=== PATIENT | female | born 1985 | race Caucasian/White ===

== ENCOUNTER → 2019-02-14 20:00 | Outpatient (CLI) | payer MEDICAID, SELFPAY | PROVIDERS: Family Provider Internal Medicine; PCP Internal Medicine; Referring Provider Psychiatry & Neurology Neurology; Visit Provider Psychiatry & Neurology Neurology | DX: G47.33 Obstructive sleep apnea (adult) (pediatric) (principal) | CPT/HCPCS: 95810 ==

== ENCOUNTER → 2019-03-24 16:43 | Outpatient (CLI) | payer MEDICAID, SELFPAY ==
[2018-07-01 14:18] VITALS: BMI 44.6
[2019-03-24 20:26] LABS: Chlamydia Trachomatis by PCR Negative (Negative); Neisserai gonorrhoeae by PCR Negative (Negative); Probe Check PASS; Sample Adequacy Control PASS; Specimen Processing Control PASS
== END ==
PROVIDERS: Visit Provider Obstetrics & Gynecology
DX: Z11.3 Encounter for screening for infections with a predominantly sexual mode of transmission (principal)
CPT/HCPCS: 87491; 87591

== ENCOUNTER → 2019-05-07 07:12 | Outpatient (CLI) | payer MEDICAID, SELFPAY ==
--- NOTE | 2019-05-07 07:25 | MRI_ITS ---
STUDY: MRI BRAIN WITH AND WITHOUT CONTRAST REASON FOR EXAM: Female, 33 years old. Chronic recurrent headaches. TECHNIQUE: Standardized multiplanar fat and water weighted pulse sequences were obtained. 28 IV Dotarem was administered for the contrast portion of the examination. COMPARISON: 05/21/2012 MRI brain. FINDINGS: Normal size of the ventricles and extra-axial spaces for the patient's age. Punctate bifrontal FLAIR/T2 white matter hyperintensities are chronic and unchanged. Normal bilateral basal ganglia. Normal thalami. There is no extra-axial fluid accumulation. Normal flow voids within the major intracranial circulation suggesting patency by spin echo criteria. Normal venous enhancement. There is no enhancing intra-axial or extra-axial abnormality. Normal sella turcica, pituitary gland, infundibular stalk, optic chiasm and hypothalamus. Normal tectal plate and pineal gland. Normal midbrain, rias and medulla. Normal cerebellum. Normal basal cisterns. Normal bilateral temporal bones. Normal bilateral internal auditory canals. No demonstrated orbital abnormality, within the constraints of a routine brain study. Normal visualized paranasal sinuses. Normal calvarium and skull base. Normal visualized soft tissue structures. Normal visualized upper cervical spine. MRI/Brain W/WO Contrast IMPRESSION: No acute or concerning findings. No significant change compared to the previous MRIs. Electronically Signed: Eriberto Lim, at 9:28 EDT Tel , Service support ,
== END ==
PROVIDERS: Family Provider Internal Medicine; PCP Internal Medicine; Referring Provider Psychiatry & Neurology Neurology; Visit Provider Psychiatry & Neurology Neurology
DX: R51 Headache (principal)
CPT/HCPCS: 70553; A9575

== ENCOUNTER 2019-07-15 16:48 | Emergency (ER) | payer MEDICAID, SELFPAY ==
[2019-07-15 16:51] VITALS: BP 161/93; PULSE 96; RESP 14; TEMP 36.4; O2SAT 100; BMI 45.1
--- NOTE | 2019-07-15 16:59 | CT_ITS ---
STUDY: CT ABDOMEN AND PELVIS WITHOUT CONTRAST REASON FOR EXAM: Female, 33 years old. Low mid abdominal pain. History of cholecystectomy and appendectomy. History of IUD. RADIATION DOSAGE (If Supplied By Facility): CTDIvol = ( 24.10 ) mGy, DLP = ( 1378.98 ) mGycm TECHNIQUE: Transaxial images were obtained from the dome of the diaphragm to the symphysis pubis without oral contrast, and without intravenous contrast. Sagittal and coronal images were reconstructed. Individualized dose optimization techniques were used for this CT. COMPARISON: June 01, 2016. FINDINGS: The visualized lung bases are unremarkable. The visualized portions of the heart are within normal limits. Normal liver. There are surgical clips in the gallbladder fossa consistent with a prior cholecystectomy. Normal spleen. Normal pancreas. Normal bilateral adrenal glands. Normal right kidney. Normal left kidney. Normal visualized ureters. Normal visualized stomach. Normal small intestine. There is scattered sigmoid diverticuli without acute inflammatory change. The proximal colon is grossly normal. There are surgical clips in the region of the appendix consistent with a prior appendectomy. Normal abdominal aorta. Normal inferior vena cava. Normal retroperitoneum. Normal urinary bladder. No IUD seen centrally within the otherwise normal-appearing anteverted uterus. There is a prominent left ovary, measuring 6.0 x 4.0 x 4.0 cm normal right adnexa. There is no pelvic lymphadenopathy. No free air or free fluid is seen within the peritoneal cavity. Normal abdominal wall. Normal osseous structures. CT/Abdomen/Pelvis without Cont IMPRESSION: 1. Enlarged left ovary. Question cysts. 2. Interval placement of an IUD within the uterus. 3. Interval appendectomy. 4. No other major interval change. Electronically Signed: Keny Maldonado DO at 18:42 EST Tel [phone], Service support ,
--- NOTE | 2019-07-15 17:07 | ED.VISSUMM ---
- ER Visit Summary Date of Service: 07/15/19 Chief Complaint: Abdominal pain History of Present Illness: The patient is a 33 F presenting with abdominal pain. She states this started approximately 1 hour ago. Pain is in the low mid abdomen. She denies nausea, vomiting, diarrhea. Denies constipation. Denies fever. Denies urinary complaints. She states she ate a normal meal today. Her last menstrual. period was 2 weeks ago. Denies vaginal discharge or bleeding. Denies other complaints. She has a history of previous appendectomy and cholecystectomy. Physical Examination: Vitals are stable. Patient is afebrile. Alert no acute distress. HEENT exam is unremarkable. Neck is supple. Lungs are clear and equal bilaterally. Heart is regular rate and rhythm. Abdomen is soft mild suprapubic tenderness with no guarding or rebound Extremities are unremarkable. Skin is warm and dry. Remainder of exam is unremarkable. Emergency Department Course and Treatment: Patient was given morphine, Zofran IV. CBC, chemistries unremarkable. Urinalysis is normal. hCG negative. CT abdomen pelvis shows enlarged left ovary. Question cysts. Interval placement of an IUD within the uterus. Interval appendectomy. No other major interval change. Pelvic ultrasound shows large complex cystic structure in the left ovary. This would account for the enlarged ovary seen on CT. Normal right ovary. IUD in satisfactory position without evidence of uterine abnormality. On reevaluation, patient is resting comfortably. She is given prescription for naproxen. Advised to follow-up with METAL POLISHER AND BUFFER APPRENTICE. Advised return to ED for worsening complaints. Disposition: Discharge home Impression: Left ovarian cyst This note was generated with [employer] dictation software. It may contain incorrect words, spelling, and punctuation that were not noted in review of the chart prior to signing ED Disposition - Plan for ED Patient: Instructions: Ovarian Cyst Prescriptions: Naproxen [Naprosyn] 500 mg PO BID PRN #20 tab Prescription Printed Referrals: Solis Martino MD [Primary Care Provider] - Lisandra Navarrete MD [STAFF PHYSICIAN] -
[2019-07-15] MEDS: Morphine 4 MG/ML Syringe IV (17:26)
[2019-07-15] MEDS: Ondansetron 4 MG/2 ML Vial IV (17:26)
[2019-07-15 17:29] LABS: Absolute Lymphocyte Count 2.39 X10^3/uL (0.83-4.51); Absolute Neutrophil Count 5.3 X10^3/uL (2.0-7.7); Basophil# 0.03 X10^3/uL; Basophil% 0.4 % (0-1); Eosinophils% 1.2 % (0-5); Hematocrit 42.6 % (37-47); Hemoglobin 13.6 g/dL (12.0-15.0); Lymphocyte # 2.39 X10^3/ul (4.0); Lymphocyte % 28.2 % (19-41); Mean Corp Hgb Conc 31.9 g/dL (32-36); Mean Corpuscular Hgb 28.3 pg (27.0-32.0); Mean Corpuscular Volume 88.6 fL (81-99); Mean Platelet Vol. 10.1 fl (6.2-12.0); Monocyte% 7.1 % (0-10); NRBC Flagged by Analyzer 0 % (0-5); Neutrophil # 5.32 X10^3/uL (2.7-7.7); Neutrophil % 62.6 % (47-70); Platelet Count 287 K/mm3 (150-450); RBC Distribution Width CV 13.2 % (11.6-14.6); RBC Distribution Width SD 42.6 fl (35.1-43.9); Red Blood Count 4.81 M/mm3 (4.2-5.4); White Blood Count 8.5 K/mm3 (4.4-11.0)
[2019-07-15 17:34] LABS: Bacteria 0 SEEN /hpf (None Seen); Mucous, Urine 0 SEEN /hpf (<or=2+); Red Blood Cells-Urine 0 SEEN /hpf (0-5); White Blood Cells 0 SEEN /hpf (0-5)
[2019-07-15 17:35] LABS: Color, Urine Yellow (Yellow); Glucose, Dipstick Normal (Normal); Ketone-Dipstick Negative (Negative); Leukocyte Esterase-Dipstick Negative /ul (Negative); Nitrite-Dipstick Negative (Negative); Occult Blood-Urine Negative /ul (Negative); Protein-Dipstick Negative (Negative); Urine Bilirubin Dipstick Negative (Negative); Urine Clarity Clear (Clear); Urine Urobilinogen Normal (Normal)
[2019-07-15 17:45] LABS: Anion Gap 7 (5-15); BUN 13 mg/dL (7-18); BUN/Creat Ratio 13.6 RATIO (10-20); Calcium,Total 9.1 mg/dL (8.5-10.1); Chloride 107 mmol/L (98-107); Creatinine, Serum 0.96 mg/dL (0.55-1.02); EST Glomerular Filtration Rate 71 mL/min (>60); Est Glom Filt Rate - Afr Amer 86 mL/min (>60); Estimated Creatinine Clearance 90.13 ml/min; Glucose 76 mg/dL (74-106); Potassium 3.8 mmol/L (3.5-5.1); Sodium Level 140 mmol/L (136-145)
[2019-07-15 17:46] LABS: Squamous Epithelial Cells - UA 0-5 SEEN /hpf (5-10)
[2019-07-15 18:04] LABS: Internal QC Validated? YES +Cl - CLEAR BKGD; Pregnancy, Serum, hCG Quali. NEGATIVE Negative
--- NOTE | 2019-07-15 18:48 | US_ITS ---
STUDY: ULTRASOUND OF THE FEMALE PELVIS - COMPLETE REASON FOR EXAM: Female, 33 years old. Severe midline pelvic pain which is no improving. LMP: June 27, 2019. TECHNIQUE: Transvaginal TECHNICAL QUALITY: Adequate. COMPARISON: CT of the abdomen and pelvis, July 15, 2019. FINDINGS: The uterus is anteverted and is in a midline position. The uterus measures 8.1 x 5.1 x 3.4 cm. There is a Nabothian cyst of the cervix. The endometrium measures 9 mm in thickness, and is hyperechoic. There is no demonstrated endometrial mass. There is no demonstrated myometrial mass. There is no IUD in satisfactory position within the fundal endometrium. The right ovary is visualized. The right ovary measures 3.1 x 2.5 x 1.7 cm. There are multiple follicles of the right ovary with a dominant 1.1 cm follicle. There is no visualized right adnexal mass or complex lesion. There is normal arterial and normal venous vascularity. The left ovary is visualized. The left ovary measures 4.9 x 4.5 x 3.8 cm. There is a complex 4.1 x 3.6 x 3.2 cm cystic structure in the ovary. There is no visualized left adnexal mass or complex lesion. There is normal arterial and normal venous vascularity. There is no fluid in the cul-de-sac. Polycystic ovary disease: No. US/Transvaginal Non- IMPRESSION: 1. Large complex cystic structure in the left ovary. This would account for the enlarged ovary seen on CT. 2. Normal right ovary. 3. IUD in satisfactory position without evidence of uterine abnormality. Electronically Signed: Keny Maldonado DO at 19:40 EST Tel [phone], Service support ,
[2019-07-15 19:00] VITALS: BP 150/91; PULSE 86; RESP 14; O2SAT 100
--- NOTE | 2019-07-15 20:06 | ED.DEP ---
ED Disposition - Plan for ED Patient: Instructions: Ovarian Cyst Prescriptions: Naproxen [Naprosyn] 500 mg PO BID PRN #20 tablet Referrals: Solis Martino MD [Primary Care Provider] - Lisandra Navarrete MD [STAFF PHYSICIAN] -
[2019-07-15 20:20] VITALS: BP 132/97; PULSE 78; RESP 14; O2SAT 98
== END 2019-07-15 20:20 | disposition home or self-care (01) ==
LOC: ED 17:06
PROVIDERS: Emergency Provider Emergency Medicine; Family Provider Internal Medicine; PCP Internal Medicine
DX: N83.202 Unspecified ovarian cyst, left side (principal); Z90.49 Acquired absence of other specified parts of digestive tract; Z97.5 Presence of (intrauterine) contraceptive device
CPT/HCPCS: 74176; 76830; 80048; 81001; 84703; 85025; 93976; 96374; 96375; 99285; A4216; J2405

== ENCOUNTER → 2019-09-23 13:59 | Outpatient (CLI) | payer MEDICAID, SELFPAY ==
--- NOTE | 2019-09-23 14:01 | US_ITS ---
HISTORY: Left ovarian cyst. IUD. Exam is 65 endovaginal images of the pelvis. A single endovaginal cine clip is present of the left adnexa. The transabdominal pelvic ultrasound has been performed, but is not part of this dictation but is available for comparison. A previous endovaginal ultrasound is from July 15, 2019. A hemorrhagic follicle versus endometrioma was present on the left ovary at that time. A CT scan of the abdomen and pelvis is also available from July 15, 2019 demonstrated the enlargement of the left ovary. The CT scan is also available from June 01, 2016, which failed to demonstrate any enlargement left ovary. Findings: Exophytic to the left ovary is an anechoic structure with well-defined margins and increased through transmission. It measures 1.5 x 1.4 x 1.5 cm, and is consistent with a benign simple cyst. Within the left ovary there is a more complex area of tissue measuring 1.5 x 1 point to buy 0.8 cm. This could be several adjacent follicles. Overall the left ovary is measured at 2.7 x 1.8 x 2.2 cm. This measurement does not include the exophytic lateral inferior left ovarian simple cyst. Color and pulse-wave Doppler imaging demonstrate arterial flow to left ovarian parenchyma. The right ovary measures 3.2 x 2.5 x 2.1 cm. The right ovary contains normal-appearing follicles. Color Doppler imaging suggests flow within the right ovarian parenchyma. Pulse-wave Doppler imaging suggests arterial flow within the right ovarian parenchyma. The cervix is closed. An IUD is present within the region of the endometrial canal. The uterus measures 8.6 x 4 x 4.9 cm. There are no fluid collections or large masses. US/Pelvic (Non ) IMPRESSION: The lesion that appeared to be a hematoma within the left ovary from the previous study of July 15, 2019 is no longer identified. It is possible that this lesion has completely resolved, and the patient has developed an exophytic follicle on the left ovary. It is also feasible that the lesion has shrunken in size and converted to a benign simple cyst exophytic to the left ovary. Additional follicles are present on both ovaries. at 0500 Reported and signed by: Hector Mary MD Electronically Signed: Hector Mary MD at 4:59 EST Tel , Service support ,
--- NOTE | 2019-09-23 14:48 | US_ITS ---
HISTORY: Left ovarian cyst. IUD. Exam is 65 endovaginal images of the pelvis. A single endovaginal cine clip is present of the left adnexa. The transabdominal pelvic ultrasound has been performed, but is not part of this dictation but is available for comparison. A previous endovaginal ultrasound is from July 15, 2019. A hemorrhagic follicle versus endometrioma was present on the left ovary at that time. A CT scan of the abdomen and pelvis is also available from July 15, 2019 demonstrated the enlargement of the left ovary. The CT scan is also available from June 01, 2016, which failed to demonstrate any enlargement left ovary. Findings: Exophytic to the left ovary is an anechoic structure with well-defined margins and increased through transmission. It measures 1.5 x 1.4 x 1.5 cm, and is consistent with a benign simple cyst. Within the left ovary there is a more complex area of tissue measuring 1.5 x 1 point to buy 0.8 cm. This could be several adjacent follicles. Overall the left ovary is measured at 2.7 x 1.8 x 2.2 cm. This measurement does not include the exophytic lateral inferior left ovarian simple cyst. Color and pulse-wave Doppler imaging demonstrate arterial flow to left ovarian parenchyma. The right ovary measures 3.2 x 2.5 x 2.1 cm. The right ovary contains normal-appearing follicles. Color Doppler imaging suggests flow within the right ovarian parenchyma. Pulse-wave Doppler imaging suggests arterial flow within the right ovarian parenchyma. The cervix is closed. An IUD is present within the region of the endometrial canal. The uterus measures 8.6 x 4 x 4.9 cm. There are no fluid collections or large masses. US/Transvaginal Non- IMPRESSION: The lesion that appeared to be a hematoma within the left ovary from the previous study of July 15, 2019 is no longer identified. It is possible that this lesion has completely resolved, and the patient has developed an exophytic follicle on the left ovary. It is also feasible that the lesion has shrunken in size and converted to a benign simple cyst exophytic to the left ovary. Additional follicles are present on both ovaries. at 0500 Reported and signed by: Hector Mary MD Electronically Signed: Hector Mary MD at 4:59 EST Tel , Service support ,
== END ==
PROVIDERS: Family Provider Internal Medicine; PCP Internal Medicine; Referring Provider Obstetrics & Gynecology; Visit Provider Obstetrics & Gynecology
DX: N83.202 Unspecified ovarian cyst, left side (principal); R10.2 Pelvic and perineal pain
CPT/HCPCS: 76830; 76856; 93976

== ENCOUNTER → 2020-02-27 15:21 | Outpatient (CLI) | payer MEDICAID, SELFPAY ==
[2020-02-27 14:55] VITALS: BMI 45.1
[2020-02-27 17:05] LABS: Absolute Lymphocyte Count 1.95 X10^3/uL (0.83-4.51); Absolute Neutrophil Count 5.8 X10^3/uL (2.0-7.7); Basophil# 0.03 X10^3/uL; Basophil% 0.4 % (0-1); Eosinophil# 0.04 X10^3/uL; Eosinophils% 0.5 % (0-5); Hematocrit 38.2 % (37-47); Lymphocyte # 1.95 X10^3/ul (4.0); Lymphocyte % 23.1 % (19-41); Mean Corp Hgb Conc 31.4 g/dL (32-36); Mean Corpuscular Hgb 28.2 pg (27.0-32.0); Mean Corpuscular Volume 89.7 fL (81-99); Mean Platelet Vol. 10.5 fl (6.2-12.0); Monocyte# 0.64 X10^3/uL; Monocyte% 7.6 % (0-10); NRBC Flagged by Analyzer 0 % (0-5); Neutrophil # 5.75 X10^3/uL (2.7-7.7); Neutrophil % 68.2 % (47-70); Platelet Count 305 K/mm3 (150-450); RBC Distribution Width SD 45.4 fl (35.1-43.9); Red Blood Count 4.26 M/mm3 (4.2-5.4); White Blood Count 8.4 K/mm3 (4.4-11.0)
[2020-02-27 17:33] LABS: T4 Free Direct 1.11 ng/dL (0.76-1.46); Thyroid Stim Hormone (TSH) 1.58 uIU/mL (0.358-3.74)
== END ==
PROVIDERS: PCP Internal Medicine; Referring Provider Internal Medicine; Visit Provider Internal Medicine
DX: F41.9 Anxiety disorder, unspecified (principal); F32.9 Major depressive disorder, single episode, unspecified
CPT/HCPCS: 36415; 84439; 84443; 85025

== ENCOUNTER 2020-05-14 14:00 | Emergency (ER) | payer MEDICAID, SELFPAY ==
[2020-05-05 14:09] VITALS: BMI 45.1
[2020-05-14 14:01] VITALS: BP 141/101; PULSE 92; RESP 16; TEMP 36.4; O2SAT 98; BMI 47.6
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
--- NOTE | 2020-05-14 15:35 | CM.ED ---
SOCIAL WORK Safety plan completed with patient and patient's mother. Received call back from Zandra Shipley with Odette Fleming while in patient's room. Per Zandra, patient's provider who completed intake went on medical leave May 11. Zandra states patient can call provider, Zoya to set up appointment. Patient to call Zoya at this time, contact numbers provided. Plan: Home, Safety Plan completed. Patient to follow up with Odette Pemberton, BULLET SWAGING MACHINE ADJUSTER, SHIP ENGINEER
== END 2020-05-14 15:46 | disposition home or self-care (01) ==
LOC: ED 15:24
PROVIDERS: Emergency Provider Emergency Medicine; PCP Internal Medicine
DX: F32.9 Major depressive disorder, single episode, unspecified (principal); R45.851 Suicidal ideations; R51 Headache
CPT/HCPCS: 99282

== ENCOUNTER → 2020-08-03 14:46 | Outpatient (CLI) | payer MEDICAID, SELFPAY ==
[2020-06-30 14:02] VITALS: BMI 47.4
[2020-08-07 03:06] LABS: Chlamydia By Nucleic Acid AMP Negative (Negative)
[2020-08-07 08:04] LABS: Gonococcus By Nucleic Acid AMP Negative (Negative)
[2020-08-10 15:24] LABS: HPV APTIMA, High Risk Negative (Negative)
== END ==
PROVIDERS: PCP Internal Medicine; Visit Provider Obstetrics & Gynecology
DX: Z12.4 Encounter for screening for malignant neoplasm of cervix (principal); Z11.3 Encounter for screening for infections with a predominantly sexual mode of transmission
CPT/HCPCS: 87491; 87591; 87624; 88175; G0145

== ENCOUNTER → 2020-08-30 15:15 | Outpatient (CLI) | payer MEDICAID, SELFPAY ==
[2020-08-30 14:58] VITALS: BMI 47.2
[2020-08-30 17:11] LABS: Absolute Lymphocyte Count 2.22 X10^3/uL (0.83-4.51); Absolute Neutrophil Count 5.2 X10^3/uL (2.0-7.7); Basophil# 0.04 X10^3/uL; Basophil% 0.5 % (0-1); Eosinophil# 0.07 X10^3/uL; Eosinophils% 0.9 % (0-5); Hematocrit 38.9 % (37-47); Lymphocyte # 2.22 X10^3/ul (4.0); Lymphocyte % 27.4 % (19-41); Mean Corp Hgb Conc 33.4 g/dL (32-36); Mean Corpuscular Hgb 29.6 pg (27.0-32.0); Mean Corpuscular Volume 88.6 fL (81-99); Mean Platelet Vol. 10.7 fl (6.2-12.0); Monocyte% 7.4 % (0-10); NRBC Flagged by Analyzer 0 % (0-5); Neutrophil # 5.15 X10^3/uL (2.7-7.7); Neutrophil % 63.6 % (47-70); Platelet Count 278 K/mm3 (150-450); RBC Distribution Width CV 15.7 % (11.6-14.6); RBC Distribution Width SD 44.3 fl (35.1-43.9); Red Blood Count 4.39 M/mm3 (4.2-5.4); White Blood Count 8.1 K/mm3 (4.4-11.0)
[2020-08-30 17:24] LABS: ALB/GLOB Ratio 0.9 RATIO (0.9-2.4); AST(SGOT) 17 U/L (15-37); Alanine Aminotransfer ALT/SGPT 28 U/L (13-56); Albumin, Serum 3.6 g/dL (3.2-5.0); Alkaline Phosphatase 80 U/L (45-117); Anion Gap 8 (5-15); BUN 15 mg/dL (7-18); Chloride 108 mmol/L (98-107); Cholesterol 151 mg/dL (200); EST Glomerular Filtration Rate 67 mL/min (>60); Est Glom Filt Rate - Afr Amer 82 mL/min (>60); Globulin 3.8 g/dL (2.2-4.2); Glucose 86 mg/dL (74-106); High Density Lipoprotein 43 mg/dL; Protein, Total 7.4 g/dL (6.4-8.2); Sodium Level 141 mmol/L (136-145); Triglycerides 200 mg/dL; Very Low Density Lipoprotein 40 mg/dL (5-40)
== END ==
PROVIDERS: PCP Internal Medicine; Visit Provider Internal Medicine
DX: I10 Essential (primary) hypertension (principal); F41.9 Anxiety disorder, unspecified; F32.9 Major depressive disorder, single episode, unspecified
CPT/HCPCS: 36415; 80053; 80061; 85025

== ENCOUNTER 2021-07-04 14:00 | Outpatient (RCR) | payer MEDICAID, SELFPAY ==
--- NOTE | 2021-05-23 17:13 | HP.PTEVAL_ITS ---
Patient's Visit Information PATO PASTRANA is a 35 year old F referred to Physical Therapy by OPAL Ghotra with a diagnosis of R knee pain. Date of Evaluation: 05/23/21 Physical Therapist: Santos Chiang, PT, ATC - Visit Plan Frequency: 2-3x /Week Duration: 4-6 Weeks Plan: R LE stretching and strengthening, core stab ex's, balance and proprio, nustep, and HEP - Subjective Pt reports her R knee has been sore for about 3 months. Pt reports her pain had an insidious onset in nature. Pt reports she has had a steroids which took some of her pain away, but the pain returned. Pt reports she is limited with all of her sit to stand and car transfers. Pt also notes stair negotiation and riding a bike is very difficult secondary to pain. Pt denies tingling and numbness in L LE. Pt reports occasional sleep difficulty secondary to pain. Pt reports she has not had any Dx tests at this time. 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 Pt reports her R knee will give out on her sometimes. Pt also notes it will lock up and pop on her. 0/10 pain at rest, 10/10 pain at worst. - Pain R knee Pain Intensity (Out of 10): 0 Pain Intensity Range: 10 - Objective Neuro: B LE sensation is WNL to light touch. Palpation: significant crepitus with AROM. No obvious deformity noted at this time. Girth at joint line: L knee 48 cm, R knee 52 cm. ROM: L knee 0-3-122. R knee 0-5-120. MMT: L knee is 5/5 throughout. R knee flex= 5/5, ext= 4/5 and is painful. Special tests: pos 90/90. - Balance/Special Test Scores Lower Extremity Functional Score: 50 - Goals Goal 1:: Decrease R knee pain x 50% to aid with sleep Goal Time Frame: 4-6 Weeks Goal 2:: Increase R knee strength x 1 grade to aid with stair negotiation Goal Time Frame: 4-6 Weeks Goal 3:: I with HEP Goal Time Frame: 4-6 Weeks - Rehabilitation Potential Physical Therapy Diagnosis: Pt has R knee pain, weakness, and limited ROM secondary to Patello-femoral syndrome Rehabilitation Potential: Good - Anticipated Interventions Patient/Client Instruction: Educate patient on: Condition, Plan of Care For the Purpose of:: To improve self management Therapeutic Exercise to Include: Strength training, Endurance training, Balance training, Flexibilty training, Gait and locomotor training, Passive ROM, Active ROM, Dynamic Lumbar Stabilization For the Purpose of:: To decrease pain, To improve muscle performance and motor function Cryotherapy (ice pack, ice massage): Yes For the Purpose of:: To decrease pain Thank you for the opportunity to evaluate your patient. For Medicare and Medicare HMO plans, please review the plan of care and approve it. It will need to be FAXED BACK to us at [phone] for Medicare purposes. For Medicare only, by signing this I certify the plan of care. Please let me know if there are questions or concerns regarding this plan of care. Physician Signature: Date:
--- NOTE | 2021-07-04 14:24 | HP.PTDCSUM ---
It has been my pleasure to treat PATO PASTRANA referred by Bruce Sunshine NP-C, with the diagnosis of R knee pain for a total of 14 visit(s). Discharge Date: Please see the following information for a summary of their discharge status. Subjective: Pt reports she feels like she has really improved up til now. R knee Pain Intensity (Out of 10): 0 % Improvement: 80 Objective/Function: R knee pain 0/10. R knee MMT: 5/5 throughout. Pt is now I with HEP. Rx goals achieved Goal 1:: Decrease R knee pain x 50% to aid with sleep Goal Progress: Goal Met Goal 2:: Increase R knee strength x 1 grade to aid with stair negotiation Goal Progress: Goal Met Goal 3:: I with HEP Goal Progress: Goal Met Plan: Discharge to HEP If there are questions or concerns regarding this patient's physical therapy, please feel free to call me at [phone]. Thank you for the referral of this patient. Sincerely, Santos Chiang, PT, ATC Balance/Gait/Functional tests - Balance/Special Test Scores Lower Extremity Functional Score: 78
== END 2021-07-04 19:00 | disposition home or self-care (01) ==
LOC: PT 14:00
PROVIDERS: PCP Internal Medicine; Referring Provider Nurse Practitioner Family; Visit Provider Nurse Practitioner Family
DX: M25.561 Pain in right knee (principal)
CPT/HCPCS: 97110; 97161; 97164

== ENCOUNTER → 2021-08-12 14:19 | Outpatient (CLI) | payer MEDICAID, SELFPAY ==
[2021-08-12 15:08] LABS: Absolute Lymphocyte Count 1.67 X10^3/uL (0.83-4.51); Absolute Neutrophil Count 4.2 X10^3/uL (2.0-7.7); Basophil# 0.01 X10^3/uL; Basophil% 0.2 % (0-1); Eosinophil# 0.01 X10^3/uL; Eosinophils% 0.2 % (0-5); Hematocrit 36.1 % (37-47); Hemoglobin 11.9 g/dL (12.0-15.0); Lymphocyte # 1.67 X10^3/ul (0.83-4.51); Lymphocyte % 26.3 % (19-41); Mean Corpuscular Hgb 29.2 pg (27.0-32.0); Mean Corpuscular Volume 88.5 fL (81-99); Mean Platelet Vol. 10.4 fl (6.2-12.0); Monocyte# 0.42 X10^3/uL; Monocyte% 6.6 % (0-10); NRBC Flagged by Analyzer 0 % (0-5); Neutrophil # 4.22 X10^3/uL (2.7-7.7); Neutrophil % 66.4 % (47-70); Platelet Count 273 K/mm3 (150-450); RBC Distribution Width CV 13.2 % (11.6-14.6); RBC Distribution Width SD 41.8 fl (35.1-43.9); Red Blood Count 4.08 M/mm3 (4.2-5.4); White Blood Count 6.4 K/mm3 (4.4-11.0)
[2021-08-12 15:41] LABS: ALB/GLOB Ratio 0.9 RATIO (0.9-2.4); AST(SGOT) 23 U/L (15-37); Alanine Aminotransfer ALT/SGPT 28 U/L (13-56); Albumin, Serum 3.6 g/dL (3.2-5.0); Alkaline Phosphatase 75 U/L (45-117); Anion Gap 6 (5-15); BUN 14 mg/dL (7-18); BUN/Creat Ratio 14.5 RATIO (10-20); Calcium,Total 9.4 mg/dL (8.5-10.1); Chloride 109 mmol/L (98-107); Cholesterol 155 mg/dL (200); Creatinine, Serum 0.96 mg/dL (0.55-1.02); EST Glomerular Filtration Rate 70 mL/min (>60); Est Glom Filt Rate - Afr Amer 84 mL/min (>60); Globulin 3.8 g/dL (2.2-4.2); Glucose 100 mg/dL (74-106); High Density Lipoprotein 49 mg/dL; Potassium 3.6 mmol/L (3.5-5.1); Protein, Total 7.4 g/dL (6.4-8.2); Sodium Level 141 mmol/L (136-145); Triglycerides 61 mg/dL; Very Low Density Lipoprotein 12 mg/dL (5-40)
[2021-08-12 16:55] LABS: Thyroid Stim Hormone (TSH) 1.81 uIU/mL (0.358-3.74)
== END ==
PROVIDERS: PCP Internal Medicine; Referring Provider Nurse Practitioner Family; Visit Provider Nurse Practitioner Family
DX: F41.9 Anxiety disorder, unspecified (principal); F32.9 Major depressive disorder, single episode, unspecified; I10 Essential (primary) hypertension; G43.909 Migraine, unspecified, not intractable, without status migrainosus
CPT/HCPCS: 36415; 80053; 80061; 84443; 85025; 86376; 86800

== ENCOUNTER → 2021-12-06 14:50 | Outpatient (CLI) | payer MEDICAID, SELFPAY ==
[2021-12-06 16:21] LABS: T3 Uptake 31 % (30-39); T4 Free Direct 1.26 ng/dL (0.76-1.46); T4 Total, Thyroxin 12.1 ug/dL (4.8-13.9); T7 / Free Thyroxin Index 3.8 (1.4-4.5); Thyroid Stim Hormone (TSH) 1.97 uIU/mL (0.358-3.74)
== END ==
PROVIDERS: PCP Internal Medicine
DX: F09 Unspecified mental disorder due to known physiological condition (principal)
CPT/HCPCS: 36415; 84436; 84439; 84443; 84479

== ENCOUNTER → 2022-06-12 | Outpatient (CLI) | payer MEDICAID, SELFPAY ==
[2022-06-12 15:28] LABS: Mucous, Urine 0 SEEN /hpf (<or=2+)
[2022-06-12 16:59] LABS: Color, Urine Yellow (Yellow); Glucose, Dipstick Normal (Normal); Ketone-Dipstick 5 mg/dl (Negative); Leukocyte Esterase-Dipstick 500 /ul (Negative); Nitrite-Dipstick Negative (Negative); Occult Blood-Urine 50 /ul (Negative); Protein-Dipstick 30 mg/dl (Negative); Specific Gravity, Urine 1.025 (1.002-1.030); Urine Bilirubin Dipstick Negative (Negative); Urine Clarity Sl. Cloudy (Clear); Urine Urobilinogen Normal (Normal)
[2022-06-12 17:13] LABS: Bacteria 1+ /hpf (None Seen); Red Blood Cells-Urine 0-5 SEEN /hpf (0-5); Squamous Epithelial Cells - UA 0-5 SEEN /hpf (5-10); White Blood Cells 5-10 SEEN /hpf (0-5)
== END | disposition home or self-care (01) ==
LOC: LABSPEC 15:25
PROVIDERS: PCP Internal Medicine; Referring Provider Physician Assistant; Visit Provider Physician Assistant
DX: R39.9 Unspecified symptoms and signs involving the genitourinary system (principal)
CPT/HCPCS: 81001; 87086; 87088

== ENCOUNTER → 2022-06-14 | Outpatient (CLI) | payer MEDICAID, SELFPAY ==
[2022-06-14 15:37] LABS: Mucous, Urine 0 SEEN /hpf (<or=2+); Red Blood Cells-Urine 0 SEEN /hpf (0-5)
[2022-06-14 16:38] LABS: Color, Urine Straw (Yellow); Glucose, Dipstick Normal (Normal); Ketone-Dipstick Negative (Negative); Leukocyte Esterase-Dipstick 500 /ul (Negative); Nitrite-Dipstick Negative (Negative); Occult Blood-Urine Negative /ul (Negative); Protein-Dipstick Negative (Negative); Urine Bilirubin Dipstick Negative (Negative); Urine Clarity Clear (Clear); Urine Urobilinogen Normal (Normal)
[2022-06-14 17:05] LABS: Bacteria 2+ /hpf (None Seen); Squamous Epithelial Cells - UA 0-5 SEEN /hpf (5-10); White Blood Cells 5-10 SEEN /hpf (0-5)
== END | disposition home or self-care (01) ==
LOC: LABSPEC 15:36
PROVIDERS: PCP Internal Medicine; Referring Provider Physician Assistant; Visit Provider Physician Assistant
DX: R39.15 Urgency of urination (principal); R35.0 Frequency of micturition
CPT/HCPCS: 81001; 87086; 87088

== ENCOUNTER → 2022-08-30 | Outpatient (CLI) | payer MEDICAID, SELFPAY ==
[2022-08-30 15:33] LABS: Absolute Lymphocyte Count 1.63 X10^3/uL (0.83-4.51); Absolute Neutrophil Count 2.8 X10^3/uL (2.0-7.7); Basophil# 0.02 X10^3/uL; Basophil% 0.4 % (0-1); Eosinophil# 0.03 X10^3/uL; Eosinophils% 0.6 % (0-5); Hematocrit 42.4 % (37-47); Hemoglobin 13.1 g/dL (12.0-15.0); Lymphocyte # 1.63 X10^3/ul (0.83-4.51); Mean Corp Hgb Conc 30.9 g/dL (32-36); Mean Corpuscular Hgb 27.5 pg (27.0-32.0); Mean Corpuscular Volume 89.1 fL (81-99); Mean Platelet Vol. 10.8 fl (6.2-12.0); Monocyte# 0.46 X10^3/uL; Monocyte% 9.3 % (0-10); NRBC Flagged by Analyzer 0 % (0-5); Neutrophil # 2.79 X10^3/uL (2.7-7.7); Neutrophil % 56.5 % (47-70); Platelet Count 287 K/mm3 (150-450); RBC Distribution Width CV 13.5 % (11.6-14.6); RBC Distribution Width SD 44.1 fl (35.1-43.9); Red Blood Count 4.76 M/mm3 (4.2-5.4); White Blood Count 4.9 K/mm3 (4.4-11.0)
[2022-08-30 16:02] LABS: Anion Gap 5 (5-15); BUN 17 mg/dL (7-18); BUN/Creat Ratio 22.3 RATIO (10-20); Calcium,Total 9.2 mg/dL (8.5-10.1); Chloride 106 mmol/L (98-107); Cholesterol 168 mg/dL (200); Creatinine, Serum 0.76 mg/dL (0.55-1.02); EST Glomerular Filtration Rate 91 mL/min (>60); Est Glom Filt Rate - Afr Amer 110 mL/min (>60); Glucose 91 mg/dL (74-106); High Density Lipoprotein 50 mg/dL; Potassium 4.4 mmol/L (3.5-5.1); Sodium Level 138 mmol/L (136-145); Thyroid Stim Hormone (TSH) 1.56 uIU/mL (0.358-3.74); Triglycerides 79 mg/dL; Very Low Density Lipoprotein 16 mg/dL (5-40)
== END | disposition home or self-care (01) ==
LOC: BIMLAB 10:42
PROVIDERS: PCP Internal Medicine; Referring Provider Nurse Practitioner Family; Visit Provider Nurse Practitioner Family
DX: Z00.00 Encounter for general adult medical examination without abnormal findings (principal); I10 Essential (primary) hypertension; F41.9 Anxiety disorder, unspecified; F32.9 Major depressive disorder, single episode, unspecified
CPT/HCPCS: 36415; 80048; 80061; 84443; 85025

== ENCOUNTER → 2022-11-14 | Outpatient (CLI) | payer MEDICAID, SELFPAY ==
[2022-11-14 17:01] LABS: Absolute Lymphocyte Count 2.05 X10^3/uL (0.83-4.51); Absolute Neutrophil Count 6.1 X10^3/uL (2.0-7.7); Basophil# 0.03 X10^3/uL; Basophil% 0.3 % (0-1); Eosinophil# 0.02 X10^3/uL; Eosinophils% 0.2 % (0-5); Hematocrit 40.8 % (37-47); Hemoglobin 13.1 g/dL (12.0-15.0); Lymphocyte # 2.05 X10^3/ul (0.83-4.51); Lymphocyte % 23.3 % (19-41); Mean Corp Hgb Conc 32.1 g/dL (32-36); Mean Corpuscular Hgb 27.9 pg (27.0-32.0); Mean Corpuscular Volume 86.8 fL (81-99); Monocyte# 0.59 X10^3/uL; Monocyte% 6.7 % (0-10); NRBC Flagged by Analyzer 0 % (0-5); Neutrophil # 6.09 X10^3/uL (2.7-7.7); Neutrophil % 69.2 % (47-70); Platelet Count 326 K/mm3 (150-450); RBC Distribution Width CV 13.4 % (11.6-14.6); RBC Distribution Width SD 41.9 fl (35.1-43.9); White Blood Count 8.8 K/mm3 (4.4-11.0)
[2022-11-14 17:22] LABS: Thyroid Stim Hormone (TSH) 2.36 uIU/mL (0.358-3.74)
== END | disposition home or self-care (01) ==
LOC: LAB 16:10
PROVIDERS: PCP Internal Medicine; Visit Provider Nurse Practitioner Women's Health
DX: N92.1 Excessive and frequent menstruation with irregular cycle (principal); Z13.29 Encounter for screening for other suspected endocrine disorder
CPT/HCPCS: 36415; 84443; 85025

== ENCOUNTER → 2022-11-21 | Outpatient (CLI) | payer MEDICAID, SELFPAY ==
--- NOTE | 2022-11-21 14:00 | EMB_PTH ---
PATIENT: PATO PASTRANA LOC: [facility] U#:[id number] AGE/SX: 37/F ROOM: RE11/21/[address]: OPAL Piedra : 1985 BED: DIS: 11/21/2022 SPEC #: [id number] RECD: 11/21/22 15:24 STATUS: JOSE MANUEL REAta #: [id number] EWELINA: 11/21/22 14:[address]: Sandrita Carnes NP DEPT: SURGICAL PATHOLOGY RECD BY: Aneta Louis ENTERED: 11/22/22 08:00 SP TYPE: ENDOM BX/C SHAE DR: Dr. Solis Martino MD Tissues: Endometrium, NOS Procedures: Surgery Specimen Level IV HEADER OPERATION: Endometrial biopsy PRE-OP DIAGNOSIS: Abnormal uterine bleeding TISSUE SUBMITTED: Endometrial tissue on Aygestin MICROSCOPIC DIAGNOSIS Endometrial biopsy: Weakly secretory endometrium. SJ:miroslava 11/23/2022 MICROSCOPIC DESCRIPTION Slides are reviewed. GROSS DESCRIPTION Received is one container labeled with the patient's name and not further designated. The specimen consists of multiple fragments of hemorrhagic soft tissue mixed with mucoid tissue that in aggregate measure 3.0 x 2.5 x 0.2 cm. The specimen is totally submitted in one cassette. / SJ:rg 11/22/2022 TC:5 CPT: 88012
== END | disposition home or self-care (01) ==
LOC: LABSPEC 15:34
PROVIDERS: PCP Internal Medicine; Visit Provider Nurse Practitioner Women's Health
DX: N93.9 Abnormal uterine and vaginal bleeding, unspecified (principal)
CPT/HCPCS: 88305

== ENCOUNTER → 2022-11-22 | Outpatient (CLI) | payer MEDICAID, SELFPAY ==
--- NOTE | 2022-11-22 14:19 | US_ITS ---
STUDY: ULTRASOUND OF THE FEMALE PELVIS - COMPLETE REASON FOR EXAM: Female, 37 years old. bleeding LMP: 11/01/2022 TECHNIQUE: Transabdominal and Transvaginal TECHNICAL QUALITY: Adequate. COMPARISON: None. FINDINGS: The uterus is anteverted and is in a midline position. The uterus measures 8.7 x 4.9 x 5.2 cm. Normal uterine cervix. The endometrium measures 7 mm in thickness, and is hyperechoic. There is no demonstrated endometrial mass. There is no demonstrated myometrial mass. I.U.D. - The patient does have an I.U.D. IUD noted in satisfactory position The right ovary is visualized. The right ovary measures 2.0 x 1.7 x 1.2 cm. There is no right ovarian cyst or ovarian mass. There is no visualized right adnexal mass or complex lesion. There is normal arterial and normal venous vascularity. The left ovary is visualized. The left ovary measures 2.3 x 2.0 x 1.5 cm. There is a simple 1.4 cm paraovarian cyst. . There is normal arterial and normal venous vascularity. There is no fluid in the cul-de-sac. The bladder is completely distended US/Pelvic (Non ) IMPRESSION: Sonographically normal uterus containing an IUD in satisfactory position Simple left paraovarian cyst, no specific follow-up needed Electronically Signed: Charlie Morris MD at 16:00 EDT ,
--- NOTE | 2022-11-22 14:19 | US_ITS ---
STUDY: ULTRASOUND OF THE FEMALE PELVIS - COMPLETE REASON FOR EXAM: Female, 37 years old. bleeding LMP: 11/01/2022 TECHNIQUE: Transabdominal and Transvaginal TECHNICAL QUALITY: Adequate. COMPARISON: None. FINDINGS: The uterus is anteverted and is in a midline position. The uterus measures 8.7 x 4.9 x 5.2 cm. Normal uterine cervix. The endometrium measures 7 mm in thickness, and is hyperechoic. There is no demonstrated endometrial mass. There is no demonstrated myometrial mass. I.U.D. - The patient does have an I.U.D. IUD noted in satisfactory position The right ovary is visualized. The right ovary measures 2.0 x 1.7 x 1.2 cm. There is no right ovarian cyst or ovarian mass. There is no visualized right adnexal mass or complex lesion. There is normal arterial and normal venous vascularity. The left ovary is visualized. The left ovary measures 2.3 x 2.0 x 1.5 cm. There is a simple 1.4 cm paraovarian cyst. . There is normal arterial and normal venous vascularity. There is no fluid in the cul-de-sac. The bladder is completely distended US/Transvaginal Non- IMPRESSION: Sonographically normal uterus containing an IUD in satisfactory position Simple left paraovarian cyst, no specific follow-up needed Electronically Signed: Charlie Morris MD at 16:00 EDT ,
== END | disposition home or self-care (01) ==
LOC: US 14:18
PROVIDERS: PCP Internal Medicine; Referring Provider Nurse Practitioner Women's Health; Visit Provider Nurse Practitioner Women's Health
DX: N92.1 Excessive and frequent menstruation with irregular cycle (principal)
CPT/HCPCS: 76830; 76856

== ENCOUNTER → 2023-02-26 | Outpatient (CLI) | payer MEDICAID, SELFPAY ==
[2023-02-26 12:22] LABS: Erythrocyte Sedimentation Rate 16 mm/hr (0-30)
[2023-02-26 12:45] LABS: Absolute Lymphocyte Count 1.77 X10^3/uL (0.83-4.51); Absolute Neutrophil Count 3.5 X10^3/uL (2.0-7.7); Basophil# 0.02 X10^3/uL; Basophil% 0.3 % (0-1); Eosinophil# 0.05 X10^3/uL; Eosinophils% 0.8 % (0-5); Hematocrit 43.1 % (37-47); Hemoglobin 13.5 g/dL (12.0-15.0); Lymphocyte # 1.77 X10^3/ul (0.83-4.51); Lymphocyte % 29.9 % (19-41); Mean Corp Hgb Conc 31.3 g/dL (32-36); Mean Corpuscular Hgb 27.7 pg (27.0-32.0); Mean Corpuscular Volume 88.5 fL (81-99); Mean Platelet Vol. 10.4 fl (6.2-12.0); Monocyte# 0.53 X10^3/uL; NRBC Flagged by Analyzer 0 % (0-5); Neutrophil # 3.52 X10^3/uL (2.7-7.7); Neutrophil % 59.5 % (47-70); Platelet Count 296 K/mm3 (150-450); RBC Distribution Width CV 13.6 % (11.6-14.6); RBC Distribution Width SD 43.7 fl (35.1-43.9); Red Blood Count 4.87 M/mm3 (4.2-5.4); White Blood Count 5.9 K/mm3 (4.4-11.0)
[2023-02-26 12:47] LABS: ALB/GLOB Ratio 0.9 RATIO (0.9-2.4); AST(SGOT) 13 U/L (15-37); Alanine Aminotransfer ALT/SGPT 21 U/L (13-56); Albumin, Serum 3.5 g/dL (3.2-5.0); Alkaline Phosphatase 76 U/L (45-117); Anion Gap 8 (5-15); BUN 10 mg/dL (7-18); BUN/Creat Ratio 10.7 RATIO (10-20); Calcium,Total 9.1 mg/dL (8.5-10.1); Chloride 107 mmol/L (98-107); Creatinine, Serum 0.93 mg/dL (0.55-1.02); EST Glomerular Filtration Rate 72 mL/min (>60); Est Glom Filt Rate - Afr Amer 87 mL/min (>60); Globulin 4.1 g/dL (2.2-4.2); Glucose 96 mg/dL (74-106); LDH 186 U/L (84-246); Potassium 3.7 mmol/L (3.5-5.1); Protein, Total 7.6 g/dL (6.4-8.2); Sodium Level 139 mmol/L (136-145)
[2023-02-27 14:09] LABS: Endomysial Antibody IgA Negative (Negative); Immunoglobulin A 130 mg/dL (87-352); t-Transglutaminase IgA <2 U/mL (0-3)
[2023-03-01 19:07] LABS: Anti-Centromere B Ab <0.2 AI (0.0-0.9); Anti-Chromatin <0.2 AI (0.0-0.9); Anti-Jo <0.2 AI (0.0-0.9); Anti-Scleroderma-70 AB <0.2 AI (0.0-0.9); Anti-dsDNA Ab <1 IU/mL (0-9); Beef <0.10 kU/L (Class 0); Chocolate <0.10 kU/L (Class 0); Clam <0.10 kU/L (Class 0); Codfish <0.10 kU/L (Class 0); Corn <0.10 kU/L (Class 0); Egg, White <0.10 kU/L (Class 0); Egg, Whole <0.10 kU/L (Class 0); Milk (Cow) <0.10 kU/L (Class 0); Peanut <0.10 kU/L (Class 0); Pork <0.10 kU/L (Class 0); RNP Ab <0.2 AI (0.0-0.9); SCALLOP <0.10 kU/L (Class 0); SESAME SEED <0.10 kU/L (Class 0); SJOGREN'S Anti-SS-A test < 0.2 AI (0.0-0.9); SJOGREN'S Anti-SS-B test < 0.2 AI (0.0-0.9); Shrimp <0.10 kU/L (Class 0); Smith Ab <0.2 AI (0.0-0.9); Soybean <0.10 kU/L (Class 0); Walnut, (Food) <0.10 kU/L (Class 0); Wheat <0.10 kU/L (Class 0)
[2023-03-02 01:07] LABS: Albumin 3.5 g/dL (2.9-4.4); Alpha-1-Globulins 0.3 g/dL (0.0-0.4); Alpha-2-Globulins 0.8 g/dL (0.4-1.0); Cytoplasmic Ab (C-ANCA) <1:20 titer (Neg:<1:20); Gamma Globulin 1.2 g/dL (0.4-1.8); Immunoglobulin A 128 mg/dL (87-352); Immunoglobulin E 8 IU/mL (6-495); Immunoglobulin G 1013 mg/dL (586-1602); Immunoglobulin M 218 mg/dL (26-217); PROEL- TOTAL PROTEIN 6.8 g/dL (6.0-8.5); Perinuclear Ab (P-ANCA) <1:20 titer (Neg:<1:20)
== END | disposition home or self-care (01) ==
PROVIDERS: PCP Internal Medicine; Referring Provider Internal Medicine Gastroenterology; Visit Provider Internal Medicine Gastroenterology
DX: R15.9 Full incontinence of feces (principal); K58.0 Irritable bowel syndrome with diarrhea
CPT/HCPCS: 36415; 80053; 82784; 82785; 83516; 83615; 84165; 85025; 85652; 86003; 86005; 86140; 86225; 86235; 86255; 86256; 86334

== ENCOUNTER → 2023-02-28 | Outpatient (CLI) | payer MEDICAID, SELFPAY ==
[2023-03-06 16:09] LABS: Pancreatic Elastase, Fecal 245 (>200)
[2023-03-07 19:07] LABS: Calprotectin, Stool 10 ug/g (0-120)
== END | disposition home or self-care (01) ==
PROVIDERS: PCP Internal Medicine; Visit Provider Internal Medicine Gastroenterology
DX: R15.9 Full incontinence of feces (principal); K58.0 Irritable bowel syndrome with diarrhea
CPT/HCPCS: 82653; 83630; 83993; 87177; 87209; 87329; 87493; 87506

== ENCOUNTER → 2023-03-08 | Outpatient (CLI) | payer MEDICAID, SELFPAY ==
[2023-03-15 13:07] LABS: HPV APTIMA, High Risk Negative (Negative)
== END | disposition home or self-care (01) ==
LOC: LABSPEC 13:46
PROVIDERS: PCP Internal Medicine; Referring Provider Obstetrics & Gynecology; Visit Provider Obstetrics & Gynecology
DX: Z12.4 Encounter for screening for malignant neoplasm of cervix (principal)
CPT/HCPCS: 87624; 88175; G0145

== ENCOUNTER 2023-06-27 13:30 | Outpatient (RCR) | payer MEDICAID, SELFPAY ==
--- NOTE | 2023-05-02 14:43 | HP.PTEVAL_ITS ---
Patient's Visit Information Visit Information Visit Information: PATO PASTRANA is a 37 year old F referred to Physical Therapy by Dr. Solis Martino MD with a diagnosis of Right Thigh Pain. Date of Evaluation: 05/02/23 Physical Therapist: Marah Chaparro DPT Visit Plan Frequency: 2x /Week Duration: 4 Weeks Plan: Focus on Core strength/stabilization- HEP Given IE:Glut sets, Seated Piriformis Stretch, Hip abd side lying, Clams without band Subjective Subjective: Patient reports that she has right buttock pain that comes and goes- its starting to get really bad- she has had it for a few months- she has tried stretching like toe touches and massages- and that helped for awhile and then it stopped helping- insidious onset. Worst: 06/19 Agg: happens randomly Eases: staying off her left side. Best: 0/10. Right buttock- does not radiate. Describes the pain as sharp and stabbing pain. No N/T pains. No injuries to the area. 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 No back pain- does have some popping in her hip on that side. Sleep: does not wake her up at night- stomach sleeper- or left side sleeper. No x-rays or MRI. She has tendonitis in her right knee- has had on/off issues since 2002- she is good right now. PMHx/Meds: no change Objective Objective: Posture: FH, RS- can correct but does not maintain- is overweight Gait: no deviation noted- mild increase in hip sway - pes planus SLS: 3 sec bilateral then LOB- moderate hip drop bilateral HR/TR: able with UE A ROM: Lumbar: WFL no pain- Hip/Knee/Ankle: WNL no pain Strength: Ankle: 5/5, Knee:5/5, Hip: Flexion: 4-/5, Abd: 4-/5, Add: 4+/5, IR: 4/5, ER: 4-/5, Extn: 4/5, Core: fair minus Palpation: tender along hamstring origin and piriformis- not tender in paraspinals or with PA glides to lumbar spine. Flex: Piriformis: moderate, Hamstring: mild, Quad: moderate Special Tests R Hip Scour: Negative R Hip CARLY - Intraarticular Pathology: Negative R Hip FADDIR - Labrum: Negative R Hip Trendelenberg - Glut Medius: Positive Balance/Special Test Scores Lower Extremity Functional Score: 55 Goals Goal 1:: Patient will be I with HEP and progression Goal Time Frame: 4-6 Weeks Goal 2:: Patient will maintain proper posture t/o tx session to demo increased core s/s Goal Time Frame: 4-6 Weeks Goal 3:: Patient will report no pain in her glut for 1 week Goal Time Frame: 4-6 Weeks Goal 4:: Patient will SLS for 15 sec without LOB Goal Time Frame: 4-6 Weeks Goal 5:: Patient will report 80% improvement Rehabilitation Potential Physical Therapy Diagnosis: Patient presents with hypomobility- pt has decreased LE and core strength/stabilization, flex, proprioception and muscular endurance leading to increased pain with work/ADL's. Rehabilitation Potential: Good Anticipated Interventions Patient/Client Instruction: Educate patient on: Benefits of Fitness Program Therapeutic Exercise to Include: Strength training, Endurance training, Balance training, Coordination, Agility training, Body mechanics, Postural training, Flexibilty training, Gait and locomotor training, Neuromotor development, Dynamic Lumbar Stabilization and Scapular Strength/Stabilization For the Purpose of:: To improve muscle performance and motor function Text: Thank you for the opportunity to evaluate your patient. For Medicare and Medicare HMO plans, please review the plan of care and approve it. It will need to be FAXED BACK to us at [phone] for Medicare purposes. For Medicare only, by signing this I certify the plan of care. Please let me know if there are questions or concerns regarding this plan of care. Physician Signature: Date:
--- NOTE | 2023-06-04 15:57 | HP.PTREVAL_ITS ---
Re-Evaluation Intro: Dr. Solis Martino MD, It has been my pleasure to treat PATO PASTRANA over the last 8 visits for Right Thigh Pain. Please see the progress note below for an update on the physical therapy plan of care! Subjective Subjective: Her thigh pain comes and goes still. It woke her up in her sleep last night. Pain varies. She feels PT is helping a little bit Objective Objective/Function: Pt felt the manual piriformis stretch in supine more. Pt felt the stick roll out as well. She reports that she is doing a self seated piriformis stretch but she is not able to get the full stretch... Plan Plan Plan: Continue with Core strength/stabilization- Add manual foam roll to piriformis and piriformis stretches... Balance/Gait/Functional tests Balance/Special Test Scores Lower Extremity Functional Score: 57 Goals Goals Goal 1:: Patient will be I with HEP and progression Goal Time Frame: 4-6 Weeks Goal Progress: Goal Met Goal 2:: Patient will maintain proper posture t/o tx session to demo increased core s/s Goal Time Frame: 4-6 Weeks Goal Progress: Progressing Goal 3:: Patient will report no pain in her glut for 1 week Goal Time Frame: 4-6 Weeks Goal 4:: Patient will SLS for 15 sec without LOB Goal Time Frame: 4-6 Weeks Goal 5:: Patient will report 80% improvement Anticipated Interventions Anticipated Interventions Patient/Client Instruction: Educate patient on: Benefits of Fitness Program Therapeutic Exercise to Include: Strength training, Endurance training, Balance training, Coordination, Agility training, Body mechanics, Postural training, Flexibilty training, Gait and locomotor training, Neuromotor development, Dy namic Lumbar Stabilization and Scapular Strength/Stabilization For the Purpose of:: To improve muscle performance and motor function Re-Evaluation Ending Re-evaluation ending: Please do not hesitate to contact me at [phone] by phone or if you have questions or concerns regarding this new plan of care! Sincerely, Kimi Ramirez, MPT
--- NOTE | 2023-09-06 08:09 | HP.PTDCSUM ---
Discharge Summary D/C summary: It has been my pleasure to treat PATO PASTRANA referred by Dr. Solis Martino MD, with the diagnosis of Right Thigh Pain for a total of 13 visit(s). Discharge Date: Please see the following information for a summary of their discharge status. Subjective Subjective: Pt. feels that she is feeling better. Pt. says today there was some pain that randomly came on and stayed for around a half hour and then went away. She is never quite sure how the pain comes on and she's not sure what she does to get the pain go away, but it does. The remainder of 20% of her improvement (currently she is at an 80%) is because she says the pain still comes and goes quite a bit. Pt. states that she does not need to continue therapy and she is able to continue her HEP at home. Pain R buttocks: Pain Intensity (Out of 10): 0 Overall Improvement % Improvement: 80 Objective Objective/Function: Pt. reported a LEFS score of 64 which jang her at 20% disabled. Pt. has been I with her HEP which meets her goal. Pt. maintains proper posture t/o exs. Pt. reported pain in her glut today which lasted 30 minutes which does not meet her goal of being pain free for 1 week. Pt. is unable to SLS for 15 sec without LOB which does not meet her goal. (3 attempts: pt. made it to 7 seconds.) Pt. reports being 80% improved which meets her goal. Goals Goal 1:: Patient will be I with HEP and progression Goal Progress: Goal Met Goal 2:: Patient will maintain proper posture t/o tx session to demo increased core s/s Goal Progress: Goal Met Goal 3:: Patient will report no pain in her glut for 1 week Goal Progress: Not Progressing Goal 4:: Patient will SLS for 15 sec without LOB Goal Progress: Not Progressing Goal 5:: Patient will report 80% improvement Goal Progress: Goal Met Plan Plan: D/C pt. to HEP to continue with strengthening and stretching. D/C Information d/c sentence: If there are questions or concerns regarding this patient's physical therapy, please feel free to call me at [phone]. Thank you for the referral of this patient. Sincerely, Marah Chaparro, DPT Balance/Gait/Functional tests Balance/Special Test Scores Lower Extremity Functional Score: 64 Improvement % Improvement: 80
== END 2023-06-27 19:00 | disposition home or self-care (01) ==
LOC: PT 13:30
PROVIDERS: PCP Internal Medicine; Referring Provider Internal Medicine; Visit Provider Internal Medicine
DX: M79.651 Pain in right thigh (principal)
CPT/HCPCS: 97110; 97162; 97164; 97530

== ENCOUNTER → 2023-12-18 | Outpatient (CLI) | payer MEDICAID, SELFPAY | END | disposition home or self-care (01) | LOC: LABSPEC 15:01 | PROVIDERS: PCP Internal Medicine; Visit Provider Nurse Practitioner | DX: L72.9 Follicular cyst of the skin and subcutaneous tissue, unspecified (principal) | CPT/HCPCS: 87070; 87077; 87186; 87205 ==

== ENCOUNTER → 2024-01-28 | Outpatient (CLI) | payer MEDICAID, SELFPAY ==
[2024-01-28 15:32] LABS: Absolute Lymphocyte Count 2.29 X10^3/uL (0.83-4.51); Absolute Neutrophil Count 5.9 X10^3/uL (2.0-7.7); Basophil# 0.03 X10^3/uL; Basophil% 0.3 % (0-1); Eosinophil# 0.03 X10^3/uL; Eosinophils% 0.3 % (0-5); Hematocrit 41.1 % (37-47); Hemoglobin 13.1 g/dL (12.0-15.0); Lymphocyte # 2.29 X10^3/ul (0.83-4.51); Lymphocyte % 26.2 % (19-41); Mean Corp Hgb Conc 31.9 g/dL (32-36); Mean Corpuscular Hgb 27.3 pg (27.0-32.0); Mean Corpuscular Volume 85.6 fL (81-99); Monocyte# 0.52 X10^3/uL; Monocyte% 5.9 % (0-10); NRBC Flagged by Analyzer 0 % (0-5); Neutrophil # 5.85 X10^3/uL (2.7-7.7); Platelet Count 227 K/mm3 (150-450); RBC Distribution Width SD 43.8 fl (35.1-43.9); White Blood Count 8.8 K/mm3 (4.4-11.0)
[2024-01-28 15:40] LABS: International Normalized Ratio 1.2; Prothrombin Time (Protime)PT. 14.9 SECONDS (11.7-14.9)
[2024-01-28 16:07] LABS: AST(SGOT) 16 U/L (15-37); Alanine Aminotransfer ALT/SGPT 23 U/L (13-56); Albumin, Serum 3.9 g/dL (3.2-5.0); Alkaline Phosphatase 64 U/L (45-117); Anion Gap 7 (5-15); BUN 15 mg/dL (7-18); BUN/Creat Ratio 15.1 RATIO (10-20); Calcium,Total 9.5 mg/dL (8.5-10.1); Chloride 103 mmol/L (98-107); Cholesterol 162 mg/dL (200); EST Glomerular Filtration Rate 66 mL/min (>60); Est Glom Filt Rate - Afr Amer 80 mL/min (>60); Globulin 3.9 g/dL (2.2-4.2); Glucose 82 mg/dL (74-106); High Density Lipoprotein 49 mg/dL; Protein, Total 7.8 g/dL (6.4-8.2); Sodium Level 136 mmol/L (136-145); Triglycerides 90 mg/dL; Very Low Density Lipoprotein 18 mg/dL (5-40)
== END | disposition home or self-care (01) ==
LOC: BIMLAB 14:36
PROVIDERS: PCP Internal Medicine; Visit Provider Internal Medicine
DX: I10 Essential (primary) hypertension (principal); R23.3 Spontaneous ecchymoses
CPT/HCPCS: 36415; 80053; 80061; 85025; 85610

== ENCOUNTER → 2024-02-07 | Outpatient (CLI) | payer MEDICAID, SELFPAY ==
--- NOTE | 2024-02-07 08:58 | US_ITS ---
STUDY: ABDOMINAL ULTRASOUND - RIGHT UPPER QUADRANT; ELASTOGRAPHY REASON FOR VISIT: Female, 38 years old. Fatty infiltration of the liver. TECHNIQUE: Ultrasound evaluation of the right upper quadrant was performed with real-time and static aranda-scale imaging. Point quantification shear wave elastography was performed ([employer]). TECHNICAL QUALITY: Adequate. COMPARISON: None. FINDINGS: Liver: The liver measures 15.7 cm. There is increased echogenicity consistent with a mild degree of fatty infiltration. The bile ducts are within normal limits. There is hepatic color flow. The direction of portal flow is hepatopetal. There is no demonstrated mass lesion. Median liver stiffness measured 5.9 kPa. Gallbladder: The patient is status post cholecystectomy. Common Bile Duct (C.B.D.): The common bile duct measures 2.4 mm. Pancreas: There is increased echogenicity of the pancreas. There is no demonstrated pancreatic mass or cyst. Right Kidney: Normal size of the right kidney. The right kidney measures 9.9 cm x 6.4 cm x 4.8 cm. Normal renal cortex. The right cortex measures 1.1 cm. There is no demonstrated renal mass or cyst. There is no right hydronephrosis. US/ABD Limited w/ Elastography IMPRESSION: 1. Liver stiffness measures 5.9 kPa compatible with F0-F1 (Normal to mild liver fibrosis) Metavir score. Electronically Signed: Raymon Higuera MD at 14:55 EDT ,
== END | disposition home or self-care (01) ==
PROVIDERS: PCP Internal Medicine; Referring Provider Internal Medicine Gastroenterology; Visit Provider Internal Medicine Gastroenterology
DX: K76.0 Fatty (change of) liver, not elsewhere classified (principal)
CPT/HCPCS: 76705; 76981

== ENCOUNTER 2024-05-02 14:23 | Day surgery (SDC) | payer MEDICAID, SELFPAY ==
[2024-05-02] VITALS (9 sets, daily range): BP systolic 110–135; BP diastolic 78–94; PULSE 83–110; RESP 16–18; TEMP 36.5–37.1; O2SAT 94–98; BMI 46.0
--- NOTE | 2024-05-02 14:37 | PCM.HP.BLA ---
History and Physical Date of Admission: 05/02/24 PATO PASTRANA, is a 38 F who presents to the office today for follow up. PCP OV 4.17.23 as chronic f/u noting difficulty with change of BM habit for the last couple of months with increased frequency, watery consistency and intermittent incontinence. Recommend fiber increase and FODMAP diet. *BGI established 6.19.23 for the last year she has been having loose stools with urgency and intermittent incontinence with varying frequency that can be 10+/day; BM will alternate with formed/soft stools occurring daily for several days and the loose stools for 1 or so days. Notes sometimes there are dietary triggers, but not consistent; increased body temperature can also be a trigger. 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 ? Biochemical CBC, ESR, CMP, LFT, RAST, IgGAE, ADAN, ANCA, ARMANDO comp, celiac, IBD without pertinent abnormality ? CRP H7.9, IgM H218 ? Stool calprotectin, elastase, c.difficile, EP, lactoferrin, O/P, giardia WNL Contact 7..23 with results; loose stools are approximately the same and is working at maintaining dietary fiber. OV 11.6.23 loose stools are improved in frequency with occurrence 4 days/occurrences a month; has made dietary changes to reduce spicy foods, gluten and dairy but has not particularly noted a specific trigger. Vegetable/Fruit intake is minimal; does not use supplements. OV 5.1.24 pt reports continued symptoms from previous appointment. Continues with daily dicyclomine. Pt reports that she is having loose stool 1-2 times a week and is having a formed/soft bm once a day. US and elastography 5.30.24 hepatic measurement 15.7cm with fatty infiltration, stiffness measures 5.9kPa. OV 8.15.24 pt reports that she is feeling well overall without GI symptoms of concern at this time. reports regular BM. ROS Const Constitutional: Positive for headache(s); No fatigue, fever(s) or weight change ENT ENT: Positive for headache(s); No difficulty swallowing Gastro GI: No abdominal pain, belching, bloating, change in bowel habits, change in stool character, coffee ground emesis, constipation, cramping, diarrhea, heartburn, difficulty swallowing, feeling full early, excessive flatus, incontinent of stools, Vomiting blood/hematemesis, Blood in stool, loose stools, Black,tarry stools, nausea/dyspepsia, pain with swallowing, vomiting or other Musc Musculoskeletal: Positive for joint pain Skin Skin: Positive for itchy eyes; No yellowing of the eye Neuro Neurology: Positive for headache(s) Psych Psychiatric: Positive for anxiety and Positive for depression Endo Endocrine: No fatigue or weight change Aller/Imm Allergy/Immunologic: Positive for itchy eyes Jaylen/Lymp Hematologic/Lymphatic: Positive for easy bruising; No easy bleeding Exam Const General: cooperative, comfortable and no acute distress Orientation: alert, awake and oriented x3 HENMT Head: normal to inspection, normocephalic and atraumatic Ears: hearing grossly normal bilaterally Eyes General: appearance normal, both eyes and all related structures Neck Neck: normal visual inspection, full ROM, no lymphadenopathy and supple Neck mass: No Thyroid: thyroid normal Resp Effort & Inspection: normal respiratory effort and able to speak in complete sentences Auscultation: Bilateral: Clear to Auscultation Cardio Rate: regular rate Rhythm: regular rhythm Heart Sounds: S1 normal and S2 normal GI Palpation: soft (Nontender, no palpable organomegaly.) Neuro General: patient alert, patient awake, patient oriented x3, moves all extremities and CN's II-XI intact bilaterally Psych Appearance: grossly normal Mental Status: mental status grossly normal Mood: congruent mood Affect: normal affect Assessment and Plan Assessment and Plan (1) Fecal incontinence: Status: Chronic Qualifiers: Fecal incontinence type: unspecified Qualified Code(s): R15.9 - Full incontinence of feces Plan: Differential diagnosis for her fecal incontinence on does include inflammatory bowel disease, food allergies, IBS with diarrhea, exocrine pancreatic insufficiency 1. She is concerned because her sister was diagnosed with pancreatic cancer at the age of 4040 years old. However with suspecting she has a history of chronic pancreatitis secondary to alcohol. She does not drink any alcohol. She does not smoke any cigarettes. She has no other family members with pancreatic cancer or pancreatic issues. She does not know if her sister underwent genetic testing for hereditary pancreatitis, trypsin deficiency, IgG associated disease. She will undergo biochemical testing and stool testing. We told her that she may need biopsies in the future but this will depend on her biochemical and stool analysis. (2) Irritable bowel syndrome with diarrhea: Status: Chronic Plan: There was a strong suspicion for her to have regular bowel syndrome with diarrhea due to her diet. She does state her diet is not very good and is really a lot of simple sugars and carbohydrates. She does not eat much fiber. Hopefully her work-up will be negative then we will just have to change her diet. I will start her on Dicyclomine 20mg TID prn. (3) Fatty liver disease, nonalcoholic: Status: Acute Plan: Her right upper quadrant ultrasound showed that she had a liver span of 15.7 cm and a fibrosis score of 5.9. She has been on vitamin D and we discussed weight loss and other diet changes to keep her liver the size that it is. We discussed how the liver will change us she goes into menopause and we might have to be more aggressive regarding dietary recommendations. At this time she is doing well we will repeat her imaging in a year. (4) Dysphagia: Status: Acute Plan: She is having solid food dysphagia and pill induced dysphagia. Differential diagnosis does include eosinophilic esophagitis, Schatzki's ring, esophageal stricture. She will undergo an upper endoscopy to evaluate upper GI tract. She was explained alternatives, risk, benefits including not withstanding bleeding, infection, sepsis, perforation, need for emergent urgent . She will have an ASA of 3. I have examined the patient and the H&P has been reviewed. There are no clinical changes since date of exam.
[2024-05-02 14:45] LABS: Internal QC Validated? YES +Cl - CLEAR BKGD; Pregnancy, Urine Negative Negative
[2024-05-02] MEDS: Lactated Ringers 1,000 ML 15 ML IV (14:49)
--- NOTE | 2024-05-02 15:15 | PCM.PRE.AN2 ---
ASA Classification* ASA Classification ASA Classification: 3 Assessment & Plan Anesthesia* Anesthesia Assessment Anesthesia Assessment: Discussed sedation and/or anesthesia options, risks, benefits, and alternatives with patient/parents/legal guardian/POA. Questions invited. The patient/parents/legal guardian/POA seems to understand and agrees to proceed with anesthesia plan. Reviewed the physical assessment, medical history, allergy history and patient home medications list prior to surgery/procedure/anesthetic and documented any changes. Performed airway and anesthesia risk assessments. Anesthesia Type Anesthesia Type: MAC History Source History Obtained from:: Patient and Chart Anesthesia Focused Assessment* Temperature: 98.8 F Pulse Rate: 110 Blood Pressure: 135/91 Respiratory Rate: 18 Pulse Ox: 98 Oxygen Delivery Method: Room Air Airway Assessment Mouth opens: >3 cm Mallampati Score: III Teeth Condition: Intact Neck Range of motion (ROM): Full ROM Focused Labs Anesthesia Preop lab: CBC WBC 8.8 K/mm3 (4.4-11.0) 01/28/24 14:36 RBC 4.80 M/mm3 (4.2-5.4) 01/28/24 14:36 Hgb 13.1 g/dL (12.0-15.0) 01/28/24 14:36 Hct 41.1 % (37-47) 01/28/24 14:36 Plt Count 227 K/mm3 (150-450) 01/28/24 14:36 CHEMISTRY Potassium 4.0 mmol/L (3.5-5.1) 01/28/24 14:36 Sodium 136 mmol/L (136-145) 01/28/24 14:36 BUN 15 mg/dL (7-18) 01/28/24 14:36 Creatinine 1.00 mg/dL (0.55-1.02) 01/28/24 14:36 Glucose [facility] 93 mg/dL (70-110) 06/12/22 16:32 Glucose 82 mg/dL (74-106) 01/28/24 14:36 POC Glucose 98 mg/dL (70-110) 06/22/17 08:08 TSH 2.36 uIU/mL (0.358-3.74) 11/14/22 16:14 COAG PT 14.9 SECONDS (11.7-14.9) 01/28/24 14:36 HCG, Quant 607243 mIU/mL (<9 non-preg) H 03/20/15 23:48 Urine Test Negative Negative 05/02/24 14:30 Pre-Assessment Diagnosis/Proposed Procedure Planned Operative Procedure(s): EGD Anesthesia History Anesthesia History - cosmetic chemist: Anesthesia History - cosmetic chemist Hx Hospitalization No 04/29/24 14:29 Any Problems With Anesthesia No 04/29/24 14:29 Cholinesterase deficiency No 04/29/24 14:29 You/Your Family Experience No 04/29/24 14:29 fever (hyperthermia) with Relationship Recent Exposure to Contagious No 05/02/24 14:50 Disease Does patient have nerve No 04/29/24 14:29 stimulator Patient instructed to have device shut off --Does patient have Pacemaker No 05/02/24 14:50 or ICD? When Was Last Pacemaker Check QUESTION #4 FULL TEXT: You/Your Family Experience fever (hyperthermia) with Anesthesia Last Oral Intake Last Oral intake: Last Oral Intake NPO since 00:00 05/02/24 14:50 Meds taken in AM with sips of No 05/02/24 14:50 water? Meds patient instructed to take am of surgery PONV PONV - cosmetic chemist: PONV - cosmetic chemist Female Yes 04/29/24 14:29 HX of Motion Sickness No 04/29/24 14:29 HX of N/V After Surgery No 04/29/24 14:29 Non-Smoker Yes 04/29/24 14:29 Duration of Surgery greater No 04/29/24 14:29 than 60 minutes Number of Risk Factors 2 04/29/24 14:29 PONV Score Moderate Risk 04/29/24 14:29 Height & Weight Height & Weight: Anesthesia: Height & Weight Height 5 ft 10 in 05/02/24 14:50 Weight: 145.603 kg 05/02/24 14:50 Body Mass Index (BMI) 46.0 05/02/24 14:50 Respiratory Assessment Respiratory Assessment - cosmetic chemist: Respiratory Tract Infection Hx - cosmetic chemist Hx Respiratory Tract Infection No 04/29/24 14:29 STOP Sleep Apnea STOP Sleep Apnea - cosmetic chemist: STOP Sleep Apnea - cosmetic chemist Hx Hypertension Yes: CONTROLLED WITH MED 04/29/24 14:29 Hx Sleep Apnea Yes 04/29/24 14:29 CPAP Yes 04/29/24 14:29 BIPAP No 04/29/24 14:29 Do you snore loudly (louder than talking or can be heard Do you often feel tired/ fatigued/ sleepy during daytime? Has anyone observed you stop breathing during sleep? STOP Results Positive 04/29/24 14:29 QUESTION #5 FULL TEXT : Do you snore loudly (louder than talking or can be heard through closed doors)? Tobacco Use History Tobacco Use History - cosmetic chemist: Tobacco Use History - cosmetic chemist Tobacco Use Smoking Status Never smoker 04/29/24 14:29 Hx Tobacco Use No 04/29/24 14:29 Years Smoking Packs Smoked per Day Smoking Cessation Date was within the last 15 years Hx Smoking Cessation Date Hx Smoking Cessation Counseling Hematologic Medial History Hematologic Hx - cosmetic chemist: Hematologic Medical Hx - rn clinical documentation specialist Hx of Blood Transfusion No 04/29/24 14:29 Hx of Transfusion in last 3 No 04/29/24 14:29 Months Date of Last Transfusion (if within last 3 months) Ever experience any problems No 04/29/24 14:29 with transfusion(s)? Specify any problems Hx of Preganancy in last 3 N/A 04/29/24 14:29 Months Nurse Filling Out Transfusion NBUCHER 04/29/24 14:29 & Questions: Date: 04/29/24 04/29/24 14:29 Time: 14:30 04/29/24 14:29 Patient unable to answer at this time (ie. confused, unrespo /Reproduction History /Reproductive History - cosmetic chemist: /Reproductive Hx- cosmetic chemist Hx Now No 04/29/24 14:29 Gestational Age (in weeks): EDC: Hx Hx Para Hx Section SAB No 04/29/24 14:29 Active Medications Active Medications: Current Medications Generic Name Dose Route Start Last Admin Trade Name Freq PRN Reason Stop Dose Admin Lactated Ringer's 1,000 mls @ 15 mls/hr 05/02/24 14:30 05/02/24 14:49 IV 15 mls/hr .Q48H TAM Administration PFSH Medical History Wears glasses Bladder disease History of IBS Insomnia Easy bruising Major depression Flu vaccine need Pharyngitis Generalized anxiety disorder Right thigh pain Right anterior knee pain Migraines Home Medications ?Medication ?Instructions ?Recorded ?Last Taken ?Type cetirizine 10 mg tablet 10 mg PO DAILY PRN allergy symptoms 07/15/19 Unknown History rizatriptan 5 mg tablet 5 mg PO ONCE PRN migraines 03/24/20 Unknown History Copper [Paragard T 380-A] 1 ea IY DAILY 05/14/20 Unknown History multivitamin 1 cap PO DAILY 06/30/20 04/28/24 History cholecalciferol (vitamin D3) 50 50 mcg PO DAILY 02/16/22 04/28/24 History mcg (2,000 unit) capsule blood pressure monitor (Blood #1 ea 01/03/24 Unknown Rx Pressure Kit) doxepin 10 mg capsule 10 mg PO QHS #30 caps 01/30/24 04/28/24 Rx fluoxetine 20 mg capsule See Rx Instructions .Route 01/30/24 04/28/24 Rx .COMPLEX #90 caps bupropion HCl 150 mg 24 hr tablet, 150 mg PO QAM #90 tabs 02/18/24 04/28/24 Rx extended release (Wellbutrin XL) dicyclomine 20 mg tablet 20 mg PO BID PRN PRN abdominal 02/18/24 Unknown Rx pain #60 TABLETS fluticasone propionate 50 See Rx Instructions .Route 02/18/24 04/28/24 Rx mcg/actuation nasal .COMPLEX #16 grams spray,suspension amlodipine 10 mg tablet 10 mg PO DAILY #90 TABLETS 03/17/24 04/28/24 Rx mirabegron 50 mg tablet,extended 100 mg PO DAILY 04/24/24 04/28/24 History release 24 hr (Myrbetriq) Allergy/AdvReac Type Severity Reaction Status Date / Time No Known Allergies Allergy Verified 05/02/24 14:47 Family History Father Diabetes Cancer skin Hypertension Grandmother Cancer leukemia Grandfather Diabetes Hypertension Cancer skin Heart disease Sister Diabetes Pancreatic cancer Surgical History History of appendectomy History of cholecystectomy Social History current occupational status: employed current occupation: [employer] current occupational exposures/hazards: No sexually active: Yes Smoking Status: Never smoker alcohol intake: current alcohol intake frequency: holidays/special occasions only substance use type: does not use caffeine: Yes what type of physical activity do you participate in: none seatbelt use: always do you feel safe at home: Yes additional social history: Tejinder - Susan Review of Systems (Anesthesia) ROS Narrative System reviewed and no additional complaints, except as documented.
--- NOTE | 2024-05-02 15:30 | EGD_PTH ---
PATIENT: PATO PASTRANA LOC: EN U#:[id number] AGE/SX: 38/F ROOM: RE05/02/[address]: Dr. Rachid Short DO : 1985 BED: DIS: 05/02/2024 SPEC #: [id number] RECD: 05/05/24 07:13 STATUS: JOSE MANUEL AARON #: [id number] EWELINA: 05/02/24 15:[address]: Rachid Short DEPT: SURGICAL PATHOLOGY RECD BY: Aneta Louis ENTERED: 05/05/24 09:24 SP TYPE: EGD BIOPSY SHAE DR: Dr. Solis Martino MD Tissues: Esophagus, NOS Procedures: Special Stain Group I Surgery Specimen Level IV Alcian Blue/PAS (control) HEADER OPERATION: EGD with biopsy and dilatation PRE-OP DIAGNOSIS: Irritable bowel syndrome with diarrhea, dysphagia TISSUE SUBMITTED: Distal esophagus biopsy MICROSCOPIC DIAGNOSIS Distal esophagus, biopsy: Gastroesophageal junction mucosa with mild chronic and focal acute inflammation. Focal changes of reflux. No evidence of goblet cell metaplasia. See comment. 05/06/2024 COMMENT Alcian blue/PAS stain with matched control is used in the evaluation of the specimen. MICROSCOPIC DESCRIPTION Slides are reviewed. GROSS DESCRIPTION Received in fixative is one container labeled with the patient's name and designated Distal esophagus biopsy. The specimen consists of multiple irregular fragments of light gunn soft tissue that in aggregate measure 1.0 x 0.2 x 0.1 cm. The specimen is totally submitted in one cassette. 05/05/2024 TC:2 CPT:97306,8313
--- NOTE | 2024-05-02 16:05 | PCM.POST.ANE ---
Anesthesia: Postop Eval I Current Vital Signs Temperature: 97.7 F Pulse Rate: 91 Blood Pressure: 132/78 Respiratory Rate: 16 Pulse Ox: 94 Oxygen Delivery Method: Room Air Assessment Airway patent: Yes Spontaneous unlabored respirations: Yes Mental status: Awake nausea: No Vomiting: No Anesthesia Complication: No Fluid Hydration Crystalloid volume administer (ml): 400 Total IV fluid infused: 400 Progress Note Anesthesia document: Postop Eval 1 completed: Yes
--- NOTE | 2024-05-02 16:07 | POSTOPAN2_ITS ---
Anesthesia Postop Eval I Sum Postop Eval Completion status Anesthesia document: Postop Eval 1 completed: Yes Anesthesia Postop Eval I Summary Anesthesia Postop Eval I Summary: Anesthesia Postop Eval I: Assessment Summary Airway patent Yes 05/02/24 16:07 HIDE MILL MAN.[email or web address] Spontaneous unlabored Yes 05/02/24 16:07 HIDE MILL MAN.MIKE respirations Mental status Awake 05/02/24 16:07 HIDE MILL MAN.MIKE nausea No 05/02/24 16:07 HIDE MILL MAN.MIKE Vomiting No 05/02/24 16:07 HIDE MILL MAN.MIKE Anesthesia Postop Eval I: Fluid Summary Crystalloid volume administer 400 05/02/24 16:07 HIDE MILL MAN.MDOT (ml) Colloids volume administered ( ml) Blood Product volume administered (ml) Total IV fluid infused 400 05/02/24 16:07 HIDE MILL MAN.MIKE Anesthesia Postop Eval I: Summary Notes Anesthesia Complication No 05/02/24 16:07 HIDE MILL MAN.MIKE Anesthesia Complication Comment: Post-operative progress note Anesthesia: Postop Eval II Evaluation Mental status: Awake and Calm Pain Level: 0 nausea: No Vomiting: No Complications Anesthesia Complication: No
--- NOTE | 2024-05-02 16:07 | PCM.POSTANE2 ---
Anesthesia Postop Eval I Sum Postop Eval Completion status Anesthesia document: Postop Eval 1 completed: Yes Anesthesia Postop Eval I Summary Anesthesia Postop Eval I Summary: Anesthesia Postop Eval I: Assessment Summary Airway patent Yes 05/02/24 16:07 DIRECTOR [email or web address].[email or web address] Spontaneous unlabored Yes 05/02/24 16:07 DIRECTOR INSURANCE.[email or web address] respirations Mental status Awake 05/02/24 16:07 DIRECTOR INSURANCE.[email or web address] nausea No 05/02/24 16:07 DIRECTOR INSURANCE.MIKE Vomiting No 05/02/24 16:07 DIRECTOR INSURANCE.[email or web address] Anesthesia Postop Eval I: Fluid Summary Crystalloid volume administer 400 05/02/24 16:07 DIRECTOR INSURANCE.MDOT (ml) Colloids volume administered ( ml) Blood Product volume administered (ml) Total IV fluid infused 400 05/02/24 16:07 DIRECTOR INSURANCE.MIKE Anesthesia Postop Eval I: Summary Notes Anesthesia Complication No 05/02/24 16:07 DIRECTOR INSURANCE.MIKE Anesthesia Complication Comment: Post-operative progress note Anesthesia: Postop Eval II Evaluation Mental status: Awake and Calm Pain Level: 0 nausea: No Vomiting: No Complications Anesthesia Complication: No
--- NOTE | 2024-05-02 16:12 | OP.EGD_ITS ---
Patient Name: Heike Boothe Procedure Date: 05/02/2024 3:44 PM Date of : 1985 Age: 38 Procedure: Upper GI endoscopy Indications: Dysphagia Providers: Rachid Short DO Referring MD: Solis Martino MD Medicines: Monitored Anesthesia Care Patient Profile: This is a 38 year old female. Refer to note in patient chart for documentation of history and physical. Patient has symptoms of dysphagia with both liquids and solids. Complications: No immediate complications. Procedure: Pre-Anesthesia Assessment: - Prior to the procedure, a History and Physical was performed, and patient medications and allergies were reviewed. The patient is competent. The risks and benefits of the procedure and the sedation options and risks were discussed with the patient. All questions were answered and informed consent was obtained. Patient identification and proposed procedure were verified by the physician in the pre-procedure area. Mental Status Examination: alert and oriented. Airway Examination: normal oropharyngeal airway and neck mobility. Respiratory Examination: clear to auscultation. CV Examination: normal. Prophylactic Antibiotics: The patient does not require prophylactic antibiotics. Prior Anticoagulants: The patient has taken no anticoagulant or antiplatelet agents. ASA Grade Assessment: III - A patient with severe systemic disease. After reviewing the risks and benefits, the patient was deemed in satisfactory condition to undergo the procedure. The anesthesia plan was to use monitored anesthesia care (MAC). Immediately prior to administration of medications, the patient was re-assessed for adequacy to receive sedatives. The heart rate, respiratory rate, oxygen saturations, blood pressure, adequacy of pulmonary ventilation, and response to care were monitored throughout the procedure. The physical status of the patient was re-assessed after the procedure. After obtaining informed consent, the endoscope was passed under direct vision. Throughout the procedure, the patient's blood pressure, pulse, and oxygen saturations were monitored continuously. The Endoscope was introduced through the mouth, and advanced to the second part of duodenum. The upper GI endoscopy was accomplished without difficulty. The patient tolerated the procedure well. Scope In: 3:53:26 PM Scope Out: 4:00:56 PM Total Procedure Duration Time 0 hours 7 minutes 30 seconds Findings: LA Grade B (one or more mucosal breaks greater than 5 mm, not extending between the tops of two mucosal folds) esophagitis with no bleeding was found 34 to 38 cm from the incisors. Biopsies were taken with a cold forceps for histology. Verification of patient identification for the specimen was done. Estimated blood loss was minimal. Biopsies were taken with a cold forceps for histology. Verification of patient identification for the specimen was done. Estimated blood loss was minimal. The duodenal bulb was normal. Impression: - LA Grade B reflux esophagitis with no bleeding. Biopsied. - Normal duodenal bulb. Recommendation: - Discharge patient to home. - Continue present medications. Procedure Code(s): --- Professional --- 12134, Esophagogastroduodenoscopy, flexible, transoral; with biopsy, single or multiple CPT copyright 2021 [employer]. All rights reserved. The codes documented in this report are preliminary and upon bridge worker review may be revised to meet current compliance requirements. Rachid Short DO 05/02/2024 4:11:37 PM This report has been signed electronically. Number of Addenda: 0 Note Initiated On: 05/02/2024 3:44 PM
--- NOTE | 2024-05-02 16:12 | OP.CCLET_ITS ---
05/02/2024 Solis Martino MD [address] [place] [address] [place] [address] Re : Upper GI endoscopy procedure for Heike Tl Dear Dr. Martino This procedure was performed on Thursday, May 02, 2024. My impressions and recommendations are as follows: Impressions : - LA Grade B reflux esophagitis with no bleeding. Biopsied. - Normal duodenal bulb. Recommendations : - Discharge patient to home. - Continue present medications. My findings are described in the full procedure note, which is enclosed. If I can be of further assistance, please feel free to contact me at . Sincerely, Rachid Short, 05/02/2024 4:11:37 PM This report has been signed electronically.
--- NOTE | 2024-05-02 17:25 | POSTOPAN2_ITS ---
Anesthesia Postop Eval I Sum Postop Eval Completion status Anesthesia document: Postop Eval 1 completed: Yes Anesthesia Postop Eval I Summary Anesthesia Postop Eval I Summary: Anesthesia Postop Eval I: Assessment Summary Airway patent Yes 05/02/24 16:07 SENIOR FIRMWARE ENGINEER.[email or web address] Spontaneous unlabored Yes 05/02/24 16:07 SENIOR FIRMWARE ENGINEER.MIKE respirations Mental status Awake,Calm 05/02/24 16:07 SENIOR FIRMWARE ENGINEER.MIKE nausea No 05/02/24 16:07 SENIOR FIRMWARE ENGINEER.MIKE Vomiting No 05/02/24 16:07 SENIOR FIRMWARE ENGINEER.MIKE Anesthesia Postop Eval I: Fluid Summary Crystalloid volume administer 400 05/02/24 16:07 SENIOR FIRMWARE ENGINEER.MDOT (ml) Colloids volume administered ( ml) Blood Product volume administered (ml) Total IV fluid infused 400 05/02/24 16:07 SENIOR FIRMWARE ENGINEER.MIKE Anesthesia Postop Eval I: Summary Notes Anesthesia Complication No 05/02/24 16:07 SENIOR FIRMWARE ENGINEER.MIKE Anesthesia Complication Comment: Post-operative progress note Anesthesia: Postop Eval II Evaluation Mental status: Awake and Calm Pain Level: 0 nausea: No Vomiting: No Complications Anesthesia Complication: No
--- NOTE | 2024-05-02 17:25 | PCM.POSTANE2 ---
Anesthesia Postop Eval I Sum Postop Eval Completion status Anesthesia document: Postop Eval 1 completed: Yes Anesthesia Postop Eval I Summary Anesthesia Postop Eval I Summary: Anesthesia Postop Eval I: Assessment Summary Airway patent Yes 05/02/24 16:07 NATIONAL OPELINT ANALYST.[email or web address] Spontaneous unlabored Yes 05/02/24 16:07 NATIONAL OPELINT ANALYST.MIKE respirations Mental status Awake,Calm 05/02/24 16:07 NATIONAL OPELINT ANALYST.MIKE nausea No 05/02/24 16:07 NATIONAL OPELINT ANALYST.MIKE Vomiting No 05/02/24 16:07 NATIONAL OPELINT ANALYST.MIKE Anesthesia Postop Eval I: Fluid Summary Crystalloid volume administer 400 05/02/24 16:07 NATIONAL OPELINT ANALYST.MDOT (ml) Colloids volume administered ( ml) Blood Product volume administered (ml) Total IV fluid infused 400 05/02/24 16:07 NATIONAL OPELINT ANALYST.MIKE Anesthesia Postop Eval I: Summary Notes Anesthesia Complication No 05/02/24 16:07 NATIONAL OPELINT ANALYST.MIKE Anesthesia Complication Comment: Post-operative progress note Anesthesia: Postop Eval II Evaluation Mental status: Awake and Calm Pain Level: 0 nausea: No Vomiting: No Complications Anesthesia Complication: No
== END 2024-05-02 16:50 | disposition home or self-care (01) ==
LOC: EN 14:24 → AC 14:26
PROVIDERS: Anesthesiology; PCP Internal Medicine; Referring Provider Internal Medicine Gastroenterology; Visit Provider Internal Medicine Gastroenterology
PROC: 0DJ08ZZ Inspection of Upper Intestinal Tract, Via Natural or Artificial Opening Endoscopic (ICD-10-PCS; CPT 43235; principal; 2024-05-02 15:25)
DX: K21.00 Gastro-esophageal reflux disease with esophagitis, without bleeding (principal); R15.9 Full incontinence of feces; R13.10 Dysphagia, unspecified; K58.0 Irritable bowel syndrome with diarrhea; K76.0 Fatty (change of) liver, not elsewhere classified
CPT/HCPCS: 43239; 81025; 88305; 88312; J7120; C1769; J2405

== ENCOUNTER → 2024-10-10 | Outpatient (CLI) | payer MEDICAID, SELFPAY | END | disposition home or self-care (01) | LOC: LABSPEC 15:38 | PROVIDERS: PCP Internal Medicine; Referring Provider Obstetrics & Gynecology; Visit Provider Obstetrics & Gynecology | DX: N89.8 Other specified noninflammatory disorders of vagina (principal) | CPT/HCPCS: 87070; 87077; 87186; 87205 ==

== ENCOUNTER → 2024-11-19 | Outpatient (CLI) | payer MEDICAID, SELFPAY | END | disposition home or self-care (01) | LOC: BIMLAB 14:10 | PROVIDERS: PCP Internal Medicine; Referring Provider Physician Assistant; Visit Provider Physician Assistant | DX: T78.1XXA Other adverse food reactions, not elsewhere classified, initial encounter (principal) ==

== ENCOUNTER → 2024-12-08 | Outpatient (CLI) | payer MEDICAID, SELFPAY ==
--- NOTE | 2024-12-08 13:58 | RAD_ITS ---
PROCEDURE: ANKLE MIN 3 VIEWS 12/08/2024 REASON FOR EXAM: PAIN TECHNIQUE: 3 views of the left ankle COMPARISON: None available FINDINGS: No fracture or dislocation. Joint spaces appear within limits. Small enthesophyte Achilles surface of the calcaneus. RAD/Ankle min 3 Views IMPRESSION: Study appears within limits. Reading Location: [id number]
== END | disposition home or self-care (01) ==
LOC: MTRAD 13:57
PROVIDERS: PCP Internal Medicine; Referring Provider Physician Assistant; Visit Provider Physician Assistant
DX: S93.402A Sprain of unspecified ligament of left ankle, initial encounter (principal)
CPT/HCPCS: 73610

== ENCOUNTER → 2025-01-15 | Outpatient (CLI) | payer MEDICAID, SELFPAY ==
[2025-01-17 04:07] LABS: Carbohydrate AG 19-9 4 U/mL (0-35)
== END | disposition home or self-care (01) ==
LOC: LAB 15:53
PROVIDERS: PCP Internal Medicine; Referring Provider Internal Medicine Gastroenterology; Visit Provider Internal Medicine Gastroenterology
DX: Q45.3 Other congenital malformations of pancreas and pancreatic duct (principal)
CPT/HCPCS: 36415; 86301

== ENCOUNTER → 2025-01-26 | Outpatient (CLI) | payer MEDICAID, SELFPAY ==
[2025-01-26 17:05] LABS: Absolute Lymphocyte Count 1.94 X10^3/uL (0.83-4.51); Basophil# 0.02 X10^3/uL; Basophil% 0.3 % (0-1); Eosinophil# 0.03 X10^3/uL; Eosinophils% 0.5 % (0-5); Hematocrit 39.8 % (37-47); Hemoglobin 12.9 g/dL (12.0-15.0); Lymphocyte # 1.94 X10^3/ul (0.83-4.51); Mean Corp Hgb Conc 32.4 g/dL (32-36); Mean Corpuscular Hgb 27.7 pg (27.0-32.0); Mean Corpuscular Volume 85.4 fL (81-99); Mean Platelet Vol. 10.6 fl (6.2-12.0); Monocyte# 0.51 X10^3/uL; Monocyte% 7.9 % (0-10); NRBC Flagged by Analyzer 0 % (0-5); Neutrophil # 3.95 X10^3/uL (2.7-7.7); Platelet Count 303 K/mm3 (150-450); RBC Distribution Width CV 13.8 % (11.6-14.6); RBC Distribution Width SD 42.5 fl (35.1-43.9); Red Blood Count 4.66 M/mm3 (4.2-5.4); White Blood Count 6.5 K/mm3 (4.4-11.0)
[2025-01-26 18:05] LABS: ALB/GLOB Ratio 1.3 RATIO (0.9-2.4); AST(SGOT) 21 U/L (<=31); Alanine Aminotransfer ALT/SGPT 18 U/L (<=34); Albumin, Serum 4.2 g/dL (3.5-5.0); Alkaline Phosphatase 73 U/L (35-104); Anion Gap 12 (5-15); BUN 10 mg/dL (4-19); Calcium,Total 9.8 mg/dL (7.6-11.0); Carbon Dioxide 22.3 mmol/L (21.0-32.0); Chloride 105 mmol/L (98-108); Cholesterol 177 mg/dL (<=200); Creatinine, Serum 0.82 mg/dL (0.70-1.20); EST Glomerular Filtration Rate 94 (>60); Globulin 3.1 g/dL (2.2-4.2); Glucose 75 mg/dL (70-99); High Density Lipoprotein 46 mg/dL; Low Density Lipoprotein Calc. 102 mg/dL; Potassium 4.4 mmol/L (3.3-5.1); Protein, Total 7.4 g/dL (5.9-8.4); Sodium Level 139 mmol/L (133-145); Total Bilirubin 0.19 mg/dL (0.00-1.30); Triglycerides 147 mg/dL; Very Low Density Lipoprotein 29 mg/dL (5-40); cholesterol:hdl ratio screen 3.84
== END | disposition home or self-care (01) ==
LOC: BIMLAB 14:55
PROVIDERS: PCP Internal Medicine; Referring Provider Internal Medicine; Visit Provider Internal Medicine
DX: Z00.00 Encounter for general adult medical examination without abnormal findings (principal)
CPT/HCPCS: 36415; 80053; 80061; 85025

== ENCOUNTER → 2025-03-18 | Outpatient (CLI) | payer MEDICAID, SELFPAY ==
[2025-03-24 13:08] LABS: Testosterone, % Free 1.67 % (0.50-2.80); Testosterone, Free 0.47 ng/dL (0.10-0.85)
== END | disposition home or self-care (01) ==
LOC: BWCLAB 14:06
PROVIDERS: PCP Internal Medicine; Referring Provider Obstetrics & Gynecology; Visit Provider Obstetrics & Gynecology
DX: N93.9 Abnormal uterine and vaginal bleeding, unspecified (principal)
CPT/HCPCS: 36415; 82627; 82670; 84402; 84403; 84443; 82626

== ENCOUNTER → 2025-03-25 | Outpatient (CLI) | payer MEDICAID, SELFPAY ==
--- NOTE | 2025-03-25 15:45 | BI_ITS ---
EXAM: SCRN MAMM (CAD)W/JOHN BILAT DATE: 03/25/2025 CLINICAL HISTORY: F, Age 39 y/o , SCREENING MAMMOGRAM TECHNIQUE: SCRN MAMM (CAD)W/JOHN BILAT COMPARISON: Baseline examination, no priors. FINDINGS: TISSUE DENSITY: There are scattered areas of fibroglandular density. Bilateral Breast Mammographic Findings: No significant masses, calcifications or other abnormalities are identified. BI/SCRN MAMM (CAD)W/JOHN BILAT IMPRESSION: There is no mammographic evidence of malignancy. OVERALL FINAL ASSESSMENT BI-RADS 1: NEGATIVE. RECOMMENDATION: Routine annual follow-up in 1 Year A letter with findings and recommendations will be mailed to the patient. Reading Location: [id number]
--- NOTE | 2025-03-25 15:45 | BI_ITS ---
EXAM: SCRN MAMM (CAD)W/JOHN BILAT DATE: 03/25/2025 CLINICAL HISTORY: F, Age 39 y/o , SCREENING MAMMOGRAM TECHNIQUE: SCRN MAMM (CAD)W/JOHN BILAT COMPARISON: Baseline examination, no priors. FINDINGS: TISSUE DENSITY: There are scattered areas of fibroglandular density. Bilateral Breast Mammographic Findings: No significant masses, calcifications or other abnormalities are identified. BI/SCRN MAMM (CAD)W/JOHN BILAT IMPRESSION: There is no mammographic evidence of malignancy. OVERALL FINAL ASSESSMENT BI-RADS 1: NEGATIVE. RECOMMENDATION: Routine annual follow-up in 1 Year A letter with findings and recommendations will be mailed to the patient. Reading Location: [id number]
== END | disposition home or self-care (01) ==
LOC: OPBI 15:28
PROVIDERS: PCP Internal Medicine; Referring Provider Obstetrics & Gynecology; Visit Provider Obstetrics & Gynecology
DX: Z12.31 Encounter for screening mammogram for malignant neoplasm of breast (principal)
CPT/HCPCS: 77063; 77067

== ENCOUNTER → 2025-06-10 | Outpatient (CLI) | payer MEDICAID, SELFPAY ==
--- NOTE | 2025-06-10 15:11 | US_ITS ---
PROCEDURE: PELVIC W/ TRANSVAGINAL 06/10/2025 REASON FOR EXAM: RIGHT GROIN PAIN TECHNIQUE: Procedure Code: USPELTVAG Modality: US Procedure: PELVIC W/ TRANSVAGINAL COMPARISON: None FINDINGS: Uterus: Uterus is anteverted measuring 10.1 x 6.3 x 3.8 cm. Myometrium is homogeneous, no demonstrated fibroid. Endometrium: Hyperechoic measuring 8 mm Right ovary: 3.4 x 2.2 x 1.5 cm Left ovary: 3.2 x 2.3 x 2.3 cm No suspicious adnexal mass, there is a simple left paraovarian cyst measuring 1.8 cm. Both ovaries demonstrate normal color flow. Other: No free fluid, bladder is incompletely distended US/Pelvic w/ Transvaginal IMPRESSION: No suspicious sonographic findings, simple left paraovarian cyst no specific fo llow-up needed Reading Location: [id number]
== END | disposition home or self-care (01) ==
LOC: US 15:06
PROVIDERS: PCP Internal Medicine; Referring Provider Internal Medicine; Visit Provider Internal Medicine
DX: R10.31 Right lower quadrant pain (principal)
CPT/HCPCS: 76830; 76856

== ENCOUNTER → 2025-08-25 | Outpatient (CLI) | payer MEDICAID, SELFPAY ==
[2025-08-25 10:12] LABS: Hematocrit 39.8 % (37-47); Hemoglobin 12.9 g/dL (12.0-15.0); Immature Granulocytes Count 0.020 X10^3/uL (0.0-0.0); Mean Corp Hgb Conc 32.4 g/dL (32-36); Mean Corpuscular Volume 85.8 fL (81-99); Mean Platelet Vol. 10.0 fl (6.2-12.0); NRBC Flagged by Analyzer 0 % (0-5); Platelet Count 287 K/mm3 (150-450); RBC Distribution Width CV 14.1 % (11.6-14.6); RBC Distribution Width SD 44.0 fl (35.1-43.9); Red Blood Count 4.64 M/mm3 (4.2-5.4); White Blood Count 5.5 K/mm3 (4.4-11.0)
[2025-08-25 12:48] LABS: T4 Total, Thyroxin 8.6 ug/dL (4.8-13.9); Vitamin B12 781 pg/mL (180-914); Vitamin D,25 Hydroxy 32.2 ng/mL (30-100)
[2025-08-26 14:09] LABS: ANTINUCLEAR ANTIBODIES DIRECT Negative (Negative)
== END | disposition home or self-care (01) ==
LOC: MTLAB 09:21
PROVIDERS: PCP Internal Medicine; Referring Provider Physician Assistant; Visit Provider Physician Assistant
DX: R68.89 Other general symptoms and signs (principal); K76.0 Fatty (change of) liver, not elsewhere classified
CPT/HCPCS: 86225; 36415; 82306; 82607; 84436; 84439; 84443; 85025; 85652; 86038; 86235

== ENCOUNTER 2025-08-26 20:44 | Emergency (ER) | payer MEDICAID, SELFPAY ==
[2025-08-26 20:45] VITALS: BP 152/96; PULSE 100; RESP 17; TEMP 37.1; O2SAT 100; BMI 46.3
--- NOTE | 2025-08-26 20:55 | RAD_ITS ---
PROCEDURE: LEFT KNEE 4 OR MORE VIEWS 08/26/2025 REASON FOR EXAM: PAIN TECHNIQUE: Procedure Code: RADKN Modality: DX Procedure: KNEE 4 OR MORE VIEWS Laterality: Left COMPARISON: None. FINDINGS: No acute fracture or dislocation. Alignment is anatomic. Preserved joint spaces. No aggressive osseous lesion. No appreciable joint effusion, soft tissue swelling or unusual mineralization. RAD/Knee 4 or More Views IMPRESSION: Unremarkable left knee radiographs. Reading Location: [id number]
--- NOTE | 2025-08-26 22:16 | EX.ED.DYSGE1 ---
HPI History of Present Illness Chief Complaint: Lower Extremity Injury Detail of Chief Complaint: Atraumatic left knee pain Informant: patient Onset/Context/Timing Onset: Yesterday Context: Sudden Onset Timing: Continuous Quality: Pain Location: Entire knee Current Severity: Mild Maximum Severity: Moderate Worsened by: movement and weightbearing Relieved by: Nothing specific Associated Symptoms Associated Symptoms: None Narrative Narrative: Patient is a 39-year-old female. She presents with atraumatic left knee pain. This started yesterday. It involves the entire knee. She has no history of prior injury. She has no history of osteoarthritis or meniscus injury. She does have a history of depression and hypertension. She denies direct or indirect trauma. Movement causes her to have more pain. She denies paresthesia, anesthesia or motor weakness. BMI is 46.3. Patient states she has had tendinitis in her right knee. Patient denies history of peptic ulcer disease, diabetes, kidney disease. Prior similar symptoms: No Recent Illness/Hospitalization: No PFSH PFS Medical History GERD (gastroesophageal reflux disease) Preventative health care Left ankle sprain Strain of right inguinal region Wears glasses Bladder disease History of IBS Insomnia Easy bruising Major depression Flu vaccine need Pharyngitis Generalized anxiety disorder Right thigh pain Right anterior knee pain Migraines Home Medications ?Medication ?Instructions ?Recorded ?Last Taken ?Type cetirizine 10 mg tablet 10 mg PO DAILY PRN allergy symptoms 07/15/19 Unknown History rizatriptan 5 mg tablet 5 mg PO ONCE PRN migraines 03/24/20 Unknown History multivitamin 1 cap PO DAILY 06/30/20 04/28/24 History cholecalciferol (vitamin D3) 50 50 mcg PO DAILY 02/16/22 04/28/24 History mcg (2,000 unit) capsule blood pressure monitor (Blood #1 ea 01/03/24 Unknown Rx Pressure Kit) fesoterodine 4 mg tablet,extended 8 mg PO DAILY 10/22/24 Unknown History release 24 hr ascorbic acid (vitamin C) 1,000 mg 1 g PO DAILY To help my immune 12/08/24 Unknown History tablet (Vitamin C) system [id number] 333 mg-133 tab PO To add more vitamin help 12/08/24 08/26/25 History mg-5 mg tablet vitamin E 670 mg (1,000 unit) 670 mg PO DAILY To help with my 12/08/24 Unknown History capsule health fluoxetine 20 mg capsule See Rx Instructions .Route 01/21/25 Unknown Rx .COMPLEX #90 caps zolpidem 5 mg tablet (Ambien) 5 mg PO QHS PRN sleep #30 tabs 01/21/25 Unknown Rx fluticasone propionate 50 See Rx Instructions .Route 03/10/25 Unknown Rx mcg/actuation nasal .COMPLEX #16 grams spray,suspension dicyclomine 20 mg tablet 20 mg PO BID PRN PRN abdominal 04/27/25 Unknown Rx pain #60 TABLETS bupropion HCl 150 mg 24 hr tablet, 150 mg PO QAM #90 tabs 05/11/25 Unknown Rx extended release (Wellbutrin XL) nystatin-triamcinolone 100,000 1 applic topical BID #60 grams 06/09/25 Unknown Rx unit/gram-0.1 % topical ointment etonogestrel 68 mg subdermal 1 implant subdermal ONCE 06/29/25 Unknown History implant (Nexplanon) amlodipine 10 mg tablet 10 mg PO DAILY #90 TABLETS 07/20/25 Unknown Rx fesoterodine 8 mg tablet,extended 8 mg PO QDAY #90 tabs 08/14/25 Unknown Rx release 24 hr (Toviaz) omeprazole 20 mg capsule,delayed 20 mg PO BID #60 caps 08/24/25 Unknown Rx release naproxen 500 mg tablet 500 mg PO BID #14 tabs 08/26/25 Unknown Rx Allergy/AdvReac Type Severity Reaction Status Date / Time azithromycin Allergy Intermediate Rash Verified 08/26/25 20:47 Family History Father Diabetes Cancer skin Hypertension Grandmother Cancer leukemia Grandfather Diabetes Hypertension Cancer skin Heart disease Sister Diabetes Pancreatic cancer Surgical History History of appendectomy History of cholecystectomy Social History number of children: 2 current occupational status: employed current occupation: [employer] current occupational exposures/hazards: No sexually active: Yes Smoking Status: Never smoker alcohol intake: current alcohol intake frequency: holidays/special occasions only substance use type: does not use caffeine: Yes what type of physical activity do you participate in: none seatbelt use: always do you feel safe at home: Yes additional social history: Tej[employer] - Unemployed ROS ROS ED Constitutional Constitutional ED: Denies chills, fever(s) or subjective Musculoskeletal Musculoskeletal: Denies arthralgias, back pain or myalgias Integumentary Denies rash Neurologic Neurologic: Denies paresthesias or weakness Hematologic/Lymphatic Hematologic/Lymphatic: Reports systems reviewed and no addt'l complaints, except as documented EXAM Physical Exam Const Vital Signs: 08/26/25 20:45 Temperature 98.8 F Temperature Source Temporal Pulse Rate 100 Respiratory Rate 17 Blood Pressure 152/96 H Blood Pressure Mean 114 Pulse Ox 100 Oxygen Delivery Method Room Air Positive well nourished and well developed Constitutional Narrative: Vital signs are marked for an elevated blood pressure. Patient does have history hypertension. She is on the amlodipine. General Appearance ED: well developed; Negative for pallor HEENT HEENT Narrative: Atraumatic and normocephalic Eyes PERRL and EOMs intact bilaterally General Eye ED: Negative for scleral icterus Resp normal respiratory effort Cardio regular rate and regular rhythm Extremity normal to inspection Extremity Narrative: Joint line tenderness bilaterally. There is no pain ovation over the patella or prepatellar bursa. There is no pain ovation of the quadricep tendon or the patella tendon. Patient able to extend to 180 degrees and flex to 90 degrees. She has no pain or laxity with varus or valgus stress testing. Daniel's test was negative and no pain was elicited. Modified Kaveh's test was negative for click. She complained of pain all over. PT pulses palpable. There is no skin lesions noted. There is no fullness or pain in the popliteal fossa. There is no palpable cords. General Extremety ED: Yes tenderness Neuro oriented x3 and CN's II-XII intact bilaterally Sensorium / Orientation: alert Psych mental status grossly normal Skin no rashes or lesions noted, no wounds and skin turgor normal General Skin Exam: elasticity normal; Negative for jaundice or pallor MDM MDM MDM Narrative Medical decision making narrative: Patient with left knee pain. X-ray was obtained per nurse protocol. This was obtained to assess for evidence of effusion, general arthritis. This may represent degenerative meniscus disease. She would need film with and without weights. At this point we will treat conservatively with NSAIDs and she has no contraindication. Radiography Chest X-Ray - ED: Read by ED Physician (4 view x-ray of the knee reveals no evidence of fracture, subluxation or effusion. There may be slight asymmetry of the joint with narrowing noted medially.) Diagnostic Testing: Clinical Impression(s) from Imaging Studies Knee X-Ray 08/26/25 20:55 IMPRESSION: Unremarkable left knee radiographs. Reading Location: [facility] Discharge Plan Triage Chief Complaint: Lower Extremity Injury ED Provider: Alex Coronel Dx/Rx/DC Orders Clinical Impression: Acute pain of left knee, Hypertension, Adult BMI 45.0-49.9 kg/sq m Instructions: ED Meniscal Injury Knee Poss Prescriptions: New naproxen 500 mg tablet 500 mg PO BID Qty: 14 0RF No Action rizatriptan 5 mg tablet 5 mg PO ONCE PRN (Reason: migraines) Rx Instructions: may repeat once after at least 2 hours multivitamin Capsule 1 cap PO DAILY cholecalciferol (vitamin D3) 50 mcg (2,000 unit) capsule 50 mcg PO DAILY (DME) blood pressure monitor [Blood Pressure Kit] Kit See Rx Instructions .ROUTE .MEDSUPPLY Qty: 1 0RF Rx Instructions: Check blood pressure daily for hypertension I10 fesoterodine 4 mg tablet extended release 24 hr 8 mg PO DAILY vitamin E 670 mg (1,000 unit) capsule 670 mg PO DAILY Patient Comments: Doctor said that it?s a good vitamin to be taking ascorbic acid (vitamin C) [Vitamin C] 1,000 mg tablet 1 g PO DAILY [id number]-[id number]-vwyq 333-133-5 mg tablet PO Nexplanon 68 mg implant 1 implant subdermal ONCE Rx Instructions: as a single dose nystatin-triamcinolone 100,000-0.1 unit/gram-% ointment 1 applic topical BID Qty: 60 1RF fesoterodine [Toviaz] 8 mg tablet extended release 24 hr 8 mg PO QDAY Qty: 90 3RF cetirizine 10 MG tablet 10 mg PO DAILY PRN (Reason: allergy symptoms) Patient Comments: TAKE 1 TABLET BY MOUTH EVERY DAY NEEDED zolpidem [Ambien] 5 mg tablet 5 mg PO QHS PRN (Reason: sleep) Qty: 30 2RF fluoxetine 20 mg capsule See Rx Instructions .ROUTE .COMPLEX Qty: 90 1RF Dose Instruction: TAKE ONE CAPSULE BY MOUTH EVERY DAY Rx Instructions: TAKE ONE CAPSULE BY MOUTH EVERY DAY fluticasone propionate 50 mcg/actuation spray,suspension See Rx Instructions .ROUTE .COMPLEX Qty: 16 2RF Dose Instruction: USE 2 SPRAYS IN EACH NOSTRIL ONCE DAILY Rx Instructions: USE 2 SPRAYS IN EACH NOSTRIL ONCE DAILY dicyclomine 20 mg tablet 20 mg PO BID PRN PRN (Reason: abdominal pain) Qty: 60 5RF bupropion HCl [Wellbutrin XL] 150 mg tablet extended release 24 hr 150 mg PO QAM Qty: 90 1RF amlodipine 10 mg tablet 10 mg PO DAILY Qty: 90 1RF omeprazole 20 mg capsule,delayed release(DR/EC) 20 mg PO BID Qty: 60 5RF Primary Care Provider: Solis Martino Referrals: Solis Martino MD [Primary Care Provider, Internal Medicine] Nima Mo DO [Med Staff - Active Staff, Orthopedics] - 1 Week Print Language: Greek Disposition Disposition: Home, Self Care
--- OUTSIDE RECORDS SUMMARY | 2025-08-26 22:17 | XMS RPT_ITS | CCD ---
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 Solis Martino Primary Care Provider [phone] [phone]) Dr. Solis Martino Referring Provider [phone] JESUS Serrano Attending Provider UnavailSolis Hernandez MD Primary Care Provider 1(3 30) Solis Martino MD Primary Care Provider 1(3 30) Dr. Solis Martino Primary Care Provider 1(33 [phone]) Dr. Solis Martino Referring Provider [phone] JESUS Serrano Attending Provider Unavailab Narvaez INSPECTOR CLIP ON SUNGLASSES, INSPECTOR CLIP ON SUNGLASSES-C Bruce Attending Provider [phone]) Dr. Solis Martino Primary Care Provider [phone] [phone]) Dr. Solis Martino Referring Provider [phone] Dr. Solis Martino Attending Provider [phone] JESUS Serrano Attending Provider Genoveva Wood INSPECTOR CLIP ON SUNGLASSES, INSPECTOR CLIP ON SUNGLASSES-C Sandrita Attending Provider [phone] [phone] Dr. Solis Martino Primary Care Provider 1(33 0) Dr. Solis Martino Referring Provider [phone] Bita INSPECTOR CLIP ON SUNGLASSES, INSPECTOR CLIP ON SUNGLASSES-C Bruce Attending Provider [phone] Dr. Solis Martino Attending Provider [phone] JESUS Serrano Attending Provider Unavailab nidia Carnes INSPECTOR CLIP ON SUNGLASSES, EFREMC Sandrita Attending Provider Jericho Martino MDbe B Primary Care Provider [phone] Solis Martino MD B Primary Care Provider [phone] Han AU Rachid B Unavailable Oleghe, Efewongbe Primary Care Unavailable Radha Ríos Attending Unavailabl e Radha Ríos Referring Unavailabl e Oleghe, Efewongbe Primary Care Unavailable Oleghe, Efewongbe Attending Unavailable Oleghe, Efewongbe Referring Unavailable Martin Ramos Attending Unavailable Oleghe, Efewongbe Primary Care Unavailable Pippa Robbins Referring Unavailable Pippa Robbins Attending Unavailable Oleghe, Efewongbe Primary Care Unavailable Oleghe, Efewongbe Primary Care Unavailable Oleghe, Efewongbe Referring Unavailable Oleghe, Efewongbe Attending Unavailable Oleghe, Efewongbe Primary Care Unavailable Oleghe, Efewongbe Referring Unavailable Ang Pa Attending Unavailable Radha Menard Attending Unavailable Oleghe, Efewongbe Primary Care Unavailable Oleghe, Efewongbe Referring Unavailable Oleghe, Efewongbe Primary Care Unavailable Martin Adams Attending Unavailable Oleghe, Efewongbe Referring Unavailable Oleghe, Efewongbe Primary Care Unavailable Maritn Adams Attending Unavailable Oleghe, Efewongbe Primary Care Unavailable Oleghe, Efewongbe Referring Unavailable Ang Pa Attending Unavailable Oleghe, Efewongbe Primary Care Unavailable Oleghe, Efewongbe Referring Unavailable Ang Pa Attending Unavailable Radha Menard Attending Unavailable Oleghe, Efewongbe Primary Care Unavailable Radha Menard Attending Unavailable Oleghe, Efewongbe Primary Care Unavailable Radha Menard Attending Unavailable Oleghe, Efewongbe Primary Care Unavailable Oleghe, Efewongbe Primary Care Unavailable Oleghe, Efewongbe Referring Unavailable Oleghe, Efewongbe Attending Unavailable Oleghe, Efewongbe Primary Care Unavailable Oleghe, Efewongbe Referring Unavailable Myles Casey NP Attending Unavailable Oleghe, Efewongbe Primary Care Unavailable Radha Menard Attending Unavailable Oleghe, Efewongbe Primary Care Unavailable Radha Menard Attending Unavailable Oleghe, Efewongbe Primary Care Unavailable Radha Menard Attending Unavailable Oleghe, Efewongbe Primary Care Unavailable Radha Ríos Attending Unavailabl e Oleghe, Efewongbe Referring Unavailable Martin Adams Attending Unavailable Oleghe, Efewongbe Primary Care Unavailable Martin Adams Referring Unavailable Oleghe, Efewongbe Primary Care Unavailable Radha Ríos Referring Unavailabl e Vande VeldeRadha Attending Unavailabl e Oleghe, Efewongbe Primary Care Unavailable Radha Ríos Referring Unavailabl e Vande VeldeRadha Attending Unavailabl e Oleghe, Efewongbe Primary Care Unavailable Radha Menard Attending Unavailable Oleghe, Efewongbe Primary Care Unavailable Radha Menard Attending Unavailable Martin Ramos Attending Unavailable Oleghe, Efewongbe Primary Care Unavailable Oleghe, Efewongbe Primary Care Unavailable Radha Menard Attending Unavailable Oleghe, Efewongbe Referring Unavailable Pippa Robbins Attending Unavailable Oleghe, Efewongbe Primary Care Unavailable Oleghe, Efewongbe Primary Care Unavailable Radha Menard Attending Unavailable Oleghe, Efewongbe Primary Care Unavailable Radha Menard Attending Unavailable Oleghe, Efewongbe Primary Care Unavailable Oleghe, Efewongbe Attending Unavailable Oleghe, Efewongbe Referring Unavailable Oleghe, Efewongbe Primary Care Unavailable Radha Menard Attending Unavailable Oleghe, Efewongbe Primary Care Unavailable Radha Menard Attending Unavailable Oleghe, Efewongbe Primary Care Unavailable Oleghe, Efewongbe Referring Unavailable Oleghe, Efewongbe Attending Unavailable Rachid Short Attending Unavailable Oleghe, Efewongbe Primary Care Unavailable Oleghe, Efewongbe Referring Unavailable Oleghe, Efewongbe Primary Care Unavailable Radha Menard Attending Unavailable Oleghe, Efewongbe Primary Care Unavailable Radha Ríos Attending Unavailabl e Oleghe, Efewongbe Referring Unavailable Martin Ramos Attending Unavailable Oleghe, Efewongbe Primary Care Unavailable Oleghe, Efewongbe Primary Care Unavailable Marissa Locke Attending Unavailable Oleghe, Efewongbe Referring Unavailable Oleghe, Efewongbe Primary Care Unavailable Oleghe, Efewongbe Referring Unavailable Radha Ríos Attending Unavailabl e Radha Menard Attending Unavailable Oleghe, Efewongbe Primary Care Unavailable Oleghe, Efewongbe Primary Care Unavailable Martin Ramos Attending Unavailable Oleghe, Efewongbe Primary Care Unavailable Radha Menard Attending Unavailable Oleghe, Efewongbe Primary Care Unavailable Oleghe, Efewongbe Referring Unavailable Radha Ríos Attending Unavailabl Rachid Bhardwaj Referring Unavailable Oleghe, Efewongbe Primary Care Unavailable Rachid Short Attending Unavailable Oleghe, Efewongbe Primary Care Unavailable Radha Menard Attending Unavailable ANGELO PALACIOS Referring Unavailable OLEGHE, EFEWONGBE B Primary Care Unavailable ANGELO PALACIOS Referring Unavailable OLEGHE, EFEWONGBE B Primary Care Unavailable ANGELO PALACIOS Attending Unavailable OLEGHE, EFEWONGBE B Primary Care Unavailable OLEGHE, EFEWONGBE B Primary Care Unavailable PIPPA ABBASI Referring Unavailable OLEGHE, EFEWONGBE B Primary Care Unavailable PIPPA ABBASI Attending Unavailable ANGELO PALACIOS Referring Unavailable OLEGHE, EFEWONGBE B Primary Care Unavailable ANGELO PALACIOS Referring Unavailable ANGELO PALACIOS Attending Unavailable OLEGHE, EFEWONGBE B Primary Care Unavailable Allergies Allergy Classification Reported Allergen(s) Allergy Type Date of Onset Reaction(s) Facility (8 sources) Erythromycin; Translations: [ERYTHROMYCIN] Drug Allergy 11-27-2024 [facility] (1 source) Azithromycin Drug Allergy 06-29-2025 [facility] Repository Medications Current Medications Medication Drug Class(es) Dates Sig (Normalized) Sig (Original) amLODIPine 10 mg oral tablet (20 sources) Dihydropyridine Calcium Channel Martha Start: 05-23-2023 take 1 tablet by mouth once daily amLODIPine (NORVASC) 10 mg tablet Take 1 tablet by mouth once daily. 05/23/2023 Active Start: 08-30-2022 take 10 mg by mouth once daily Amlodipine Active 10 MG PO DAILY August 30, 2022 11:18am Start: 06-10-2021 End: 01-10-2022 take 10 mg by mouth once daily Amlodipine Discontinued 10 MG PO DAILY November 17, 2021 3:36pm January 10, 2022 3:22pm Start: 06-02-2020 End: 06-10-2021 take 7.5 mg by mouth once daily Amlodipine Discontinued 7.5 MG PO DAILY 135 September 06, 2020 1:10pm June 10, 2021 4:19pm Start: 06-02-2020 End: 06-02-2020 take 5 mg by mouth once daily Amlodipine Discontinued 5 MG PO DAILY June 02, 2020 12:00am June 02, 2020 3:09pm Comment on above: Take 1 tablet by amber th once daily. amoxicillin 875 mg oral tablet (1 source) Penicillin-class Antibacterial Start: 07-29-20 End: 08-05-20 take 1 tablet by mouth twice daily amoxicillin (AMOXIL) 875 mg tablet Indications: Bacterial sinusitis Take 1 tablet by mouth two times a day for 7 days. 14 tablet 0 07/29/2023 08/05/2023 Active Comment on above: Take 1 tablet by amber th two times a day for 7 days. ascorbic acid 1000 mg oral tablet (4 sources) Vitamin C take 1 tablet by mouth once daily Ascorbic Acid (VITAMIN C) 1,000 mg tablet Take 1,000 mg by mouth once daily. Active benzonatate 100 mg oral capsule (1 source) Non-narcotic Antitussive Start: 04-03-20 End: 04-13-20 take 2 capsules by mouth three times daily as needed benzonatate (TESSALON PERLE) 100 mg capsule Indications: Viral URI with cough Take 2 capsules by mouth three times a day as needed for up to 10 days. 60 capsule 0 04/03/2024 04/13/2024 Active biotin 10 mg oral capsule (20 sources) Start: 01-11-20 Biotin Active MCG PO January 10, 2022 12:00am take 1 tablet by mouth once baljinder y Biotin 1 mg tab Take 1 tablet by mouth once daily. Active Comment on above: Take 1 tablet by amber th once daily. Blood Pressure Monitor (Blood Pressure Kit) kit (5 sources) Start: 05-27-2020 Blood Pressure Monitor (Blood Pressure Kit) kit Active 0 .ROUTE .MEDSUPPLY May 26, 2020 11:00pm Check blood pressure daily for hypertension I10 Start: 05-27-2020 Blood Pressure Monitor (Blood Pressure Kit) kit Active 0 .ROUTE .MEDSUPPLY May 27, 2020 12:00am Check blood pressure daily for hypertension I10 24 hr buPROPion hydrochloride 150 mg extended release oral tablet (18 sources) Aminoketone Start: 08-16-2023 buPROPion XL (WELLBUTRIN XL) 150 mg 24 hr tablet 08/16/2023 Active calcium/magnesium/zinc ([id number] NC) 333-133-5 mg tab (20 sources) take 1 tablet by mouth once daily calcium/magnesium/z inc (CALCIUM-MAGNESUIUM -ZINC) 333-133-5 mg tab Take 1 tablet by mouth once daily. Active take 1 tablet by amber th once daily calcium/magnesium/zinc (CALCIUM-MAGNESUI UM-ZINC) 333-133-5 mg tab Take 1 tablet by mouth once daily. 0 Active Comment on above: Take 1 tablet by amber th once daily. cetirizine hydrochloride 10 mg oral tablet (20 sources) Histamine-1 Receptor Antagonist Start: 9 take 1 tablet by mouth once daily as needed cetirizine (ZYRTEC) 10 mg tablet Indications: Middle ear effusion, bilateral Take 1 tablet by mouth once daily as needed. 30 tablet 06/29/2019 Active Comment on above: Take 1 tablet by amber th once daily as needed. cholecalciferol 0.05 mg oral capsule (20 sources) Vitamin D Start: 2 take 1 capsule by mouth once daily Cholecalciferol, Vitamin D3, 50 mcg (2,000 unit) cap Take 1 capsule by mouth once daily. 02/16/2022 Active Start: 02-16-2022 take 50 ug by mouth once daily Cholecalciferol (Vitamin D3) Active 50 MCG PO DAILY February 16, 2022 12:00am Comment on above: Take 1 capsule by mo ut once daily. clotrimazole 10 mg/ml topical cream (1 source) Azole Antifungal Start: 04-15-2022 End: 04-29-2022 clotrimazole (LOTRIMIN, CLOTRIM) 1 % cream Apply to affected area twice daily for 14 days. 60 g 0 04/15/2022 04/29/2022 Active Comment on above: Apply to affected ar ea twice daily for 14 days. copper 313 mg drug implant (20 sources) Copper-containing Intrauterine Device copper (PARAGARD) 38 0 square mm intrauterine device 1 Intra Uterine Device by INTRAUTERINE route. Active Comment on above: 1 Intra Uterine Elo ce by INTRAUTERINE route. Copper (Paragard T 380-A) 1 EACH Iud (5 sources) Start: 05-14-2020 Copper (Paragard T 380-A) 1 EACH Iud Active 1 EACH IY DAILY May 13, 2020 11:00pm Start: 05-14-2020 Copper (Paraga rd T 380-A) 1 EACH Iud Active 1 EACH IY DAILY May 14, 2020 12:00am doxycycline hyclate 100 mg oral capsule (17 sources) Tetracycline-class Drug Start: 12-14-2023 take 2 capsules by mouth twice daily doxycycline hyclate (VIBRAMYCIN) 100 mg capsule Take 2 capsules by mouth two times a day. For 7 days 12/14/2023 Active Comment on above: Take 2 capsules by m out two times a day. For 7 days escitalopram 20 mg oral tablet (20 sources) Serotonin Reuptake Inhibitor Start: 03-10-2020 End: 07-10-2022 take 1 tablet by mouth once daily escitalopram oxalate (LEXAPRO) 20 mg tablet Take 20 mg by mouth once daily. 07/10/2022 Active Start: 03-02-2020 End: 03-10-2020 take 1 tablet by mouth once daily Escitalopram Oxalate (Lexapro) 10 mg tablet Discontinued 10 MG PO DAILY March 02, 2020 12:00am March 10, 2020 5:19pm Comment on above: Take 20 mg by mouth once daily. 24 hr fesoterodine fumarate 4 mg extended release oral tablet (4 sources) take 1 tablet by mouth once daily fesoterodine (TOVIAZ) 4 mg Tb24 extended release tablet Take 4 mg by mouth once daily. Active FLUoxetine 20 mg oral capsule (20 sources) Serotonin Reuptake Inhibitor Start: 05-20-20 take 1 capsule by mouth once daily FLUoxetine (PROZAC) 20 mg capsule Take 20 mg by mouth once daily. 05/20/2023 Active Comment on above: Take 20 mg by mouth once daily. fluticasone propionate 0.05 mg/actuat metered dose nasal spray (20 sources) Corticosteroid Start: 06-29-20 19 take 2 spray(s) by mouth once daily fluticasone (FLONASE) 50 mcg/actuation nasal spray Indications: Middle ear effusion, bilateral Use 2 Sprays in each nostril once daily. Rinse mouth after use. 1 Bottle 1 06/29/2019 Active Start: 07-04-2017 FLONASE 50 MCG /ACT SUSP 2 puffs once a day as needed FLUTICASONE PROPIONATE [id number] Solis Martino MD Start: 06-11-2017 End: 06-12-2022 Fluticasone Propionate Activ e 2 SPRAY NASAL DAILY June 12, 2022 2:43pm take 2 spray(s) nasa l route once daily FLUTICASONE PROPIONATE (FLONASE NASAL) Use 2 Sprays in each nostril once daily. Active take 2 spray(s) nasa l route once daily FLUTICASONE PROPIONATE (FLONASE NASAL) Use 2 Sprays in each nostril once daily. 0 Active Comment on above: Use 2 Sprays in each nostril once daily. Use 2 Sprays in each nostril once daily. Rinse mouth after use. hydrocortisone 25 mg/ml topical cream (8 sources) Corticosteroid Start: 10-03-2022 Hydrocortisone Active 1 APPLIC TOPICAL TWICE A DAY October 03, 2022 1:00am Start: 02-16-2022 End: 08-30-2022 Hydrocortisone Discontinued 1 APPLIC TOPICAL TWICE A DAY February 16, 2022 12:00am August 30, 2022 11:01am Inulin (4 sources) take 1 dose by mouth once daily inulin (FIBER GUMMIES ORAL) Take 1 Each by mouth once daily. Active lidocaine hydrochloride 20 mg/ml mucous membrane topical solution (20 sources) Antiarrhythmic, Amide Local Anesthetic Start: 2022 LIDOCAINE VISCOUS 2 % solution Indications: Sore throat Take 5-10 mL by mouth four times daily as needed. 100 mL 1 05/01/2023 Active Comment on above: Take 5-10 mL by mout h four times daily as needed. methylPREDNISolone (6 sources) Corticosteroid Start: 2022 End: 2022 methylPREDNISolone (MEDROL, DAYANNA,) 4 mg Dose-Pack Follow dosing instructions, take with food. 21 tablet 0 07/08/2023 07/14/2023 Active Start: 04-05-2021 End: 04-29-2021 take 1 tablet by mouth once Methylprednisolone (Medrol (Dayanna)) 4 mg tablets,dose pack Discontinued 0 PO per package directions April 05, 2021 12:00am April 29, 2021 2:56pm PO PER PKG DIR Comment on above: Follow dosing instru ctions, take with food. mirabegron (8 sources) beta3-Adrenergic Agonist Start: 02-02-2024 take 100 mg by mouth once daily mirabegron (MYRBETRIQ ORAL) Take 100 mg by mouth once daily. 02/02/2024 Active Start: 02-02-2024 take 100 mg by mouth once baljinder y mirabegron (MYRBETRIQ ORAL) Take 100 mg by mouth once daily. 0 02/02/2024 Active Multivitamin preparation (5 sources) Start: 06-30-2020 take 1 capsule by mouth once daily multivitamin Active 1 CAP PO DAILY June 29, 2020 11:00pm Start: 06-30-2020 take 1 capsule by mo [facility] once daily multivitamin Active 1 CAP PO DAILY June 30, 2020 12:00am mupirocin 0.02 mg/mg topical ointment (1 source) RNA Synthetase Inhibitor Antibacterial Start: 08-19-2023 End: 08-24-2023 mupirocin (BACTROBAN) 2 % ointment Apply to affected area three times a day for 5 days. 30 g 0 08/19/2023 08/24/2023 Active Comment on above: Apply to affected ar ea three times a day for 5 days. mv,Ca,min/iron/FA /guarana/caff (ONE-A-DAY WOMEN'S ACTIVE ORAL) (20 sources) take 1 tablet by mouth once daily, then take 1 tablet by mouth once daily mv,Ca,min/iron/FA/ guarana/caff (ONE-A-DAY WOMEN'S ACTIVE ORAL) Take 1 tablet by mouth once daily. Active take 1 tablet by amber th once daily, then take 1 tablet by mouth once daily mv,Ca,min/iron/FA/guarana/caff (ONE-A-DA Y WOMEN'S ACTIVE ORAL) Take 1 tablet by mouth once daily. 0 Active Comment on above: Take 1 tablet by amber th once daily. norethindrone acetate 5 mg oral tablet (3 sources) Start: 11-15-19 take 1 tablet by mouth three times daily, then take 1 tablet by mouth twice daily Norethindrone Acetate (Aygestin) 5 mg tablet Active 5 MG PO .COMPLEX 45 November 14, 2022 1:00am 5 mg PO tid until bleeding stops X 24 hr then bid to finish Rx omega 2-bgt-vrb-fish oil (FISH OIL) 100-160-1,000 mg cap (4 sources) take 100-160 capsules by mouth once daily omega 9-jsb-quk-fish oil (FISH OIL) 100-160-1,000 mg cap Take 1 capsule by mouth once daily. Active rizatriptan 5 mg oral tablet (20 sources) Serotonin-1b and Serotonin-1d Receptor Agonist Start: 03-24-20 take 1 tablet by mouth every two hours as needed rizatriptan (MAXALT) 5 mg tablet take 1 tablet by oral route once as needed for migraine; can repeat dose in 2 hours if needed; limit 30 mg per 24 hours 03/24/2020 Active Comment on above: take 1 tablet by ora l route once as needed for migraine; can repeat dose in 2 hours if needed; limit 30 mg per 24 hours traZODone hydrochloride 100 mg oral tablet (20 sources) Serotonin Reuptake Inhibitor Start: 05-14-20 take 1 tablet by mouth once daily at bedtime traZODone (DESYREL) 100 mg tablet Take 1 tablet by mouth daily at bedtime. 05/14/2023 Active Start: 08-30-2022 take 100 mg by mouth at bedtim e Trazodone Active 100 MG PO AT BEDTIME August 30, 2022 1:00am Comment on above: Take 1 tablet by amber th daily at bedtime. urea 400 mg/ml topical cream (20 sources) Start: 06-07-2023 End: 12-16-2024 urea (CARMOL) 40 % Apply to affected area once daily. 198 g 11 12/17/2023 12/16/2024 Active Comment on above: Apply to affected ar ea once daily. vitamin b12 1 mg/ml oral solution (4 sources) Vitamin B12 take 1000 ug by mouth once daily cyanocobalamin, vitamin B-12, (VITAMIN B-12) 1,000 mcg/mL drop Take 1,000 mcg by mouth once daily. Active vitamin e 400 unt/ml oral solution (4 sources) take 180 mg by mouth once daily Vitamin E 100 unit/0.25 mL drop Take 180 mg by mouth once daily. Active Completed/Discontinued Medications Medication Drug Class(es) Dates Sig (Normalized) Sig (Original) amitriptyline hydrochloride 25 mg oral tablet (20 sources) Tricyclic Antidepressant Start: 02-27-2020 End: 03-02-2020 take 50 mg by mouth once daily Amitriptyline Discontinued 50 MG PO DAILY February 27, 2020 3:09pm March 02, 2020 10:39am Start: 01-23-2020 End: 02-27-2020 take 100 mg by mouth once daily Amitriptyline Discontinued 100 MG PO DAILY January 23, 2020 1:53pm February 27, 2020 3:18pm Start: 07-15-2019 End: 01-23-2020 take 50 mg by mouth once daily Amitriptyline Discontin ued 50 MG PO DAILY July 15, 2019 1:00am January 23, 2020 1:53pm Start: 06-18-2019 End: 08-12-2021 take 1 tablet by mouth once daily amitriptyline (ELAVIL) 25 mg tablet Take 1 tablet by mouth once daily. 6 06/18/2019 Active Comment on above: Take 1 tablet by amber th once daily. amoxicillin 875 mg / clavulanate 125 mg oral tablet (5 sources) Penicillin-class Antibacterial Start: 07-12-20 End: 08-12-20 take 1 tablet by mouth twice daily Amoxicillin-Pot Clavulanate (Augmentin) 875-125 mg tablet Discontinued 1 TABLET PO TWICE A DAY July 12, 2021 12:00am August 12, 2021 3:00pm ARIPiprazole 15 mg oral tablet (20 sources) Atypical Antipsychotic Start: 06-21-20 End: 01-11-20 take 15 mg by mouth at bedtime Aripiprazole Discontinued 15 MG PO AT BEDTIME October 28, 2021 4:41pm January 10, 2022 3:22pm Start: 10-18-2020 End: 06-21-2021 take 20 mg by mouth at bedtime Aripiprazole Discontinu ed 20 MG PO AT BEDTIME November 23, 2020 2:52pm June 21, 2021 2:34pm Start: 06-30-2020 End: 10-18-2020 take 10 mg by mouth at bedtime Aripiprazole Discontinu ed 10 MG PO AT BEDTIME August 30, 2020 5:22pm October 18, 2020 4:12pm Start: 06-02-2020 End: 06-30-2020 take 5 mg by mouth at bedtime Aripiprazole Discontinue d 5 MG PO AT BEDTIME June 24, 2020 9:29am June 30, 2020 2:13pm cephalexin 500 mg oral capsule (4 sources) Cephalosporin Antibacterial Start: 09-30-2022 End: 11-14-2022 take 500 mg by mouth four times daily Cephalexin Discontinued 500 MG PO 4 TIMES DAILY October 03, 2022 1:00am November 14, 2022 4:37pm Comment on above: Take 1 capsule by mo [facility] four times daily for 5 days. clindamycin 0.01 mg/mg topical gel (5 sources) Lincosamide Antibacterial Start: 01-16-2022 End: 08-30-2022 Clindamycin Phosphate Discontinued 1 APPLIC TOPICAL TWICE A DAY January 16, 2022 12:00am August 30, 2022 11:00am ETONOGESTREL IMPL (1 source) Progestin Start: 07-04-2017 NEXPLANON IMPL take as directed ETONOGESTREL IMPL [id number] Solis Martino MD GEMTESA 75 mg tablet (17 sources) Start: 05-14-2023 End: 04-03-2024 take 1 tablet by mouth once daily GEMTESA 75 mg tablet Take 1 tablet by mouth once daily. 0 05/14/2023 04/03/2024 Discontinued Start: 05-14-2023 take 1 tablet by amber th once daily GEMTESA 75 mg tablet Take 1 tablet by mouth once daily. 0 05/14/2023 Active Comment on above: Take 1 tablet by amber th once daily. melatonin 5 mg oral tablet (15 sources) Start: 0 End: 2 take 5 mg by mouth at bedtime Melatonin Discontinued 5 MG PO BEDTIME 90 June 02, 2021 8:09am August 30, 2022 11:01am MICONAZOLE NITRATE (1 source) Start: 7 MICONAZOLE NITRATE 2 % POWD Apply twice daily to affected areas MICONAZOLE NITRATE [id number] Solis Martino MD 24 hr propranolol hydrochloride 60 mg extended release oral capsule (10 sources) beta-Adrenergic Martha Start: 0 End: 1 Propranolol Discontinued EACH PO June 02, 2020 12:00am November 23, 2020 2:43pm Start: 03-02-2020 End: 03-10-2020 take 10 mg by mouth twice daily Propranolol Discontinued 10 MG PO TWICE A DAY 60 March 02, 2020 12:00am March 10, 2020 5:14pm SALINE (2 sources) Start: 07-04-2017 AYR SOLN take as directed SALINE SOLN [id number] Solis Martino MD Start: 07-04-2017 AYR SALINE DAVID AL GEL take as directed SALINE [id number] Solis Martino MD topiramate 25 mg oral tablet (10 sources) Start: 08-30-2020 End: 06-10-2021 take 25 mg by mouth twice daily Topiramate Discontinued 25 MG PO TWICE A DAY 180 December 15, 2020 3:22pm June 10, 2021 4:14pm Problems Active Problems Problem Classification Problem Date Documented Date Episodic/Chronic Abdominal pain (1 source) Right lower quadrant pain; Translations: [Right lower quadrant pain] Onset: 07-06-2025 Episodic Anxiety disorders (10 sources) Mixed anxiety and depressive disorder; Translations: [Anxiety disorder, unspecified] Onset: 12-22-2024 Chronic Contraceptive and procreative management (3 sources) Intrauterine contraceptive device in situ; Translations: [Presence of (intrauterine) contraceptive device] Onset: 06-09-2025 3 Episodic Digestive congenital anomalies (1 source) Other congenital malformations of pancreas and pancreatic duct; Translations: [Other congenital malformations of pancreas and pancreatic duct] Onset: 01-21-2025 Chronic Essential hypertension (8 sources) Hypertensive disorder; Translations: [Essential (primary) hypertension] Chronic Genitourinary symptoms and ill-defined conditions (4 sources) Frequency of micturition; Translations: [Urinary frequency] Episodic Headache; including migraine (20 sources) Migraine; Translations: [Migraine without aura, not intractable, without status migrainosus] Onset: 04-13-2011 04-13-2011 Chronic Hemorrhage during ; abruptio placenta; placenta previa (5 sources) Threatened miscarriage in first trimester; Translations: [Threatened ] 03-22-2015 Episodic Menstrual disorders (9 sources) Menometrorrhagia; Translations: [Excessive and frequent menstruation with irregular cycle] Onset: 06-09-2025 11-14-2022 Chronic Mood disorders (6 sources) Depressive disorder; Translations: [Depression] Onset: 12-22-2024 05-15-2020 Chronic Open wounds of extremities (1 source) Laceration of right little finger; Translations: [Laceration without foreign body of right little finger without damage to nail, initial encounter] Episodic Other and unspecified benign neoplasm (1 source) Benign neoplasm of peripheral nerves and autonomic nervous system, unspecified; Translations: [Neuroma] Onset: 07-02-2025 Episodic Other congenital anomalies (3 sources) Congenital ichthyosis, unspecified; Translations: [Other specified anomalies of skin] 10-03-2022 Chronic Other connective tissue disease (3 sources) Pain of left heel; Translations: [Pain in left foot] Episodic Other connective tissue disease (1 source) Plantar fasciitis; Translations: [Plantar fascial fibromatosis] Episodic Other female genital disorders (1 source) Abnormal uterine and vaginal bleeding, unspecified; Translations: [Abnormal uterine and vaginal bleeding, unspecified] Onset: 03-24-2025 Chronic Other inflammatory condition of skin (5 sources) Irritant contact dermatitis; Translations: [Erythema intertrigo] 03-29-2018 Episodic Other lower respiratory disease (3 sources) Multiple nodules of lung; Translations: [Other nonspecific abnormal finding of lung field] 12-13-2024 Episodic Other non-traumatic joint disorders (3 sources) Acute ankle pain; Translations: [Pain in left ankle and joints of left foot] Episodic Other non-traumatic joint disorders (5 sources) Anterior knee pain; Translations: [Pain in right knee] 04-05-2021 Episodic Other nutritional; endocrine; and metabolic disorders (1 source) Morbid obesity; Translations: [Morbid (severe) obesity due to excess calories] Onset: 07-04-2017 07-04-2017 Chronic Other skin disorders (1 source) Eruption; Translations: [Rash and other nonspecific skin eruption] Episodic Other skin disorders (5 sources) Xerosis cutis; Translations: [Contact dermatitis and other eczema due to other specified agents] Episodic Other skin disorders (1 source) Foot callus; Translations: [Corns and callosities] 12-17-2023 Episodic Other upper respiratory infections (1 source) Bacterial sinusitis; Translations: [Chronic sinusitis, unspecified] 07-29-2023 Chronic Other upper respiratory infections (6 sources) Sore throat symptom; Translations: [Acute pharyngitis, unspecified] Episodic Pancreatic disorders (not diabetes) (2 sources) Hereditary pancreatitis; Translations: [Acute pancreatitis without necrosis or infection, unspecified] 03-30-2025 Episodic Residual codes; unclassified (2 sources) Pain; Translations: [Pain, unspecified] 06-20-2023 Episodic Superficial injury; contusion (1 source) Abrasion of left ear, initial encounter; Translations: [Abrasion or friction burn of face, neck, and scalp except eye, without mention of infection] 08-19-2023 Episodic Unclassified (1 source) APPOINTMENT CANCELLED 07-21-2023 Unclassified (1 source) Cough, unspecified; Translations: [Cough, unspecified] Onset: 03-14-2025 Past or Other Problems Problem Classification Problem Date Documented Date Episodic/Chronic Abdominal hernia (10 sources) Right inguinal hernia ; Translations: [Hiatal hernia] Onset: 12-03-2024 12-02-2024 Episodic Acquired foot deformities (20 sources) Talipes planus; Translations: [Flat foot [pes planus] (acquired), right foot] Onset: 01-01-2024 12-17-2023 Episodic Acute bronchitis (1 source) Acute bronchitis, unspecified; Translations: [Acute bronchitis, unspecified] Onset: 03-14-2025 Episodic Allergic reactions (1 source) Other adverse food reactions, not elsewhere classified, initial encounter; Translations: [Other adverse food reactions, not elsewhere classified, initial encounter] Onset: 11-28-2024 Episodic Appendicitis and other appendiceal conditions (20 sources) Acute appendicitis with localized peritonitis; Translations: [Acute appendicitis with localized peritonitis, without perforation or gangrene] Onset: 06-09-2016 06-09-2016 Episodic Biliary tract disease (18 sources) Gallstone; Translations: [Calculus of gallbladder without cholecystitis without obstruction] Onset: 08-20-2009 Resolved: 03-25-2012 03-25-2012 Episodic E Codes: Adverse effects of medical drugs (1 source) Adverse effect of unspecified drugs, medicaments and biological substances, initial encounter; Translations: [Adverse effect of unspecified drugs, medicaments and biological substances, initial encounter] Onset: 10-06-2024 Episodic Hypertension complicating ; childbirth and the puerperium (18 sources) Elevated blood pressure; Translations: [Unspecified maternal hypertension, second trimester] Onset: 07-20-2015 Resolved: 12-17-2015 09-05-2021 Chronic Hypertension complicating ; childbirth and the puerperium (18 sources) Transient hypertension of ; Translations: [Gestational [-induced] hypertension without significant proteinuria, unspecified trimester] Onset: 04-13-2011 Resolved: 03-25-2012 03-25-2012 Episodic Mycoses (1 source) Candidal intertrigo; Translations: [Candidiasis of skin and nail] Onset: 07-04-2017 07-04-2017 Episodic Other complications of (18 sources) Obesity; Translations: [Obesity complicating , unspecified trimester] Onset: 04-02-2015 Resolved: 12-17-2015 09-05-2021 Chronic Other complications of (20 sources) High risk ; Translations: [Supervision of high risk , unspecified, unspecified trimester] Onset: 01-19-2011 Resolved: 12-17-2015 03-25-2012 Episodic Other connective tissue disease (20 sources) Disorder of posterior tibial muscle tendon; Translations: [Posterior tibial tendinitis, right leg] Onset: 07-12-2023 07-12-2023 Episodic Other connective tissue disease (20 sources) Peroneal tendinitis of right lower limb; Translations: [Peroneal tendinitis, right leg] Onset: 01-01-2024 12-17-2023 Episodic Other female genital disorders (1 source) Other specified noninflammatory disorders of vagina; Translations: [Other specified noninflammatory disorders of vagina] Onset: 10-29-2024 Episodic Other female genital disorders (1 source) Leukoplakia of vulva; 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] Onset: 08-12-2024 Episodic Other lower respiratory disease (1 source) Other nonspecific abnormal finding of lung field; Translations: [Lung nodules] Onset: 12-24-2024 Episodic Other and delivery including normal (18 sources) Normal ; Translations: [Encounter for supervision of normal first , first trimester] Onset: 04-02-2015 Resolved: 06-17-2015 06-17-2015 Episodic Other screening for suspected conditions (not mental disorders or infectious disease) (1 source) Encounter for screening mammogram for malignant neoplasm of breast; Translations: [Encounter for screening mammogram for malignant neoplasm of breast] Onset: 03-30-2025 Episodic Other skin disorders (20 sources) Callosity; Translations: [Corns and callosities] Onset: 07-12-2023 07-12-2023 Episodic Residual codes; unclassified (18 sources) Family history of Spina bifida; Translations: [Family history of other congenital malformations, deformations and chromosomal abnormalities] Onset: 04-02-2015 Resolved: 12-17-2015 09-05-2021 Episodic Residual codes; unclassified (1 source) Insomnia, unspecified; Translations: [Insomnia, unspecified] Onset: 12-22-2024 Episodic Sprains and strains (1 source) Sprain of unspecified ligament of left ankle, initial encounter; Translations: [Sprain of unspecified ligament of left ankle, initial encounter] Onset: 12-10-2024 Episodic Results Test Name Value Interpretation Reference Range Facility [facility] 07-02-2025 CNOV Office Visit (PODIWS ) -- PATO BOOTHE ([id number]) 1985 F Date Time Provider Department 07/02/25 2:45 PM PIPPA ABBASI NAN During your visit today, we recorded the following information about you: Pippa Abbasi 07/04/2025 6:46 AM Signed Subjective The patient is a 39-year-old female presenting with bilateral toe pain. The patient reports intermittent pain in all toes of both feet for approximately 1 month. The pain is localized to the plantar aspect of the toes and does radiate to the balls of the feet. She describes the pain as crampy, stabbing, and sometimes sharp, with severity ranging from mild to 10/10. The pain occurs both when barefoot and when wearing shoes, but is more pronounced when sitting or lying down rather than standing. She manages the pain with massage and has not taken any medication for it, as the episodes are brief. She uses custom orthotics that are approximately 1 year old, which she brought to the visit. She notes that her right foot is more symptomatic than the left and has observed that one of her toes is starting to curve inward. She also reports a new callus on her pinky toe. Musculoskeletal: (+) bilateral intermittent toe pain Skin: (+) pinky toe callus sore Objective Last menstrual period 03/29/2024. - Cardiovascular: Dorsalis pedis and posterior tibial pulses palpable bilaterally; capillary refill time <5 seconds; skin temperature warm proximally and distally. - Skin: No open sores on bilateral feet; feet well-hydrated. - Musculoskeletal: - Left Foot: - Positive Chantelle's click in third interspace; questionable Chantelle's click in second interspace. - Right Foot: - No Chantelle's click noted. Assessment AND Plan # Neuroma (D36.10) Intermittent, cramping and sharp pain localized to the plantar aspect of the toes bilaterally, more pronounced on the right, with positive Chantelle's click in the left third interspace and questionable click in the left second interspace; findings consistent with Barnes's neuroma. - Continue use of custom orthotics. - Ordered bilateral foot X-rays to rule out bony pathology. - Ordered bilateral foot ultrasound to confirm diagnosis. - Discussed treatment options including corticosteroid injection and neurectomy vs RFA - Will contact patient with imaging results. Recording using [employer] software for draft documentation of the visit was discussed with the patient/authorized digital sales representative; all questions welcomed and answered. Patient/authorized digital sales representative agreed to proceed Pippa Abbasi DPM Allergies As of Date: 07/02/2025 Noted Allergy Reaction ERYTHROMYCIN 11/27/2024 2 - Rash Date Reviewed: 07/02/2025 Reviewed by: Geovanna You MA - Fully Assessed Reason for Visit: Established Patient [175] Pain [78] Established Patient [175] Callous [1028] Pain [78] Primary Visit Diagnosis:Neuroma [D36.10] Order(s):XR FOOT GENERAL 3V AP/LAT/OBL BILATERAL [4901591] Order #: [id number] FUTURE US FOOT RIGHT [[id number]] Order #: [id number] FUTURE US FOOT LEFT [[id number]] Order #: [id number] FUTURE urea (CARMOL) 40 %Apply to affected area once daily.Disp: 198 gRfl: 4 Prescriptions as of 07/04/2025 - etonogestrel (NEXPLANON) subdermal implant 68 mg 68 mg by SUBDERMAL route one time only. - urea (CARMOL) 40 % Apply to affected area once daily. - Ascorbic Acid (VITAMIN C) 1,000 mg tablet Take 1,000 mg by mouth once daily. - cyanocobalamin, vitamin B-12, (VITAMIN B-12) 1,000 mcg/mL drop Take 1,000 mcg by mouth once daily. - inulin (FIBER GUMMIES ORAL) Take 1 Each by mouth once daily. - omega 1-zoc-qhw-fish oil (FISH OIL) 100-160-1,000 mg cap Take 1 capsule by mouth once daily. - Vitamin E 100 unit/0.25 mL drop Take 180 mg by mouth once daily. - fesoterodine (TOVIAZ) 4 mg Tb24 extended release tablet Take 4 mg by mouth once daily. - mirabegron (MYRBETRIQ ORAL) Take 100 mg by mouth once daily. - doxycycline hyclate (VIBRAMYCIN) 100 mg capsule Take 2 capsules by mouth two times a day. For 7 days - buPROPion XL (WELLBUTRIN XL) 150 mg 24 hr tablet - mv,Ca,min/iron/FA/guarana/ caff (ONE-A-DAY WOMEN'S ACTIVE ORAL) Take 1 tablet by mouth once daily. - calcium/magnesium/zinc (BUKETAW-MBHDXWGDFB-EPKF) 333-133-5 mg tab Take 1 tablet by mouth once daily. - amLODIPine (NORVASC) 10 mg tablet Take 1 tablet by mouth once daily. - FLUoxetine (PROZAC) 20 mg capsule Take 20 mg by mouth once daily. - rizatriptan (MAXALT) 5 mg tablet take 1 tablet by oral route once as needed for migraine; can repeat dose in 2 hours if needed; limit 30 mg per 24 hours - traZODone (DESYREL) 100 mg tablet Take 1 tablet by mouth daily at bedtime. - LIDOCAINE VISCOUS 2 % solution Take 5-10 mL by mouth four times daily as needed. - Biotin 1 mg tab Take 1 tablet by mouth once daily. - escitalopram oxalate (LEXAPRO) 20 (more content not included)... Normal [facility] 07-02-2025 CNPN Telephone (RULTTB) -- PATO BOOTHE ([id number]) 1985 F Date Time Provider Department 07/02/25 [facility] During your visit today, we recorded the following information about you: Damon Azevedo 07/02/2025 3:09 PM Signed Visit Type: ANY MSKx2 Visit Length: 90, 100 OR 120 MINUTES Order Name/Protocol: US FOOT RT+LT; BARNES NEUROMA - EVAL 2ND+3RD IMS Preferred Provider: N/A Comment: Please ask if the patient has ever had any prior surgery to their second+third toes. If so, upgrade the visit type to an MSK1 and notate the surgical hx in the Appointment Note. Location: Depending on the surgical hx, this patient can have this exam performed at any of our four locations. Slot held: N/A Steph Nelson 07/02/2025 3:14 PM Signed Called patient on July 02, 2025 at 3:14 PM to schedule their MSK US exam. No answer, left VM, 1st attempt. Adán Steph 07/02/2025 3:32 PM Signed PT SCHEDULED FOR MSK US ON 09/18/25 @ 1:35 PM AT MAIN. Allergies As of Date: 07/02/2025 Noted Allergy Reaction ERYTHROMYCIN 11/27/2024 2 - Rash Date Reviewed: 07/02/2025 Reviewed by: Geovanna Yuo MA - Fully Assessed Reason for Visit: Appointment [186] Prescriptions as of 07/02/2025 - etonogestrel (NEXPLANON) subdermal implant 68 mg 68 mg by SUBDERMAL route one time only. - urea (CARMOL) 40 % Apply to affected area once daily. - Ascorbic Acid (VITAMIN C) 1,000 mg tablet Take 1,000 mg by mouth once daily. - cyanocobalamin, vitamin B-12, (VITAMIN B-12) 1,000 mcg/mL drop Take 1,000 mcg by mouth once daily. - inulin (FIBER GUMMIES ORAL) Take 1 Each by mouth once daily. - omega 0-fju-lil-fish oil (FISH OIL) 100-160-1,000 mg cap Take 1 capsule by mouth once daily. - Vitamin E 100 unit/0.25 mL drop Take 180 mg by mouth once daily. - fesoterodine (TOVIAZ) 4 mg Tb24 extended release tablet Take 4 mg by mouth once daily. - mirabegron (MYRBETRIQ ORAL) Take 100 mg by mouth once daily. - doxycycline hyclate (VIBRAMYCIN) 100 mg capsule Take 2 capsules by mouth two times a day. For 7 days - buPROPion XL (WELLBUTRIN XL) 150 mg 24 hr tablet - mv,Ca,min/iron/FA/guarana/ caff (ONE-A-DAY WOMEN'S ACTIVE ORAL) Take 1 tablet by mouth once daily. - calcium/magnesium/zinc (IEKDVUF-SJGZSKKTLB-KYAX) 333-133-5 mg tab Take 1 tablet by mouth once daily. - amLODIPine (NORVASC) 10 mg tablet Take 1 tablet by mouth once daily. - FLUoxetine (PROZAC) 20 mg capsule Take 20 mg by mouth once daily. - rizatriptan (MAXALT) 5 mg tablet take 1 tablet by oral route once as needed for migraine; can repeat dose in 2 hours if needed; limit 30 mg per 24 hours - traZODone (DESYREL) 100 mg tablet Take 1 tablet by mouth daily at bedtime. - LIDOCAINE VISCOUS 2 % solution Take 5-10 mL by mouth four times daily as needed. - Biotin 1 mg tab Take 1 tablet by mouth once daily. - escitalopram oxalate (LEXAPRO) 20 mg tablet Take 20 mg by mouth once daily. - Cholecalciferol, Vitamin D3, 50 mcg (2,000 unit) cap Take 1 capsule by mouth once daily. - amitriptyline (ELAVIL) 25 mg tablet Take 1 tablet by mouth once daily. - copper (PARAGARD) 380 square mm intrauterine device 1 Intra Uterine Device by INTRAUTERINE route. - cetirizine (ZYRTEC) 10 mg tablet Take 1 tablet by mouth once daily as needed. - fluticasone (FLONASE) 50 mcg/actuation nasal spray Use 2 Sprays in each nostril once daily. Rinse mouth after use. - FLUTICASONE PROPIONATE (FLONASE NASAL) Use 2 Sprays in each nostril once daily. Problem List As Of Date 07/02/2025 Noted Resolved Calculus of gallbladder without mention of chol*08/20/2009 03/25/2012 Unspecified high-risk [O09.90] 01/19/2011 03/25/2012 Transient hypertension of , antepartum*04/13/2011 03/25/2012 Atypical migraine [G43.009] 04/13/2011 Family history of spina bifida [Z82.79] 04/02/2015 12/17/2015 Obesity in [O99.210] 04/02/2015 12/17/2015 Encounter for supervision of normal first pregn*04/02/2015 06/17/2015 Supervision of high risk in second tr*06/17/2015 12/17/2015 Elevated blood pressure affecting in *07/20/2015 12/17/2015 Acute appendicitis with localized peritonitis [*06/09/2016 Insufficiency of both posterior tibial tendons *07/12/2023 Callus [L84] 07/12/2023 Peroneal tendinitis of right lower extremity [M*01/01/2024 Pes planus of both feet [M21.41, M21.42] 01/01/2024 Encounter Status:Closed by NELSONSTEPH on 07/02/25 Normal [facility] XR FOOT 3V AP/LAT/OBL BILon 07-02-2025 XR FOOT 3V AP/LAT/OBL TOAN * * *Final Report* * * DATE OF EXAM: Jul 02 2025 3:28PM [id number] [id number] - XR FOOT 3V AP/LAT/OBL TOAN / PROCEDURE REASON: Neuroma * * * * Physician Interpretation * * * * EXAMINATION / TECHNIQUE: XR FOOT 3V AP/LAT/OBL TOAN HISTORY: PT STATES BILAT TOE PAIN Neuroma COMPARISON: 12/16/2024. RESULT: No acute fracture or dislocation in either foot. Mild bilateral hallux valgus. Joint spaces are maintained bilaterally. There is spurring of the dorsal navicular base on the left. No osseous erosion in either foot. IMPRESSION: No acute bony abnormality. 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[facility] Transcribe Date/Time: Jul 09 2025 5:59P Dictated by : TOM SHAHID MD This examination was interpreted and the report reviewed and electronically signed by: TOM SHAHID MD on Jul 09 2025 5:59PM EST [id number] Normal [facility] MR/BMS.BPon 07-01-2025 MR/BMS.BP [address], [address] [place] [address] OFFICE VISIT Date of Service: 06/30/25 MR#: [id number] Acct: [id number] Name: ZEINAPATO PATEL Rep #: [id number] : 1985 Provider: [facility] Radha quinones Age/Sex: 39/F Location: [facility] Status: Signed Intake Vital Signs 12/08/24 13:42 06/29/25 13:59 07/01/25 17:11 Height 5 ft 10 in 5 ft 10 in 5 ft 10 in BP Intake Visit Reasons: Follow up Allergies azithromycin Allergy (Intermediate, Verified 06/29/25 14:01) Rash [facility] Medical History GERD (gastroesophageal reflux disease) Preventative health care Left ankle sprain Strain of right inguinal region Wears glasses Bladder disease History of IBS Insomnia Easy bruising Major depression Flu vaccine need Pharyngitis Generalized anxiety disorder Right thigh pain Right anterior knee pain Migraines Surgical History History of appendectomy History of cholecystectomy Family History Father Diabetes Cancer skin Hypertension Grandmother Cancer leukemia Grandfather Diabetes Hypertension Cancer skin Heart disease Sister Diabetes Pancreatic cancer Social History number of children: 2 current occupational status: employed current occupation: [email or web address] current occupational exposures/hazards: No sexually active: Yes Smoking Status: Never smoker alcohol intake: current alcohol intake frequency: holidays/special occasions only substance use type: does not use caffeine: Yes what type of physical activity do you participate in: none seatbelt use: always do you feel safe at home: Yes 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 She reported that she is continuing to adjust to her new work position. Pato identified that her anxiety was a 5 on a scale from 1 to 10 with 10 being worst. She identified son's MH symptoms as a stressor. Pato reported that she had been ill with an infect of the ear. Encouraged verbalization of emotions while providing support. 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 She described increased flexibility in her response to difficult situations. Pato identified having put self-care in place at work to ensure her day went well. Reinforced flexible thinking and use of skills. Examined thought patterns contributing to improved adjustment using CBT interventions. Worked on coping related to son's MH symptoms. Explored what has been effective. No SI. Future-oriented. Exam Mental Status Exam - Psych Appearance casually dressed and adequately groomed Attitude cooperative, calm, engaged and pleasant Activity/Motor Behavior MSE activity/motor behavior finding no adventitious movements and appropriate eye contact Speech regular rate, regular volume and excessive Mood OK Affect full range Thought Process linear, logical, coherent and goal directed Thought Content no delusions and no hallucinations Suicidal Ideation none Homicidal Ideation none Attention intact Concentration intact Sensorium/Orientation alert and oriented x3 Memory/Cognition intact Insight good Judgement good Assessment Plan Assessment Plan (1) Major depression: Plan: therapy using CBT, DBT, and ACT interventions to address thought patterns contributing to depressive symptoms and teach coping skills. Continued psychiatric services to monitor depressive symptoms and medication effectiveness. Pt. to call 911, call suicide prevention hotline, or go to ER if experiencing suicidal ideation with plan and intent and/or feel unable to ensure own safety. (2) Generalized anxiety disorder: Plan: therapy using CBT, DBT, and ACT interventions to address thought patterns contributing to anxious symptoms and to teach coping skills. Psychiatric services to monitor anxious symptoms and medication effectiveness. (3) Insomnia: Plan: therapy using CBT and DBT interventions to address sleep disturbance as needed. Psychiatric services to monitor sleep and medication effectiveness. Plan TREATMENT PLAN Goal 1 - Begin a healthy grieving process around the loss. (Achieved 03/06/2025) Objective 1 - Begin verbalizing feelings associated with the loss. Intervention 1 - Assist Pt. in identifying and expressing feelings associated with her loss. Intervention 2 - Assign pt. to keep a daily grief journal to be shared in therapy sessions. Interven (more content not included)... Normal [facility] MR/BMS.BPon 06-29-2025 /BMS.BP [facility] Psychiatry [address] [place] [address], [address] [place] [address] OFFICE VISIT Date of Service: 06/29/25 MR#: [id number] Acct: [id number] Name: PATO BOOTHE Rep #: [id number] : 1985 Provider: Dr. Martin Jeter se DO Age/Sex: 39/F Location: [facility] Status: Signed Intake Vital Signs 12/22/24 14:18 06/18/25 06:42 06/29/25 13:59 Height 5 ft 10 in 5 ft 10 in 5 ft 10 in Weight: 324 lb BMI 46.5 BP 132/84 H Blood Pressure Location Lt brachial Position Sitting Respiration 16 Pulse 97 Pulse Source Monitor BP Intake Visit Reasons: 6 M FU Accompanied by: Self Allergies azithromycin Allergy (Intermediate, Verified 06/29/25 14:01) Rash Medications ???Medication ???Instructions ???Recorded ???Confirmed ???Type cetirizine 10 mg tablet 10 mg PO DAILY PRN allergy symptom s 07/15/19 06/29/25 History rizatriptan 5 mg tablet 5 mg PO ONCE PRN migraines 0 06/29/25 History multivitamin 1 cap PO DAILY 06/30/20 06/29/25 H istory cholecalciferol (vitamin D3) 50 50 mcg PO DAILY 02/16/22 06/29/25 History mcg (2,000 unit) capsule blood pressure monitor (Blood #1 ea 01/03/24 06/29/25 Rx Pressure Kit) hydroxyzine HCl 25 mg tablet 25 mg PO TID PRN anxiety #90 tabs 07/22/24 06/29/25 Rx fesoterodine 4 mg tablet,extended mg PO DAILY 10/22/24 06/29/25 His tory release 24 hr ascorbic acid (vitamin C) 1,000 mg 1 g PO DAILY To help my immune 0 12/08/24 06/29/25 History tablet (Vitamin C) system kounfux-gjnbgdrmq-pazb 333 mg-133 tab PO To add more vitamin help 0 12/08/24 06/29/25 History mg-5 mg tablet vitamin E 670 mg (1,000 unit) 670 mg PO DAILY To help with my 06/29/25 History capsule health amlodipine 10 mg tablet 10 mg PO DAILY #90 TABLETS 5 06/29/25 Rx fluoxetine 20 mg capsule See Rx Instructions .Route 5 06/29/25 Rx .COMPLEX #90 caps zolpidem 5 mg tablet (Ambien) 5 mg PO QHS PRN sleep #30 tabs 06/29/25 Rx omeprazole 20 mg capsule,delayed 20 mg PO BID #60 caps 02/24/25 Rx release fluticasone propionate 50 See Rx Instructions .Route 5 06/29/25 Rx mcg/actuation nasal .COMPLEX #16 grams spray,suspension dicyclomine 20 mg tablet 20 mg PO BID PRN PRN abdominal 06/29/25 Rx pain #60 TABLETS bupropion HCl 150 mg 24 hr tablet, 150 mg PO QAM #90 tabs 05/11/25 06/29/25 Rx extended release (Wellbutrin XL) nystatin-triamcinolone 100,000 1 applic topical BID #60 grams 06/29/25 Rx unit/gram-0.1 % topical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 [facility] Comment on above: Performed By: #### L 100.0100, L500.4050, L500.4100 ####[facility] [address] [place], [address] ALK PHOS 73 U/L Normal 35-104 [facility] Comment on above: Performed By: #### L 100.0100, L500.4050, L500.4100 ####[facility] [address] [place], [address] ALT [Catalytic activity/Vol] 18 U/L Normal <=34 [facility] Comment on above: Performed By: #### L 100.0100, L500.4050, L500.4100 ####[facility] [address] [place], [address] AST [Catalytic activity/Vol] 21 U/L Normal <=31 [facility] Comment on above: Performed By: #### L 100.0100, L500.4050, L500.4100 ####[facility] [address] [place], [address] Bilirubin [Mass/Vol] 0.19 mg/dL Normal 0.00-1.30 [facility] Comment on above: Performed By: #### L 100.0100, L500.4050, L500.4100 ####[facility] [address] [place], [address] BUN/CRE 12.0 RATIO Normal 10-20 [facility] Comment on above: Performed By: #### L 100.0100, L500.4050, L500.4100 ####[facility] [address] [place], [address] Calcium [Mass/Vol] 9.8 mg/dL Normal 7.6-11.0 [facility] Comment on above: Performed By: #### L 100.0100, L500.4050, L500.4100 ####[facility] [address] [place], [address] Chloride [Moles/Vol] 105 mmol/L Normal 98-108 [facility] Comment on above: Performed By: #### L 100.0100, L500.4050, L500.4100 ####[facility] [address] [place], [address] CO2 [Moles/Vol] 22.3 mmol/L Normal 21.0-32.0 [facility] Comment on above: Performed By: #### L 100.0100, L500.4050, L500.4100 ####[facility] [address] [place], [address] Creatinine [Mass/Vol] 0.82 mg/dL Normal 0.70-1.20 [facility] Comment on above: Performed By: #### L 100.0100, L500.4050, L500.4100 ####[facility] [address] [place], [address] GAP 12 Normal 5-15 [facility] Comment on above: Performed By: #### L 100.0100, L500.4050, L500.4100 ####[facility] [address] [place], [address] GFR/1.73 sq M.predicted among non-blacks MDRD (S/P/Bld) [Vol rate/Area] 94 mL/min/{1.73_m2} Normal >60 [facility] Comment on above: Result Comment: mL/m in/1.73m2 CKD-EPI Creatinine Equation (2020) Performed By: #### L 100.0100, L500.4050, L500.4100 ####[facility] [address] [place], [address] Globulin (S) [Mass/Vol] 3.1 g/dL Normal 2.2-4.2 [facility] Comment on above: Performed By: #### L 100.0100, L500.4050, L500.4100 ####[facility] [address] [place], [address] Glucose [Mass/Vol] 75 mg/dL Normal 70-99 [facility] Comment on above: Performed By: #### L 100.0100, L500.4050, L500.4100 ####[facility] [address] [place], [address] Potassium [Moles/Vol] 4.4 mmol/L Normal 3.3-5.1 [facility] Comment on above: Performed By: #### L 100.0100, L500.4050, L500.4100 ####[facility] [address] [place], [address] Sodium [Moles/Vol] 139 mmol/L Normal 133-145 [facility] Comment on above: Performed By: #### L 100.0100, L500.4050, L500.4100 ####[facility] [address] [place], [address] T PROT 7.4 g/dL Normal 5.9-8.4 [facility] Comment on above: Performed By: #### L 100.0100, L500.4050, L500.4100 ####[facility] [address] [place], [address] Urea nitrogen [Mass/Vol] 10 mg/dL Normal 4-19 [facility] Comment on above: Performed By: #### L 100.0100, L500.4050, L500.4100 ####[facility] [address] [place], [address] Internal Medicine Office Vis hanna 01-26-2025 Internal Medicine Office Visit [facility] [address] [place] [address] [place] [address] OFFICE VISIT Date of Service: 01/26/25 MR#: [id number] Acct: [id number] Name: PATO BOOTHE Rep #: [id number] : 1985 Provider: Dr. Solis blanchard MD Age/Sex: 39/F Location: [facility] Status: Signed Intake Vital Signs 09/29/24 14:26 12/26/24 17:46 01/26/25 14:29 Height 5 ft 10 in 5 ft 10 in 5 ft 10 in Weight: 326 lb BMI 46.7 BP 140/78 H Blood Pressure Location Lt brachial Position Sitting Respiration 18 Pulse 78 Pulse Source Monitor Temp 97.2 F L Temp Source Temporal Pulse Oximetry (%) 99 Oxygen Delivery Method room air Intake Visit Reasons: 3 M FU Chief Complaint: Follow-up/yearly Is patient in pain?: No Allergies azithromycin Allergy (Intermediate, Verified 01/26/25 14:25) Rash Medications ???Medication ???Instructions ???Recorded ???Confirmed ???Type cetirizine 10 mg tablet 10 mg PO DAILY PRN allergy symptom s 07/15/19 01/26/25 History rizatriptan 5 mg tablet 5 mg PO ONCE PRN migraines 0 01/26/25 History Copper [Paragard T 380-A] 1 ea IY DAILY 05/14/20 01/26/25 Hi story multivitamin 1 cap PO DAILY 06/30/20 01/26/25 H istory cholecalciferol (vitamin D3) 50 50 mcg PO DAILY 02/16/22 01/26/25 History mcg (2,000 unit) capsule blood pressure monitor (Blood #1 ea 01/03/24 01/26/25 Rx Pressure Kit) vitamin E (dl, acetate) 45 mg (100 45 mg PO QDAY 05/30/24 01/26/25 History unit) capsule hydroxyzine HCl 25 mg tablet 25 mg PO TID PRN anxiety #90 tabs 07/22/24 01/26/25 Rx clobetasol 0.05 % topical ointment 1 applic topical BID 12 weeks #3 0 08/12/24 01/26/25 Rx grams dicyclomine 20 mg tablet 20 mg PO BID PRN PRN abdominal 06/0401/26/25 Rx pain #60 TABLETS fesoterodine 4 mg tablet,extended mg PO DAILY 10/22/24 01/26/25 His tory release 24 hr fluticasone propionate 50 See Rx Instructions .Route 5 01/26/25 Rx mcg/actuation nasal .COMPLEX #16 grams spray,suspension ascorbic acid (vitamin C) 1,000 mg 1 g PO DAILY To help my immune 0 12/08/24 01/26/25 History tablet (Vitamin C) system enclawz-lnoccancs-zdxu 333 mg-133 tab PO To add more vitamin help 0 12/08/24 01/26/25 History mg-5 mg tablet mecobalamin (vitamin B12) 1,000 1,000 mcg PO QDAY 12/08/24 5 History mcg lozenges vitamin B complex-folic acid 2,000 1 cap PO DAILY Help with B vitam ins 12/08/24 01/26/25 History mcg capsule vitamin E 670 mg (1,000 unit) 670 mg PO DAILY To help with my 01/26/25 History capsule health amlodipine 10 mg tablet 10 mg PO DAILY #90 TABLETS 5 01/26/25 Rx bupropion HCl 150 mg 24 hr tablet, 150 mg PO QAM #90 tabs 01/21/25 01/26/25 Rx extended release (Wellbutrin XL) fluoxetine 20 mg capsule See Rx Instructions .Route 5 01/26/25 Rx .COMPLEX #90 caps zolpidem 5 mg tablet (Ambien) 5 mg PO QHS PRN sleep #30 tabs 01/26/25 Rx omeprazole 20 mg capsule,delayed 20 mg PO BID #60 caps 01/22/25 Rx release Have you fallen in the past year?: No [facility] Medical History (Updated 01/26/25 @ 14:[address] Solis Martino MD) Preventative health care Left ankle sprain Strain of right inguinal region Wears glasses Bladder disease History of IBS Insomnia Easy bruising Major depression Flu vaccine need Pharyngitis Generalized anxiety disorder Right thigh pain Right anterior knee pain Migraines Surgical History History of appendectomy History of cholecystectomy Family History Father Diabetes Cancer skin Hypertension Grandmother Cancer leukemia Grandfather Diabetes Hypertension Cancer skin Heart disease Sister Diabetes Pancreatic cancer Social History current occupational status: employed current occupation: [employer] current occupational exposures/hazards: No sexually active: Yes Smoking Status: Never smoker alcohol intake: current alcohol intake frequency: holidays/special occasions only substance use type: does not use caffeine: Yes what type of physical activity do you participate in: none seatbelt use: always do you feel safe at home: Yes additional social history: Tejinder - [place] HPI Chief Complaint: Follow-up/yearly Details: APTO BOOTHE, is a 39 F who presents to the office today for follow-up/yearly. No acute concerns at this time. No significant changes since her last visit. Blood pressure is elevated, initial and repeat elevated. Does not check it at home but reports compliance with her medication. Continues to f ollow-up with psyc (more content not included)... Normal [facility] Lipid Profileon 01-26-2025 CHOL:HDL 3.84 Normal [facility] Comment on above: Performed By: #### L 100.0100, L500.4050, L500.4100 ####[facility] [address] [place], [address] Cholesterol [Mass/Vol] 177 mg/dL Normal <=200 [facility] Comment on above: Result Comment: Chol esterol level, Desirable <200 mg/dL Borderline high cholesterol 200-239 mg/dL High cholesterol >=240 mg/dL Recommendations of the NCEP Adult Treatment Panel for the following risk-cutoff thresholds for the [place] population. Performed By: #### L 100.0100, L500.4050, L500.4100 ####[facility] [address] [place], [address] Cholesterol in HDL [Mass/Vol] 46 mg/dL Normal [facility] Comment on above: Result Comment: Katie onal Cholesterol Education Program (NCEP) guidelines: <40 mg/dL: Low HDL-cholesterol (major risk factor for CHD) >= 60 mg/dL: High HDL-cholesterol (negative risk factor for CHD) HDL-cholesterol is affected by a number of factors, e.g. smoking, exercise, hormones, sex and age. Performed By: #### L 100.0100, L500.4050, L500.4100 ####[facility] [address] [place], [address] Cholesterol in LDL [Mass/Vol] 102 mg/dL Normal [facility] Comment on above: Result Comment: Bord krhjhi=678-926 mg/dL Higher Sjqn=571 mg/dL or greater Performed By: #### L 100.0100, L500.4050, L500.4100 ####[facility] [address] [place], [address] Cholesterol in VLDL [Mass/Vol] 29 mg/dL Normal 5-40 [facility] Comment on above: Performed By: #### L 100.0100, L500.4050, L500.4100 ####[facility] [address] [place], [address] Triglyceride [Mass/Vol] 147 mg/dL Normal [facility] Comment on above: Result Comment: The drugs N-Acetylcysteine and Metamizole may falsely depress this assay. Normal range: <150 mg/dL Borderline High: 150-199 mg/dL High: 200-499 mg/dL Very High: >500 mg/dL Performed By: #### L 100.0100, L500.4050, L500.4100 ####[facility] [address] [place], [address] Carbohydrate AG 19-9on 01-17 CA 19-9 4 U/mL Normal 0-35 [facility] Comment on above: Result Comment: [employer] Electrochemiluminescence Immunoassay (ECLIA) Values obtained with different assay methods or kits cannot be used interchangeably. Results cannot be interpreted as absolute evidence of the presence or absence of malignant disease. Performed at: - [facility] [address], [place], [place] [id number] [employer] Manager: Bora Zhou PhD, Phone: [phone] Performed By: #### L 6880.2660 #### [facility] [address] [place], [place], [id number] Gastroenterology Visit Repor ton 01-15-2025 Gastroenterology Visit Report [facility] [address] [place] [address] OFFICE VISIT Date of Service: 01/15/25 MR#: [id number] Acct: [id number] Name: PATO BOOTHE Rep #: [id number] : 1985 Provider: Rachid Short DO Age/Sex: 39/F Location[facility] Status: Signed Intake Vital Signs 12/26/24 17:46 Height 5 ft 10 in Intake Visit Reasons: FU and notes from other Dr Allergies azithromycin Allergy (Intermediate, Verified 01/15/25 15:12) Rash Medications ???Medication ???Instructions ???Recorded ???Confirmed ???Type cetirizine 10 mg tablet 10 mg PO DAILY PRN allergy symptom s 07/15/19 01/15/25 History rizatriptan 5 mg tablet 5 mg PO ONCE PRN migraines 0 01/15/25 History Copper [Paragard T 380-A] 1 ea IY DAILY 05/14/20 01/15/25 Hi story multivitamin 1 cap PO DAILY 06/30/20 01/15/25 H istory cholecalciferol (vitamin D3) 50 50 mcg PO DAILY 02/16/22 01/15/25 History mcg (2,000 unit) capsule blood pressure monitor (Blood #1 ea 01/03/24 01/15/25 Rx Pressure Kit) vitamin E (dl, acetate) 45 mg (100 45 mg PO QDAY 05/30/24 01/15/25 History unit) capsule omeprazole 20 mg capsule,delayed 20 mg PO BID #60 caps 06/16/2405/04 Rx release hydroxyzine HCl 25 mg tablet 25 mg PO TID PRN anxiety #90 tabs 07/22/24 01/15/25 Rx clobetasol 0.05 % topical ointment 1 applic topical BID 12 weeks #3 0 08/12/24 01/15/25 Rx grams dicyclomine 20 mg tablet 20 mg PO BID PRN PRN abdominal 06/0401/15/25 Rx pain #60 TABLETS fesoterodine 4 mg tablet,extended mg PO DAILY 10/22/24 01/15/25 His tory release 24 hr amlodipine 10 mg tablet 10 mg PO DAILY #90 TABLETS 5 01/15/25 Rx fluoxetine 20 mg capsule See Rx Instructions .Route 5 01/15/25 Rx .COMPLEX #90 caps fluticasone propionate 50 See Rx Instructions .Route 5 01/15/25 Rx mcg/actuation nasal .COMPLEX #16 grams spray,suspension ascorbic acid (vitamin C) 1,000 mg 1 g PO DAILY To help my immune 0 12/08/24 01/15/25 History tablet (Vitamin C) system jzyuqqs-catlkfiih-pdcj 333 mg-133 tab PO To add more vitamin help 0 12/08/24 01/15/25 History mg-5 mg tablet mecobalamin (vitamin B12) 1,000 1,000 mcg PO QDAY 12/08/24 5 History mcg lozenges vitamin B complex-folic acid 2,000 1 cap PO DAILY Help with B vitam ins 12/08/24 01/15/25 History mcg capsule vitamin E 670 mg (1,000 unit) 670 mg PO DAILY To help with my 01/15/25 History capsule health bupropion HCl 150 mg 24 hr tablet, 150 mg PO QAM #90 tabs 12/22/24 01/15/25 Rx extended release (Wellbutrin XL) zolpidem 5 mg tablet (Ambien) 5 mg PO QHS PRN sleep #30 tabs 01/15/25 Rx PFSH Medical History Left ankle sprain Strain of right inguinal region Wears glasses Bladder disease History of IBS Insomnia Easy bruising Major depression Flu vaccine need Pharyngitis Generalized anxiety disorder Right thigh pain Right anterior knee pain Migraines Surgical History History of appendectomy History of cholecystectomy Family History Father Diabetes Cancer skin Hypertension Grandmother Cancer leukemia Grandfather Diabetes Hypertension Cancer skin Heart disease Sister Diabetes Pancreatic cancer Social History current occupational status: employed 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 PCP OV 4.17.23 as chronic f/u noting difficulty with change of BM habit for the last couple of months with increased frequency, watery consistency and intermittent incontinence. Recommend fiber increase and FODMAP diet. *BGI established 6.19.23 for the last year she has been having loose stools with urgency and intermittent incontinence with varying frequency that can be 10+/day; BM will alternate with formed/soft stools occurring daily for several days and the loose stools for 1 or so days. Notes sometimes there are dietary triggers, but not consistent; increased body temperature can also be a trigger. 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 Normal [facility] MR/BMS.BPon 12-26-2024 MR/BMS.BP [address], [address] [place] [address] OFFICE VISIT Date of Service: 12/26/24 MR#: [id number] Acct: [id number] Name: PATO BOOTHE Rep #: [id number] : 1985 Provider: [facility] Radha quinones Age/Sex: 39/F Location: [facility] Status: Signed Intake Vital Signs 10/22/24 14:26 12/22/24 14:18 12/26/24 17:46 Height 5 ft 10 in 5 ft 10 in 5 ft 10 in BP 134/84 H Blood Pressure Location Lt brachial Position Sitting Respiration 16 Pulse 88 Pulse Source Monitor BP Intake Visit Reasons: follow up Allergies azithromycin Allergy (Intermediate, Verified 12/22/24 14:19) Rash [facility] Medical History (Updated 12/08/24 @ 13:53 by Martin LEE, PA) Left ankle sprain Strain of right inguinal region Wears glasses Bladder disease History of IBS Insomnia Easy bruising Major depression Flu vaccine need Pharyngitis Generalized anxiety disorder Right thigh pain Right anterior knee pain Migraines Surgical History History of appendectomy History of cholecystectomy Family History Father Diabetes Cancer skin Hypertension Grandmother Cancer leukemia Grandfather Diabetes Hypertension Cancer skin Heart disease Sister Diabetes Pancreatic cancer Social History current occupational status: employed current occupation: [email or web address] current occupational exposures/hazards: No sexually active: Yes Smoking Status: Never smoker alcohol intake: current alcohol intake frequency: holidays/special occasions only substance use type: does not use caffeine: Yes what type of physical activity do you participate in: none seatbelt use: always do you feel safe at home: Yes 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 She reported that she continues to have periodic groin pain, which is being medically monitored. She sustained an injury at work where a cooking pot fell on her head. Pato identified reduction in grief symptoms including those related to loss of grandmothers and sister. Continued to work on grief completing and discussing a worksheet on organization from [employer]. Pato was able to apply strategies to herself and identified some organizational strategies she is using. Pato suggested difficulty consistently applying depending upon her symptoms. No SI. Future-oriented. Exam Mental Status Exam - Psych Appearance no apparent distress and well kempt Attitude cooperative, calm, engaged and pleasant Activity/Motor Behavior MSE activity/motor behavior finding no adventitious movements and appropriate eye contact Speech regular rate, regular volume and regular prosody Mood euythmic Affect full range Thought Process linear, logical and coherent Thought Content no delusions and no hallucinations Suicidal Ideation none Homicidal Ideation none Attention intact Concentration intact Sensorium/Orientation alert and oriented x3 Memory/Cognition intact Insight good Judgement good Assessment Plan Assessment Plan (1) Major depression: Plan: therapy using CBT, DBT, and ACT interventions to address thought patterns contributing to depressive symptoms and teach coping skills. Continued psychiatric services to monitor depressive symptoms and medication effectiveness. Pt. to call 911, call suicide prevention hotline, or go to ER if experiencing suicidal ideation with plan and intent and/or feel unable to ensure own safety. (2) Generalized anxiety disorder: Plan: therapy using CBT, DBT, and ACT interventions to address thought patterns contributing to anxious symptoms and to teach coping skills. Psychiatric services to monitor anxious symptoms and medication effectiveness. (3) Insomnia: Plan: therapy using CBT and DBT interventions to address sleep disturbance as needed. Psychiatric services to monitor sleep and medication effectiveness. Visit Details Duration of visit (minutes): 60 Duration of counseling (minutes): 60 Total time (minutes): 60 Type of visit: psychotherapy and [id number] Coding [place] [address] PSYTX W PT 60 MINUTES Patient Type Established Diagnoses Major depression F32.9 Generalized anxiety disorder F41.1 Insomnia G47.00 Time Spent (min) 60 12/26/24 1753 Date Radha Menard [facility] Cosigner Signature: Date (if applicable) CC: Normal [facility] CT CHEST WO IVCONon 12-25-19 CT CHEST WO IVCON * * *Final Report* * * DATE OF EXAM: Dec 24 2024 3:07PM [facility] 0541 - CT CHEST WO IVCON / PROCEDURE REASON: Lung nodules * * * * Physician Interpretation * * * * EXAMINATION: CHEST CT WITHOUT CONTRAST CLINICAL HISTORY: Lung nodule Technique: Spiral CT acquisition of the chest from the thoracic inlet to the upper abdomen without contrast. MQ: CTCWO_6 CT Radiation dose: Integrated Dose-length product (DLP) for this visit = 675 mGy*cm CT Dose Reduction Employed: Automated exposure control(AEC) and iterative recon Comparison: CT abdomen and pelvis dated 12/03/2024 RESULT: Limitations: None. Lines, tubes, and devices: None. Lung parenchyma and airways: Scarring seen medially in the right lower lobe from degenerative change within the spine. There is a stable 3 mm nodule seen within the superior segment of the right lower lobe (series 5, image #99). Other tiny pulmonary nodules are also seen. For example, there is an approximately 2 mm nodule seen within the posterior segment of the right upper lobe, near the right minor fissure (series 5, image #83). Atelectasis is seen within lingula and right middle lobe. There is no pneumothorax or endobronchial lesion. Pleural space: There is no pleural effusion. Lower neck, lymph nodes, and mediastinum: There are no pathologically enlarged axillary, mediastinal, or hilar lymph nodes. Heart, pericardium, and thoracic vessels: The heart is normal in size. There is no significant pericardial effusion. Bones and soft tissues: There is mild multilevel degenerative change seen within the visualized spine. No destructive bony lesion. Upper abdomen: There are contents seen within a distended stomach. IMPRESSION: Stable 3 mm nodule within the superior segment of the right lower lobe, when compared to the prior examination. Other tiny pulmonary nodules are also seen. No gail lymphadenopathy is seen within the chest. Incidental Finding: Follow-up Acuity: Incidental Finding: Solid: <6 mm (solitary or multiple) Routing Code: N/A Recommendation: No imaging follow-up is recommended Time Frame: N/A Comments: If there are risk factors for lung malignancy, a follow-up chest CT exam could be obtained in 12 months --END OF FINDING-- Batchmaker: OPHELIA Transcribe Date/Time: Dec 28 2024 9:06A Dictated by : CYNTHIA RIVERA MD This examination was interpreted and the report reviewed and electronically signed by: CYNTHIA RIVERA MD on Dec 28 2024 8:30PM EST [id number] ACTIONABLE Invalid Interpretation Code [facility] MR/BMS.BPon 12-22-2024 MR/BMS.BP [facility] [address], [address] [place] [address] OFFICE VISIT Date of Service: 12/22/24 MR#: [id number] Acct: [id number] Name: PATO BOOTHE Rep #: [id number] : 1985 Provider: Dr. Martin Jeter se, DO Age/Sex: 39/F Location: [facility] Status: Signed Intake Vital Signs 10/22/24 14:26 12/08/24 13:42 12/22/24 14:18 Height 5 ft 10 in 5 ft 10 in 5 ft 10 in BP 134/84 H Blood Pressure Location Lt brachial Position Sitting Respiration 16 Pulse 88 Pulse Source Monitor BP Intake Visit Reasons: 2 M FU Accompanied by: Self Allergies azithromycin Allergy (Intermediate, Verified 12/22/24 14:19) Rash Medications ???Medication ???Instructions ???Recorded ???Confirmed ???Type cetirizine 10 mg tablet 10 mg PO DAILY PRN allergy symptom s 07/15/19 12/22/24 History rizatriptan 5 mg tablet 5 mg PO ONCE PRN migraines 0 12/22/24 History Copper [Paragard T 380-A] 1 ea IY DAILY 05/14/20 12/22/24 Hi story multivitamin 1 cap PO DAILY 06/30/20 12/22/24 H istory cholecalciferol (vitamin D3) 50 50 mcg PO DAILY 02/16/22 12/22/24 History mcg (2,000 unit) capsule blood pressure monitor (Blood #1 ea 01/03/24 12/22/24 Rx Pressure Kit) vitamin E (dl, acetate) 45 mg (100 45 mg PO QDAY 05/30/24 12/22/24 History unit) capsule omeprazole 20 mg capsule,delayed 20 mg PO BID #60 caps 06/16/24 Rx release hydroxyzine HCl 25 mg tablet 25 mg PO TID PRN anxiety #90 tabs 07/22/24 12/22/24 Rx clobetasol 0.05 % topical ointment 1 applic topical BID 12 weeks #3 0 08/12/24 12/22/24 Rx grams dicyclomine 20 mg tablet 20 mg PO BID PRN PRN abdominal 06/0412/22/24 Rx pain #60 TABLETS fesoterodine 4 mg tablet,extended mg PO DAILY 10/22/24 12/22/24 His tory release 24 hr amlodipine 10 mg tablet 10 mg PO DAILY #90 TABLETS 5 12/22/24 Rx fluoxetine 20 mg capsule See Rx Instructions .Route 5 12/22/24 Rx .COMPLEX #90 caps fluticasone propionate 50 See Rx Instructions .Route 5 12/22/24 Rx mcg/actuation nasal .COMPLEX #16 grams spray,suspension ascorbic acid (vitamin C) 1,000 mg 1 g PO DAILY To help my immune 0 12/08/24 12/22/24 History tablet (Vitamin C) system fgrlaai-ekjxdctpz-losz 333 mg-133 tab PO To add more vitamin help 0 12/08/24 12/22/24 History mg-5 mg tablet mecobalamin (vitamin B12) 1,000 1,000 mcg PO QDAY 12/08/24 5 History mcg lozenges vitamin B complex-folic acid 2,000 1 cap PO DAILY Help with B vitam ins 12/08/24 12/22/24 History mcg capsule vitamin E 670 mg (1,000 unit) 670 mg PO DAILY To help with my 12/22/24 History capsule health bupropion HCl 150 mg 24 hr tablet, 150 mg PO QAM #90 tabs 12/22/24 12/22/24 Rx extended release (Wellbutrin XL) zolpidem 5 mg tablet (Ambien) 5 mg PO QHS PRN sleep #30 tabs 12/22/24 Rx PFSH Medical History (Updated 12/08/24 @ 13:53 by Martin LEE, JESUS) Left ankle sprain Strain of right inguinal region Wears glasses Bladder disease History of IBS Insomnia Easy bruising Major depression Flu vaccine need Pharyngitis Generalized anxiety disorder Right thigh pain Right anterior knee pain Migraines Surgical History History of appendectomy History of cholecystectomy Family History Father Diabetes Cancer skin Hypertension Grandmother Cancer leukemia Grandfather Diabetes Hypertension Cancer skin Heart disease Sister Diabetes Pancreatic cancer Social History current occupational status: employed current occupation: [employer] current occupational exposures/hazards: No sexually active: Yes Smoking Status: Never smoker alcohol intake: current alcohol intake frequency: holidays/special occasions only substance use type: does not use caffeine: Yes what type of physical activity do you participate in: none seatbelt use: always do you feel safe at home: Yes additional social history: Tejinder - Unemployed HPI History of Present Illness History provided by: patient HPI: Pato Boothe is a 39 year old female who presents today for follow up evaluation. Patient reports that she has been taking zolpidem about once per week and feels like it has been extremely beneficial. Does wake up feeling more restored, but at times does wake up still feeling somewhat tired. Has been seeing Radha Menard regularly. Has been getting up around 6 am to get to work which is later than the 4:30 she had been getting up at. Life stress has been largely doing well. Oldest son's attitude has been improved whi (more content not included)... Normal [facility] MR/BMS.BPon 12-15-2024 MR/BMS.BP [address], [address] [place] [address] OFFICE VISIT Date of Service: 12/12/24 MR#: [id number] Acct: [id number] Name: PATO BOOTHE Rep #: [id number] : 1985 Provider: [facility] Radha quinones Age/Sex: 39/F Location: [facility] Status: Signed Intake Vital Signs 10/22/24 14:26 12/08/24 13:42 12/15/24 08:59 Height 5 ft 10 in 5 ft 10 in 5 ft 10 in BP Intake Visit Reasons: Follow up Allergies azithromycin Allergy (Intermediate, Verified 12/08/24 13:39) Rash [facility] Medical History (Updated 12/08/24 @ 13:53 by Martin LEE, PA) Left ankle sprain Strain of right inguinal region Wears glasses Bladder disease History of IBS Insomnia Easy bruising Major depression Flu vaccine need Pharyngitis Generalized anxiety disorder Right thigh pain Right anterior knee pain Migraines Surgical History History of appendectomy History of cholecystectomy Family History Father Diabetes Cancer skin Hypertension Grandmother Cancer leukemia Grandfather Diabetes Hypertension Cancer skin Heart disease Sister Diabetes Pancreatic cancer Social History current occupational status: employed current occupation: [email or web address] current occupational exposures/hazards: No sexually active: Yes Smoking Status: Never smoker alcohol intake: current alcohol intake frequency: holidays/special occasions only substance use type: does not use caffeine: Yes what type of physical activity do you participate in: none seatbelt use: always do you feel safe at home: Yes 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 She identified a number of medical stressors since her last counseling appointment including concerns of hip pain, possible hernias, and a lung nodule. These were triggering to Pato given her family history of cancer and sister's recent from cancer. Encouraged verbalization of emotions while providing support. Normalized emotions. Pato has occasionally taken Ambien to manage sleep difficulties. She has experienced reduced anxiety since getting some positive medical feedback. Reinforced use of positive coping such as reframing, engaging in pleasant activities, and utilizing supports. Pato has applied for a job through her same employer with increased hours. Reinforced her taking healthy risks. She engaged in positive activities with her children during their Spring break. Continued to work on grief and coping skills. No SI. Future-oriented. Exam Mental Status Exam - Psych Appearance casually dressed, adequately groomed and no apparent distress Attitude cooperative, calm, engaged and pleasant Activity/Motor Behavior MSE activity/motor behavior finding no adventitious movements and appropriate eye contact Speech regular rate, regular volume and regular prosody Mood euythmic Affect full range Thought Process linear, logical, coherent and goal directed Thought Content no delusions, no hallucinations and ruminations (Related to health concerns.) Suicidal Ideation none Homicidal Ideation none Attention intact Concentration intact Sensorium/Orientation alert and oriented x3 Memory/Cognition intact Insight good Judgement good Assessment Plan Assessment Plan (1) Major depression: Plan: therapy using CBT, DBT, and ACT interventions to address thought patterns contributing to depressive symptoms and teach coping skills. Continued psychiatric services to monitor depressive symptoms and medication effectiveness. Pt. to call 911, call suicide prevention hotline, or go to ER if experiencing suicidal ideation with plan and intent and/or feel unable to ensure own safety. (2) Generalized anxiety disorder: Plan: therapy using CBT, DBT, and ACT interventions to address thought patterns contributing to anxious symptoms and to teach coping skills. Psychiatric services to monitor anxious symptoms and medication effectiveness. Plan TREATMENT PLAN (08/29/2024) Goal 1 - Begin a healthy grieving process around the loss. Objective 1 - Begin verbalizing feelings associated with the loss. Intervention 1 - Assist Pt. in identifying and expressing feelings associated with her loss. Intervention 2 - Assign pt. to keep a daily grief journal to be shared in therapy sessions. Intervention 3 - Assign pt. to bring pictures or mementos connected to her loss to session to talk about. Goal 2 - Recognize, accept, and cope with feelings of depression AED report of 50% symptom reduction by client. (more content not included)... [facility] Office Visit (SWS ) -- PATO BOOTHE ([id number]) 1985 F Date Time Provider Department 12/10/24 1:45 PM ANGELO PALACIOS During your visit today, we recorded the following information about you: Temperature Pulse Respiration Blood pressure 98 degrees 117/minute 17/minute 136/82 Weight 151.5 kg Angelo Palacios MD 12/13/2024 8:31 AM Signed FOLLOW UP VISIT NAME: Pato Boothe CLINIC NO.: [id number] DATE OF SERVICE: 12/10/2024 : 1985 REFERRING PHYSICIAN: Solis Martino MD Pato is a patient I am following for right groin discomfort and concern for hiatal hernia. Pato is a 39 year old female with a complaint of discomfort in her right inguinal region. The patient notes discomfort in this area when going down steps. The symptoms have increased, over the past few months. The patient also had a recent upper endoscopy and was told she had a hiatal hernia. She wonders if these are related. She is uncertain how severe her hiatal hernia is. She had her upper endoscopy on August 03. She was started on omeprazole. The patient notes no symptoms of bowel obstruction and denies nausea or vomiting. The patient was seen by her primary care physician who felt the patient has a hernia. Pato was referred for evaluation and treatment. The patient is being seen by me at the request of Dr. Solis Martino MD for my opinion and advice regarding possible right inguinal hernia versus right inguinal discomfort. I examined the patient and performed intraoperative ultrasound that did not feel that I could identify a right inguinal hernia. However, due to the patient's body habitus I felt it was possible there could be an occult hernia that I was not able to identify. I therefore ordered a CT scan of the abdomen pelvis. The CT scan of the abdomen pelvis was obtained on December 03, 2024. This demonstrated: IMPRESSION: Within the limits of this noncontrast enhanced examination, no acute abdominal or pelvic process is identified. Tiny umbilical hernia, containing omental fat. No other ventral hernia is identified. There is no inguinal hernia. Prominent, less than 1 cm abdominal and pelvic lymph nodes are likely reactive. Descending and sigmoid colon diverticulosis, without suggestion diverticulitis. Incidentally noted is an IUD. Bilateral adnexal cysts, measuring up to 2 cm within the left adnexa. 3 mm nodule within the superior segment of the right lower lobe. She returns today for examination and evaluation VITALS: Blood pressure 136/82, pulse 117, temperature 36.7 ?C (98 ?F), temperature source Temporal Artery, resp. rate 17, weight (!) 151.5 kg (334 lb), last menstrual period 03/29/2024, SpO2 97%. On examination, patient is morbidly obese. I do not appreciate an inguinal hernia. Cannot appreciate a small umbilical hernia. Assessment IMPRESSION: No obvious hernia on the exam, ultrasound, or CT scan in the right inguinal area, incidental finding of lung nodule PLAN: If the patient notes any problems or signs of bulges in the right inguinal area, the patient should contact me immediately. We discussed the finding of the nodule in her right lung field. Patient was not a smoker but is concerned of the risk of lung cancer. I will plan to obtain a CT scan of the chest to assure there is no additional abnormalities in that area. Diagnoses: (R91.8) Lung nodules (primary encounter diagnosis) Return to Clinic: The patient is instructed to follow-up with me as needed and I will contact the patient with the results of her CT scan once it is complete.. _ Angelo Palacios MD Referring Provider: ANGELO PALACIOS [[id number]] Allergies As of Date: 12/10/2024 Noted Allergy Reaction ERYTHROMYCIN 11/27/2024 2 - Rash Date Reviewed: 12/10/2024 Reviewed by: Didi Robbins RN - Fully Assessed Reason for Visit: Follow Up [171] Primary Visit Diagnosis:Lung nodules [R91.8] Order(s):CT CHEST WO IVCON [[id number]] Order #: [id number] FUTURE Prescriptions as of 12/13/2024 - Ascorbic Acid (VITAMIN C) 1,000 mg tablet Take 1,000 mg by mouth once daily. - cyanocobalamin, vitamin B-12, (VITAMIN B-12) 1,000 mcg/mL drop Take 1,000 mcg by mouth once daily. - inulin (FIBER GUMMIES ORAL) Take 1 Each by mouth once daily. - omega 9-wax-rwv-fish oil (FISH OIL) 100-160-1,000 mg cap Take 1 capsule by mouth once daily. - Vitamin E 100 unit/0.25 mL drop Take 180 mg by mouth once daily. - fesoterodine (TOVIAZ) 4 mg Tb24 extended release tablet Take 4 mg by mouth once daily. - mirabegron (MYRBETRIQ ORAL) Take 100 mg by mouth once daily. - doxycycline hyclate (VIBRAMYCIN) 100 mg capsule Take 2 capsules by mouth two times a day. For 7 days - urea (CARMOL) 40 % Apply to affected area once daily. - buPROPion XL (WELLBUTRIN XL) 150 mg 24 hr tablet - mv,Ca,min/ir (more content not included)... Normal [facility] Ankle min 3 Viewson 12-09-19 25 Ankle min 3 Views [facility] [address] [place] [address] Ankle min 3 Views MR#: [id number] Acct: [id number] Name: PATO BOOTHE Rep #: [id number] : 1985 F 39 From: Reyes Plasencia MD PCP: Dr. Solis Martino MD Status: REG CLI Study: Ankle min 3 Views Date of Exam: 12/08/24 Exam# [id number] Ordering Dr: Martin Beaulieu PROCEDURE: ANKLE MIN 3 VIEWS 12/08/2024 REASON FOR EXAM: PAIN TECHNIQUE: 3 views of the left ankle COMPARISON: None available FINDINGS: No fracture or dislocation. Joint spaces appear within limits. Small enthesophyte Achilles surface of the calcaneus. RAD/Ankle min 3 Views IMPRESSION: Study appears within limits. Reading Location: [id number] CC: Dr. Solis Martino MD; JESUS Camacho Batchmaker: Signed Normal [facility] Urgent Care Visit Reporton 0 12-08-2024 Urgent Care Visit Report [facility] [address], [address] [place] [address] OFFICE VISIT Date of Service: 12/08/24 MR#: [id number] Acct: [id number] Name: PATO BOOTHE Rep #: [id number] : 1985 Provider: JESUS Camacho Age/Sex: 39/F Location: [facility] Status: Signed Intake Vital Signs 11/18/24 13:52 12/08/24 13:42 Height 5 ft 10 in 5 ft 10 in Weight: 331 lb BMI 47.5 BP 118/80 Blood Pressure Location Lt brachial Position Sitting Respiration 14 Pulse 80 Pulse Source Monitor Pulse Oximetry (%) 95 Oxygen Delivery Method room air Intake Visit Reasons: L ANKLE PAIN/UNK INJURY [employer] Required: No Is patient in pain?: No (L ankle) Allergies azithromycin Allergy (Intermediate, Verified 12/08/24 13:39) Rash Medications ???Medication ???Instructions ???Recorded ???Confirmed ???Type cetirizine 10 mg tablet 10 mg PO DAILY PRN allergy symptom s 07/15/19 12/08/24 History rizatriptan 5 mg tablet 5 mg PO ONCE PRN migraines 0 12/08/24 History Copper [Paragard T 380-A] 1 ea IY DAILY 05/14/20 12/08/24 Hi story multivitamin 1 cap PO DAILY 06/30/20 12/08/24 H istory cholecalciferol (vitamin D3) 50 50 mcg PO DAILY 02/16/22 12/08/24 History mcg (2,000 unit) capsule blood pressure monitor (Blood #1 ea 01/03/24 11/25/24 Rx Pressure Kit) bupropion HCl 150 mg 24 hr tablet, 150 mg PO QAM #90 tabs 02/18/24 12/08/24 Rx extended release (Wellbutrin XL) vitamin E (dl, acetate) 45 mg (100 45 mg PO QDAY 05/30/24 12/08/24 History unit) capsule omeprazole 20 mg capsule,delayed 20 mg PO BID #60 caps 06/16/24 Rx release hydroxyzine HCl 25 mg tablet 25 mg PO TID PRN anxiety #90 tabs 07/22/24 12/08/24 Rx clobetasol 0.05 % topical ointment 1 applic topical BID 12 weeks #3 0 08/12/24 11/25/24 Rx grams dicyclomine 20 mg tablet 20 mg PO BID PRN PRN abdominal 06/0412/08/24 Rx pain #60 TABLETS fesoterodine 4 mg tablet,extended mg PO DAILY 10/22/24 12/08/24 His tory release 24 hr zolpidem 5 mg tablet (Ambien) 5 mg PO QHS PRN sleep #30 tabs 09/0312/08/24 Rx amlodipine 10 mg tablet 10 mg PO DAILY #90 TABLETS 5 12/08/24 Rx fluoxetine 20 mg capsule See Rx Instructions .Route 5 12/08/24 Rx .COMPLEX #90 caps fluticasone propionate 50 See Rx Instructions .Route 5 12/08/24 Rx mcg/actuation nasal .COMPLEX #16 grams spray,suspension ascorbic acid (vitamin C) 1,000 mg 1 g PO DAILY To help my immune 0 12/08/24 12/08/24 History tablet (Vitamin C) system iulqdeu-sscswhczi-ywwr 333 mg-133 tab PO To add more vitamin help 0 12/08/24 12/08/24 History mg-5 mg tablet mecobalamin (vitamin B12) 1,000 1,000 mcg PO QDAY 12/08/24 5 History mcg lozenges vitamin B complex-folic acid 2,000 1 cap PO DAILY Help with B vitam ins 12/08/24 12/08/24 History mcg capsule vitamin E 670 mg (1,000 unit) 670 mg PO DAILY To help with my 12/08/24 History capsule health Nurse's Note: of last week she noticed pain and swelling in L ankle. She is able to move it but that's when the pain is bad sometimes it hurts not putting any weight on it. The pain is described as sharp and stabby. Nothing makes it better or worse. Has been treating w/ tylneol, ibuprofen and ice which doesn't seem to help much. She does not recall injuring it. Denies any radiating pain. Will go up to a 10/10 pain scale. [facility] Medical History (Updated 12/08/24 @ 13:53 by Martin LEE, PA) Left ankle sprain Strain of right inguinal region Wears glasses Bladder disease History of IBS Insomnia Easy bruising Major depression Flu vaccine need Pharyngitis Generalized anxiety disorder Right thigh pain Right anterior knee pain Migraines Surgical History History of appendectomy History of cholecystectomy Family History Father Diabetes Cancer skin Hypertension Grandmother Cancer leukemia Grandfather Diabetes Hypertension Cancer skin Heart disease Sister Diabetes Pancreatic cancer Social History current occupational status: employed 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 Normal [facility] CT ABD/PEL WO IVCONon 2024 CT ABD/PEL WO IVCON * * *Final Report* * * DATE OF EXAM: Dec 03 2024 10:04AM [facility] 0531 - CT ABD/PEL WO IVCON / PROCEDURE REASON: multiple diagnoses * * * * Physician Interpretation * * * * EXAMINATION: CT ABDOMEN AND PELVIS WITHOUT IV CONTRAST CLINICAL HISTORY: Evaluate for hernia. TECHNIQUE: Non-IV contrast imaging of the abdomen and pelvis was performed using standard technique, scanning from just above the dome of the diaphragm to the symphysis pubis. Unenhanced imaging is limited for the evaluation of some intra-abdominal and pelvic pathology. MQ: CTAPWO_3 Contrast: IV: None Oral: None CT Radiation dose: Integrated Dose-length product (DLP) for this visit = 1171 mGy*cm. CT Dose Reduction Employed: Automated exposure control(AEC) and iterative recon RESULT: Abdomen / Pelvis: Liver: Within the limits of this noncontrast enhanced examination, there is no obvious focal discrete hepatic mass. Biliary: There is no biliary dilation. Spleen: No splenomegaly. Pancreas: Within the limits of this noncontrast enhanced examination, there is no obvious focal discrete pancreatic mass or pancreatic ductal dilation. Adrenals: No mass. Kidneys: There is no hydronephrosis or perinephric fluid collection. GI Tract: Nonspecific wall of the stomach likely relates to underdistention. There are no dilated loops of bowel to suggest obstruction. Moderate stool burden. There is descending and sigmoid colon diverticulosis, without CT evidence for diverticulitis. Lymph Nodes: There are prominent, less than 1 cm abdominal lymph nodes, likely reactive. Mesentery/peritoneum: No abdominal ascites. Retroperitoneum: No mass. Vasculature: No abdominal aortic aneurysm. Pelvis: Incidentally noted is an IUD. There is an approximately 2.0 x 1.8 cm left adnexal cyst (series 5, image #155). There is an approximately 1.8 x 1.4 cm right adnexal cyst (series 5, image #153). Apparent urinary bladder wall thickening likely to underdistention. Multiple phleboliths are seen within the pelvis. Prominent, less than 1 cm pelvic lymph nodes are likely reactive. Bones/Soft Tissues: There is a tiny hernia, containing omental fat. No other ventral hernia is identified. No inguinal hernia. A few presumed bone islands are incidentally noted within the osseous structures. There is vacuum phenomena seen involving the sacroiliac joint spaces, bilaterally. No destructive bony lesion. Lower thorax: There is an approximately 3 mm nodule within the superior segment right lower lobe (series 5, image #10). Atelectasis is seen within the lingula and right middle lobe. IMPRESSION: Within the limits of this noncontrast enhanced examination, no acute abdominal or pelvic process is identified. Tiny umbilical hernia, containing omental fat. No other ventral hernia is identified. There is no inguinal hernia. Prominent, less than 1 cm abdominal and pelvic lymph nodes are likely reactive. Descending and sigmoid colon diverticulosis, without suggestion diverticulitis. Incidentally noted is an IUD. Bilateral adnexal cysts, measuring up to 2 cm within the left adnexa. 3 mm nodule within the superior segment of the right lower lobe. Incidental Finding: Follow-up Acuity: Incidental Finding: Solid: <6 mm (solitary or multiple) Routing Code: N/A Recommendation: No imaging follow-up is recommended Time Frame: N/A Comments: If there are risk factors for lung malignancy, a follow-up chest CT exam could be obtained in 12 months --END OF FINDING-- Batchmaker: OPHELIA Transcribe Date/Time: Dec 03 2024 2:25P Dictated by : CYNTHIA RIVERA MD This examination was interpreted and the report reviewed and electronically signed by: CYNTHIA RIVERA MD on Dec 03 2024 9:49PM EST [id number] ACTIONABLE Invalid Interpretation Code [facility] CT Abdomen and Pelvis WO con trastOrdered By: [facility] Provider on 12-03-2024 Interpretation and review of laboratory results Abnormal [facility] Radiology Result ACTIONABLE Abnormal [facility] Comment on above: This report contains an incidental or actionable finding. This finding may be a new finding separate from the reason your provider ordered the imaging test or it may be an already known finding that needs additional or continued follow-up. Because of this incidental or actionable finding, you may need another test (imaging or a different type of test). Please contact your provider for the next steps. [facility] CT Abdomen and Pelvis WO con traston 12-03-2024 IMPRESSION: Within t he limits of this noncontrast enhanced examination, no acute abdominal or pelvic process is identified. Tiny umbilical hernia, containing omental fat. No other ventral hernia is identified. There is no inguinal hernia. Prominent, less than 1 cm abdominal and pelvic lymph nodes are likely reactive. Descending and sigmoid colon diverticulosis, without suggestion diverticulitis. Incidentally noted is an IUD. Bilateral adnexal cysts, measuring up to 2 cm within the left adnexa. 3 mm nodule within the superior segment of the right lower lobe. Incidental Finding: Follow-up Acuity: Incidental Finding: Solid: <6 mm (solitary or multiple) Routing Code: N/A Recommendation: No imaging follow-up is recommended Time Frame: N/A Comments: If there are risk factors for lung malignancy, a follow-up chest CT exam could be obtained in 12 months --END OF FINDING-- Batchmaker: OPHELIA Transcribe Date/Time: Dec 03 2024 2:25P Dictated by : CYNTHIA RIVERA MD This examination was interpreted and the report reviewed and electronically signed by: CYNTHIA RIVERA MD on Dec 03 2024 9:49PM [facility] DIVISION OF RADIOLOGY * * *Final Report* * * DATE OF EXAM: Dec 03 2024 10:04AM [facility] 0531 - CT ABD/PEL WO IVCON / PROCEDURE REASON: multiple diagnoses * * * * Physician Interpretation * * * * EXAMINATION: CT ABDOMEN AND PELVIS WITHOUT IV CONTRAST CLINICAL HISTORY: Evaluate for hernia. TECHNIQUE: Non-IV contrast imaging of the abdomen and pelvis was performed using standard technique, scanning from just above the dome of the diaphragm to the symphysis pubis. Unenhanced imaging is limited for the evaluation of some intra-abdominal and pelvic pathology. MQ: CTAPWO_3 Contrast: IV: None Oral: None CT Radiation dose: Integrated Dose-length product (DLP) for this visit = 1171 mGy*cm. CT Dose Reduction Employed: Automated exposure control(AEC) and iterative recon RESULT: Abdomen / Pelvis: Liver: Within the limits of this noncontrast enhanced examination, there is no obvious focal discrete hepatic mass. Biliary: There is no biliary dilation. Spleen: No splenomegaly. Pancreas: Within the limits of this noncontrast enhanced examination, there is no obvious focal discrete pancreatic mass or pancreatic ductal dilation. Adrenals: No mass. Kidneys: There is no hydronephrosis or perinephric fluid collection. GI Tract: Nonspecific wall of the stomach likely relates to underdistention. There are no dilated loops of bowel to suggest obstruction. Moderate stool burden. There is descending and sigmoid colon diverticulosis, without CT evidence for diverticulitis. Lymph Nodes: There are prominent, less than 1 cm abdominal lymph nodes, likely reactive. Mesentery/peritoneum: No abdominal ascites. Retroperitoneum: No mass. Vasculature: No abdominal aortic aneurysm. Pelvis: Incidentally noted is an IUD. There is an approximately 2.0 x 1.8 cm left adnexal cyst (series 5, image #155). There is an approximately 1.8 x 1.4 cm right adnexal cyst (series 5, image #153). Apparent urinary bladder wall thickening likely to underdistention. Multiple phleboliths are seen within the pelvis. Prominent, less than 1 cm pelvic lymph nodes are likely reactive. Bones/Soft Tissues: There is a tiny hernia, containing omental fat. No other ventral hernia is identified. No inguinal hernia. A few presumed bone islands are incidentally noted within the osseous structures. There is vacuum phenomena seen involving the sacroiliac joint spaces, bilaterally. No destructive bony lesion. Lower thorax: There is an approximately 3 mm nodule within the superior segment right lower lobe (series 5, image #10). Atelectasis is seen within the lingula and right middle lobe. DIVISION OF RADIOLOGY Provider, [facility] - 12/03/2024 * * *Final Report* * * DATE OF EXAM: Dec 03 2024 10:04AM [facility] 0531 - CT ABD/PEL WO IVCON / PROCEDURE REASON: multiple diagnoses * * * * Physician Interpretation * * * * EXAMINATION: CT ABDOMEN AND PELVIS WITHOUT IV CONTRAST CLINICAL HISTORY: Evaluate for hernia. TECHNIQUE: Non-IV contrast imaging of the abdomen and pelvis was performed using standard technique, scanning from just above the dome of the diaphragm to the symphysis pubis. Unenhanced imaging is limited for the evaluation of some intra-abdominal and pelvic pathology. MQ: CTAPWO_3 Contrast: IV: None Oral: None CT Radiation dose: Integrated Dose-length product (DLP) for this visit = 1171 mGy*cm. CT Dose Reduction Employed: Automated exposure control(AEC) and iterative recon RESULT: Abdomen / Pelvis: Liver: Within the limits of this noncontrast enhanced examination, there is no obvious focal discrete hepatic mass. Biliary: There is no biliary dilation. Spleen: No splenomegaly. Pancreas: Within the limits of this noncontrast enhanced examination, there is no obvious focal discrete pancreatic mass or pancreatic ductal dilation. Adrenals: No mass. Kidneys: There is no hydronephrosis or perinephric fluid collection. GI Tract: Nonspecific wall of the stomach likely relates to underdistention. There are no dilated loops of bowel to suggest obstruction. Moderate stool burden. There is descending and sigmoid colon diverticulosis, without CT evidence for diverticulitis. Lymph Nodes: There are prominent, less than 1 cm abdominal lymph nodes, likely reactive. Mesentery/peritoneum: No abdominal ascites. Retroperitoneum: No mass. Vasculature: No abdominal aortic aneurysm. Pelvis: Incidentally noted is an IUD. There is an approximately 2.0 x 1.8 cm left adnexal cyst (series 5, image #155). There is an approximately 1.8 x 1.4 cm right adnexal cyst (series 5, image #153). Apparent urinary bladder wall thickening likely to underdistention. Multiple phleboliths are seen within the pelvis. Prominent, less than 1 cm pelvic lymph nodes are likely reactive. Bones/Soft Tissues: There is a tiny hernia, containing omental fat. No other ventral hernia is identified. No inguinal hernia. A few presumed bone islands are incidentally noted within the osseous structures. There is vacuum phenomena seen involving the sacroiliac joint spaces, bilaterally. No destructive bony lesion. Lower thorax: There is an approximately 3 mm nodule within the superior segment right lower lobe (series 5, image #10). Atelectasis is seen within the lingula and right middle lobe. IMPRESSION IMPRESSION: Within the limits of this noncontrast enhanced examination, no acute abdominal or pelvic process is identified. Tiny umbilical hernia, containing omental fat. No other ventral hernia is identified. There is no inguinal hernia. Prominent, less than 1 cm abdominal and pelvic lymph nodes are likely reactive. Descending and sigmoid colon diverticulosis, without suggestion diverticulitis. Incidentally noted is an IUD. Bilateral adnexal cysts, measuring up to 2 cm within the left adnexa. 3 mm nodule within the superior segment of the right lower lobe. Incidental Finding: Follow-up Acuity: Incidental Finding: Solid: <6 mm (solitary or multiple) Routing Code: N/A Recommendation: No imaging follow-up is recommended Time Frame: N/A Comments: If there are risk factors for lung malignancy, a follow-up chest CT exam could be obtained in 12 months --END OF FINDING-- Batchmaker: OPHELIA Transcribe Date/Time: Dec 03 2024 2:25P Dictated by : CYNTHIA RIVERA MD This examination was interpreted and the report reviewed and electronically signed by: CYNTHIA RIVERA MD on Dec 03 2024 9:49PM EST [facility] Radiology Study observation (narrative) [facility] CNOVon 11-27-2024 CNOV Office Visit (GENSWS ) -- PATO BOOTHE ([id number]) 1985 F Date Time Provider Department 11/27/24 3:30 PM ANGELO PALACIOS During your visit today, we recorded the following information about you: Temperature Pulse Respiration Blood pressure 97.6 degrees 104/minute 19/minute 130/74 Weight 149.4 kg Angelo Palacios MD 12/02/2024 5:50 PM Signed HISTORY AND PHYSICAL Pato Boothe 1985 REFERRING PHYSICIAN: Solis Martino MD CHIEF COMPLAINT: Inguinal Hernia HPI: Pato is a 39 year old female with a complaint of discomfort in her right inguinal region. The patient notes discomfort in this area when going down steps. The symptoms have increased, over the past few months. The patient also had a recent upper endoscopy and was told she had a hiatal hernia. She wonders if these are related. She is uncertain how severe her hiatal hernia is. She had her upper endoscopy on August 03. She was started on omeprazole. The patient notes no symptoms of bowel obstruction and denies nausea or vomiting. The patient was seen by her primary care physician who felt the patient has a hernia. Pato was referred for evaluation and treatment. The patient is being seen by me today at the request of Dr. Solis Martino MD for my opinion and advice regarding possible right inguinal hernia versus right inguinal discomfort. PAST MEDICAL HISTORY Diagnosis Date Dysthymic disorder Depression (non-psychotic) PAST SURGICAL HISTORY Procedure Laterality Date IMPLANON INSERTION 04/23/2013 and Removed LAPAROSCOPIC APPENDECTOMY 06/01/16 LAPS SURG CHOLECYSTECTOMY W/CHOLANGIOGRAPHY Normal IOC Current Outpatient Medications Medication Sig urea (CARMOL) 40 % Apply to affected area once daily. buPROPion XL (WELLBUTRIN XL) 150 mg 24 hr tablet mv,Ca,min/iron/FA/guarana/ caff (ONE-A-DAY WOMEN'S ACTIVE ORAL) Take 1 tablet by mouth once daily. calcium/magnesium/zinc (SEKCHLE-EZMJZDQKTB-UTLH) 333-133-5 mg tab Take 1 tablet by mouth once daily. amLODIPine (NORVASC) 10 mg tablet Take 1 tablet by mouth once daily. FLUoxetine (PROZAC) 20 mg capsule Take 20 mg by mouth once daily. rizatriptan (MAXALT) 5 mg tablet take 1 tablet by oral route once as needed for migraine; can repeat dose in 2 hours if needed; limit 30 mg per 24 hours Cholecalciferol, Vitamin D3, 50 mcg (2,000 unit) cap Take 1 capsule by mouth once daily. copper (PARAGARD) 380 square mm intrauterine device 1 Intra Uterine Device by INTRAUTERINE route. cetirizine (ZYRTEC) 10 mg tablet Take 1 tablet by mouth once daily as needed. fluticasone (FLONASE) 50 mcg/actuation nasal spray Use 2 Sprays in each nostril once daily. Rinse mouth after use. mirabegron (MYRBETRIQ ORAL) Take 100 mg by mouth once daily. doxycycline hyclate (VIBRAMYCIN) 100 mg capsule Take 2 capsules by mouth two times a day. For 7 days (Patient not taking: Reported on 04/03/2024) traZODone (DESYREL) 100 mg tablet Take 1 tablet by mouth daily at bedtime. LIDOCAINE VISCOUS 2 % solution Take 5-10 mL by mouth four times daily as needed. Biotin 1 mg tab Take 1 tablet by mouth once daily. escitalopram oxalate (LEXAPRO) 20 mg tablet Take 20 mg by mouth once daily. amitriptyline (ELAVIL) 25 mg tablet Take 1 tablet by mouth once daily. (Patient not taking: Reported on 09/30/2022) FLUTICASONE PROPIONATE (FLONASE NASAL) Use 2 Sprays in each nostril once daily. No current facility-administered medications for this visit. ALLERGIES: Erythromycin PERSONAL HISTORY: Social History Tobacco Use Smoking status: Never Smokeless tobacco: Never Vaping Use Vaping status: Never Used Substance Use Topics Alcohol use: No Drug use: No FAMILY HISTORY: FAMILY HISTORY Problem Relation Age of Onset Allergies Father Allergies Brother Cancer Maternal Grandmother Cancer Maternal Grandfather Coronary Artery Disease Maternal Grandmother Coronary Artery Disease Maternal Grandfather Diabetes Father Diabetes Maternal Grandfather Diabetes Paternal Grandfather Heart Paternal Grandfather Heart Maternal Grandfather Hypertension Father Hypertension Paternal Grandfather Stroke Paternal Grandfather Stroke Maternal Grandfather Hypertension Maternal Grandfather REVIEW OF SYMPTOMS: The review of systems data was entered by the nurse and reviewed by me There are no exam notes on file for this visit. PHYSICAL EXAMINATION: General: The patient is 39 year old female, well nourished, well hydrated in no acute distress. The patient is oriented to time, place, and person. VITALS: Blood pressure 130/74, pulse 104, temperature 36.4 ?C (97.6 ?F), temperature source Temporal Artery, resp. rate 19, weight (!) 149.4 kg (329 lb 6.4 oz), last menstrual period 03/29/2024, SpO2 97%. Body mass index is 50.53 kg/m?. HEENT: Normal cephalic, ataumatic, pupils are equally round, (more content not included)... Normal [facility] [id number] 11-26-2024 [facility]. COMMENT Normal . [facility] Comment on above: Order Comment: SERUM GEL RT [id number] Allergen Profile, Food-Nuts Result Comment: Test Ordered: [id number] Allergens(7) Class Description Comment BN Reference Range: . Levels of Specific IgE Class Description of Class ----- < 0.10 0 Negative 0.10 - 0.31 0/I Equivocal/Low 0.32 - 0.55 I Low 0.56 - 1.40 II Moderate 1.41 - 3.90 III High 3.91 - 19.00 IV Very High 19.01 - 100.00 V Very High >100.00 Very High [id number] Peanut <0.10 kU/L BN Reference Range: Class 0 L284-TzL Hazelnut (Filbert) <0.10 kU/L BN Reference Range: Class 0 B548-RnY [place]oughton Nut <0.10 kU/L BN Reference Range: Class 0 Z682-FjL Reynolds <0.10 kU/L BN Reference Range: Class 0 O489-QlL Pecan Nut <0.10 kU/L BN Reference Range: Class 0 C585-RcS Cashew Nut <0.10 kU/L BN Reference Range: Class 0 O942-AgP [place] <0.10 kU/L BN Reference Range: Class 0 Performed at: - [facility] [id number] [employer] Manager: Esperanza Okeefe MD, Phone: [phone] Performed at: - [facility] [id number] [employer] Manager: Bora Zhou PhD, Phone: [phone] Performed By: #### L [id number] #### [facility] [address] [place], [address] Urgent Care Visit Reporton 0 11-25-2024 Urgent Care Visit Report [facility] [address], [address] [place] [address] OFFICE VISIT Date of Service: 11/25/24 MR#: [id number] Acct: [id number] Name: PATO BOOTHE Rep #: [id number] : 1985 Provider: JESUS Camacho Age/Sex: 39/F Location: [facility] Status: Signed Intake Vital Signs 11/18/24 13:52 11/25/24 13:53 Height 5 ft 10 in Weight: 328 lb 6 oz BMI 47.1 BP 138/92 H 102/68 Blood Pressure Location Lt brachial Position Sitting Sitting Respiration 16 Pulse 90 89 Pulse Source Monitor Temp 97.3 F L 98.2 F Temp Source Temporal Oral Pulse Oximetry (%) 98 98 Oxygen Delivery Method room air room air Intake Visit Reasons: R SIDE HIP PAIN Accompanied by: Self Is patient in pain?: Yes Pain scale (1-10): 4 Allergies azithromycin Allergy (Intermediate, Verified 11/25/24 13:51) Rash Medications ???Medication ???Instructions ???Recorded ???Confirmed ???Type cetirizine 10 mg tablet 10 mg PO DAILY PRN allergy symptom s 07/15/19 11/25/24 History rizatriptan 5 mg tablet 5 mg PO ONCE PRN migraines 0 11/25/24 History Copper [Paragard T 380-A] 1 ea IY DAILY 05/14/20 11/25/24 Hi story multivitamin 1 cap PO DAILY 06/30/20 11/25/24 H istory cholecalciferol (vitamin D3) 50 50 mcg PO DAILY 02/16/22 11/25/24 History mcg (2,000 unit) capsule blood pressure monitor (Blood #1 ea 01/03/24 11/25/24 Rx Pressure Kit) bupropion HCl 150 mg 24 hr tablet, 150 mg PO QAM #90 tabs 02/18/24 11/25/24 Rx extended release (Wellbutrin XL) vitamin E (dl, acetate) 45 mg (100 45 mg PO QDAY 05/30/24 11/25/24 History unit) capsule omeprazole 20 mg capsule,delayed 20 mg PO BID #60 caps 06/16/24 Rx release hydroxyzine HCl 25 mg tablet 25 mg PO TID PRN anxiety #90 tabs 07/22/24 11/25/24 Rx clobetasol 0.05 % topical ointment 1 applic topical BID 12 weeks #3 0 08/12/24 11/25/24 Rx grams dicyclomine 20 mg tablet 20 mg PO BID PRN PRN abdominal 06/0411/25/24 Rx pain #60 TABLETS doxycycline hyclate 100 mg capsule 100 mg PO BID #14 caps 10/13/24 11/25/24 Rx fesoterodine 4 mg tablet,extended mg PO DAILY 10/22/24 11/25/24 His tory release 24 hr zolpidem 5 mg tablet (Ambien) 5 mg PO QHS PRN sleep #30 tabs 09/0311/25/24 Rx amlodipine 10 mg tablet 10 mg PO DAILY #90 TABLETS 5 11/25/24 Rx fluoxetine 20 mg capsule See Rx Instructions .Route 5 11/25/24 Rx .COMPLEX #90 caps fluticasone propionate 50 See Rx Instructions .Route 5 11/25/24 Rx mcg/actuation nasal .COMPLEX #16 grams spray,suspension Nurse's Note: Patient has Right side hip pain that started yesterday. Patient states she has a popping feel that comes and goes and that has been going on for a year. Patient states the pain is in front in her groin area. [facility] Medical History (Updated 11/25/24 @ 14:36 by Martin LEE, PA) Strain of right inguinal region Wears glasses Bladder disease History of IBS Insomnia Easy bruising Major depression Flu vaccine need Pharyngitis Generalized anxiety disorder Right thigh pain Right anterior knee pain Migraines Surgical History History of appendectomy History of cholecystectomy Family History Father Diabetes Cancer skin Hypertension Grandmother Cancer leukemia Grandfather Diabetes Hypertension Cancer skin Heart disease Sister Diabetes Pancreatic cancer Social History current occupational status: employed current occupation: [email or web address] current occupational exposures/hazards: No sexually active: Yes Smoking Status: Never smoker alcohol intake: current alcohol intake frequency: holidays/special occasions only substance use type: does not use caffeine: Yes what type of physical activity do you participate in: none seatbelt use: always do you feel safe at home: Yes additional social history: [employer] - Unemployed HPI HPI Details: PATO BOOTHE, is a 39 F who presents to the office today for initial evaluation of waxing and waning right discomfort intermittently aggravated with lifting or twisting/torquing at waist level. Pa vivienne is concerned for potential hernia. Pain is aggravated to touch and with bearing down, alleviated minimally with rest and no heavy lifting. No changes in bowel or bladder control/function. No ryla-tlr-[id number] products taken to assist. No other associated symptoms and no other alleviating/aggravating factors. ROS Const Constitutional: No other (As above) Exam Const General: cooperative, healthy appearing and no acute distress Orientation: alert (more content not included)... Normal [facility] Internal Medicine Office Vis iton 11-18-2024 Internal Medicine Office Visit [facility] [address] [place] [address] [place] [address] OFFICE VISIT Date of Service: 11/18/24 MR#: [id number] Acct: [id number] Name: PATO BOOTHE Rep #: [id number] : 1985 Provider: JESUS Salcedo Age/Sex: 39/F Location: [facility] Status: Signed Intake Vital Signs 10/27/24 07:56 11/18/24 13:52 Height 5 ft 10 in 5 ft 10 in Weight: 328 lb 6 oz BMI 47.1 BP 138/92 H Blood Pressure Location Lt brachial Position Sitting Respiration 16 Pulse 90 Pulse Source Monitor Temp 97.3 F L Temp Source Temporal Pulse Oximetry (%) 98 Oxygen Delivery Method room air Intake Visit Reasons: acute - discuss allergy testing Chief Complaint: allergy testing wanted [employer] Required: No Accompanied by: Self Is patient in pain?: No Allergies azithromycin Allergy (Intermediate, Verified 11/18/24 13:51) Rash Medications ???Medication ???Instructions ???Recorded ???Confirmed ???Type cetirizine 10 mg tablet 10 mg PO DAILY PRN allergy symptom s 07/15/19 11/18/24 History rizatriptan 5 mg tablet 5 mg PO ONCE PRN migraines 0 11/18/24 History Copper [Paragard T 380-A] 1 ea IY DAILY 05/14/20 11/18/24 Hi story multivitamin 1 cap PO DAILY 06/30/20 11/18/24 H istory cholecalciferol (vitamin D3) 50 50 mcg PO DAILY 02/16/22 11/18/24 History mcg (2,000 unit) capsule blood pressure monitor (Blood #1 ea 01/03/24 11/18/24 Rx Pressure Kit) bupropion HCl 150 mg 24 hr tablet, 150 mg PO QAM #90 tabs 02/18/24 11/18/24 Rx extended release (Wellbutrin XL) vitamin E (dl, acetate) 45 mg (100 45 mg PO QDAY 05/30/24 11/18/24 History unit) capsule omeprazole 20 mg capsule,delayed 20 mg PO BID #60 caps 06/16/2408/04 Rx release hydroxyzine HCl 25 mg tablet 25 mg PO TID PRN anxiety #90 tabs 07/22/24 11/18/24 Rx clobetasol 0.05 % topical ointment 1 applic topical BID 12 weeks #3 0 08/12/24 11/18/24 Rx grams dicyclomine 20 mg tablet 20 mg PO BID PRN PRN abdominal 06/0411/18/24 Rx pain #60 TABLETS doxycycline hyclate 100 mg capsule 100 mg PO BID #14 caps 10/13/24 11/18/24 Rx fesoterodine 4 mg tablet,extended mg PO DAILY 10/22/24 11/18/24 His tory release 24 hr zolpidem 5 mg tablet (Ambien) 5 mg PO QHS PRN sleep #30 tabs 09/0311/18/24 Rx amlodipine 10 mg tablet 10 mg PO DAILY #90 TABLETS 5 11/18/24 Rx fluoxetine 20 mg capsule See Rx Instructions .Route 5 11/18/24 Rx .COMPLEX #90 caps fluticasone propionate 50 See Rx Instructions .Route 5 11/18/24 Rx mcg/actuation nasal .COMPLEX #16 grams spray,suspension Have you fallen in the past year?: No Nurse's Note: discuss [facility] History Wears glasses Bladder disease History of IBS Insomnia Easy bruising Major depression Flu vaccine need Pharyngitis Generalized anxiety disorder Right thigh pain Right anterior knee pain Migraines Surgical History History of appendectomy History of cholecystectomy Family History Father Diabetes Cancer skin Hypertension Grandmother Cancer leukemia Grandfather Diabetes Hypertension Cancer skin Heart disease Sister Diabetes Pancreatic cancer Social History current occupational status: employed current occupation: [employer] current occupational exposures/hazards: No sexually active: Yes Smoking Status: Never smoker alcohol intake: current alcohol intake frequency: holidays/special occasions only substance use type: does not use caffeine: Yes what type of physical activity do you participate in: none seatbelt use: always do you feel safe at home: Yes 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 She states that she has noticed the past 4 months that when she eats pecans that she will break out in an itchy rash on the upper chest. He comes or not something that she typically would eat but one of her bosses had brought in some sort of candy that had pecans and so she sort of noticed that when she would eat it she had this reaction. She states that she has not had problems or issues ever in the past that she can recall. She states that she does have a history of seasonal allergies that she takes antihistamine and INCS. Patient denies having any type of shortness of breath, difficulty swallowing, chest pains or pressures, or any other symptoms along with the rash. ROS Const Constitutional: No body ache, excess (more content not included)... Normal [facility] MR/BMS.BPon 11-10-2024 MR/BMS.BP [facility] [address], [address] [place] [id number] OFFICE VISIT Date of Service: 11/07/24 MR#: [id number] Acct: [id number] Name: PATO BOOTHE Rep #: [id number] : 1985 Provider: [facility] Radha quinones Age/Sex: 39/F Location[place] [facility] Status: Signed Intake Vital Signs 08/18/24 11:06 10/27/24 07:56 11/10/24 13:56 Height 5 ft 10 in 5 ft 10 in 5 ft 10 in BP Intake Visit Reasons: follow up Allergies azithromycin Allergy (Intermediate, Verified 10/22/24 14:30) Rash PFSH Medical History Wears glasses Bladder disease History of IBS Insomnia Easy bruising Major depression Flu vaccine need Pharyngitis Generalized anxiety disorder Right thigh pain Right anterior knee pain Migraines Surgical History History of appendectomy History of cholecystectomy Family History Father Diabetes Cancer skin Hypertension Grandmother Cancer leukemia Grandfather Diabetes Hypertension Cancer skin Heart disease Sister Diabetes Pancreatic cancer Social History current occupational status: employed current occupation: [email or web address] current occupational exposures/hazards: No sexually active: Yes Smoking Status: Never smoker alcohol intake: current alcohol intake frequency: holidays/special occasions only substance use type: does not use caffeine: Yes what type of physical activity do you participate in: none seatbelt use: always do you feel safe at home: Yes 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 She reported tiredness due to her work schedule and recent household tasks and projects. Pato identified improvement with sleep since starting Zolpidem stating she does not need to use it daily. She identified recent positive mood. Continued to work on grief symptoms related to loss of sister in 08/2024. Provided psychoeducation and handout Are You Taking Care of Yourself?. Pato was able to explore positive ways to implement coping and self-care and to also recognize areas where she is making progress. She reported increased motivation to implement self-care and was willing to explore how to implement into daily living. No SI. Future-oriented. Exam Mental Status Exam - Psych Appearance casually dressed, no apparent distress and well kempt Attitude cooperative, calm, engaged, pleasant and friendly Activity/Motor Behavior MSE activity/motor behavior finding no adventitious movements and appropriate eye contact Speech regular rate, regular volume and regular prosody Mood euythmic Affect full range Thought Process linear, logical, coherent and goal directed Thought Content no delusions and no hallucinations Suicidal Ideation none Homicidal Ideation none Attention intact Concentration intact Sensorium/Orientation awake, alert and oriented x3 Memory/Cognition intact Insight good Judgement good Assessment Plan Assessment Plan (1) Major depression: Plan: therapy using CBT, DBT, and ACT interventions to address thought patterns contributing to depressive symptoms and teach coping skills. Continued psychiatric services to monitor depressive symptoms and medication effectiveness. Pt. to call 911, call suicide prevention hotline, or go to ER if experiencing suicidal ideation with plan and intent and/or feel unable to ensure own safety. (2) Generalized anxiety disorder: Plan: therapy using CBT, DBT, and ACT interventions to address thought patterns contributing to anxious symptoms and to teach coping skills. Psychiatric services to monitor anxious symptoms and medication effectiveness. Plan TREATMENT PLAN (08/29/2024) Goal 1 - Begin a healthy grieving process around the loss. Objective 1 - Begin verbalizing feelings associated with the loss. Intervention 1 - Assist Pt. in identifying and expressing feelings associated with her loss. Intervention 2 - Assign pt. to keep a daily grief journal to be shared in therapy sessions. Intervention 3 - Assign pt. to bring pictures or mementos connected to her loss to session to talk about. Visit Details Duration of visit (minutes): 60 Duration of counseling (minutes): 60 Total time (minutes): 60 Type of visit: psychotherapy and [id number] C[place] [address] PSYTX W PT 60 MINUTES Patient Type Established Diagnoses Major depression F32.9 Generalized anxiety disorder F41.1 Time Spent (min) 60 11/11/24 0705 Date Nunu (more content not included)... Normal [facility] /on 10-27-2024 MR/BMS.BP [facility] [address], [address] [place] [address] OFFICE VISIT Date of Service: 10/24/24 MR#: [id number] Acct: [id number] Name: PATO BOOTHE Rep #: [id number] : 1985 [facility] Age/Sex: 39/F Location: [facility] Status: Signed Intake Vital Signs 08/18/24 11:06 10/22/24 14:26 10/27/24 07:56 Height 5 ft 10 in 5 ft 10 in 5 ft 10 in Weight: 326 lb BMI 46.7 BP 119/60 Blood Pressure Location Lt brachial Position Sitting Respiration 16 Pulse 84 Pulse Source Monitor BP Intake Visit Reasons: follow up Allergies azithromycin Allergy (Intermediate, Verified 10/22/24 14:30) Rash PFSH Medical History Wears glasses Bladder disease History of IBS Insomnia Easy bruising Major depression Flu vaccine need Pharyngitis Generalized anxiety disorder Right thigh pain Right anterior knee pain Migraines Surgical History History of appendectomy History of cholecystectomy Family History Father Diabetes Cancer skin Hypertension Grandmother Cancer leukemia Grandfather Diabetes Hypertension Cancer skin Heart disease Sister Diabetes Pancreatic cancer Social History current occupational status: employed current occupation: [employer] current occupational exposures/hazards: No sexually active: Yes Smoking Status: Never smoker alcohol intake: current alcohol intake frequency: holidays/special occasions only substance use type: does not use caffeine: Yes what type of physical activity do you participate in: none seatbelt use: always do you feel safe at home: Yes 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 She reported overall doing ok. Pato was recently prescribed Ambien to aid with sleep and reported this was helpful. Her work schedule was different over the last week requiring her to get up more than an hour earlier. Pato identified some tiredness as a result. Worked on grief related to sister's recent . Pato reported not journaling outside of sessions but willingness to discuss journal prompts during the session. Completed and discussed the grief handout Part of My Story Is, which addressed emotions, impact of loss on current functioning, insights gained, triggers, and coping. Pato identified her sister's loss was triggering grief from other losses but also allowing some resolutions of past losses. She discussed baking again, which she has not done since her grandmother's passing. Pato discussed guilt of estrangement with sister at time of sister's . Encouraged verbalization of emotions while providing support. Addressed using CBT interventions. No reports of SI. Future-oriented. Exam Mental Status Exam - Psych Appearance adequately groomed Attitude cooperative, calm, engaged and pleasant Activity/Motor Behavior MSE activity/motor behavior finding no adventitious movements and appropriate eye contact Speech regular rate, regular volume and regular prosody Mood euythmic Affect full range Thought Process logical and coherent Thought Content no delusions and no hallucinations Suicidal Ideation none Homicidal Ideation none Attention intact Concentration intact Sensorium/Orientation alert and oriented x3 Memory/Cognition intact Insight good Judgement good Assessment Plan Assessment Plan (1) Major depression: Plan: therapy using CBT, DBT, and ACT interventions to address thought patterns contributing to depressive symptoms and teach coping skills. Continued psychiatric services to monitor depressive symptoms and medication effectiveness. Pt. to call 911, call suicide prevention hotline, or go to ER if experiencing suicidal ideation with plan and intent and/or feel unable to ensure own safety. (2) Generalized anxiety disorder: Plan: therapy using CBT, DBT, and ACT interventions to address thought patterns contributing to anxious symptoms and to teach coping skills. Psychiatric services to monitor anxious symptoms and medication effectiveness. Plan TREATMENT PLAN (08/29/2024) Goal 1 - Begin a healthy grieving process around the loss. Objective 1 - Begin verbalizing feelings associated with the loss. Intervention 1 - Assist Pt. in identifying and expressing feelings associated with her loss. Intervention 2 - Assign pt. to keep a daily grief journal to be shared in therapy sessions. Intervention 3 - Assign pt. to bring pictures or mementos connected to her loss to session to talk about. (more content not included)... Normal [facility] MR/on 10-22-2024 MR/BMS.BP [facility] [address], [address] [place] [address] OFFICE VISIT Date of Service: 10/22/24 MR#: [id number] Acct: [id number] Name: PATO BOOTHE Rep #: [id number] : 1985 Provider: Dr. Martin Jeter se, DO Age/Sex: 39/F Location: [facility] Status: Signed Intake Vital Signs 07/22/24 13:56 10/10/24 18:06 10/22/24 14:26 Height 5 ft 10 in 5 ft 10 in 5 ft 10 in Weight: 326 lb BMI 46.7 BP 119/60 Blood Pressure Location Lt brachial Position Sitting Respiration 16 Pulse 84 Pulse Source Monitor BP Intake Visit Reasons: 3mfu Accompanied by: Self Allergies azithromycin Allergy (Intermediate, Verified 10/22/24 14:30) Rash Medications ???Medication ???Instructions ???Recorded ???Confirmed ???Type cetirizine 10 mg tablet 10 mg PO DAILY PRN allergy symptom s 07/15/19 10/22/24 History rizatriptan 5 mg tablet 5 mg PO ONCE PRN migraines 0 10/22/24 History Copper [Paragard T 380-A] 1 ea IY DAILY 05/14/20 10/22/24 Hi story multivitamin 1 cap PO DAILY 06/30/20 10/22/24 H istory cholecalciferol (vitamin D3) 50 50 mcg PO DAILY 02/16/22 10/22/24 History mcg (2,000 unit) capsule blood pressure monitor (Blood #1 ea 01/03/24 10/22/24 Rx Pressure Kit) bupropion HCl 150 mg 24 hr tablet, 150 mg PO QAM #90 tabs 02/18/24 10/22/24 Rx extended release (Wellbutrin XL) fluticasone propionate 50 See Rx Instructions .Route 4 10/22/24 Rx mcg/actuation nasal .COMPLEX #16 grams spray,suspension vitamin E (dl, acetate) 45 mg (100 45 mg PO QDAY 05/30/24 10/22/24 History unit) capsule omeprazole 20 mg capsule,delayed 20 mg PO BID #60 caps 06/16/2409/03 Rx release amlodipine 10 mg tablet 10 mg PO DAILY #90 TABLETS 4 10/22/24 Rx fluoxetine 20 mg capsule See Rx Instructions .Route 4 10/22/24 Rx .COMPLEX #90 caps hydroxyzine HCl 25 mg tablet 25 mg PO TID PRN anxiety #90 tabs 07/22/24 10/22/24 Rx clobetasol 0.05 % topical ointment 1 applic topical BID 12 weeks #3 0 08/12/24 10/22/24 Rx grams dicyclomine 20 mg tablet 20 mg PO BID PRN PRN abdominal 06/0410/22/24 Rx pain #60 TABLETS doxycycline hyclate 100 mg capsule 100 mg PO BID #14 caps 10/13/24 10/22/24 Rx fesoterodine 4 mg tablet,extended mg PO DAILY 10/22/24 10/22/24 His tory release 24 hr zolpidem 5 mg tablet (Ambien) 5 mg PO QHS PRN sleep #30 tabs 09/0310/22/24 Rx PFSH Medical History Wears glasses Bladder disease History of IBS Insomnia Easy bruising Major depression Flu vaccine need Pharyngitis Generalized anxiety disorder Right thigh pain Right anterior knee pain Migraines Surgical History History of appendectomy History of cholecystectomy Family History Father Diabetes Cancer skin Hypertension Grandmother Cancer leukemia Grandfather Diabetes Hypertension Cancer skin Heart disease Sister Diabetes Pancreatic cancer Social History current occupational status: employed current occupation: [email or web address] current occupational exposures/hazards: No sexually active: Yes Smoking Status: Never smoker alcohol intake: current alcohol intake frequency: holidays/special occasions only substance use type: does not use caffeine: Yes what type of physical activity do you participate in: none seatbelt use: always do you feel safe at home: Yes additional social history: Tejinder - Susan HPI History of Present Illness History provided by: patient HPI: Pato Boothe is a 39 year old female who presents today for follow up evaluation. Patient reports that she is still not sleeping. Got about 10 hours of sleep when she was sick, otherwise is only getting about 6. Does feel tired and sleepy during the day at times. Has again been working at a local [employer] so has been having to get up even earlier at 430 am. Has been following with Caro about every 2 weeks. Finds this beneficial. Her sister in August of 2024 so she has been grieving this loss. Sister was only 41 years old. Was feeling depressed and anxious before this happened, specifically with stress around Tia. This has been improving and has been feeling somewhat more cheerful in recent past. Does wear a CPAP, but does at times struggle to tolerate. Denies SI/HI or AVH. Review of Systems Constitutional Denies: fever(s), chills, change in weight or fatigue Eyes Denies: change in vision or blurry vision Ears, Nose, Mouth, Throat Denies: throat pain, neck pain or change in hearing Cardiovascular Denies: chest pain, palpitat (more content not included)... Normal [facility] Genital Culture Comprehensiv radha 10-14-2024 VAC Reason for Exam: vag inal discharge #3 Organism is too fastidious for routine susceptibility studies. #4 Further studies to follow. Genital Culture Comprehensive Genital Culture Comprehensive Genital Culture Comprehensive Genital Culture Comprehensive NO Neisseria isolated. Streptococcus group B Amount Growth 3+ Staphylococcus aureus Staphylococcus aureus GVAG Amount Growth 3+ G. vaginalis (Presumptive) Amount Growth 2+ Streptococcus group B: REACTION Yeast, not Yvonne albicans Cefotaxime Islt LIAT <=0.12 cefTRIAXone Islt LIAT <=0.12 S Clindamycin Islt LIAT <=0.25 Erythromycin Islt LIAT <=0.12 S Linezolid Islt LIAT <=2 S Vancomycin Islt LIAT 0.5 S Staphylococcus aureus: REACTION cefOXitin Susc Islt NEG Doxycycline Islt LIAT <=0.5 S Clindamycin Islt LIAT 0.25 S Clindamycin.induced Susc Islt Erythromycin Islt LIAT 1 I Gentamicin Islt LIAT <=0.5 S Linezolid Islt LIAT 2 S Moxifloxacin Islt LIAT <=0.25 S Oxacillin Susc Islt <=0.25 S Tetracycline Islt LIAT <=1 S TMP SMX Islt LIAT <=10 S Vancomycin Islt LIAT 1 S Normal [facility] Comment on above: Performed By: #### M 100.3200, M100.1999 ####[facility] [id number] [place], [place], [address] Gram Stainon 10-10-2024 GS Reason for Exam: vag inal discharge Gram Stain 2+ Gram positive rods 1+ Gram positive cocci 1+ Epithelial cells No Gram negative diplococci 2+ Gram variable rina Score = 4 Interpretation: 0-3 Normal, 4-6 Intermediate, 7-10 Positive BV Normal [facility] Comment on above: Performed By: #### M 100.3200, M100.1999 ####[facility] [id number] [place], [place], [id number] MR/BMS.BPon 10-10-2024 MR/BMS.[address], [address] [place], [place] [address] OFFICE VISIT Date of Service: 10/10/24 MR#: [id number] Acct: [id number] Name: PATO BOOTHE Rep #: [id number] : 1985 Provider: [facility] Radha quinones Age/Sex: 38/F Location: [facility] Status: Signed Intake Vital Signs 08/18/24 11:06 10/10/24 14:54 10/10/24 18:06 Height 5 ft 10 in 5 ft 10 in 5 ft 10 in BP Intake Visit Reasons: follow up Allergies azithromycin Allergy (Intermediate, Verified 10/10/24 14:49) Rash PFSH Medical History Wears glasses Bladder disease History of IBS Insomnia Easy bruising Major depression Flu vaccine need Pharyngitis Generalized anxiety disorder Right thigh pain Right anterior knee pain Migraines Surgical History History of appendectomy History of cholecystectomy Family History Father Diabetes Cancer skin Hypertension Grandmother Cancer leukemia Grandfather Diabetes Hypertension Cancer skin Heart disease Sister Diabetes Pancreatic cancer Social History current occupational status: employed current occupation: [email or web address] current occupational exposures/hazards: No sexually active: Yes Smoking Status: Never smoker alcohol intake: current alcohol intake frequency: holidays/special occasions only substance use type: does not use caffeine: Yes what type of physical activity do you participate in: none seatbelt use: always do you feel safe at home: Yes additional social history: Tejinder - Unemployed HPI History of Present Illness HPI: Pato is a 38 year-old female returning for therapy. She reported having been ill with bronchitis. Pato reported increased motivation to engage in enjoyable activities and organize her space. She has purchased a journal for journaling grief related to loss of sister but has not begun journaling due to illness. 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 Explored triggers to grief. Encouraged verbalization of emotions while providing support. Normalized emotions. Worked on coping. No reports of SI. Future-oriented. Exam Mental Status Exam - Psych Appearance casually dressed and adequately groomed Attitude cooperative, calm, engaged and pleasant Activity/Motor Behavior appropriate eye contact and fidgeting Speech regular rate, regular volume and regular prosody Mood euythmic Affect full range Thought Process linear, logical and coherent Thought Content no delusions and no hallucinations Suicidal Ideation none Homicidal Ideation none Attention intact Concentration intact Sensorium/Orientation alert and oriented x3 Memory/Cognition intact Insight good Judgement good Assessment Plan Assessment Plan (1) Major depression: Plan: therapy using CBT, DBT, and ACT interventions to address thought patterns contributing to depressive symptoms and teach coping skills. Continued psychiatric services to monitor depressive symptoms and medication effectiveness. Pt. to call 911, call suicide prevention hotline, or go to ER if experiencing suicidal ideation with plan and intent and/or feel unable to ensure own safety. (2) Generalized anxiety disorder: Plan: therapy using CBT, DBT, and ACT interventions to address thought patterns contributing to anxious symptoms and to teach coping skills. Psychiatric services to monitor anxious symptoms and medication effectiveness. Plan TREATMENT PLAN (08/29/2024) Goal 1 - Begin a healthy grieving process around the loss. Objective 1 - Begin verbalizing feelings associated with the loss. Intervention 1 - Assist Pt. in identifying and expressing feelings associated with her loss. Intervention 2 - Assign pt. to keep a daily grief journal to be shared in therapy sessions. Intervention 3 - Assign pt. to bring pictures or mementos connected to her loss to session to talk about. Visit Details Duration of visit (minutes): 60 Duration of counseling (minutes): 60 Total time (minutes): 60 Type of visit: psychotherapy and [id number] Coding [place] [address] PSYTX W PT 60 MINUTES Patient Type Established Diagnoses Major depression F32.9 Generalized anxiety disorder F41.1 Time Spent (min) 60 10/10/24 1814 Date Radha Menard [facility] Cosigner Signature: Date (if applicable) CC: Normal [facility] Tobacco Prizer Office Visit Reporton 10-10-2024 Tobacco Prizer Office Visit Report [facility], [place] [address] OFFICE VISIT Date of Service: 10/10/24 MR#: [id number] Acct: [id number] Name: PATO BOOTHE Rep #: [id number] : 1985 Provider: Dr. Radha Ma DO Age/Sex: 38/F Location: [facility] [place] Status: Signed Intake Vital Signs 09/12/24 12:27 09/18/24 15:14 09/29/24 14:26 10/10/24 14:49 10/10/24 14:54 Height 5 ft 10 in 5 ft 10 in 5 ft 10 in 5 ft 10 in 5 ft 10 in Weight: 320 lb 8 oz 330 lb 8 oz BMI 46.0 47.4 BP 122/68 H 123/84 H Blood Pressure Location Lt brachial Position Sitting Respiration 12 Pulse 96 Pulse Source Monitor Temp 96.8 F L Pulse Oximetry (%) 100 Oxygen Delivery Method room air Intake Visit Reasons: Labial Lump FU [employer] Required: No Is patient in pain?: No Feel stressed/tense/nervous/anx ious/difficulty sleeping: not at all Allergies azithromycin Allergy (Intermediate, Verified 10/10/24 14:49) Rash Medications ???Medication ???Instructions ???Recorded ???Confirmed ???Type cetirizine 10 mg tablet 10 mg PO DAILY PRN allergy symptom s 07/15/19 10/10/24 History rizatriptan 5 mg tablet 5 mg PO ONCE PRN migraines 0 10/10/24 History Copper [Paragard T 380-A] 1 ea IY DAILY 05/14/20 10/10/24 Hi story multivitamin 1 cap PO DAILY 06/30/20 10/10/24 H istory cholecalciferol (vitamin D3) 50 50 mcg PO DAILY 02/16/22 10/10/24 History mcg (2,000 unit) capsule blood pressure monitor (Blood #1 ea 01/03/24 10/10/24 Rx Pressure Kit) bupropion HCl 150 mg 24 hr tablet, 150 mg PO QAM #90 tabs 02/18/24 10/10/24 Rx extended release (Wellbutrin XL) mirabegron 50 mg tablet,extended 100 mg PO DAILY 04/24/24 10/10/24 History release 24 hr (Myrbetriq) fluticasone propionate 50 See Rx Instructions .Route 4 10/10/24 Rx mcg/actuation nasal .COMPLEX #16 grams spray,suspension vitamin E (dl, acetate) 45 mg (100 45 mg PO QDAY 05/30/24 10/10/24 History unit) capsule omeprazole 20 mg capsule,delayed 20 mg PO BID #60 caps 06/16/24 Rx release amlodipine 10 mg tablet 10 mg PO DAILY #90 TABLETS 4 10/10/24 Rx fluoxetine 20 mg capsule See Rx Instructions .Route 4 10/10/24 Rx .COMPLEX #90 caps hydroxyzine HCl 25 mg tablet 25 mg PO TID PRN anxiety #90 tabs 07/22/24 10/10/24 Rx clobetasol 0.05 % topical ointment 1 applic topical BID 12 weeks #3 0 08/12/24 10/10/24 Rx grams dicyclomine 20 mg tablet 20 mg PO BID PRN PRN abdominal 06/0410/10/24 Rx pain #60 TABLETS amoxicillin 875 mg-potassium 1 tab PO BID #14 tabs 09/28/24 Rx clavulanate 125 mg tablet terconazole 0.8 % vaginal cream 1 appful vaginal QHS 3 days #20 10/10/24 Rx grams Post menopausal: No Patient : No : No PFSH Medical History Wears glasses Bladder disease History of IBS Insomnia Easy bruising Major depression Flu vaccine need Pharyngitis Generalized anxiety disorder Right thigh pain Right anterior knee pain Migraines Surgical History History of appendectomy History of cholecystectomy Family History Father Diabetes Cancer skin Hypertension Grandmother Cancer leukemia Grandfather Diabetes Hypertension Cancer skin Heart disease Sister Diabetes Pancreatic cancer Social History current occupational status: employed current occupation: [employer] current occupational exposures/hazards: No sexually active: Yes Smoking Status: Never smoker alcohol intake: current alcohol intake frequency: holidays/special occasions only substance use type: does not use caffeine: Yes what type of physical activity do you participate in: none seatbelt use: always do you feel safe at home: Yes additional social history: Tejinder - Unemployed HPI Labial Lump FU Details: PATO BOOTHE is a 38 year old who presents for recurrent itching of vagina. She states today that the clobetasol helps the itch some. She admits to using soft soap or dial soap in and around her vaginal area. History Elective abortions Hx Para 1 Spontaneous abortions Hx # Term Pregnancies Ectopic pregnancies Hx # Pregnancies Multiple births # of living children Past Pregnancies Del. Date Name GA/Weeks Outcome Route Bth Weight Gen Labor Lgth Anesthesia Del Locatn Provider FOB Unknown Alfonso 2010 Unknown Julian 2015 ROS Const ROS Unobtainable: All systems reviewed are unremarkable except as (more content not included)... Normal [facility] Internal Medicine Office Vis iton 09-29-2024 Internal Medicine Office Visit [facility] [address] [place] [address] [place] [address] OFFICE VISIT Date of Service: 09/29/24 MR#: [id number] Acct: [id number] Name: PATO BOOTHE Rep #: [id number] : 1985 Provider: Dr. Solis blanchard MD Age/Sex: 38/F Location: [facility] Status: Signed Intake Vital Signs 05/30/24 13:38 09/26/24 09:13 09/29/24 14:26 Height 5 ft 10 in 5 ft 10 in 5 ft 10 in Weight: 320 lb 8 oz BMI 46.0 BP 122/68 H Blood Pressure Location Lt brachial Position Sitting Respiration 12 Pulse 96 Pulse Source Monitor Temp 96.8 F L Temp Source Temporal Pulse Oximetry (%) 100 Oxygen Delivery Method room air Intake Visit Reasons: 4 M Chief Complaint: 4 m f/u [employer] Required: No Accompanied by: Self Is patient in pain?: No Allergies azithromycin Allergy (Intermediate, Verified 09/29/24 14:22) Rash Medications ???Medication ???Instructions ???Recorded ???Confirmed ???Type cetirizine 10 mg tablet 10 mg PO DAILY PRN allergy symptoms 07/15/19 09/29/24 History rizatriptan 5 mg tablet 5 mg PO ONCE PRN migraines 03/24/20 09/29/24 History Copper [Paragard T 380-A] 1 ea IY DAILY 05/14/20 09/29/24 History multivitamin 1 cap PO DAILY 06/30/20 09/29/24 History cholecalciferol (vitamin D3) 50 50 mcg PO DAILY 02/16/22 09/29/24 History mcg (2,000 unit) capsule blood pressure monitor (Blood #1 ea 01/03/24 09/29/24 Rx Pressure Kit) bupropion HCl 150 mg 24 hr tablet, 150 mg PO QAM #90 tabs 02/18/24 09/29/24 Rx extended release (Wellbutrin XL) mirabegron 50 mg tablet,extended 100 mg PO DAILY 04/24/24 09/29/24 History release 24 hr (Myrbetriq) fluticasone propionate 50 See Rx Instructions .Route 05/22/24 09/29/24 Rx mcg/actuation nasal .COMPLEX #16 grams spray,suspension vitamin E (dl, acetate) 45 mg (100 45 mg PO QDAY 05/30/24 09/29/24 History unit) capsule omeprazole 20 mg capsule,delayed 20 mg PO BID #60 caps 06/16/24 09/29/24 Rx release amlodipine 10 mg tablet 10 mg PO DAILY #90 TABLETS 07/18/24 09/29/24 Rx fluoxetine 20 mg capsule See Rx Instructions .Route 07/18/24 09/29/24 Rx .COMPLEX #90 caps hydroxyzine HCl 25 mg tablet 25 mg PO TID PRN anxiety #90 tabs 07/22/24 09/29/24 Rx clobetasol 0.05 % topical ointment 1 applic topical BID 12 weeks #30 08/12/24 09/29/24 Rx grams dicyclomine 20 mg tablet 20 mg PO BID PRN PRN abdominal 09/18/24 09/29/24 Rx pain #60 TABLETS amoxicillin 875 mg-potassium 1 tab PO BID #14 tabs 09/28/24 09/29/24 Rx clavulanate 125 mg tablet prednisone 20 mg tablet 40 mg (2 x 20 mg) PO QDAY 5 days 09/28/24 09/29/24 Rx #10 tabs Have you fallen in the past year?: No PFSH Medical History Wears glasses Bladder disease History of IBS Insomnia Easy bruising Major depression Flu vaccine need Pharyngitis Generalized anxiety disorder Right thigh pain Right anterior knee pain Migraines Surgical History History of appendectomy History of cholecystectomy Family History Father Diabetes Cancer skin Hypertension Grandmother Cancer leukemia Grandfather Diabetes Hypertension Cancer skin Heart disease Sister Diabetes Pancreatic cancer Social History current occupational status: employed current occupation: [email or web address] current occupational exposures/hazards: No sexually active: Yes Smoking Status: Never smoker alcohol intake: current alcohol intake frequency: holidays/special occasions only substance use type: does not use caffeine: Yes what type of physical activity do you participate in: none seatbelt use: always do you feel safe at home: Yes additional social history: Tejinder - Unemployed HPI HPI Chief Complaint: 4 m f/u Details: PATO BOOTHE, is a 38 F who presents to the office today for follow-up of her chronic conditions. No acute concerns at this time. History of hypertension, blood pressure today at 122/68 mmHg. Currently on amlodipine 10 mg daily which she is taking as prescribed. Also history of migraines, no significant concerns reported. Takes rizatriptan as needed. Other chronic medical conditions are stable. ROS Const Constitutional: No body ache, excessive sweating, fatigue, fever(s), frequent falls, headache(s), snoring, weakness, weight change, sleep problems or change in appetite Eyes Eyes: No blurry vision, change in vision, floaters, visual disturbances, eye pain or Light sensitivity ENT ENT: No abnormal hearing, ear or mastoid pain, tinnitus, balance problems, nosebleed/epistaxis, nasal congestion, sinus pressure, sinus pain, headache(s (more content not included)... Normal [facility] Urgent Care Visit Reporton 0 09-28-2024 Urgent Care Visit Report [facility] [address], [address] [place] [address] OFFICE VISIT Date of Service: 09/28/24 MR#: [id number] Acct: [id number] Name: PATO BOOTHE Rep #: [id number] : 1985 Provider: [facility] Self Schedule Age/Sex: 38/F Location: [facility] Status: Signed Intake Vital Signs 09/26/24 09:13 09/28/24 11:54 Height 5 ft 10 in Weight: 326 lb 6 oz BMI 46.8 BP 122/84 H 118/74 Blood Pressure Location Rt brachial Position Sitting Sitting Respiration 12 Pulse 92 82 Pulse Source NIBP Temp 100.1 F H 98.2 F Temp Source Oral Oral Pulse Oximetry (%) 98 98 Oxygen Delivery Method room air room air Intake Visit Reasons: ALLERGIC REACTION-MEDICATION Chief Complaint: poss allergic reaction to azithromycin Allergies azithromycin Allergy (Intermediate, Verified 09/28/24 11:55) Rash Medications ???Medication ???Instructions ???Recorded ???Confirmed ???Type cetirizine 10 mg tablet 10 mg PO DAILY PRN allergy symptoms 07/15/19 09/28/24 History rizatriptan 5 mg tablet 5 mg PO ONCE PRN migraines 03/24/20 09/28/24 History Copper [Paragard T 380-A] 1 ea IY DAILY 05/14/20 09/28/24 History multivitamin 1 cap PO DAILY 06/30/20 09/28/24 History cholecalciferol (vitamin D3) 50 50 mcg PO DAILY 02/16/22 09/28/24 History mcg (2,000 unit) capsule blood pressure monitor (Blood #1 ea 01/03/24 09/28/24 Rx Pressure Kit) bupropion HCl 150 mg 24 hr tablet, 150 mg PO QAM #90 tabs 02/18/24 09/28/24 Rx extended release (Wellbutrin XL) mirabegron 50 mg tablet,extended 100 mg PO DAILY 04/24/24 09/28/24 History release 24 hr (Myrbetriq) fluticasone propionate 50 See Rx Instructions .Route 05/22/24 09/28/24 Rx mcg/actuation nasal .COMPLEX #16 grams spray,suspension vitamin E (dl, acetate) 45 mg (100 45 mg PO QDAY 05/30/24 09/28/24 History unit) capsule omeprazole 20 mg capsule,delayed 20 mg PO BID #60 caps 06/16/24 09/28/24 Rx release amlodipine 10 mg tablet 10 mg PO DAILY #90 TABLETS 07/18/24 09/28/24 Rx fluoxetine 20 mg capsule See Rx Instructions .Route 07/18/24 09/28/24 Rx .COMPLEX #90 caps hydroxyzine HCl 25 mg tablet 25 mg PO TID PRN anxiety #90 tabs 07/22/24 09/28/24 Rx clobetasol 0.05 % topical ointment 1 applic topical BID 12 weeks #30 08/12/24 09/28/24 Rx grams dicyclomine 20 mg tablet 20 mg PO BID PRN PRN abdominal 09/18/24 09/28/24 Rx pain #60 TABLETS amoxicillin 875 mg-potassium 1 tab PO BID #14 tabs 09/28/24 09/28/24 Rx clavulanate 125 mg tablet prednisone 20 mg tablet 40 mg (2 x 20 mg) PO QDAY 5 days 09/28/24 09/28/24 Rx #10 tabs PFSH Medical History Wears glasses Bladder disease History of IBS Insomnia Easy bruising Major depression Flu vaccine need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 Age/Sex: 38/F Location[facility] Status: Signed Intake Vital Signs 01/30/24 14:06 05/30/24 13:38 07/22/24 13:56 Height 5 ft 10 in 5 ft 10 in 5 ft 10 in Weight: 337 lb 337 lb BMI 48.3 48.3 BP 134/80 H 130/82 H Blood Pressure Location Lt brachial Rt radial Position Sitting Sitting Respiration 17 18 Pulse 94 87 Pulse Source Monitor Monitor Temp 97.8 F Pulse Oximetry (%) 97 Oxygen Delivery Method room air BP Intake Visit Reasons: 6 M FU Accompanied by: Self Allergies No Known Allergies Allergy (Verified 07/22/24 14:00) Medications ???Medication ???Instructions ???Recorded ???Confirmed ???Type cetirizine 10 mg tablet 10 mg PO DAILY PRN allergy symptoms 07/15/19 07/22/24 History rizatriptan 5 mg tablet 5 mg PO ONCE PRN migraines 03/24/20 07/22/24 History Copper [Paragard T 380-A] 1 ea IY DAILY 05/14/20 07/22/24 History multivitamin 1 cap PO DAILY 06/30/20 07/22/24 History cholecalciferol (vitamin D3) 50 50 mcg PO DAILY 02/16/22 07/22/24 History mcg (2,000 unit) capsule blood pressure monitor (Blood #1 ea 01/03/24 07/22/24 Rx Pressure Kit) bupropion HCl 150 mg 24 hr tablet, 150 mg PO QAM #90 tabs 02/18/24 07/22/24 Rx extended release (Wellbutrin XL) dicyclomine 20 mg tablet 20 mg PO BID PRN PRN abdominal 02/18/24 07/22/24 Rx pain #60 TABLETS mirabegron 50 mg tablet,extended 100 mg PO DAILY 04/24/24 07/22/24 History release 24 hr (Myrbetriq) fluticasone propionate 50 See Rx Instructions .Route 05/22/24 07/22/24 Rx mcg/actuation nasal .COMPLEX #16 grams spray,suspension vitamin E (dl, acetate) 45 mg (100 45 mg PO QDAY 05/30/24 07/22/24 History unit) capsule omeprazole 20 mg capsule,delayed 20 mg PO BID #60 caps 06/16/24 07/22/24 Rx release amlodipine 10 mg tablet 10 mg PO DAILY #90 TABLETS 07/18/24 07/22/24 Rx fluoxetine 20 mg capsule See Rx Instructions .Route 07/18/24 07/22/24 Rx .COMPLEX #90 caps hydroxyzine HCl 25 mg tablet 25 mg PO TID PRN anxiety #90 tabs 07/22/24 07/22/24 Rx PFSH Medical History Wears glasses Bladder disease History of IBS Insomnia Easy bruising Major depression Flu vaccine need Pharyngitis Generalized anxiety disorder Right thigh pain Right anterior knee pain Migraines Surgical History History of appendectomy History of cholecystectomy Family History Father Diabetes Cancer skin Hypertension Grandmother Cancer leukemia Grandfather Diabetes Hypertension Cancer skin Heart disease Sister Diabetes Pancreatic cancer Social History current occupational status: employed current occupation: [email or web address] current occupational exposures/hazards: No sexually active: Yes Smoking Status: Never smoker alcohol intake: current alcohol intake frequency: holidays/special occasions only substance use type: does not use caffeine: Yes what type of physical activity do you participate in: none seatbelt use: always do you feel safe at home: Yes additional social history: Tejinder - Unemployed HPI History of Present Illness History provided by: patient HPI: Pato Boothe is a 38 year old female who presents today for follow up evaluation. Patient reports that she has had some good days and some bad days, and is nearly 50-50 between the two. Is having some interpersonal difficulty with a friend whom she used to be very close to. Has been doing Equine therapy about every two weeks with her brother. Has continued to not get very good sleep, largely because she struggles to get to sleep. Has trialed doxepin and felt that it may have helped a little more than trazodone, but did have some issues getting. 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 She did actually enjoy working alone there. Previously had done talk therapy at [facility]. Does feel like medication is still fairly helpful. Denies SI/HI or AVH. This tele-medicine visit was performed via audio/video technology. Review of Systems Constitutional Denies: fever(s), chills, change in weight or fatigue Eyes Denies: change in vision or blurry vision Ears, Nose, Mouth, Throat Denies: throat pain, neck pain or change in hearing Cardiovascular Denies: chest pain, palpitations or dyspnea Respiratory Denies: dyspnea, cou (more content not included)... Normal [facility] STREP A MOLECULAR (POC)on Procedural Control Valid [facility] Strep A (POCT) Negative Negative [facility] STREP A MOLECULAR (POC)on Procedural Control Valid [facility] Strep A (POCT) Negative Negative [facility] XR DIGIT GENERAL 3V FRONTAL/ LAT/OBL RIGHTon 06-20-2023 [facility] XR Finger - right AP and Lat eral and obliqueon 06-20-2023 IMPRESSION: Negative right fifth finger. Batchmaker: OPHELIA Transcribe Date/Time: Jun 20 2023 5:32P Dictated by : EDITH MOORE MD This examination was interpreted and the report reviewed and electronically signed by: EDITH MOORE MD on Jun 20 2023 5:36PM [facility] DIVISION OF RADIOLOGY * * *Final Report* * * DATE OF EXAM: Jun 20 2023 5:26PM WOX [id number] - XR DIGIT 3V FRONTAL/LAT/OBL RT / PROCEDURE REASON: Pain * * * * Physician Interpretation * * * * EXAMINATION: RIGHT FIFTH FINGER X-RAY SERIES HISTORY: Pain. COMPARISON: None available. TECHNIQUE: PA, lateral and oblique views. RESULT: No fracture, dislocation or destructive changes. Joint spaces and articular surfaces are preserved. Soft tissues appear within normal limits. DIVISION OF RADIOLOGY Provider, [facility] Katt Mcleod - 06/20/2023 * * *Final Report* * * DATE OF EXAM: Jun 20 2023 5:26PM WOX [id number] - XR DIGIT 3V FRONTAL/LAT/OBL RT / PROCEDURE REASON: Pain * * * * Physician Interpretation * * * * EXAMINATION: RIGHT FIFTH FINGER X-RAY SERIES HISTORY: Pain. COMPARISON: None available. TECHNIQUE: PA, lateral and oblique views. RESULT: No fracture, dislocation or destructive changes. Joint spaces and articular surfaces are preserved. Soft tissues appear within normal limits. IMPRESSION IMPRESSION: Negative right fifth finger. Batchmaker: PSCB Transcribe Date/Time: Jun 20 2023 5:32P Dictated by : EDITH MOORE MD This examination was interpreted and the report reviewed and electronically signed by: EDITH MOORE MD on Jun 20 2023 5:36PM EST [facility] Radiology Study observation (narrative) [facility] XR Finger - right AP and Lat eral and obliqueOrdered By: [facility] Provider on 06-20-2023 [facility] STREP A MOLECULAR (POC)on Procedural Control Valid [facility] Strep A (POCT) Negative Negative [facility] STREP A MOLECULAR (POC)on Procedural Control Valid [facility] Strep A (POCT) Negative Negative [facility] Absolute lymphocyte countOrd ered By: Sandrita Carnes on 11-14-2022 Lymphocytes Auto (Unsp spec) [#/Vol] 2.05 10*3/uL 0.83-4.51 [facility] Basophil percentageOrdered B y: Sandrita Carnes on 11-14-2022 Basophils/100 WBC (Bld) 0.3 % 0-1 [facility] Eosinophils/100 WBC (Bld) 0.2 % 0-5 [facility] Neutrophils (Bld) [#/Vol] 6.1 10*3/uL 2.0-7.7 [facility] Neutrophils/100 WBC (Bld) 69.2 % 47-70 [facility] WBC (Bld) [#/Vol] 8.8 10*3/uL 4.4-11.0 [facility] Blood erythrocytes count (nu mber/volume)Ordered By: Sandrita Carnes on 11-14-2022 RBC (Bld) [#/Vol] 4.70 10*6/uL 4.2-5.4 [facility] Blood hemoglobin measurement (mass/volume)Ordered By: Sandrita Carnes on 11-14-2022 Hemoglobin (Bld) [Mass/Vol] 13.1 g/dL 12.0-15.0 [facility] Blood lymphocytes/100 leukoc ytesOrdered By: Sandrita Carnes on 11-14-2022 Lymphocytes/100 WBC (Bld) 23.3 % 19-41 [facility] Blood monocytes/100 leukocyt esOrdered By: Sandrita Carnes on 11-14-2022 Monocytes/100 WBC (Bld) 6.7 % 0-10 [facility] Blood platelet mean volumeOr dered By: Sandrita Carnes on 11-14-2022 Platelet mean volume (Bld) [Entitic vol] 10.0 fL 6.2-12.0 [facility] Determination of erythrocyte mean corpuscular volume (MCV)Ordered By: Sandrita Carnes on 11-14-2022 MCV (RBC) [Entitic vol] 86.8 fL 81-99 [facility] Hematocrit Auto (Bld) [Volum e fraction]Ordered By: Sandritaliliana Carnes on 11-14-2022 Hematocrit (Bld) [Volume fraction] 40.8 % 37-47 [facility] Laboratory - Hematology and Cell countsOrdered By: Sandrita Carnes on 11-14-2022 Erythrocyte distribution width (RBC) [Entitic vol] 41.9 fL 35.1-43.9 [facility] Erythrocyte distribution width (RBC) [Ratio] 13.4 % 11.6-14.6 [facility] Immature granulocytes/100 WBC (Bld) 0.300 % 0.0-0.9 [facility] Comment on above: IG% - Immature Granu locytes (promyelocytes, myelocytes and metamyelocytes) > 1% indicates that a LEFT SHIFT is Present. MCH (RBC) [Entitic mass] 27.9 pg 27.0-32.0 [facility] Nucleated RBC/100 WBC (Bld) [Ratio] 0 % 0-5 [facility] MCHC Auto (RBC) [Mass/Vol]Or dered By: Sandrita Carnes on 11-14-2022 MCHC (RBC) [Mass/Vol] 32.1 g/dL 32-36 [facility] No Panel InformationOrdered By: Sandrita Ambrosetings on 11-14-2022 Thyroid Stimulating Hormone (TSH) 2.36 uIU/mL 0.358-3.74 [facility] Platelets bldOrdered By: Denver Carnes on 11-14-2022 Platelets (Bld) [#/Vol] 326 10*3/uL 150-450 [facility] Absolute lymphocyte countOrd ered By: Bruce Sunshine on 08-30-2022 Lymphocytes Auto (Unsp spec) [#/Vol] 1.63 10*3/uL 0.83-4.51 [facility] Basophil percentageOrdered B y: Bruce Sunshine on 08-30-2022 Basophils/100 WBC (Bld) 0.4 % 0-1 [facility] Chloride [Moles/Vol] 106 mmol/L 98-107 [facility] Cholesterol [Mass/Vol] 168 mg/dL <200 [facility] Comment on above: <200 mg/dL Desirable 200-240 mg/dL Borderline >240 mg/dL High Risk Eosinophils/100 WBC (Bld) 0.6 % 0-5 [facility] Glucose [Mass/Vol] 91 mg/dL 74-106 [facility] Neutrophils (Bld) [#/Vol] 2.8 10*3/uL 2.0-7.7 [facility] Neutrophils/100 WBC (Bld) 56.5 % 47-70 [facility] Potassium [Moles/Vol] 4.4 mmol/L 3.5-5.1 [facility] Sodium [Moles/Vol] 138 mmol/L 136-145 [facility] Triglyceride [Mass/Vol] 79 mg/dL <199 [facility] Comment on above: The drugs N-Acetylcy steine and Metamizole may falsely depress this assay.Serum Triglycerides Reference Interval Normal <150 mg/dL Borderline high 150 - 199 mg/dL High 200 - 499 mg/dL Very High > or = 500 mg/dL WBC (Bld) [#/Vol] 4.9 10*3/uL 4.4-11.0 [facility] Blood erythrocytes count (nu mber/volume)Ordered By: Bruce Sunshine on 08-30-2022 RBC (Bld) [#/Vol] 4.76 10*6/uL 4.2-5.4 [facility] Blood hemoglobin measurement (mass/volume)Ordered By: Bruce Sunshine on 08-30-2022 Hemoglobin (Bld) [Mass/Vol] 13.1 g/dL 12.0-15.0 [facility] Blood lymphocytes/100 leukoc ytesOrdered By: Bruce Sunshine on 08-30-2022 Lymphocytes/100 WBC (Bld) 33.0 % 19-41 [facility] Blood monocytes/100 leukocyt esOrdered By: Bruce Sunshine on 08-30-2022 Monocytes/100 WBC (Bld) 9.3 % 0-10 [facility] Blood platelet mean volumeOr dered By: Bruce Sunshine on 08-30-2022 Platelet mean volume (Bld) [Entitic vol] 10.8 fL 6.2-12.0 [facility] Determination of erythrocyte mean corpuscular volume (MCV)Ordered By: Bruce Sunshine on 08-30-2022 MCV (RBC) [Entitic vol] 89.1 fL 81-99 [facility] Hematocrit Auto (Bld) [Volum e fraction]Ordered By: Bruce Sunshine on 08-30-2022 Hematocrit (Bld) [Volume fraction] 42.4 % 37-47 [facility] Laboratory - Chemistry and C hemistry - challengeOrdered By: Bruce Sunshine on 08-30-2022 CO2 [Moles/Vol] 27.0 mmol/L 21.0-32.0 [facility] Urea nitrogen/Creatinine [Mass ratio] 22.3 mg/mg 10-20 [facility] Laboratory - Hematology and Cell countsOrdered By: Bruce Sunshine on 08-30-2022 Erythrocyte distribution width (RBC) [Entitic vol] 44.1 fL 35.1-43.9 [facility] Erythrocyte distribution width (RBC) [Ratio] 13.5 % 11.6-14.6 [facility] Immature granulocytes/100 WBC (Bld) 0.200 % 0.0-0.9 [facility] Comment on above: IG% - Immature Granu locytes (promyelocytes, myelocytes and metamyelocytes) > 1% indicates that a LEFT SHIFT is Present. MCH (RBC) [Entitic mass] 27.5 pg 27.0-32.0 [facility] Nucleated RBC/100 WBC (Bld) [Ratio] 0 % 0-5 [facility] MCHC Auto (RBC) [Mass/Vol]Or dered By: Bruce Sunshine on 08-30-2022 MCHC (RBC) [Mass/Vol] 30.9 g/dL 32-36 [facility] No Panel InformationOrdered By: Bruce Sunshine on 08-30-2022 Estimated GFR (MDRD) Amer 110 mL/min >60 [facility] Comment on above: GFR Calc Estimated GFR (MDRD) Non-Af Amer 91 mL/min >60 [facility] Comment on above: Non- GFR Calc Thyroid Stimulating Hormone (TSH) 1.56 uIU/mL 0.358-3.74 [facility] Platelets bldOrdered By: Iwona Sunshine on 08-30-2022 Platelets (Bld) [#/Vol] 287 10*3/uL 150-450 [facility] Serum or plasma calcium luis urement (mass/volume)Ordered By: Bruce Sunshine on 08-30-2022 Calcium [Mass/Vol] 9.2 mg/dL 8.5-10.1 [facility] Serum or plasma cholesterol in HDL measurement (mass/volume)Ordered By: Bruce Sunshine on 08-30-2022 Cholesterol in HDL [Mass/Vol] 50 mg/dL >40 [facility] Comment on above: The drugs N-Acetylcy steine and Metamizole may falsely depress this assay. Reference Range HDL <40 mg/dL Low HDL Cholesterol HDL >or= 60 mg/dL High HDL Cholesterol Serum or plasma cholesterol in VLDL measurement (mass/volume)Ordered By: Bruce Sunshine on 08-30-2022 Cholesterol in VLDL [Mass/Vol] 16 mg/dL 5-40 [facility] Serum or plasma creatinine m easurement (mass/volume)Ordered By: Bruce Sunshine on 08-30-2022 Creatinine [Mass/Vol] 0.76 mg/dL 0.55-1.02 [facility] Comment on above: The validity of the calculated GFR & GFRAA in patients over 70 years has not been determined. Clinical correlation is essential. Serum or plasma low density lipoprotein (LDL) cholesterol measurement (mass/volume)Ordered By: Bruce Sunshine on 08-30-2022 Cholesterol in LDL [Mass/Vol] 102 mg/dL 0-130 [facility] Serum or plasma urea nitroge n measurement (mass/volume)Ordered By: Bruce Sunshine on 08-30-2022 Urea nitrogen [Mass/Vol] 17 mg/dL 7-18 [facility] Thin prep Papanicolaou smear with manual screeningOrdered By: Bruce Sunshine on 08-30-2022 Thin prep Papanicolaou smear with manual screening 5 5-15 [facility] XR CALCANEUS 2V AXIAL/LAT LE FTon 07-14-2022 [facility] XR Calcaneus - left 2 Viewso n 07-14-2022 IMPRESSION: [facility] unremarkable study Batchmaker: OPHELIA Transcribe Date/Time: Jul 14 2022 2:43P Dictated by : MYLES NJ MD This examination was interpreted and the report reviewed and electronically signed by: MYLES NJ MD on Jul 14 2022 2:44PM [facility] DIVISION OF RADIOLOGY * * *Final Report* * * DATE OF EXAM: Jul 14 2022 2:40PM WOX 5306 - XR CALCANEUS 2V AXIAL/LAT LT / PROCEDURE REASON: Pain of left heel * * * * Physician Interpretation * * * * HISTORY: Pain of left heel pain on plantar side left elsy since Weds. no inj No injury or trauma TECHNIQUE: Lateral and axial views of the left calcaneus COMPARISON: 05/11/2022 left ankle RESULT: There is a tiny Achilles tendon aspect calcaneal spur. No plantar calcaneal spur. No bony destructive change or fracture. DIVISION OF RADIOLOGY Provider, [facility] - 07/14/2022 * * *Final Report* * * DATE OF EXAM: Jul 14 2022 2:40PM WOX 5306 - XR CALCANEUS 2V AXIAL/LAT LT / PROCEDURE REASON: Pain of left heel * * * * Physician Interpretation * * * * HISTORY: Pain of left heel pain on plantar side left elsy since Weds. no inj No injury or trauma TECHNIQUE: Lateral and axial views of the left calcaneus COMPARISON: 05/11/2022 left ankle RESULT: There is a tiny Achilles tendon aspect calcaneal spur. No plantar calcaneal spur. No bony destructive change or fracture. IMPRESSION IMPRESSION: Essentially unremarkable study Batchmaker: PSCB Transcribe Date/Time: Jul 14 2022 2:43P Dictated by : MYLES NJ MD This examination was interpreted and the report reviewed and electronically signed by: MYLES NJ MD on Jul 14 2022 2:44PM EST [facility] Radiology Study observation (narrative) [facility] XR Calcaneus - left 2 ViewsO rdered By: Ccf Provider on 07-14-2022 [facility] Basophil percentageon 2021 Basophil percentage 5-10 SEEN /hpf 0-5 [facility] Work Phone: Bilirubin Test strip Ql (U)o n 06-14-2022 Bilirubin Ql (U) Negative Negative [facility] Work Phone: Ketones Test strip Ql (U)on 06-14-2022 Ketones Ql (U) Negative Negative [facility] Work Phone: Mucus LM Ql (Urine sed)on Mucus Ql (Urine sed) 0 SEEN /hpf [facility] Work Phone: Nitrite Test strip Ql (U)on 06-14-2022 Nitrite Ql (U) Negative Negative [facility] Work Phone: Protein Test strip Ql (U)on 06-14-2022 Protein Ql (U) Negative Negative [facility] Work Phone: Squamous epithelial cells de tection in urine sediment by light microscopyon 06-14-2022 Epithelial cells.squamous LM Ql (Urine sed) 0-5 SEEN /hpf 5-10 [facility] Work Phone: Urine blood detectionon RBC Ql (U) Negative Negative [facility] Work Phone: RBC Ql (U) 0 SEEN /hpf 0-5 [facility] Work Phone: Urine clarityon 06-14-2022 Clarity (U) Clear Clear [facility] Work Phone: Urine color determinationon 06-14-2022 Color (U) Straw Yellow [facility] Work Phone: Urine glucose detectionon Glucose Ql (U) Normal mg/dl Normal [facility] Work Phone: Urine leukocyte esterase det ection by dipstickon 06-14-2022 Leukocyte esterase Test strip Ql (U) 500 /ul Negative [facility] Work Phone: Urine pHon 06-14-2022 pH (U) 5.0 [pH] 5.0 - 8.0 [facility] Work Phone: Urine sediment bacteria coun t by microscopy (number/high power field)on 06-14-2022 Bacteria LM.HPF (Urine sed) [#/Area] 2 /[HPF] None Seen [facility] Work Phone: Urine specific gravity measu rementon 06-14-2022 Specific gravity (U) [Rel density] 1.020 1.002-1.030 [facility] Work Phone: Urobilinogen Auto test strip Ql (U)on 06-14-2022 Urobilinogen Ql (U) Normal mg/dl Normal [facility] Work Phone: Basophil percentageon 2021 Basophil percentage 5-10 SEEN /hpf 0-5 [facility] Work Phone: Bilirubin Test strip Ql (U)o n 06-12-2022 Bilirubin Ql (U) Negative Negative [facility] Work Phone: Ketones Test strip Ql (U)on 06-12-2022 Ketones Ql (U) 5 mg/dl Negative [facility] Work Phone: Laboratory - Chemistry and C hemistry - challengeon 06-12-2022 Glucose [Mass/Vol] 93 mg/dL 70-110 [facility] Work Phone: Mucus LM Ql (Urine sed)on Mucus Ql (Urine sed) 0 SEEN /hpf [facility] Work Phone: Nitrite Test strip Ql (U)on 06-12-2022 Nitrite Ql (U) Negative Negative [facility] Work Phone: Protein Test strip Ql (U)on 06-12-2022 Protein Ql (U) 30 mg/dl Negative [facility] Work Phone: Squamous epithelial cells de tection in urine sediment by light microscopyon 06-12-2022 Epithelial cells.squamous LM Ql (Urine sed) 0-5 SEEN /hpf 5-10 [facility] Work Phone: Urine blood detectionon RBC Ql (U) 50 /ul Negative [facility] Work Phone: RBC Ql (U) 0-5 SEEN /hpf 0-5 [facility] Work Phone: Urine clarityon 06-12-2022 Clarity (U) Sl. Cloudy Clear [facility] Work Phone: Urine color determinationon 06-12-2022 Color (U) Yellow Yellow [facility] Work Phone: Urine glucose detectionon Glucose Ql (U) Normal mg/dl Normal [facility] Work Phone: Urine leukocyte esterase det ection by dipstickon 06-12-2022 Leukocyte esterase Test strip Ql (U) 500 /ul Negative [facility] Work Phone: Urine pHon 06-12-2022 pH (U) 5.0 [pH] 5.0 - 8.0 [facility] Work Phone: Urine sediment bacteria coun t by microscopy (number/high power field)on 06-12-2022 Bacteria LM.HPF (Urine sed) [#/Area] 1 /[HPF] None Seen [facility] Work Phone: Urine specific gravity measu rementon 06-12-2022 Specific gravity (U) [Rel density] 1.025 1.002-1.030 [facility] Work Phone: [phone] Urobilinogen Auto test strip Ql (U)on 06-12-2022 Urobilinogen Ql (U) Normal mg/dl Normal [facility] Work Phone: XR ANKLE GENERAL 3V AP/LAT/O BL LEFTon 05-11-2022 [facility] XR Ankle - left AP and Later al and obliqueon 05-11-2022 IMPRESSION: 1. No evidence of acute fracture or malalignment. 2. Mild spurring at the dorsal margin of the talonavicular joint. Batchmaker: OPHELIA Transcribe Date/Time: May 11 2022 7:05P Dictated by : EDITH MOORE MD This examination was interpreted and the report reviewed and electronically signed by: EDITH MOORE MD on May 11 2022 7:07PM [facility] DIVISION OF RADIOLOGY * * *Final Report* * * DATE OF EXAM: May 11 2022 6:43PM WOX 5298 - XR ANKLE 3V AP/LAT/OBL LT / PROCEDURE REASON: Acute left ankle pain * * * * Physician Interpretation * * * * EXAMINATION: LEFT ANKLE X-RAY SERIES HISTORY: Acute left ankle pain COMPARISON: None available. TECHNIQUE: AP, lateral and oblique views. RESULT: No fracture, dislocation or destructive changes. Joint spaces and articular surfaces are preserved. Mild spurring at the dorsal margin of the talonavicular joint. Soft tissues appear within normal limits. DIVISION OF RADIOLOGY Provider, [facility] - 05/11/2022 * * *Final Report* * * DATE OF EXAM: May 11 2022 6:43PM WOX 5298 - XR ANKLE 3V AP/LAT/OBL LT / PROCEDURE REASON: Acute left ankle pain * * * * Physician Interpretation * * * * EXAMINATION: LEFT ANKLE X-RAY SERIES HISTORY: Acute left ankle pain COMPARISON: None available. TECHNIQUE: AP, lateral and oblique views. RESULT: No fracture, dislocation or destructive changes. Joint spaces and articular surfaces are preserved. Mild spurring at the dorsal margin of the talonavicular joint. Soft tissues appear within normal limits. IMPRESSION IMPRESSION: 1. No evidence of acute fracture or malalignment. 2. Mild spurring at the dorsal margin of the talonavicular joint. Batchmaker: OPHELIA Transcribe Date/Time: May 11 2022 7:05P Dictated by : EDITH MOROE MD This examination was interpreted and the report reviewed and electronically signed by: EDITH MOORE MD on May 11 2022 7:07PM EST [facility] Radiology Study observation (narrative) [facility] XR Ankle - left AP and Later al and obliqueOrdered By: Ccf Provider on 05-11-2022 [facility] MRI BRAIN W/O CONTRASTon MRI BRAIN W/O CONTRAST ORIGINAL HISTORY: Mental disorder, slow speech, forgetful COMPARISON: No TECHNIQUE: 1. Sagittal T1-weighted images. 2. Axial T2-weighted and T2*-weighted images. 3. Axial FLAIR images. 4. Axial diffusion-weighted images with ADC map. FINDINGS: The ventricles and sulci are normal in size and configuration. There is no shift of midline structures. There are no abnormal intra or extra-axial fluid collections. There are a few scattered punctate T2 hyperintensities in the cerebral white matter. Ramon-white matter differentiation is maintained. There is no abnormal restriction of diffusion. The orbital contents are normal in appearance. The paranasal sinuses and mastoid air cells are clear. IMPRESSION: Unremarkable examination. Interpreted by: Cortes Regan MD Preliminary Report By: Cortes Regan MD Electronically signed By Cortes Regan MD Dictated Date: 09/05/2021 7:56:56 PM Prelim Date: 09/05/2021 7:58:37 PM Sign Date: 09/05/2021 7:58:37 PM Ordering Provider: CHRISTELLE Murphy [facility] ([place]) BASIC METABOLIC PANELon 12-0 Anion gap [Moles/Vol] 13 mmol/L Normal 10 - 20 [facility] Comment on above: Performed By: #### B MP #### [address] [address] Calcium [Mass/Vol] 9.0 mg/dL Normal 8.6 - 10.3 [facility] Comment on above: Performed By: #### B MP #### [address] [address] Chloride [Moles/Vol] 107 mmol/L Normal 98 - 107 [facility] Comment on above: Performed By: #### B MP #### [address] [address] Creatinine [Mass/Vol] 0.89 mg/dL Normal 0.50 - 1.05 [facility] Comment on above: Performed By: #### B MP #### [address] [address] GFR- AM. >60 Normal >60 [facility] Comment on above: Result Comment: CALC ULATIONS OF ESTIMATED GFR ARE PERFORMED USING THE MDRD STUDY EQUATION FOR THE IDMS-TRACEABLE CREATININE METHODS. CLIN CHEM 2007;53:766-72 Performed By: #### B MP #### [place] [id number] GFR-NON AM. >60 Normal >60 [facility] Comment on above: Performed By: #### B MP #### [place] [id number] Glucose [Mass/Vol] 65 mg/dL Low 74 - 99 [facility] Comment on above: Performed By: #### B MP #### [place] [id number] HCO3 (Bld) [Moles/Vol] 24 mmol/L Normal 21 - 32 [facility] Comment on above: Performed By: #### B MP #### [place] [id number] Potassium [Moles/Vol] 3.8 mmol/L Normal 3.5 - 5.3 [facility] Comment on above: Result Comment: MILD HEMOLYSIS DETECTED. The result may be falsely elevated due to hemolysis or other interferents. Clinical correlation is recommended. Repeat testing may be considered. Performed By: #### B MP #### [place] [id number] Sodium [Moles/Vol] 140 mmol/L Normal 136 - 145 [facility] Comment on above: Performed By: #### B MP #### [place] [id number] Urea nitrogen [Mass/Vol] 11 mg/dL Normal 6 - 23 [facility] Comment on above: Performed By: #### B MP #### [address] [address] CBC AND DIFFERENTIALon 08-11 Basophils (Bld) [#/Vol] 0.10 10*3/uL Normal 0.00 - 0.10 [facility] Comment on above: Performed By: #### C BCDF #### [address] [address] Basophils/100 WBC (Bld) 1.3 % Normal 0.0 - 2.0 [facility] Comment on above: Performed By: #### C BCDF #### [address] [address] Eosinophils (Bld) [#/Vol] 0.00 10*3/uL Normal 0.00 - 0.70 [facility]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 [facility] 05-01-2023 17:40-0400 Systolic blood pressure 124 mm[Hg] Tom Mati MATTRESS [employer] SUPERVISOR.CATH LABORATORY TECHNICIAN Work Phone: [facility] 12-02-2022 10:41-0400 Body temperature 97.59 [degF] Yasmin Kolb APRN.CATH LABORATORY TECHNICIAN Work Phone: [facility] 12-02-2022 10:41-0400 Body weight 149.69 kg Yasmin Kolb APRN.CATH LABORATORY TECHNICIAN Work Phone: [facility] 12-02-2022 10:41-0400 Diastolic blood pressure 80 mm[Hg] Yasmin Kolb APRN.CATH LABORATORY TECHNICIAN Work Phone: [facility] 12-02-2022 10:41-0400 Heart rate 102 /min Yasmin Kolb APRN.CATH LABORATORY TECHNICIAN Work Phone: [facility] 12-02-2022 10:41-0400 Respiratory rate 16 /min Yasmin Kolb APRN.CATH LABORATORY TECHNICIAN Work Phone: [facility] 12-02-2022 10:41-0400 SaO2% (BldA) [Mass fraction] 96 % Yasmin Kolb APRN.CATH LABORATORY TECHNICIAN Work Phone: [facility] 12-02-2022 10:41-0400 Systolic blood pressure 132 mm[Hg] Yasmin Kolb APRN.CATH LABORATORY TECHNICIAN Work Phone: [facility] 11-21-2022 13:51-0400 Body height 177.[address] Solis Maritno Work Phone: [facility] 11-21-2022 13:45-0400 Body mass index (BMI) [Ratio] 47.9 kg/m2 Dr. Solis Martino Work Phone: [facility] 11-21-2022 13:45-0400 Body weight 151.[address] Solis Martino Work Phone: [facility] 11-21-2022 13:45-0400 Diastolic blood pressure 84 mm[Hg] Dr. Solis Martino Work Phone: [facility] 11-21-2022 13:45-0400 Systolic blood pressure 132 mm[Hg] Dr. Solis Martino Work Phone: [facility] 11-14-2022 15:36-0500 Body height 177.[address] Solis Martino Work Phone: [facility] 10-03-2022 13:28-0500 Body mass index (BMI) [Ratio] 47.5 kg/m2 Dr. Solis Martino Work Phone: [facility] 10-03-2022 13:28-0500 Body temperature 96.9 [degF] Dr. Solis Martino Work Phone: [facility] 10-03-2022 13:28-0500 Body weight 150.[address] Solis Martino Work Phone: [facility] 10-03-2022 13:28-0500 Diastolic blood pressure 92 mm[Hg] Dr. Solis Martino Work Phone: [facility] 10-03-2022 13:28-0500 Heart rate 85 /min Dr. Solis Martino Work Phone: [facility] 10-03-2022 13:28-0500 Respiratory rate 16 /min Dr. Solis Martino Work Phone: [facility] 10-03-2022 13:28-0500 SaO2% (BldA) [Mass fraction] 100 % Dr. Solis Martino Work Phone: [facility] 10-03-2022 13:28-0500 Systolic blood pressure 130 mm[Hg] Dr. Solis Martino Work Phone: [facility] 09-30-2022 13:02-0500 Body temperature 98.2 [degF] Zee Johnson APRN.CATH LABORATORY TECHNICIAN Work Phone: [facility] 09-30-2022 13:02-0500 Body weight 150.59 kg Zee Johnson M[employer]ESS [employer] SUPERVISOR.CATH LABORATORY TECHNICIAN Work Phone: [facility] 09-30-2022 13:02-0500 Diastolic blood pressure 80 mm[Hg] Zee Johnson MATTRESS AND [employer] SUPERVISOR.CATH LABORATORY TECHNICIAN Work Phone: [facility] 09-30-2022 13:02-0500 Heart rate 90 /min Zee Johnson M[employer]ESS [employer] SUPERVISOR.CATH LABORATORY TECHNICIAN Work Phone: [facility] 09-30-2022 13:02-0500 Respiratory rate 16 /min Zee Johnson MATTRESS AND [employer] SUPERVISOR.CATH LABORATORY TECHNICIAN Work Phone: [facility] 09-30-2022 13:02-0500 SaO2% (BldA) [Mass fraction] 97 % Zee Johnson M[employer] SUPERVISOR.CATH LABORATORY TECHNICIAN Work Phone: [facility] 09-30-2022 13:02-0500 Systolic blood pressure 128 mm[Hg] Zee Johnson MATTRESS [employer] SUPERVISOR.CATH LABORATORY TECHNICIAN Work Phone: [facility] 09-25-2022 14:38-0500 Body temperature 95.9 [degF] Dr. Solis Martino Work Phone: [facility] 09-25-2022 14:38-0500 Diastolic blood pressure 84 mm[Hg] Dr. Solis Martino Work Phone: [facility] 09-25-2022 14:38-0500 Heart rate 97 /min Dr. Solis Martino Work Phone: [facility] 09-25-2022 14:38-0500 Respiratory rate 18 /min Dr. Solis Martino Work Phone: [facility] 09-25-2022 14:38-0500 SaO2% (BldA) [Mass fraction] 98 % Dr. Solis Martino Work Phone: [facility] 09-25-2022 14:38-0500 Systolic blood pressure 128 mm[Hg] Dr. Solis Martino Work Phone: [facility] 08-30-2022 10:05-0500 Body temperature 96.5 [degF] Dr. Solis Martino Work Phone: [facility] 08-30-2022 10:05-0500 Body weight 148.[address] Solis Martino Work Phone: [facility] 08-30-2022 10:05-0500 Diastolic blood pressure 98 mm[Hg] Dr. Solis Martino Work Phone: [facility] 08-30-2022 10:05-0500 Heart rate 75 /min Dr. Solis Martino Work Phone: [facility] 08-30-2022 10:05-0500 Respiratory rate 16 /min Dr. Solis Martino Work Phone: [facility] 08-30-2022 10:05-0500 SaO2% (BldA) [Mass fraction] 99 % Dr. Solis Martino Work Phone: [facility] 08-30-2022 10:05-0500 Systolic blood pressure 140 mm[Hg] Dr. Solis Martino Work Phone: [facility] 07-14-2022 14:05-0400 Body temperature 97.11 [degF] Cortney Brayden M[employer]ESS [employer] SUPERVISOR.CATH LABORATORY TECHNICIAN Work Phone: [facility] 07-14-2022 14:05-0400 Body weight 148.33 kg Cortney Brayden M[employer]ESS [employer] SUPERVISOR.CATH LABORATORY TECHNICIAN Work Phone: [facility] 07-14-2022 14:05-0400 Diastolic blood pressure 82 mm[Hg] Cortney Brayden MATTRESS [employer] SUPERVISOR.CATH LABORATORY TECHNICIAN Work Phone: [facility] 07-14-2022 14:05-0400 Heart rate 77 /min Cortney Brayden M[employer]ESS [employer] SUPERVISOR.CATH LABORATORY TECHNICIAN Work Phone: [facility] 07-14-2022 14:05-0400 Respiratory rate 18 /min Cortney Brayden MATTRESS AND [employer] SUPERVISOR.CATH LABORATORY TECHNICIAN Work Phone: [facility] 07-14-2022 14:05-0400 SaO2% (BldA) [Mass fraction] 97 % Cortney Owen M[employer] SUPERVISOR.CATH LABORATORY TECHNICIAN Work Phone: [facility] 07-14-2022 14:05-0400 Systolic blood pressure 128 mm[Hg] Cortney Owen MATTRESS [employer] SUPERVISOR.CATH LABORATORY TECHNICIAN Work Phone: [facility] 06-12-2022 14:19-0400 Body temperature 97.3 [degF] Dr. Solis Martino Work Phone: [facility] Work Phone: 06-12-2022 14:19-0400 Diastolic blood pressure 84 mm[Hg] Dr. Solis Martino Work Phone: [facility] Work Phone: 06-12-2022 14:19-0400 Heart rate 88 /min Dr. Solis Martino Work Phone: [facility] Work Phone: 06-12-2022 14:19-0400 Respiratory rate 14 /min Dr. Solis Martino Work Phone: [facility] Work Phone: 06-12-2022 14:19-0400 SaO2% (BldA) [Mass fraction] 98 % Dr. Solis Martino Work Phone: [facility] Work Phone: 06-12-2022 14:19-0400 Systolic blood pressure 134 mm[Hg] Dr. Solis Martino Work Phone: [facility] Work Phone: 05-11-2022 17:53-0400 Body temperature 97.9 [degF] Michael Cormier APRN.CATH LABORATORY TECHNICIAN Work Phone: [facility] 05-11-2022 17:53-0400 Body weight 151.41 kg Michael Cormier M[employer] SUPERVISOR.CATH LABORATORY TECHNICIAN Work Phone: [facility] 05-11-2022 17:53-0400 Diastolic blood pressure 84 mm[Hg] Michael Pendlebury MATTRESS AND [employer] SUPERVISOR.CATH LABORATORY TECHNICIAN Work Phone: [facility] 05-11-2022 17:53-0400 Heart rate 75 /min Michael Pendlebury [employer] SUPERVISOR.CATH LABORATORY TECHNICIAN Work Phone: [facility] 05-11-2022 17:53-0400 Respiratory rate 16 /min Michael Pendlebury [employer] SUPERVISOR.CATH LABORATORY TECHNICIAN Work Phone: [facility] 05-11-2022 17:53-0400 SaO2% (BldA) [Mass fraction] 99 % Michael Pendlebury [employer] SUPERVISOR.CATH LABORATORY TECHNICIAN Work Phone: [facility] 05-11-2022 17:53-0400 Systolic blood pressure 136 mm[Hg] Michael Pendlebury [employer] SUPERVISOR.CATH LABORATORY TECHNICIAN Work Phone: [facility] 04-15-2022 12:54-0400 Body temperature 98.4 [degF] Cortney Brayden [employer] SUPERVISOR.CATH LABORATORY TECHNICIAN Work Phone: [facility] 04-15-2022 12:54-0400 Body weight 147.69 kg Cortney Brayden [employer] SUPERVISOR.CATH LABORATORY TECHNICIAN Work Phone: [facility] 04-15-2022 12:54-0400 Diastolic blood pressure 82 mm[Hg] Cortney Brayden [employer] SUPERVISOR.CATH LABORATORY TECHNICIAN Work Phone: [facility] 04-15-2022 12:54-0400 Heart rate 77 /min Cortney Brayden [employer] SUPERVISOR.CATH LABORATORY TECHNICIAN Work Phone: [facility] 04-15-2022 12:54-0400 Respiratory rate 18 /min Cortney Brayden [employer] SUPERVISOR.CATH LABORATORY TECHNICIAN Work Phone: [facility] 04-15-2022 12:54-0400 SaO2% (BldA) [Mass fraction] 97 % Cortney Brayden [employer] SUPERVISOR.CATH LABORATORY TECHNICIAN Work Phone: [facility] 04-15-2022 12:54-0400 Systolic blood pressure 126 mm[Hg] Cortney Brayden [employer] SUPERVISOR.CATH LABORATORY TECHNICIAN Work Phone: [facility] 03-29-2022 14:03-0400 Body height 177.[address] Solis Martino Work Phone: [facility] Work Phone: 03-29-2022 14:03-0400 Body mass index (BMI) [Ratio] 46.5 kg/m2 Dr. Solis Martino Work Phone: [facility] Work Phone: 03-29-2022 14:03-0400 Body temperature 96 [degF] Dr. Solis Martino Work Phone: [facility] Work Phone: 03-29-2022 14:03-0400 Body weight 147.[address] Solis Martino Work Phone: [facility] Work Phone: 03-29-2022 14:03-0400 Diastolic blood pressure 80 mm[Hg] Dr. Solis Martino Work Phone: [facility] Work Phone: 03-29-2022 14:03-0400 Heart rate 103 /min Dr. Solis Martino Work Phone: [facility] Work Phone: 03-29-2022 14:03-0400 Respiratory rate 18 /min Dr. Solis Martino Work Phone: [facility] Work Phone: 03-29-2022 14:03-0400 SaO2% (BldA) [Mass fraction] 97 % Dr. Solis Martino Work Phone: [facility] Work Phone: 03-29-2022 14:03-0400 Systolic blood pressure 126 mm[Hg] Dr. Solis Martino Work Phone: [facility] Work Phone: 07-04-2017 14:25-0400 BMI (Body Mass Index) 45.15 kg/m2 Solis Martino MD [facility] Work Phone: 07-04-2017 14:25-0400 Body Temperature 98.7 [degF] Solis Martino MD [facility] Work Phone: 07-04-2017 14:25-0400 BP Diastolic 84 mm[Hg] Solis Martino MD [facility] Work Phone: 07-04-2017 14:25-0400 BP Systolic 120 mm[Hg] Solis Martino MD [facility] Work Phone: 07-04-2017 14:25-0400 Height 172.72 cm Solis Martino MD [facility] Work Phone: 07-04-2017 14:25-0400 Pulse (Heart Rate) 90 /min Solis Martino MD [facility] Internal Medicine Work Phone: 07-04-2017 14:25-0400 Respiratory Rate 16 /min Solis Martino MD [facility] Work Phone: 07-04-2017 14:25-0400 Weight 134.72 kg Solis Martino MD [facility] Work Phone: Encounters Encounter Date Encounter Type Care Provider Facility Start: 07-02-2025 End: 07-02-2025 ambulatory EFEWONGBE B OLEGHE Facility:[facility] Start: 06-30-2025 End: 06-30-2025 ambulatory Efewongbe Oleghe Facility:[facility] Start: 06-29-2025 End: 06-29-2025 ambulatory Martni Ramos Facility:[facility] Start: 06-25-2025 End: 06-25-2025 ambulatory Efewongbe Oleghe Facility:[facility] Start: 06-16-2025 End: 06-16-2025 ambulatory Efewongbe Oleghe Facility:[facility] Start: 06-09-2025 End: 06-10-2025 ambulatory [facility] Facility:[facility] Start: 05-29-2025 Encounter for genera l adult medical examination without abnormal findings [facility] Start: 05-29-2025 End: 05-29-2025 ambulatory [facility] Start: 05-19-2025 End: 05-19-2025 ambulatory [facility] Start: 05-05-2025 End: 05-05-2025 ambulatory [facility] Start: 04-09-2025 End: 04-09-2025 ambulatory [facility] Start: 04-01-2025 End: 04-01-2025 ambulatory [facility] Facility:[facility] Start: 03-30-2025 End: 03-30-2025 Transcribe Daisy Richey Friend DO Work Phone: Referring Physician Comment on above: Hereditary pancreati tis (HCC) (Primary Dx) Start: 03-26-2025 End: 03-26-2025 ambulatory [facility] Facility:[facility] Start: 03-25-2025 End: 03-25-2025 ambulatory [facility] Facility:[facility] Start: 03-18-2025 Encounter for gynecological examination (general) (routine) without abnormal findings [facility] Start: 03-18-2025 End: 03-18-2025 ambulatory [facility] Start: 03-18-2025 End: 03-18-2025 ambulatory [facility] Facility:[facility] Start: 03-14-2025 End: 03-14-2025 ambulatory [facility] Start: 03-06-2025 End: 03-06-2025 ambulatory [facility] Start: 02-20-2025 End: 02-20-2025 ambulatory [facility] Start: 02-05-2025 End: 02-05-2025 ambulatory [facility] Start: 02-04-2025 End: 04-06-2025 Follow-up encounter Angelo Palacios MD Work Phone: [place] [facility] Start: 01-26-2025 End: 01-26-2025 ambulatory Efewongbe Oleliame Facility:[facility] Start: 01-26-2025 End: 01-26-2025 ambulatory Efewongbe Oleliame Facility:[facility] Start: 01-22-2025 ambulatory Efgregoryongbe Mayurie Facili ty:[facility] Start: 01-15-2025 End: 01-15-2025 ambulatory Rachid Friend Facility:[facility] Start: 01-15-2025 End: 01-15-2025 ambulatory Rachid Friend Facility:[facility] Start: 12-26-2024 End: 12-26-2024 ambulatory Efgregoryongromain Messinae Facility:[facility] Start: 12-24-2024 ambulatory ANGELO Swain WILDER Facil ity:[facility] Start: 12-24-2024 End: 12-24-2024 Subsequent hospital visit by physician [facility] (I-Stat) Work Phone: Cat Scan Comment on above: Lung nodules [R91.8] Start: 12-22-2024 End: 12-22-2024 ambulatory Martin Ramos Facility:[facility] Start: 12-12-2024 End: 12-12-2024 ambulatory Solis Martino Facility:[facility] Start: 12-10-2024 End: 12-10-2024 Patient encounter procedure Angelo Palacios MD Work Phone: General Surgery Comment on above: Lung nodules (Primar y Dx) Start: 12-10-2024 End: 12-10-2024 ambulatory ANGELO PALACIOS Facility:[facility] Start: 12-08-2024 End: 12-08-2024 ambulatory Solis Messinakim Facility:[facility] Start: 12-08-2024 End: 12-08-2024 ambulatory Martin LEE Facility:[facility] Start: 12-03-2024 End: 12-03-2024 ambulatory ANGELO PALACIOS Facility:[facility] Start: 12-03-2024 End: 12-03-2024 Subsequent hospital visit by physician Ct [facility] Cat Scan Comment on above: Right inguinal herni a [K40.90] Start: 11-27-2024 End: 11-27-2024 ambulatory ANGELO PALACIOS Facility:[facility] Start: 11-27-2024 End: 11-27-2024 Patient encounter procedure Angelo Palacios MD Work Phone: General Surgery Comment on above: Right inguinal herni a (Primary Dx); Hiatal hernia Start: 11-25-2024 End: 11-25-2024 ambulatory Efewongbe Oleghe [facility] Start: 11-18-2024 End: 11-19-2024 ambulatory Pippa LEE Facility:[facility] Start: 11-07-2024 End: 11-07-2024 ambulatory Efewongbe Oleghe [facility] Start: 10-24-2024 End: 10-24-2024 ambulatory Radha Menard Facility:[facility] Start: 10-22-2024 End: 10-22-2024 ambulatory Efewongbe Oleghe Facility:[facility] Start: 10-10-2024 End: 10-10-2024 ambulatory Efewongbe Oleghe Facility:[facility] Start: 10-10-2024 End: 10-10-2024 ambulatory Efewongbe Oleghe Facility:[facility] Start: 09-29-2024 End: 09-29-2024 ambulatory Efewongbe Oleghe [facility] Start: 09-28-2024 End: 09-28-2024 ambulatory Efewongbe Oleghe [facility] Start: 09-26-2024 End: 09-26-2024 ambulatory Efewongbe Oleghe [facility] Start: 09-12-2024 End: 09-12-2024 ambulatory Efewongbe Oleghe [facility] Start: 08-28-2024 End: 08-28-2024 ambulatory Efewongbe Oleghe [facility] Start: 08-15-2024 End: 08-15-2024 ambulatory Efewongbe Oleghe [facility] Start: 08-12-2024 End: 08-12-2024 ambulatory Efewongbe Oleghe [facility] Start: 07-22-2024 End: 07-22-2024 ambulatory Martin Ramos [facility] Start: 04-03-2024 End: 04-03-2024 Patient encounter procedure Verónica Mercer APRN.CATH LABORATORY TECHNICIAN Work Phone: [facility] Comment on above: Sore throat (Primary Dx); Viral URI with cough Start: 03-03-2024 End: 03-03-2024 ambulatory Yaniv Golias PT Work Phone: [facility] Comment on above: Peroneal tendinitis of right lower extremity (Primary Dx); Pes planus of both feet Start: 02-26-2024 End: 02-26-2024 ambulatory Cyndi Colemanmed DURALUMIN MECHANIC Work Phone: [facility] Comment on above: Peroneal tendinitis of right lower extremity (Primary Dx); Pes planus of both feet Start: 02-11-2024 End: 02-11-2024 ambulatory Yaniv Golias PT Work Phone: [facility] Comment on above: Peroneal tendinitis of right lower extremity (Primary Dx); Pes planus of both feet Start: 02-05-2024 End: 02-05-2024 ambulatory Yaniv Golias PT Work Phone: [facility] Comment on above: Peroneal tendinitis of right lower extremity (Primary Dx); Pes planus of both feet Start: 01-28-2024 End: 01-28-2024 ambulatory Cyndi Cancinojuan jose DURALUMIN MECHANIC Work Phone: [facility] Comment on above: Peroneal tendinitis of right lower extremity (Primary Dx); Pes planus of both feet Start: 01-21-2024 End: 01-21-2024 ambulatory Yaniv Golias PT Work Phone: [facility] Comment on above: Peroneal tendinitis of right lower extremity (Primary Dx); Pes planus of both feet Start: 01-01-2024 End: 01-01-2024 ambulatory Yaniv Golias PT Work Phone: [facility] Comment on above: Peroneal tendinitis of right lower extremity; Pes planus of both feet Start: 12-17-2023 End: 12-17-2023 Subsequent hospital visit by physician Felisa [facility] Jodee Trejo Work Phone: Radiology Comment on above: Peroneal tendinitis of right lower extremity [M76.71] Start: 12-17-2023 End: 12-17-2023 Patient encounter procedure Pippa Elroy Work Phone: Podiatry Comment on above: Peroneal tendinitis of right lower extremity (Primary Dx); Callus of foot; Pes planus of both feet Start: 08-19-2023 End: 08-19-2023 Office outpatient visit 15 minutes Michael Cormier APRN.CATH LABORATORY TECHNICIAN Work Phone: [facility] Comment on above: Abrasion of left ear , initial encounter (Primary Dx) Start: 08-13-2023 End: 08-13-2023 ambulatory Yaniv Sexton PT Work Phone: [facility] Comment on above: 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); Callus Start: 07-29-2023 End: 07-29-2023 Patient encounter procedure Cece Suarez APRN.CNP Work Phone: [facility] Comment on above: Bacterial sinusitis (Primary Dx) Start: 07-21-2023 End: 07-21-2023 Patient encounter procedure Pushpa Canales APRN.CNP Work Phone: Telemedicine Comment on above: APPOINTMENT CANCELLE D (Primary Dx) Start: 07-21-2023 End: 07-21-2023 Telemedicine consultation with patient Pushpa Canales APRN.CNP Work Phone: [facility] Start: 07-08-2023 End: 07-08-2023 Patient encounter procedure Zee Johnson APRN.MG Work Phone: [facility] Comment on above: Pharyngitis, unspeci fied etiology (Primary Dx) Start: 06-20-2023 End: 06-20-2023 Subsequent hospital visit by physician Felisa [facility] Work Phone: Radiology Comment on above: Pain [R52] Start: 06-20-2023 End: 06-20-2023 Patient encounter procedure Yasmin Kolb APRN.CATH LABORATORY TECHNICIAN Work Phone: [facility] Comment on above: Pain (Primary Dx) Start: 06-13-2023 Telephone encounter Pippa Regalado Work Phone: Podiatry Comment on above: Insurance denied med ication Start: 05-01-2023 End: 05-01-2023 Patient encounter procedure Tom Thorne [employer] SUPERVISOR.CATH LABORATORY TECHNICIAN Work Phone: [facility] Comment on above: Sore throat (Primary Dx) Start: 12-02-2022 End: 12-02-2022 Patient encounter procedure Yasmin Kolb APRN.CATH LABORATORY TECHNICIAN Work Phone: [facility] Comment on above: Sore throat (Primary Dx); URI, acute Start: 11-22-2022 End: 11-22-[address] Solis Martino Work Phone: [facility] Work Phone: Start: 11-22-2022 End: 11-22-[address] Solis Martino Work Phone: [facility]-Ultrasound, [facility] Start: 11-21-2022 End: 11-21-[address] Solis Martino Work Phone: [facility] Work Phone: Start: 11-21-2022 End: 11-21-[address] Solis Martino Work Phone: [facility]-Laboratory, Specimen Start: 11-21-2022 End: 11-21-[address] Solis Martino Work Phone: [facility] Start: 11-14-2022 End: 11-14-[address] Solis Martino Work Phone: [facility] Work Phone: Start: 11-14-2022 End: 11-14-[address] Solis Martino Work Phone: [facility] Start: 10-03-2022 End: 10-03-[address] Solis Martino Work Phone: [facility] Internal Medicine Start: 09-30-2022 End: 09-30-2022 Patient encounter procedure Zee Johnson MILA Work Phone: [facility] Comment on above: Laceration of right little finger without foreign body without damage to nail, initial encounter (Primary Dx) Start: 09-25-2022 End: 09-25-[address] Solis Martino Work Phone: [facility] Medicine Start: 08-30-2022 End: 08-30-[address] Solis Martino Work Phone: [facility] Work Phone: Start: 08-30-2022 End: 08-30-2022 Encounter for general adult medical examination without abnormal findings Dr. Solis Martino Work Phone: [facility] Medicine Start: 08-30-2022 End: 08-30-[address] Solis Martino Work Phone: [facility] Start: 08-17-2022 End: 08-17-2022 Patient encounter procedure Pippa Abbasi Work Phone: Podiatry Comment on above: Plantar fasciitis (P rimary Dx); Pain of left heel Start: 08-04-2022 ambulatory No Pcp (Historical) Ref erring Physician Start: 07-14-2022 End: 07-14-2022 Subsequent hospital visit by physician [facility] Work Phone: Radiology Comment on above: Pain of left heel [M 79.672] Start: 07-14-2022 End: 07-14-2022 Patient encounter procedure Cortney Owen APRN.CATH LABORATORY TECHNICIAN Work Phone: [facility] Comment on above: Pain of left heel (P rimary Dx) Start: 06-14-2022 End: 06-14-[address] [facility] Start: 06-12-2022 End: 06-12-[address] Solis Martino Work Phone: [facility] Work Phone: Start: 06-12-2022 End: 06-12-[address] [facility] Start: 06-12-2022 End: 06-12-[address] Solis Martino Work Phone: [facility] Start: 05-11-2022 End: 05-11-2022 [facility] Work [facility]: [facility] Comment on above: Acute left ankle homero n [M25.572] Start: 05-11-2022 End: 05-11-2022 Patient encounter procedure Michael Cormier APRN.CATH LABORATORY TECHNICIAN Work Phone: [facility] Comment on above: Acute left ankle homero n (Primary Dx) Start: 04-15-2022 End: 04-15-2022 Office outpatient visit 15 minutes Cortney Owen APRN.CATH LABORATORY TECHNICIAN Work Phone: [facility] Comment on above: Rash (Primary Dx) Start: 03-29-2022 End: 03-29-[address] Solis Martino Work Phone: [facility] Internal Medicine Start: 09-02-2021 End: 12-24-2021 Patient encounter procedure CHRISTELLE BOWEN MD [facility] Procedures Date Procedure Procedure Detail Performing Clinician Start: 12-03-2024 Ct abdomen & pelvis w/o contrast material Angelo Palacios MD Work Phone: Start: 04-03-2024 STREP A MOLECULAR (POC) Verónica Mercer [employer] SUPERVISOR.CATH LABORATORY TECHNICIAN Work Phone: Start: 07-08-2023 STREP A MOLECULAR (POC) Michael Cormier [employer] SUPERVISOR.CATH LABORATORY TECHNICIAN Work Phone: Start: 06-20-2023 Radex fingr minimum 2 views Yasmin Kolb [employer] SUPERVISOR.CATH LABORATORY TECHNICIAN Work Phone: Start: 05-01-2023 STREP A MOLECULAR (POC) Cortney Owen [employer] SUPERVISOR.CATH LABORATORY TECHNICIAN Work Phone: Start: 12-02-2022 STREP A MOLECULAR (POC) Prerna Jasso PA-C Work Phone: Start: 11-22-[address] Kim Martino Work Phone: Start: 11-22-[address] Solis Martino Work Phone: Start: 07-14-2022 Radex calcaneus mini mum 2 views Cortney Owen [employer] SUPERVISOR.CATH LABORATORY TECHNICIAN Work Phone: Start: 05-11-2022 Radex ankle complete minimum 3 views Michael Cormier [employer] SUPERVISOR.CATH LABORATORY TECHNICIAN Work Phone: Urine culture Dr. Solis Martino Work Phone: Plan of Treatment Date Care Activity Detail Author Start: 08-12-2025 Urine microalbumin profile [facility] Start: 05-11-2025 Influenza vaccination Influenza Vacc ine (#1) [facility] Start: 12-24-2024 End: 12-24-2024 Patient encounter procedure 12/24/2024 3:00 PM EDT Appointment Cat Scan [address] [place], [place] [id number] Lung nodules [R91.8] Cat Scan Comment on above: Lung nodules [R91.8] Start: 12-10-2024 End: 12-10-2024 Patient encounter procedure 12/10/2024 1:45 PM EDT Office Visit General Surgery [address] [place] [address] Angelo Palacios MD [address] [place] [address] F/U CT RESULTS General Surgery Comment on above: F/U CT RESULTS Start: 12-03-2024 End: 12-03-2024 Patient encounter procedure Cat Scan Comment on above: CCN was accepted, Start: 05-11-2024 Covid-19 Vaccine ( season) Covid-19 Vaccine () [facility] Start: 05-11-2024 Covid-19 Vaccine () Covid-19 Vaccine () [facility] Start: 05-11-2024 Influenza vaccination Influenza Vacc ine (#1) [facility] Start: 03-11-2024 End: 03-11-2024 ambulatory 03/11/2024 2:45 PM EDT OT/PT/Speech Visit [facility] [address] [place] [address] Yaniv Sexton, PT [address] [place] [address] Peroneal tendinitis of right lower extremity [M76.71] [facility] Comment on above: Peroneal tendinitis of right lower extremity [M76.71] Start: 03-03-2024 End: 03-03-2024 ambulatory 03/03/2024 3:00 PM EDT OT/PT/Speech Visit [facility] [address] [place] [address] Yaniv Sexton, PT [address] [place] [address] Peroneal tendinitis of right lower extremity [M76.71] [facility] Comment on above: Peroneal tendinitis of right lower extremity [M76.71] Start: 02-26-2024 End: 02-26-2024 ambulatory 02/26/2024 2:00 PM EDT OT/PT/Speech Visit [facility] [address] [place] [address] Cyndi Kaye, DURALUMIN MECHANIC [address] [place] [address] Peroneal tendinitis of right lower extremity [M76.71] [facility] Comment on above: Peroneal tendinitis of right lower extremity [M76.71] Start: 02-21-2024 End: 02-21-2024 ambulatory 02/21/2024 3:00 PM EDT OT/PT/Speech Visit [facility] [address] [place] [address] Yaniv Sexton, PT [address] [place] [address] Peroneal tendinitis of right lower extremity [M76.71] [facility] Comment on above: Peroneal tendinitis of right lower extremity [M76.71] Start: 02-11-2024 End: 02-11-2024 ambulatory 02/11/2024 3:00 PM EDT OT/PT/Speech Visit [facility] [address] [place] [address] Yaniv Sexton, PT [address] [place] [address] M76.71 (ICD-10-CM) - Peroneal tendinitis of right lower extremity [facility] Comment on above: M76.71 (ICD-10-CM) - Peroneal tendinitis of right lower extremity Start: 02-05-2024 End: 02-05-2024 ambulatory 02/05/2024 3:30 PM EDT OT/PT/Speech Visit [facility] [address] [place] [address] Yaniv Sexton, PT [address] [place] [address] M76.71 (ICD-10-CM) - Peroneal tendinitis of right lower extremity [facility] Comment on above: M76.71 (ICD-10-CM) - Peroneal tendinitis of right lower extremity Start: 01-28-2024 End: 01-28-2024 ambulatory 01/28/2024 4:30 PM EDT OT/PT/Speech Visit [facility] [address] [place] [address] Cyndi Kaye, DURALUMIN MECHANIC [address] [place] [address] M76.71 (ICD-10-CM) - Peroneal tendinitis of right lower extremity [facility] Comment on above: M76.71 (ICD-10-CM) - Peroneal tendinitis of right lower extremity Start: 09-10-2023 Behavioral Health Screening Behavioral Health Screening [facility] Start: 05-11-2023 Covid-19 Vaccine ( season) Covid-19 Vaccine ( season) [facility] Start: 05-11-2023 Influenza vaccination C [facility] Start: 12-02-2022 End: 12-16-2022 Influenza virus A and B RNA and SARS-CoV-2 (COVID-19) N gene panel - Respiratory specimen by JONATHAN with probe detection COVID WITH FLUA+B, ROUTINE Microbiology Routine URI, acute Expected: 12/02/2022, Expires: 12/16/2022 [facility] Work Phone: Comment on above: Expected: 12/02/2022 , Expires: 12/16/2022 Start: 09-10-2022 DEPRESSION ASSESSMENT DEPRESSION ASS ESSMENT [facility] Start: 05-11-2022 Influenza vaccination INFLUENZA (#1) [facility] Start: 11-22-2021 COVID-19 VACCINE (3 - Booster for Pfizer series) COVID-19 VACCINE (3 - Booster for Pfizer series) [facility] Start: 09-10-2021 DEPRESSION ASSESSMENT DEPRESSION ASS ESSMENT [facility] Start: 08-19-2021 COVID-19 VACCINE (3 - Booster for Pfizer series) COVID-19 VACCINE (3 - Booster for Pfizer series) [facility] Start: 08-19-2021 COVID-19 VACCINE (3 - Pfizer series) COVID-19 VACCINE (3 - Pfizer series) [facility] Start: 12-16-2020 HPV TESTING HPV TESTING [facility] Start: 12-16-2020 PAP TESTING PAP TESTING [facility] Start: 12-16-2020 Screening for malign ant neoplasm of cervix [facility] Start: 2004 Hepatitis B Vaccine (1 of 3 - 19+ 3-dose series) Hepatitis B Vaccine (1 of 3 - 19+ 3-dose series) [facility] Start: 2003 Anxiety Screening Anxiety Screening [facility] Start: 2003 Depression Screening Depression Scre ening [facility] Start: 2003 HEPATITIS C SCREENING HEPATITIS C [facility] Start: 2003 Hepatitis C screening Hepatitis C [facility] Start: 1997 Adult depression screening assessment DEPRESSION SCREENING [facility] Start: 1985 HEPATITIS B (1 of 3 - 3-dose series) HEPATITIS B (1 of 3 - 3-dose series) [facility] Start: 1985 Hepatitis B Vaccine (1 of 3 - 3-dose series) Hepatitis B Vaccine (1 of 3 - 3-dose series) [facility] End: 12-27-2025 CT Abdomen and Pelvis WO contrast CT ABD/PEL WO IVCON Radiology Routine Right inguinal hernia Hiatal hernia 1 Occurrences starting 11/27/2024 until 12/27/2025 [facility] Work Phone: Comment on above: 1 Occurrences starti ng 11/27/2024 until 12/27/2025 End: 01-09-2026 CT Chest WO contrast CT CHEST WO IVCON Radiology Routine Lung nodules 1 Occurrences starting 12/10/2024 until 01/09/2026 [facility] Work Phone: Comment on above: 1 Occurrences starti ng 12/10/2024 until 01/09/2026 CT Chest WO contrast CT CHEST WO IVCON Radiology Routine Lung nodules 12/24/2024 3:07 PM EDT [facility] Work Phone[facility] End: 01-15-2025 XR Foot - right AP and Lateral and oblique XR FOOT GENERAL 3V AP/LAT/OBL RIGHT Radiology Routine Peroneal tendinitis of right lower extremity 1 Occurrences starting 12/17/2023 until 01/15/2025 [facility] Work Phone: Comment on above: 1 Occurrences starti ng 12/17/2023 until 01/15/2025 XR Foot - right AP a nd Lateral and oblique XR FOOT GENERAL 3V AP/LAT/OBL RIGHT Radiology Routine Peroneal tendinitis of right lower extremity 12/17/2023 2:36 PM EDT [facility] Work Phone: [facility] Work Phone: [facility] Immunizations Immunization Date Immunization Notes Care Provider Theresa ram 06-25-2023 influenza virus vaccine, unspecified formulation Verónica Mercer APRN.CNP Work Phone: [facility] 08-30-2022 influenza, seasonal, injectable Dr. Solis Martino Work Phone: [facility] 08-30-2022 influenza virus vaccine, unspecified formulation Pippa Abbasi Work Phone: [facility] 06-30-2020 influenza, injectable,quadrivalent , preservative free, pediatric Dr. Solis Martino Work Phone: [facility] 11-04-2015 influenza, seasonal, injectable Dr. Solis Martino Work Phone: [facility] 08-12-2015 RHO(D) immune globul in- IV or IM Cortney Owen [employer] SUPERVISOR.CATH LABORATORY TECHNICIAN Work Phone: [facility] 08-12-2015 tetanus toxoid, redu ga diphtheria toxoid, and acellular pertussis vaccine, adsorbed Cortney Owen [employer] SUPERVISOR.CATH LABORATORY TECHNICIAN Work Phone: [facility] 06-17-2015 influenza, injectabl e, quadrivalent, contains preservative Cortney Owen [employer] SUPERVISOR.CATH LABORATORY TECHNICIAN Work Phone: [facility] Work Phone: 06-16-[address] Solis Martino Work Phone: [facility] 02-15-2011 RHO(D) immune globul in- IV or IM Cortney Owen [employer] SUPERVISOR.CATH LABORATORY TECHNICIAN Work Phone: [facility] Work Phone: Payers Date Payer Category Payer Self-pay [id number] 2011 [facility] [id number] 2011 Unknown [id number] 2010 Medicaid [id number] Unknown [id number] 2.16.8 40.1.760819.3.579.2.462 Unknown [id number] 2.16.8 40.1.190921.3.579.2.462 Unknown [id number] 2.16.8 40.1.485419.3.579.2.462 Unknown [id number] 2.16.8 40.1.423028.3.579.2.462 Unknown [id number] 2.16.8 40.1.660888.3.579.2.462 Unknown [id number] 2.16.8 40.1.609586.3.579.2.462 Unknown [id number] 2.16.8 40.1.116642.3.579.2.462 Unknown [id number] 2.16.8 40.1.298672.3.579.2.462 Unknown [id number] 2.16.8 40.1.770572.3.579.2.462 Unknown [id number] 2.16.8 40.1.600106.3.579.2.462 Unknown [id number] 2.16.8 40.1.951255.3.579.2.462 Unknown [id number] 2.16.8 40.1.589711.3.579.2.462 Unknown [id number] 2.16.8 40.1.514476.3.579.2.462 Unknown [id number] 2.16.8 40.1.636958.3.579.2.462 Unknown [id number] 2.16.8 40.1.082218.3.579.2.462 Unknown [id number] 2.16.8 40.1.583325.3.579.2.462 Unknown [id number] 2.16.8 40.1.910835.3.579.2.462 Unknown [id number] 2.16.8 40.1.052786.3.579.2.462 Unknown [id number] 2.16.8 40.1.978131.3.579.2.462 Unknown [id number] 2.16.8 40.1.254139.3.579.2.462 Unknown [id number] 2.16.8 40.1.899428.3.579.2.462 Unknown [id number] 2.16.8 40.1.334220.3.579.2.462 Unknown [id number] 2.16.8 40.1.740105.3.579.2.462 Unknown [id number] 2.16.8 40.1.172016.3.579.2.462 Unknown [id number] 2.16.8 40.1.826831.3.579.2.462 Unknown [id number] 2.16.8 40.1.497474.3.579.2.462 Unknown [id number] 2.16.8 40.1.000006.3.579.2.462 Unknown [id number] 2.16.8 40.1.841388.3.579.2.462 Unknown [id number] 2.16.8 40.1.139590.3.579.2.462 Unknown [id number] 2.16.8 40.1.287237.3.579.2.462 Unknown [id number] 2.16.8 40.1.728384.3.579.2.462 Unknown [id number] 2.16.8 40.1.170816.3.579.2.462 Unknown [id number] 2.16.8 40.1.761895.3.579.2.462 Unknown [id number] 2.16.8 40.1.728763.3.579.2.462 Unknown [id number] 2.16.8 40.1.324079.3.579.2.462 Unknown [id number] 2.16.8 40.1.500734.3.579.2.462 Unknown [id number] 2.16.8 40.1.112882.3.579.2.462 Unknown [id number] 2.16.8 40.1.000228.3.579.2.462 Unknown [id number] 2.16.8 40.1.349472.3.579.2.462 Unknown [id number] 2.16.8 40.1.240588.3.579.2.462 Unknown [id number] 2.16.8 40.1.669163.3.579.2.462 Unknown [id number] 2.16.8 40.1.767045.3.579.2.462 Unknown [id number] 2.16.8 40.1.879624.3.579.2.462 Unknown [id number] 2.16.8 40.1.680471.3.579.2.462 Unknown [id number] 2.16.8 40.1.438869.3.579.2.462 Unknown [id number] 2.16.8 40.1.549721.3.579.2.462 Social History Date Type Detail Facility Start: 03-15-2011 End: 07-14-2022 Tobacco smoking status NHIS Never smoked tobacco [facility] Start: 03-15-2011 End: 07-14-2022 Tobacco use and exposure Smokeless tobacco non-user [facility] Start: 04-15-2022 End: 12-10-2024 Alcohol intake Current non-drinker of alcohol (finding) [facility] Start: 1985 Sex Assigned At Not on file [facility] Start: 05-01-2022 End: 07-14-2022 Exposure to SARS-CoV-2 (event) Not sure [facility] Start: 06-12-2022 End: 11-14-2022 Tobacco smoking status SCIS Unknown if ever smoked [facility] Start: 1985 Sex Assigned At Female W [facility] Start: 05-01-2023 End: 06-07-2023 History of Social function [facility] Start: 05-01-2023 End: 06-07-2023 Tobacco use panel [facility] National Score (1-100), lower number is lower risk 67 [facility] Functional Status Date Assessment Result Facility 04-02-2015 Are you deaf, or do you have serious difficulty hearing No 04/02/2015 10:07 AM Amee Cano Ma [facility] Work Phone: 04-02-2015 Are you blind, or do you have serious difficulty seeing, even when wearing glasses No 04/02/2015 10:07 AM Amee Cano Ma [facility] 04-02-2015 Do you have serious difficulty walking or climbing stairs No 04/02/2015 10:07 AM Amee Cano Ma [facility] 04-02-2015 Do you have difficul ty dressing or bathing No 04/02/2015 10:07 AM Amee Cano Ma No [facility] 04-02-2015 Because of a physica l, mental, or emotional condition, do you have difficulty doing errands alone such as visiting a physician's office or shopping No 04/02/2015 10:07 AM CELIA Amee Hernandez Ma [facility] Mental Status Date Assessment Result Facility 04-02-2015 Because of a physica l, mental, or emotional condition, do you have serious difficulty concentrating, remembering, or making decisions No 04/02/2015 10:07 AM CELIA NewAmee villasenor Ma [facility] Clinical Notes 07-20-2015 to 07-04-2025 Angelo Palacios MD - 12/13/2024 8:27 AM Kika Diggs RT(Yannick) - 12/03/2024 10:40 AM Angelo Morgan MD - 12/02/2024 5:45 PM EDTPatient InstructionsPatient Instructions Note Date & Type Note Facility 07-04-2025 Note HNO ID: [id number] Author: PIPPA ABBASI, ? Service: ? Author Type: Physician Type: Progress Notes Filed: 07/04/2025 06:46 Note Text: Subjective The patient is a 39-year-old female presenting with bilateral toe pain. The patient reports intermittent pain in all toes of both feet for approximately 1 month. The pain is localized to the plantar aspect of the toes and does radiate to the balls of the feet. She describes the pain as crampy, stabbing, and sometimes sharp, with severity ranging from mild to 10/10. The pain occurs both when barefoot and when wearing shoes, but is more pronounced when sitting or lying down rather than standing. She manages the pain with massage and has not taken any medication for it, as the episodes are brief. She uses custom orthotics that are approximately 1 year old, which she brought to the visit. She notes that her right foot is more symptomatic than the left and has observed that one of her toes is starting to curve inward. She also reports a new callus on her pinky toe. Musculoskeletal: (+) bilateral intermittent toe pain Skin: (+) pinky toe callus sore Objective Last menstrual period 03/29/2024. - Cardiovascular: Dorsalis pedis and posterior tibial pulses palpable bilaterally; capillary refill time <5 seconds; skin temperature warm proximally and distally. - Skin: No open sores on bilateral feet; feet well-hydrated. - Musculoskeletal: - Left Foot: - Positive Chantelle's click in third interspace; questionable Chantelle's click in second interspace. - Right Foot: - No Chantelle's click noted. Assessment AND Plan # Neuroma (D36.10) Intermittent, cramping and sharp pain localized to the plantar aspect of the toes bilaterally, more pronounced on the right, with positive Chantelle's click in the left third interspace and questionable click in the left second interspace; findings consistent with Barnes's neuroma. - Continue use of custom orthotics. - Ordered bilateral foot X-rays to rule out bony pathology. - Ordered bilateral foot ultrasound to confirm diagnosis. - Discussed treatment options including corticosteroid injection and neurectomy vs RFA - Will contact patient with imaging results. Recording using [employer] software for draft documentation of the visit was discussed with the patient/authorized digital sales representative; all questions welcomed and answered. Patient/authorized digital sales representative agreed to proceed Pippa Abbasi DPM [facility] 12-13-2024 Note HNO ID: [id number] Author: ANGELO PALACIOS MD Service: ? Author Type: Physician Type: Progress Notes Filed: 12/13/2024 08:31 Note Text: FOLLOW UP VISIT NAME: Pato [facility] NO.: [id number] DATE OF SERVICE: 12/10/2024 : 1985 REFERRING PHYSICIAN: Solis Martino MD Pato is a patient I am following for right groin discomfort and concern for hiatal hernia. Pato is a 39 year old female with a complaint of discomfort in her right inguinal region. The patient notes discomfort in this area when going down steps. The symptoms have increased, over the past few months. The patient also had a recent upper endoscopy and was told she had a hiatal hernia. She wonders if these are related. She is uncertain how severe her hiatal hernia is. She had her upper endoscopy on August 03. She was started on omeprazole. The patient notes no symptoms of bowel obstruction and denies nausea or vomiting. The patient was seen by her primary care physician who felt the patient has a hernia. Pato was referred for evaluation and treatment. The patient is being seen by me at the request of Dr. Solis Martino MD for my opinion and advice regarding possible right inguinal hernia versus right inguinal discomfort. I examined the patient and performed intraoperative ultrasound that did not feel that I could identify a right inguinal hernia. However, due to the patient's body habitus I felt it was possible there could be an occult hernia that I was not able to identify. I therefore ordered a CT scan of the abdomen pelvis. The CT scan of the abdomen pelvis was obtained on December 03, 2024. This demonstrated: IMPRESSION: Within the limits of this noncontrast enhanced examination, no acute abdominal or pelvic process is identified. Tiny umbilical hernia, containing omental fat. No other ventral hernia is identified. There is no inguinal hernia. Prominent, less than 1 cm abdominal and pelvic lymph nodes are likely reactive. Descending and sigmoid colon diverticulosis, without suggestion diverticulitis. Incidentally noted is an IUD. Bilateral adnexal cysts, measuring up to 2 cm within the left adnexa. 3 mm nodule within the superior segment of the right lower lobe. She returns today for examination and evaluation VITALS: Blood pressure 136/82, pulse 117, temperature 36.7 ?C (98 ?F), temperature source Temporal Artery, resp. rate 17, weight (!) 151.5 kg (334 lb), last menstrual period 03/29/2024, SpO2 97%. On examination, patient is morbidly obese. I do not appreciate an inguinal hernia. Cannot appreciate a small umbilical hernia. Assessment IMPRESSION: No obvious hernia on the exam, ultrasound, or CT scan in the right inguinal area, incidental finding of lung nodule PLAN: If the patient notes any problems or signs of bulges in the right inguinal area, the patient should contact me immediately. We discussed the finding of the nodule in her right lung field. Patient was not a smoker but is concerned of the risk of lung cancer. I will plan to obtain a CT scan of the chest to assure there is no additional abnormalities in that area. Diagnoses: (R91.8) Lung nodules (primary encounter diagnosis) Return to Clinic: The patient is instructed to follow-up with me as needed and I will contact the patient with the results of her CT scan once it is complete.. Angelo Palacios MD [facility] 12-13-2024 History of Presen t illness Narrative FOLLOW UP VISIT NAME: Pato Golden Boothe [facility] NO.: [id number] DATE OF SERVICE: 12/10/2024 : 1985 REFERRING PHYSICIAN: Solis Martino MD Pato is a patient I am following for right groin discomfort and concern for hiatal hernia. Pato is a 39 year old female with a complaint of discomfort in her right inguinal region. The patient notes discomfort in this area when going down steps. The symptoms have increased, over the past few months. The patient also had a recent upper endoscopy and was told she had a hiatal hernia. She wonders if these are related. She is uncertain how severe her hiatal hernia is. She had her upper endoscopy on August 03. She was started on omeprazole. The patient notes no symptoms of bowel obstruction and denies nausea or vomiting. The patient was seen by her primary care physician who felt the patient has a hernia. Pato was referred for evaluation and treatment. The patient is being seen by me at the request of Dr. Solis Martino MD for my opinion and advice regarding possible right inguinal hernia versus right inguinal discomfort. I examined the patient and performed intraoperative ultrasound that did not feel that I could identify a right inguinal hernia. However, due to the patient's body habitus I felt it was possible there could be an occult hernia that I was not able to identify. I therefore ordered a CT scan of the abdomen pelvis. The CT scan of the abdomen pelvis was obtained on December 03, 2024. This demonstrated: IMPRESSION: Within the limits of this noncontrast enhanced examination, no acute abdominal or pelvic process is identified. Tiny umbilical hernia, containing omental fat. No other ventral hernia is identified. There is no inguinal hernia. Prominent, less than 1 cm abdominal and pelvic lymph nodes are likely reactive. Descending and sigmoid colon diverticulosis, without suggestion diverticulitis. Incidentally noted is an IUD. Bilateral adnexal cysts, measuring up to 2 cm within the left adnexa. 3 mm nodule within the superior segment of the right lower lobe. She returns today for examination and evaluation VITALS: Blood pressure 136/82, pulse 117, temperature 36.7 C (98 F), temperature source Temporal Artery, resp. rate 17, weight (!) 151.5 kg (334 lb), last menstrual period 03/29/2024, SpO2 97%. On examination, patient is morbidly obese. I do not appreciate an inguinal hernia. Cannot appreciate a small umbilical hernia. Assessment IMPRESSION: No obvious hernia on the exam, ultrasound, or CT scan in the right inguinal area, incidental finding of lung nodule PLAN: If the patient notes any problems or signs of bulges in the right inguinal area, the patient should contact me immediately. We discussed the finding of the nodule in her right lung field. Patient was not a smoker but is concerned of the risk of lung cancer. I will plan to obtain a CT scan of the chest to assure there is no additional abnormalities in that area. Diagnoses: (R91.8) Lung nodules (primary encounter diagnosis) Return to Clinic: The patient is instructed to follow-up with me as needed and I will contact the patient with the results of her CT scan once it is complete.. Angelo Palacios MD documented in this encounter [facility] 12-03-2024 History of Presen t illness Narrative Radiology Service Progress Note PATIENT NAME: Pato Boothe DATE OF SERVICE: December 03, 2024 TIME: 1:49 PM PATIENT IDENTITY VERIFICATION COMPLETED USING TWO (2) IDENTIFIERS: Name and Date of confirmed by patient verbally. FALL SCREENING: Has the patient had 2 falls in the last year or 1 fall with injury or currently using an Ambulatory Assistive Device (Walker, Cane, Wheelchair, Crutches, etc.)? No PATIENT GENDER DATA: Assigned female at . status: : No status: NO. PATIENT RELEVANT IMPLANT DATA REVIEWED: Yes PATIENT PRESENTS WITH AN IMPLANTABLE OR ATTACHED NUMEROLOGIST: No RADIOLOGY DEPARTMENT: CT; Exam(s) Completed: Abdomen/Pelvis PERIPHERAL IV DATA: Not applicable SIGNED BY: RT Deanne(R) December 03, 2024 1:49 PM documented in this encounter [facility] 12-03-2024 Note HNO ID: [id number] Author: KIKA BUSBY RT(R) Service: ? Author Type: Assistant [employer] Type: Progress Notes Filed: 12/03/2024 13:50 Note Text: Radiology Service Progress Note PATIENT NAME: Pato Boothe DATE OF SERVICE: December 03, 2024 TIME: 1:49 PM PATIENT IDENTITY VERIFICATION COMPLETED USING TWO (2) IDENTIFIERS: Name and Date of confirmed by patient verbally. FALL SCREENING: Has the patient had 2 falls in the last year or 1 fall with injury or currently using an Ambulatory Assistive Device (Walker, Cane, Wheelchair, Crutches, etc.)? No PATIENT GENDER DATA: Assigned female at . status: : No status: NO. PATIENT RELEVANT IMPLANT DATA REVIEWED: Yes PATIENT PRESENTS WITH AN IMPLANTABLE OR ATTACHED NUMEROLOGIST: No RADIOLOGY DEPARTMENT: CT; Exam(s) Completed: Abdomen/Pelvis PERIPHERAL IV DATA: Not applicable SIGNED BY: RT Deanne(R) December 03, 2024 1:49 PM [facility] 12-02-2024 Note HNO ID: [id number] Author: ANGELO PALACIOS MD Service: ? Author Type: Physician Type: Progress Notes Filed: 12/02/2024 17:50 Note Text: HISTORY AND PHYSICAL Pato Boothe 1985 REFERRING PHYSICIAN: Solis Martino MD CHIEF COMPLAINT: Inguinal Hernia HPI: Pato is a 39 year old female with a complaint of discomfort in her right inguinal region. The patient notes discomfort in this area when going down steps. The symptoms have increased, over the past few months. The patient also had a recent upper endoscopy and was told she had a hiatal hernia. She wonders if these are related. She is uncertain how severe her hiatal hernia is. She had her upper endoscopy on August 03. She was started on omeprazole. The patient notes no symptoms of bowel obstruction and denies nausea or vomiting. The patient was seen by her primary care physician who felt the patient has a hernia. Pato was referred for evaluation and treatment. The patient is being seen by ut today at the request of Dr. Solis Martino MD for my opinion and advice regarding possible right inguinal hernia versus right inguinal discomfort. PAST MEDICAL HISTORY Diagnosis Date Dysthymic disorder Depression (non-psychotic) PAST SURGICAL HISTORY Procedure Laterality Date IMPLANON INSERTION 04/23/2013 and Removed LAPAROSCOPIC APPENDECTOMY 06/01/16 LAPS SURG CHOLECYSTECTOMY W/CHOLANGIOGRAPHY Normal IOC Current Outpatient Medications Medication Sig urea (CARMOL) 40 % Apply to affected area once daily. buPROPion XL (WELLBUTRIN XL) 150 mg 24 hr tablet mv,Ca,min/iron/FA/guarana/caff (ONE-A-DAY WOMEN'S ACTIVE ORAL) Take 1 tablet by mouth once daily. calcium/magnesium/zinc (TRVPWTS-PKIOOOXWUE-WHJK) 333-133-5 mg tab Take 1 tablet by mouth once daily. amLODIPine (NORVASC) 10 mg tablet Take 1 tablet by mouth once daily. FLUoxetine (PROZAC) 20 mg capsule Take 20 mg by mouth once daily. rizatriptan (MAXALT) 5 mg tablet take 1 tablet by oral route once as needed for migraine; can repeat dose in 2 hours if needed; limit 30 mg per 24 hours Cholecalciferol, Vitamin D3, 50 mcg (2,000 unit) cap Take 1 capsule by mouth once daily. copper (PARAGARD) 380 square mm intrauterine device 1 Intra Uterine Device by INTRAUTERINE route. cetirizine (ZYRTEC) 10 mg tablet Take 1 tablet by mouth once daily as needed. fluticasone (FLONASE) 50 mcg/actuation nasal spray Use 2 Sprays in each nostril once daily. Rinse mouth after use. mirabegron (MYRBETRIQ ORAL) Take 100 mg by mouth once daily. doxycycline hyclate (VIBRAMYCIN) 100 mg capsule Take 2 capsules by mouth two times a day. For 7 days (Patient not taking: Reported on 04/03/2024) traZODone (DESYREL) 100 mg tablet Take 1 tablet by mouth daily at bedtime. LIDOCAINE VISCOUS 2 % solution Take 5-10 mL by mouth four times daily as needed. Biotin 1 mg tab Take 1 tablet by mouth once daily. escitalopram oxalate (LEXAPRO) 20 mg tablet Take 20 mg by mouth once daily. amitriptyline (ELAVIL) 25 mg tablet Take 1 tablet by mouth once daily. (Patient not taking: Reported on 09/30/2022) FLUTICASONE PROPIONATE (FLONASE NASAL) Use 2 Sprays in each nostril once daily. No current facility-administered medications for this visit. ALLERGIES: Erythromycin PERSONAL HISTORY: Social History Tobacco Use Smoking status: Never Smokeless tobacco: Never Vaping Use Vaping status: Never Used Substance Use Topics Alcohol use: No Drug use: No FAMILY HISTORY: FAMILY HISTORY Problem Relation Age of Onset Allergies Father Allergies Brother Cancer Maternal Grandmother Cancer Maternal Grandfather Coronary Artery Disease Maternal Grandmother Coronary Artery Disease Maternal Grandfather Diabetes Father Diabetes Maternal Grandfather Diabetes Paternal Grandfather Heart Paternal Grandfather Heart Maternal Grandfather Hypertension Father Hypertension Paternal Grandfather Stroke Paternal Grandfather Stroke Maternal Grandfather Hypertension Maternal Grandfather REVIEW OF SYMPTOMS: The review of systems data was entered by the nurse and reviewed by me There are no exam notes on file for this visit. PHYSICAL EXAMINATION: General: The patient is 39 year old female, well nourished, well hydrated in no acute distress. The patient is oriented to time, place, and person. VITALS: Blood pressure 130/74, pulse 104, temperature 36.4 ?C (97.6 ?F), temperature source Temporal Artery, resp. rate 19, weight (!) 149.4 kg (329 lb 6.4 oz), last menstrual period 03/29/2024, SpO2 97%. Body mass index is 50.53 kg/m?. HEENT: Normal cephalic, ataumatic, pupils are equally round, sclera are anicteric, mucous membranes are moist, oropharynx is clear. Neck has no masses, asymmetry or lymphadenopathy. Thyroid is unremarkable. Respiratory: Clear to auscultation and percussion. Normal respiratory excursion and pattern. Cardiac: Examination is regular rate and rhythm. Abdomina (more content not included)... [facility] 12-02-2024 History of Presen t illness Narrative HISTORY AND PHYSICAL Pato Boothe 1985 REFERRING PHYSICIAN: Solis Martino MD CHIEF COMPLAINT: Inguinal Hernia HPI: Pato is a 39 year old female with a complaint of discomfort in her right inguinal region. The patient notes discomfort in this area when going down steps. The symptoms have increased, over the past few months. The patient also had a recent upper endoscopy and was told she had a hiatal hernia. She wonders if these are related. She is uncertain how severe her hiatal hernia is. She had her upper endoscopy on August 03. She was started on omeprazole. The patient notes no symptoms of bowel obstruction and denies nausea or vomiting. The patient was seen by her primary care physician who felt the patient has a hernia. Pato was referred for evaluation and treatment. The patient is being seen by me today at the request of Dr. Solis Martino MD for my opinion and advice regarding possible right inguinal hernia versus right inguinal discomfort. PAST MEDICAL HISTORY Diagnosis Date Dysthymic disorder Depression (non-psychotic) PAST SURGICAL HISTORY Procedure Laterality Date IMPLANON INSERTION 04/23/2013 and Removed LAPAROSCOPIC APPENDECTOMY 06/01/16 LAPS SURG CHOLECYSTECTOMY W/CHOLANGIOGRAPHY Normal IOC Current Outpatient Medications Medication Sig urea (CARMOL) 40 % Apply to affected area once daily. buPROPion XL (WELLBUTRIN XL) 150 mg 24 hr tablet mv,Ca,min/iron/FA/guarana/caff (ONE-A-DAY WOMEN'S ACTIVE ORAL) Take 1 tablet by mouth once daily. calcium/magnesium/zinc (CCTMAWX-IJMACTZVRN-TIJB) 333-133-5 mg tab Take 1 tablet by mouth once daily. amLODIPine (NORVASC) 10 mg tablet Take 1 tablet by mouth once daily. FLUoxetine (PROZAC) 20 mg capsule Take 20 mg by mouth once daily. rizatriptan (MAXALT) 5 mg tablet take 1 tablet by oral route once as needed for migraine; can repeat dose in 2 hours if needed; limit 30 mg per 24 hours Cholecalciferol, Vitamin D3, 50 mcg (2,000 unit) cap Take 1 capsule by mouth once daily. copper (PARAGARD) 380 square mm intrauterine device 1 Intra Uterine Device by INTRAUTERINE route. cetirizine (ZYRTEC) 10 mg tablet Take 1 tablet by mouth once daily as needed. fluticasone (FLONASE) 50 mcg/actuation nasal spray Use 2 Sprays in each nostril once daily. Rinse mouth after use. mirabegron (MYRBETRIQ ORAL) Take 100 mg by mouth once daily. doxycycline hyclate (VIBRAMYCIN) 100 mg capsule Take 2 capsules by mouth two times a day. For 7 days (Patient not taking: Reported on 04/03/2024) traZODone (DESYREL) 100 mg tablet Take 1 tablet by mouth daily at bedtime. LIDOCAINE VISCOUS 2 % solution Take 5-10 mL by mouth four times daily as needed. Biotin 1 mg tab Take 1 tablet by mouth once daily. escitalopram oxalate (LEXAPRO) 20 mg tablet Take 20 mg by mouth once daily. amitriptyline (ELAVIL) 25 mg tablet Take 1 tablet by mouth once daily. (Patient not taking: Reported on 09/30/2022) FLUTICASONE PROPIONATE (FLONASE NASAL) Use 2 Sprays in each nostril once daily. No current facility-administered medications for this visit. ALLERGIES: Erythromycin PERSONAL HISTORY: Social History Tobacco Use Smoking status: Never Smokeless tobacco: Never Vaping Use Vaping status: Never Used Substance Use Topics Alcohol use: No Drug use: No FAMILY HISTORY: FAMILY HISTORY Problem Relation Age of Onset Allergies Father Allergies Brother Cancer Maternal Grandmother Cancer Maternal Grandfather Coronary Artery Disease Maternal Grandmother Coronary Artery Disease Maternal Grandfather Diabetes Father Diabetes Maternal Grandfather Diabetes Paternal Grandfather Heart Paternal Grandfather Heart Maternal Grandfather Hypertension Father Hypertension Paternal Grandfather Stroke Paternal Grandfather Stroke Maternal Grandfather Hypertension Maternal Grandfather REVIEW OF SYMPTOMS: The review of systems data was entered by the nurse and reviewed by me There are no exam notes on file for this visit. PHYSICAL EXAMINATION: General: The patient is 39 year old female, well nourished, well hydrated in no acute distress. The patient is oriented to time, place, and person. VITALS: Blood pressure 130/74, pulse 104, temperature 36.4 C (97.6 F), temperature source Temporal Artery, resp. rate 19, weight (!) 149.4 kg (329 lb 6.4 oz), last menstrual period 03/29/2024, SpO2 97%. Body mass index is 50.53 kg/m . HEENT: Normal cephalic, ataumatic, pupils are equally round, sclera are anicteric, mucous membranes are moist, oropharynx is clear. Neck has no masses, asymmetry or lymphadenopathy. Thyroid is unremarkable. Respiratory: Clear to auscultation and percussion. Normal respiratory excursion and pattern. Cardiac: Examination is regular rate and rhythm. Abdominal exam: Soft, nontender, with no palpable masses. No hepatosplenomegaly. No obvious right or left inguinal hernias are palpable partially due to the patient's body habitus Rectal exam: exam deferred Extremities: no clubbing, cyanosis or edema. No adenopathy. Other: LABORATORY VALUES: As Noted RADIOLOGIC STUDIES: As Noted Intraoffice ultrasound was performed which failed to demonstrate an obvious hernia Assessment IMPRESSION: Right inguinal pain, no clinically palpable right inguinal hernia PLAN: My plan is to obtain a CT scan to both assess for right inguinal hernia and to better characterize her hiatal hernia to give patient information for her options. Diagnoses: (K40.90) Right inguinal hernia (primary encounter diagnosis) (K44.9) Hiatal hernia Return to Clinic: The patient is instructed to follow-up with me after the testing has been completed. Angelo Palacios MD documented in this encounter [facility] 04-03-2024 Instructions Verónica Mercer APRN.CATH LABORATORY TECHNICIAN - 04/03/2024 5:26 PM EDT ASSESSMENT/PLAN: 1. Sore throat - ICD9: 462, ICD10: J02.9 (primary diagnosis) - suspect viral - Group A strep molecular testing negative - Discussed supportive care treatment with fluids, rest and analgesia. - STREP A MOLECULAR (POC) 2. Viral URI with cough - ICD9: 465.9, ICD10: J06.9 - Discussed viral etiology and rationale for treatment. - Symptomatic treatment with prn analgesia - Supportive care with fluids and rest - BENZONATATE 100 MG CAPSULE - Follow-up with your PCP in 3-5 days if symptoms have not improved or sooner if symptoms worsen - Discussed red flags and need for immediate medical evaluation if any occur. - Discussed supportive care treatment with fluids, rest and analgesia. - Discussed expected course of illness Verónica Mercer APRN.CATH LABORATORY TECHNICIAN Treatment for Viral Upper Respiratory Tract Infections Your body will kill off the virus by itself. Additionally, you can prime your body's immune system. This may help you get better more quickly. Drink lots of fluids Make sure you are eating well Get plenty of rest We do not have any medications that kill off these viruses. Antibiotics are used to treat bacterial infections; however, they are not active against viral infections. There are some things that might help you feel better, though. Vaporizers, humidifiers, hot showers, and hot fluids help open respiratory and sinus passages [place] Nasal Atco may offer relief of nasal and head congestion Kofi's Vapor Rub may relieve congestion Tylenol and Advil help control fevers and headaches Salt water gargles help relieve sore throats Chloraceptic spray or throat lozenges may also help relieve sore throat symptoms Occasionally, viral infections turn into something more serious. You should see your doctor or return to the Urgent Care if: You have fevers for longer than five days You have fevers above 102 degrees You are still sick after 10 days You have shortness of breath or wheezing After several days you are getting worse rather than better documented in this encounter [facility] 04-03-2024 History of Presen t illness Narrative Subjective Nasal Congestion Associated symptoms include congestion, coughing and a sore throat. Pertinent negatives include no ear pain or shortness of breath. Pato Boothe is a 38 year old female who presents with sore throat, cough, nasal congestion, sinus pressure for the past 3 days. She has not had a fever. She took zyrtec at home. Sick contacts include her son who has similar symptoms. Review of Systems Constitutional: Negative for fever. HENT: Positive for congestion and sore throat. Negative for ear pain. Respiratory: Positive for cough and sputum production. Negative for shortness of breath. Cardiovascular: Negative. BP 121/76 Pulse 75 Temp 36.6 C (97.8 F) Resp 18 Wt (!) 150 kg (330 lb 11 oz) LMP 03/29/2024 (Exact Date) SpO2 98% BMI 50.73 kg/m PAST MEDICAL HISTORY Diagnosis Date Dysthymic disorder Depression (non-psychotic) PAST SURGICAL HISTORY Procedure Laterality Date IMPLANON INSERTION 04/23/2013 and Removed LAPAROSCOPIC APPENDECTOMY 06/01/16 LAPS SURG CHOLECYSTECTOMY W/CHOLANGIOGRAPHY Normal IOC ALLERGIES Patient has no known allergies. MEDICATIONS mirabegron (MYRBETRIQ ORAL) Take 100 mg by mouth once daily. urea (CARMOL) 40 % Apply to affected area once daily. buPROPion XL (WELLBUTRIN XL) 150 mg 24 hr tablet mv,Ca,min/iron/FA/guarana/caff (ONE-A-DAY WOMEN'S ACTIVE ORAL) Take 1 tablet by mouth once daily. calcium/magnesium/zinc (ATUWHBD-GLZSWLQTEH-YPIM) 333-133-5 mg tab Take 1 tablet by mouth once daily. amLODIPine (NORVASC) 10 mg tablet Take 1 tablet by mouth once daily. FLUoxetine (PROZAC) 20 mg capsule Take 20 mg by mouth once daily. rizatriptan (MAXALT) 5 mg tablet take 1 tablet by oral route once as needed for migraine; can repeat dose in 2 hours if needed; limit 30 mg per 24 hours traZODone (DESYREL) 100 mg tablet Take 1 tablet by mouth daily at bedtime. Cholecalciferol, Vitamin D3, 50 mcg (2,000 unit) cap Take 1 capsule by mouth once daily. copper (PARAGARD) 380 square mm intrauterine device 1 Intra Uterine Device by INTRAUTERINE route. cetirizine (ZYRTEC) 10 mg tablet Take 1 tablet by mouth once daily as needed. fluticasone (FLONASE) 50 mcg/actuation nasal spray Use 2 Sprays in each nostril once daily. Rinse mouth after use. doxycycline hyclate (VIBRAMYCIN) 100 mg capsule Take 2 capsules by mouth two times a day. For 7 days (Patient not taking: Reported on 04/03/2024) LIDOCAINE VISCOUS 2 % solution Take 5-10 mL by mouth four times daily as needed. Biotin 1 mg tab Take 1 tablet by mouth once daily. escitalopram oxalate (LEXAPRO) 20 mg tablet Take 20 mg by mouth once daily. amitriptyline (ELAVIL) 25 mg tablet Take 1 tablet by mouth once daily. (Patient not taking: Reported on 09/30/2022) FLUTICASONE PROPIONATE (FLONASE NASAL) Use 2 Sprays in each nostril once daily. FAMILY HISTORY Problem Relation Age of Onset Allergies Father Allergies Brother Cancer Maternal Grandmother Cancer Maternal Grandfather Coronary Artery Disease Maternal Grandmother Coronary Artery Disease Maternal Grandfather Diabetes Father Diabetes Maternal Grandfather Diabetes Paternal Grandfather Heart Paternal Grandfather Heart Maternal Grandfather Hypertension Father Hypertension Paternal Grandfather Stroke Paternal Grandfather Stroke Maternal Grandfather Hypertension Maternal Grandfather Social History Tobacco Use Smoking status: Never Smokeless tobacco: Never Vaping Use Vaping Use: Never used Substance Use Topics Alcohol use: No Drug use: No Objective Physical Exam Vitals and nursing note reviewed. Constitutional: General: She is not in acute distress. Appearance: Normal appearance. She is obese. She is not ill-appearing. HENT: Right Ear: Tympanic membrane, ear canal and external ear normal. Left Ear: Tympanic membrane, ear canal and external ear normal. Nose: Nose normal. Mouth/Throat: Pharynx: Uvula midline. Posterior oropharyngeal erythema present. No oropharyngeal exudate. Cardiovascular: Rate and Rhythm: Normal rate and regular rhythm. Heart sounds: Normal heart sounds. Pulmonary: Effort: Pulmonary effort is normal. No respiratory distress. Breath sounds: Normal breath sounds. No wheezing or rales. Musculoskeletal: Cervical back: Neck supple. Lymphadenopathy: Cervical: No cervical adenopathy. Skin: General: Skin is warm and dry. Findings: No erythema or rash. Neurological: Mental Status: She is alert. ASSESSMENT/PLAN: 1. Sore throat - ICD9: 462, ICD10: J02.9 (primary diagnosis) - suspect viral - Group A strep molecular testing negative - Discussed supportive care treatment with fluids, rest and analgesia. - STREP A MOLECULAR (POC) 2. Viral URI with cough - ICD9: 465.9, ICD10: J06.9 - Discussed viral etiology and rationale for treatment. - Symptomatic treatment with prn analgesia - Supportive care with fluids and rest - BENZONATATE 100 MG CAPSULE - Follow-up with your PCP in 3-5 days if symptoms have not improved or sooner if symptoms worsen - Discussed red flags and need for immediate medical evaluation if any occur. - Discussed supportive care treatment with fluids, rest and analgesia. - Discussed expected course of illness Verónica Mercer APRN.CATH LABORATORY TECHNICIAN documented in this encounter [facility] 03-04-2024 History of Presen t illness Narrative Images from the original note were not included. Episode Visit Count: 7 Therapist That Will Accept/Oversee The Plan Of Care: Yaniv Sexton PT Start of Care Date: 01/01/24 Onset Date: 12/31/21 Plan of Care Certification Date: 02/11/24 Next Certification Due Date: 03/10/24 Patient Identified by Name and Date of : Yes REHABILITATION AND SPORTS THERAPY PHYSICAL THERAPY DISCONTINUANCE OF CARE PLAN OF CARE UPDATE: Assessment: Pato Boothe is discontinued from Physical Therapy services due to goal achievement. and Patient/Clinician mutual decision to discontinue current plan of care.. Patient was seen for 7 visits from Start of Care Date: 01/01/24 to 03/04/2024 and treatment included: Therapeutic exercise, Self-fci management, Gait training, and Patient/Family/Caregiver Education. Updated: 02/11/24 and 03/03/24 Goals for Episode of Care: created on 01/01/24 through 02/12/24 [place] in home exercise program. - MET Patient will decrease pain rating by 2 points to meet minimal clinical important difference for numeric pain rating scale. - MET Patient will increase active ROM of B ankles to WFL to allow pt to to improve performance of ADLs. - MET Patient will demonstrate increase in B ankle strength strength to WFL and 5/5 during manual muscle testing in order to improve function for prior functional tasks. - MET Perform standing, walking and working with decreased report of symptoms/pain in 6 weeks. - MET Normal gait.- MET Patient Goals: eliminate pain - MET SUBJECTIVE: Pt reports that overall her R foot and ankle is improved compared to initial evaluation 01/01/24. She reports that her pain is signifcantly less, even in difficult situations like uneven terrain when camping. She reports continued use of custom foot orthotics with good success. She feels confident that she can self manage after d/c today. She reports that she was previously compliant with HEP daily but the past week she did not complete HEP because of camping. She denies any pain to start today. Pt feels that she has regained her prior functional. level and she denies any limitations. Pain: Pain Pain Level: 0 Pain Location: Foot - Right Description: (no pain currently) Post Treatment Pain Post Treatment Pain Level: No Change PROMIS Scales 02/26/2024 01/26/2024 12/30/2023 Higher is Better Phys Func - Score 47 (within normal limits) 46 (within normal limits) 42 (mild dysfunction) Phys Func - Percentile 38 34 21 Self-Eff Symptom - Score 41 (Average) 35 (Low) 34 (Low) Self-Eff Symptom - Percentile 18 7 5 T-scores: mean of general population = 50. 5 points is clinically meaningfully difference Percentiles provide an indication of how the patient's score ranks in relation to the general population. Higher percentile rankings indicate better function/quality of life. 50th percentile is the average of the general population and indicates half of respondents had a worse score. OBJECTIVE MEASURES WITH LEVEL OF FUNCTION: LE AROM R LE AROM: long sitting R Ankle Dorsiflexion: 10 Degrees R Ankle Plantar Flexion: 67 Degrees R Ankle Inversion: 30 R Ankle Eversion: 12 LE Strength R Ankle Dorsiflexion (L4): 5/5 R Ankle Plantar Flexion: 5/5 R Ankle Inversion: 5/5 R Ankle Eversion: 5/5 Gait Gait Observation: Back to her prior functional level Unilateral Stance Time R Unilateral Stance Time (sec): 16 sec TREATMENT: Therapeutic Exercise: 1: Upright bike seat #7 x6 minutes with resistance level 5 2: R prostretch 3x30 seconds 3: PWB BAPS hemisphere #5 2x10 CW, CCW, PF/DF, inversion/eversion 4: R ankle inversion and eversion with BTB 2x12 each 5: ankle alphabet A-Z x3 with 2# ankle weight on forefoot. 6: R lateral step up on and over dome side of BOSU 2x12 in // bars 7: HEP was thoroughly reviewed and continuation encouraged. She was educated on how and when to progress strengthening HEP. 8: R SLS for many attempts to test and practice. Skilled Intervention: Patient was educated in proper exercise technique and purpose for exercises. Skilled judgment was used in selection of appropriate interventions. Correct performance of therapeutic exercises was facilitated with verbal and visual cuing. Patient education as noted. Billing Therapeutic Exercise Treatment Minutes: 44 Skilled Treatment Time Minutes (timed and untimed codes): 44 Total Session Time (minutes): 44 Session Start Time : 1501 Session Stop Time : 1545 Yaniv Sexton PT documented in this encounter [facility] 02-26-2024 History of Presen t illness Narrative Episode Visit Count: 6 Therapist That Will Accept/Oversee The Plan Of Care: Yaniv Sexton PT Start of Care Date: 01/01/24 Onset Date: 12/31/21 Plan of Care Certification Date: 02/11/24 Next Certification Due Date: 03/10/24 Patient Identified by Name and Date of : Yes REHABILITATION AND SPORTS THERAPY PHYSICAL THERAPY TREATMENT NOTE ASSESSMENT: Pato Boothe tolerated the session with fatigue and expected muscle soreness. She demonstrated improvements in R SLS. The patient will continue to benefit from ongoing skilled physical therapy to progress toward set goals. PLAN FOR NEXT VISIT: Re-assesment SUBJECTIVE: Pt reports that her R foot and ankle are feeling good today. States that she didn't have to do a lot at work today. Pt [place] [employer] [place] tomorrow and will have to endure a lot of hills and uneven terrain. Pain: Pain Pain Level: 0 Pain Location: Foot - Right (lateral border of foot) Frequency: Intermittent OBJECTIVE MEASURES WITH LEVEL OF FUNCTION: TREATMENT: Therapeutic Exercise: 1: upright bike seat #7 x6 minutes with resistance level 4 (1:1 throughout. Discussed current HEP.) 2: PWB BAPS hemisphere #4 2x10 CW, CCW, PF/DF, inversion/eversion 3: R SLS x 17 seconds, x 13 seconds 4: R ankle inversion and eversion with BTB 2x10 each 5: ankle alphabet A-Z x2 with 2# ankle weight on forefoot. 6: R lateral step up on and over dome side of BOSU 2x10 in // bars Skilled Intervention: Patient was educated in proper exercise technique and purpose for exercises. Skilled judgment was used in selection of appropriate interventions. Correct performance of therapeutic exercises was facilitated with verbal and visual cuing. Billing Therapeutic Exercise Treatment Minutes: 41 Skilled Treatment Time Minutes (timed and untimed codes): 41 Total Session Time (minutes): 41 Session Start Time : 1358 Session Stop Time : 1439 Cyndi Kaye DURALUMIN MECHANIC Yaniv Sexton PT documented in this encounter [facility] 02-11-2024 History of Presen t illness Narrative Images from the original note were not included. Episode Visit Count: 5 Therapist That Will Accept/Oversee The Plan Of Care: Yaniv Sexton PT Start of Care Date: 01/01/24 Onset Date: 12/31/21 Plan of Care Certification Date: 02/11/24 Next Certification Due Date: 03/10/24 Patient Identified by Name and Date of : Yes REHABILITATION AND SPORTS THERAPY PHYSICAL THERAPY PROGRESS REPORT PLAN OF CARE UPDATE: Assessment: Pato Boothe demonstrates significant improvement in standing, walking, and working . She has progressed toward goals. Patient continues to present with impairments in ADL's, balance, gait, independence in exercise, overall function, range of motion, soft tissue healing, strength, and symptom management that interfere with standing, walking, working . Current prognosis is Good due to: current objective clinical presentation, positive past response to therapy, within-session changes, good support system/ coping skills. She will benefit from continued skilled therapy services to meet the updated goals for this plan of care as noted below. Updated: 02/11/24 Goals for Episode of Care: created on 01/01/24 through 02/12/24 [place] in home exercise program. - MET, will continue and progress to tolerance Patient will decrease pain rating by 2 points to meet minimal clinical important difference for numeric pain rating scale. - Mostly MET, will continue with goal of 0/10 Patient will increase active ROM of B ankles to WFL to allow pt to to improve performance of ADLs. - Partially MET, will continue Patient will demonstrate increase in B ankle strength strength to WFL and 5/5 during manual muscle testing in order to improve function for prior functional tasks. - Partially MET, will continue Perform standing, walking and working with decreased report of symptoms/pain in 6 weeks. - Partially MET, will continue Normal gait.- Partially MET, will continue Patient Goals: eliminate pain - Partially MET, will continue Patient Goals: eliminate pain Planned Interventions, Frequency, and Duration: 1x/week, 4 weeks Total Number of Visits Planned: 4 Patient to be seen for Therapeutic exercise (37958), Neuromuscular re-education (48643), Manual therapy (56513), Therapeutic activities (35389), Self-fci management (72395), Gait Training (17649), Patient/Family/Caregiver Education, Body Mechanics Training PLAN FOR NEXT VISIT: Continue increasing weightbearing exercises as tolerated. Focus on strength and proprioception SUBJECTIVE: Pt reports that overall she is better since starting PT 01/01/24. Specifically she reports that she is having less pain. She reports that pain is less intense and less frequent. She reports compliance with HEP at least 1x a day. She reports that standing, walking and working. She feels that she is at 80% of her prior functional level with her primary limitation being lack of full strength. Patient Goals: eliminate pain Functional Limitations: standing, walking, working Prior Level of Function: Independent without limitations Intake Information: Prescription present Previous Treatment: Orthotics Pain: Pain Pain Level: 0 (0/10 to start but 4/10 when pain occurs.) Pain Location: Foot - Right (lateral border of foot) Description: Aching, Sharp Frequency: Intermittent, Standing, Walking Post Treatment Pain Post Treatment Pain Level: No Change Post Treatment Pain Location: Foot - Right, Foot - Left Post Treatment Symptoms: After session, pt reported fatigue from a good workout but she denied any increase in pain PROMIS Scales 01/26/2024 12/30/2023 08/11/2023 Higher is Better Phys Func - Score 46 (within normal limits) 42 (mild dysfunction) 54 (within normal limits) Phys Func - Percentile 34 21 66 Self-Eff Symptom - Score 35 (Low) 34 (Low) 46 (Average) Self-Eff Symptom - Percentile 7 5 34 T-scores: mean of general population = 50. 5 points is clinically meaningfully difference Percentiles provide an indication of how the patient's score ranks in relation to the general population. Higher percentile rankings indicate better function/quality of life. 50th percentile is the average of the general population and indicates half of respondents had a worse score. OBJECTIVE MEASURES WITH LEVEL OF FUNCTION: LE AROM R LE AROM: long sitting L LE AROM: long sitting R Ankle Dorsiflexion: 12 Degrees R Ankle Plantar Flexion: 72 Degrees R Ankle Inversion: 29 R Ankle Eversion: 14 L Ankle Dorsiflexion: 8 Degrees L Ankle Plantar Flexion: 70 Degrees L Ankle Inversion: 24 L Ankle Eversion: 16 LE Strength R Ankle Eversion: 4+/5 TREATMENT: Therapeutic Exercise: 1: upright bike seat #7 x6 minutes with resistance level 4 (Pt provided an update on her condition and plan of care reviewed. Subjective portion of goals assessed.) 2: R prostretch 3x30 seconds 3: long sitting R peroneal stretch with towel by pulling medially into inversion 3x30 seconds. 4: PWB BAPS hemisphere #4 2x10 CW, CCW, PF/DF, inversion/eversion 5: *R ankle inversion and eversion strengthening with pink band x10 and with blue band 2x10 (blue band issued for HEP) 6: R lateral step up on and over dome side of BOSU 2x10 in // bars 7: ankle alphabet A-Z x2 with 2# ankle weight on forefoot. 8: Re-assessment results were reviewed with patient in detail and used as rationale for plan of care recommendations. 9: HEP was thoroughly reviewed and continuation encouraged to tolerance. Skilled Intervention: Patient was educated in proper exercise technique and purpose for exercises. Reviewed and educated patient on additions/changes for home exercise program as above (*). Skilled judgment was used in selection of appropriate interventions. Provided written instruction for home exercise program to facilitate proper performance and compliance. Correct performance of therapeutic exercises was facilitated with verbal, visual, and tactile cuing. Patient education as noted. Billing Therapeutic Exercise Treatment Minutes: 46 Skilled Treatment Time Minutes (timed and untimed codes): 46 Total Session Time (minutes): 46 Session Start Time : 1500 Session Stop Time : 1546 Yaniv Sexton PT Program_ID:[id number] Access Code: [email or web address] URL: [email or web address] Date: 02-11-2024 Prepared By: Yaniv Sexton Program Notes Exercises - Seated Ankle Alphabet - 3 x daily - 7 x weekly - sets - 1 reps - Supine Ankle Inversion Eversion AROM - 3 x daily - 7 x weekly - 2 sets - 20 reps - Supine Single Leg Ankle Pumps - 3 x daily - 7 x weekly - 2 sets - 20 reps - Seated Calf Towel Stretch - 3 x daily - 7 x weekly - sets - 3 reps - Long Sitting Ankle PROM Inversion Eversion - 3 x daily - 7 x weekly - sets - 3 reps - Long Sitting Ankle Eversion with Resistance - 2 x daily - 7 x weekly - 2 sets - 10 reps - Long Sitting Ankle Inversion with Resistance - 2 x daily - 7 x weekly - 2 sets - 10 reps documented in this encounter [facility] 02-05-2024 History of Presen t illness Narrative Episode Visit Count: 4 Therapist That Will Accept/Oversee The Plan Of Care: Yaniv Sexton PT Start of Care Date: 01/01/24 Onset Date: 12/31/21 Plan of Care Certification Date: 01/01/24 Next Certification Due Date: 02/12/24 Patient Identified by Name and Date of : Yes REHABILITATION AND SPORTS THERAPY PHYSICAL THERAPY TREATMENT NOTE ASSESSMENT: Pato Boothe tolerated the session with fatigue, expected muscle soreness, and no issues. She demonstrated improvements in pain and exercise tolerance. The patient will continue to benefit from ongoing skilled physical therapy to progress toward set goals. PLAN FOR NEXT VISIT: Continue increasing weightbearing exercises as tolerated. Re-assess for plan of care update. SUBJECTIVE: Pt denies any pain to start today and reports compliance wiht HEP 1x day most days. Overall she feels that she is getting stronger and better. She reports increased standing tolerance at work. Pain: Pain Pain Level: 0 Pain Location: Foot - Right Post Treatment Pain Post Treatment Pain Level: No Change Post Treatment Pain Location: Foot - Right Post Treatment Symptoms: After session, she reported fatigue from a good workout but she denied any increase in pain. OBJECTIVE MEASURES WITH LEVEL OF FUNCTION: TREATMENT: Therapeutic Exercise: 1: upright bike seat #7 x6 minutes with resistance level 3 (Pt provided an update on her condition and plan of care reviewed) 2: long sitting R calf stretch with towel 3x30 seconds 3: long sitting R peroneal stretch with towel by pulling medially into inversion 3x30 seconds. 4: PWB BAPS hemisphere #3 2x10 CW, CCW, PF/DF, inversion/eversion 5: R forward step up onto dome side of BOSU 2x10 6: R lateral step up on and over dome side of BOSU 2x10 in // bars 7: ankle alphabet A-Z x2 with 1.5# ankle weight on forefoot. 8: R SLS steamboats with pink band around L ankle 2x10 each for flexion, extension, abduction and adduction. Skilled Intervention: Patient was educated in proper exercise technique and purpose for exercises. Skilled judgment was used in selection of appropriate interventions. Correct performance of therapeutic exercises was facilitated with verbal, visual, and tactile cuing. Patient education as noted. Billing Therapeutic Exercise Treatment Minutes: 40 Skilled Treatment Time Minutes (timed and untimed codes): 40 Total Session Time (minutes): 40 Session Start Time : 1535 Session Stop Time : 1615 Yaniv Sexton PT documented in this encounter [facility] 01-28-2024 History of Presen t illness Narrative Episode Visit Count: 3 Therapist That Will Accept/Oversee The Plan Of Care: Yaniv Sexton PT Start of Care Date: 01/01/24 Onset Date: 12/31/21 Plan of Care Certification Date: 01/01/24 Next Certification Due Date: 02/12/24 Patient Identified by Name and Date of : Yes REHABILITATION AND SPORTS THERAPY PHYSICAL THERAPY TREATMENT NOTE ASSESSMENT: Pato Boothe tolerated the session with fatigue and expected muscle soreness. She demonstrated improvements in ability to perform BAPS in PWB without pain. The patient will continue to benefit from ongoing skilled physical therapy to progress toward set goals. PLAN FOR NEXT VISIT: Continue increasing weightbearing exercises as tolerated SUBJECTIVE: Pt reports that her ankle is feeling better today. Over the weekend anytime she would go to get up, then her ankle would pop and it was painful, but it has subsided. Pt stated she did not notice any pain in her R ankle with work today. Pain: Pain Pain Level: 0 Pain Location: Foot - Right Frequency: Intermittent, Standing, Walking Post Treatment Pain Post Treatment Pain Level: 0 Post Treatment Pain Location: Foot - Right OBJECTIVE MEASURES WITH LEVEL OF FUNCTION: Difficulty with inversion compared to eversion with PWB BAPS board TREATMENT: Therapeutic Exercise: 1: upright bike seat #7 x5 minutes with resistance level 0 (Pt provided an update on her condition and plan of care reviewed) 2: long sitting R calf stretch with towel 3x30 seconds 3: long sitting R peroneal stretch with towel by pulling medially into inversion 3x30 seconds. 4: PWB BAPS L2 2x10 CW, CCW, PF/DF, inversion/eversion 5: R forward step up onto blue square foam 2x10 6: R lateral step up onto blue square foam 2x10 7: ankle alphabet A-Z x2 each Skilled Intervention: Patient was educated in proper exercise technique and purpose for exercises. Skilled judgment was used in selection of appropriate interventions. Correct performance of therapeutic exercises was facilitated with verbal and visual cuing. Billing Therapeutic Exercise Treatment Minutes: 40 Skilled Treatment Time Minutes (timed and untimed codes): 40 Total Session Time (minutes): 40 Session Start Time : 1630 Session Stop Time : 171 MAIKEL Nance PT documented in this encounter [facility] 01-21-2024 History of Presen t illness Narrative Episode Visit Count: 2 Therapist That Will Accept/Oversee The Plan Of Care: Yaniv Sexton PT Start of Care Date: 01/01/24 Onset Date: 12/31/21 Plan of Care Certification Date: 01/01/24 Next Certification Due Date: 02/12/24 Patient Identified by Name and Date of : Yes REHABILITATION AND SPORTS THERAPY PHYSICAL THERAPY TREATMENT NOTE ASSESSMENT: Pato Boothe tolerated the session with fatigue, expected muscle soreness, and no issues. She demonstrated improvements in exercise tolerance without an increase in pain. The patient will continue to benefit from ongoing skilled physical therapy to progress toward set goals. PLAN FOR NEXT VISIT: Continue with stretching and strengthening therex for B ankles. Incorporate WBing strengthening and proprioceptive exercise. Review, correct and progress HEP to tolerance. Consider progression to PWB R BAPs SUBJECTIVE: Pt reports that overall her feet are feeling the same. She reports compliance with HEP at least 2x day. She denies any pain to start today. She continues to report that her most significant symptoms are in lateral border and plantar surface of R foot. Pain: Pain Pain Level: 0 Pain Location: Foot - Right Description: (no pain to start today) Frequency: Intermittent, Standing, Walking Post Treatment Pain Post Treatment Pain Level: No Change Post Treatment Pain Location: Foot - Right Post Treatment Symptoms: After session, pt reported considerable fatigue but denied any increase in pain. OBJECTIVE MEASURES WITH LEVEL OF FUNCTION: Gait Gait Observation: generally antalgic secondary to pain TREATMENT: Therapeutic Exercise: 1: upright bike seat #7 x5 minutes with resistance level 0 (Pt provided an update on her condition and plan of care reviewed) 2: ankle alphabet A-Z x1 each 3: B ankle AROM DF/PF 2x10 4: B ankle AROM Inv/Ev 2x10 5: *long sitting R calf stretch with towel 3x30 seconds 6: *long sitting R peroneal stretch with towel by pulling medially into inversion 3x30 seconds. 7: seated R BAPS hemisphere #2 front to back, side to side, CW and CCW 2x10 each 8: R forward step up onto blue square foam 2x10 9: R lateral step up onto blue square foam 2x10 10: R SLS steamboats with pink band around L ankle all four directions 2x10 with intermittent UE support. Skilled Intervention: Patient was educated in proper exercise technique and purpose for exercises. Reviewed and educated patient on additions/changes for home exercise program as above (*). Skilled judgment was used in selection of appropriate interventions. Provided written instruction for home exercise program to facilitate proper performance and compliance. Correct performance of therapeutic exercises was facilitated with verbal, visual, and tactile cuing. Patient education as noted. Billing Therapeutic Exercise Treatment Minutes: 40 Skilled Treatment Time Minutes (timed and untimed codes): 40 Total Session Time (minutes): 40 Session Start Time : 1555 Session Stop Time : 1635 Yaniv Sexton PT Program_ID:[id number] Access Code: [email or web address] URL: [email or web address]/ Date: 01-21-2024 Prepared By: Yaniv Sexton Program Notes Exercises - Seated Ankle Alphabet - 3 x daily - 7 x weekly - sets - 1 reps - Supine Ankle Inversion Eversion AROM - 3 x daily - 7 x weekly - 2 sets - 20 reps - Supine Single Leg Ankle Pumps - 3 x daily - 7 x weekly - 2 sets - 20 reps - Seated Calf Towel Stretch - 3 x daily - 7 x weekly - sets - 3 reps - Long Sitting Ankle PROM Inversion Eversion - 3 x daily - 7 x weekly - sets - 3 reps documented in this encounter [facility] 01-01-2024 History of Presen t illness Narrative Images from the original note were not included. Episode Visit Count: 1 Therapist That Will Accept/Oversee The Plan Of Care: Yaniv Sexton PT Start of Care Date: 01/01/24 Onset Date: 12/31/21 Plan of Care Certification Date: 01/01/24 Next Certification Due Date: 02/12/24 Patient Identified by Name and Date of : Yes REHABILITATION AND SPORTS THERAPY PHYSICAL THERAPY EVALUATION PLAN OF CARE: Assessment: Pato Boothe presents with chief complaint of B lateral foot pain that interferes with standing, walking, working. She presents with impairments in gait, overall function, range of motion, strength, symptom management, and tissue tenderness. PROMIS (Patient-Reported Outcomes Measurement Information System) scores were reviewed and identified as a rehabilitation concern. Prognosis for therapy is Good due to: current objective clinical presentation, positive past response to therapy, within-session changes, good support system/ coping skills. She will benefit from skilled therapy services to meet the goals established for this plan of care as noted below. Goals for Episode of Care: created on 01/01/24 through 02/12/24 [place] in home exercise program. Patient will decrease pain rating by 2 points to meet minimal clinical important difference for numeric pain rating scale. Patient will increase active ROM of B ankles to WFL to allow pt to to improve performance of ADLs. Patient will demonstrate increase in B ankle strength strength to WFL and 5/5 during manual muscle testing in order to improve function for prior functional tasks. Perform standing, walking and working with decreased report of symptoms/pain in 6 weeks. Normal gait. Patient Goals: eliminate pain Planned Interventions, Frequency, and Duration: Current Frequency: 1x/week Duration: 6 weeks Total Number of Visits Planned: 6 Planned Treatment Interventions: Therapeutic exercise (94039), Neuromuscular re-education (40322), Manual therapy (18968), Therapeutic activities (64705), Self-fci management (43812), Gait Training (85345), Patient/Family/Caregiver Education, Body Mechanics Training PLAN FOR NEXT VISIT: Continue with stretching and strengthening therex for B ankles. Incorporate WBing strengthening and proprioceptive exercise. Review, correct and progress HEP to tolerance. Patient demonstrates good understanding of plan of care and treatment. The above goals and plan of care were discussed and agreed upon by patient/family. SUBJECTIVE: Pt reports intermittent pain in lateral border of R foot that is aggravated by WB activity and relieved by rest and elevation. She reports receiving custom foot orthotics in August and these have helped to decrease the pain but some pain persists. 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 Occupation: [employer] at [employer] Intake Information: Prescription present Previous Treatment: Orthotics Pain: Pain Pain Level: 5 (5/10 currently and 10/10 at worst) Pain Location: Foot - Right (lateral border of foot) Description: Sharp, Stabbing Frequency: Intermittent, Standing, Walking Post Treatment Pain Post Treatment Pain Level: No Change PROMIS Scales 12/30/2023 08/11/2023 07/11/2023 Higher is Better Phys Func - Score 42 (mild dysfunction) 54 (within normal limits) 54 (within normal limits) Phys Func - Percentile 21 66 66 Self-Eff Symptom - Score 34 (Low) 46 (Average) 35 (Low) Self-Eff Symptom - Percentile 5 34 7 T-scores: mean of general population = 50. 5 points is clinically meaningfully difference Percentiles provide an indication of how the patient's score ranks in relation to the general population. Higher percentile rankings indicate better function/quality of life. 50th percentile is the average of the general population and indicates half of respondents had a worse score. OBJECTIVE MEASURES WITH LEVEL OF FUNCTION: Ankle Observations R Ankle Palpation Tenderness: (plantar surface of 5th met head) L Ankle Palpation Tenderness: (plantar surface of 5th met head) LE AROM R Ankle Dorsiflexion: 6 Degrees R Ankle Plantar Flexion: 66 Degrees R Ankle Inversion: 20 R Ankle Eversion: 20 L Ankle Dorsiflexion: 6 Degrees L Ankle Plantar Flexion: 60 Degrees L Ankle Inversion: 20 L Ankle Eversion: 16 LE Strength R Ankle Dorsiflexion (L4): 5/5 R Ankle Plantar Flexion: 5/5 R Ankle Inversion: 5/5 R Ankle Eversion: 3+/5 L Ankle Dorsiflexion (L4): 5/5 L Ankle Plantar Flexion: 5/5 L Ankle Inversion: 5/5 L Ankle Eversion: 5/5 Gait Gait Observation: generally antalgic secondary to pain from just leaving work where she is on her feet on hard surfaces Vitals BP: 143/84 Pulse: 64 Education: Education Learning Preferences: Demonstration, Explanation, Performance, Printed Materials Barriers: None Learning/educational needs: Plan of Care, Home exercise program, Gait Training, Body Mechanics Education Provided: Yes, see treatment interventions for education provided Education Provided To: Patient Education Mode/Type: Demonstration, Explanation/Discussion, Literature/Printed Materials, Performance Response to Education/Teach Back: States/Identifies, Return Demonstration, Requires Review/Additional Education TREATMENT: PT Treatment Interventions: Therapeutic Exercise Evaluation Therapeutic Exercise: 1: Pt was educated on the anatomy of her foot, likely etiology of symptoms and rationale for plan of care. She was repeatedly advised to use pain as her guide at all times and stop if pain increases. 2: *ankle alphabet A-Z x1 each 3: *B ankle AROM DF/PF 2x10 4: *B ankle AROM Inv/Ev 2x10 Skilled Intervention: Patient was educated in proper exercise technique and purpose for exercises. Reviewed and educated patient on additions/changes for home exercise program as above (*). Skilled judgment was used in selection of appropriate interventions. Provided written instruction for home exercise program to facilitate proper performance and compliance. Correct performance of therapeutic exercises was facilitated with verbal, visual, and tactile cuing. Patient education as noted. Billing * Evaluation Low Complexity: 1 Unit Therapeutic Exercise Treatment Minutes: 11 Skilled Treatment Time Minutes (timed and untimed codes): 31 Total Session Time (minutes): 31 Session Start Time : 1324 Session Stop Time : 1355 Yaniv Sexton PT Program_ID:[id number] Access Code: [email or web address] URL: [email or web address] Date: 01-01-2024 Prepared By: Yaniv Sexton Program Notes Exercises - Seated Ankle Alphabet - 3 x daily - 7 x weekly - sets - 1 reps - Supine Ankle Inversion Eversion AROM - 3 x daily - 7 x weekly - 2 sets - 20 reps - Supine Single Leg Ankle Pumps - 3 x daily - 7 x weekly - 2 sets - 20 reps documented in this encounter [facility] 12-17-2023 History of Presen t illness Narrative Radiology Service Progress Note PATIENT NAME: Pato Boothe DATE OF SERVICE: December 17, 2023 TIME: 2:29 PM PATIENT IDENTITY VERIFICATION COMPLETED USING TWO (2) IDENTIFIERS: Name and Date of confirmed by patient verbally. FALL SCREENING: Has the patient had 2 falls in the last year or 1 fall with injury or currently using an Ambulatory Assistive Device (Walker, Cane, Wheelchair, Crutches, etc.)? No PATIENT GENDER DATA: Female. status: : No status: NO. PATIENT RELEVANT IMPLANT DATA REVIEWED: Yes PATIENT PRESENTS WITH AN IMPLANTABLE OR ATTACHED NUMEROLOGIST: No RADIOLOGY DEPARTMENT: General X-ray: Exam(s) Completed: Lower Extremity X-Ray(s): Foot, Right and Wt. Bearing PERIPHERAL IV DATA: Not applicable SIGNED BY: RT Sharlene(R) December 17, 2023 2:29 PM documented in this encounter [facility] 12-17-2023 History of Presen t illness Narrative Images from the original note were not included. Initial Podiatric Office Visit: Chief Complaint: This 38 year old female who presents with chief complaint:right foot pain HPI Patient presents to clinic for evaluation of right foot. Patient has pain to the lateral aspect of right foot. No pain currently but with standing, the pain can get up to a 10/10. She does have custom orthotics and that does help. PAIN EVALUATION 12/17/2023 1343 Pain Level: 0 can get up to a 10/10 Pain Location: Foot-Right Description: Sharp;Stabbing Frequency: Intermittent Intervention/Comfort measure: Relaxation;Reposition No results found for: HBA1C PCP: Solis Martino MD PAST MEDICAL HISTORY Diagnosis Date Dysthymic disorder Depression (non-psychotic) Current Outpatient Medications Medication Sig doxycycline hyclate (VIBRAMYCIN) 100 mg capsule Take 2 capsules by mouth two times a day. For 7 days buPROPion XL (WELLBUTRIN XL) 150 mg 24 hr tablet mv,Ca,min/iron/FA/guarana/caff (ONE-A-DAY WOMEN'S ACTIVE ORAL) Take 1 tablet by mouth once daily. calcium/magnesium/zinc (VBBUERD-LLQVHYMJPX-DPTS) 333-133-5 mg tab Take 1 tablet by mouth once daily. amLODIPine (NORVASC) 10 mg tablet Take 1 tablet by mouth once daily. FLUoxetine (PROZAC) 20 mg capsule Take 20 mg by mouth once daily. rizatriptan (MAXALT) 5 mg tablet take 1 tablet by oral route once as needed for migraine; can repeat dose in 2 hours if needed; limit 30 mg per 24 hours traZODone (DESYREL) 100 mg tablet Take 1 tablet by mouth daily at bedtime. GEMTESA 75 mg tablet Take 1 tablet by mouth once daily. Biotin 1 mg tab Take 1 tablet by mouth once daily. Cholecalciferol, Vitamin D3, 50 mcg (2,000 unit) cap Take 1 capsule by mouth once daily. copper (PARAGARD) 380 square mm intrauterine device 1 Intra Uterine Device by INTRAUTERINE route. cetirizine (ZYRTEC) 10 mg tablet Take 1 tablet by mouth once daily as needed. fluticasone (FLONASE) 50 mcg/actuation nasal spray Use 2 Sprays in each nostril once daily. Rinse mouth after use. urea (CARMOL) 40 % Apply to affected area once daily. (Patient not taking: Reported on 07/29/2023) LIDOCAINE VISCOUS 2 % solution Take 5-10 mL by mouth four times daily as needed. escitalopram oxalate (LEXAPRO) 20 mg tablet Take 20 mg by mouth once daily. amitriptyline (ELAVIL) 25 mg tablet Take 1 tablet by mouth once daily. (Patient not taking: Reported on 09/30/2022) FLUTICASONE PROPIONATE (FLONASE NASAL) Use 2 Sprays in each nostril once daily. No current facility-administered medications for this visit. ALLERGIES No Known Allergies PAST SURGICAL HISTORY Procedure Laterality Date IMPLANON INSERTION 04/23/2013 and Removed LAPAROSCOPIC APPENDECTOMY 06/01/16 LAPS SURG CHOLECYSTECTOMY W/CHOLANGIOGRAPHY Normal [facility] FAMILY HISTORY Problem Relation Age of Onset Allergies Father Allergies Brother Cancer Maternal Grandmother Cancer Maternal Grandfather Coronary Artery Disease Maternal Grandmother Coronary Artery Disease Maternal Grandfather Diabetes Father Diabetes Maternal Grandfather Diabetes Paternal Grandfather Heart Paternal Grandfather Heart Maternal Grandfather Hypertension Father Hypertension Paternal Grandfather Stroke Paternal Grandfather Stroke Maternal Grandfather Hypertension Maternal Grandfather Social History Tobacco Use Smoking status: Never Smokeless tobacco: Never Vaping Use Vaping Use: Never used Substance Use Topics Alcohol use: No Drug use: No REVIEW OF SYSTEMS GENERAL: Negative for Malaise, significant weight loss, fever RESPIRATORY: Negative for cough, wheezing and shortness of breath CARDIOVASCULAR: Negative for chest pain, leg swelling and palpitations GI: Negative for abdominal discomfort, blood in stools or black stools and change in bowel habits : Negative for dysuria, frequency and incontinence MUSCULOSKELETAL: Negative for joint pain or swelling, back pain, and muscle pain. SKIN: Negative for lesions, rash, and itching. HEMATOLOGY/LYMPHOLOGY Negative for prolonged bleeding, bruising easily, and swollen nodes. ENDOCRINE: Negative for cold or heat intolerance, polyuria, polydipsia and goiter. NEURO: negative Physical Exam: Constitutional: Pt is a well developed 38 year old female who is alert, oriented and cooperative Eyes: Following during examination. No redness or drainage. Respiratory: RR normal and nonlabored. Even breathing. No evidence of distress or shortness of breath. Psychology: Patient is engaged during conversation. Normal affect and mood. Does not appear depressed or anxious during encounter. Vascular: Dorsalis pedis and posterior tibial pulses palpable as b/l Capillary Fill time < 5 seconds to digits 1-5 b/l Skin temperature warm to warm proximal to distal b/l Hair growth present to digits Neurological: intact light touch/epicritic sensation b/l intact protective sensation no significant neurological deficits Dermatological: Nails 1-5 b/l appear normal. Webspaces clean and dry 1-4 b/l. Skin appears well hydrated and supple. good color, texture, turgor. No open lesions present. No callosities present but firm skin is noted along lateral arch b/l Musculoskeletal/Orthopaedic: Patient has no pain to palpation of b/l foot. No pain currently to right foot Foot type is pronated structurally AJ ROM is full with knee extended and flexed 1st MPJ is full when loaded and no pain or crepitus are noted with ROM. MTJ, STJ are full and free of pain and crepitus. +5/5 muscle strength dorsiflexion, plantarflexion, inversion, eversion b/l Radiographs: ordered ASSESSMENT: (M76.71) Peroneal tendinitis of right lower extremity (primary encounter diagnosis) (L84) Callus of foot (M21.41, M21.42) Pes planus of both feet PLAN: 1. History and physical examination performed. 2. Discussed pain in right 5th metatarsal base. Suspect component of insertional tendonitis. Recommend continued use of arch supports. Will check xray to assure no stress fracture. Will make referral to physical therapy 3. Discussed callus of b/l feet. Recommend carmol 40 Pippa Abbasi DPM Podiatry [address] [facility] [address] Dept: [phone] Dept AMB ROOMING INTAKE FLOWSHEET DATA Pain Pain Level: 0 (can get up to a 10/10) Pain Location: Foot-Right Description: Sharp, Stabbing Frequency: Intermittent Intervention/Comfort measure: Relaxation, Reposition Patient presents with: Right Foot - Established Patient, Follow Up, Pain, Callous Patient presents for right lateral foot pain. States that she has a callus there. Patient also has a hx of flat feet, plantar fasciitis, and bone spur. Unsure of what is causing the current pain. Wears custom orthotics. Pain worse after being on her feet an extended period of time. SHERYL 06/07/23 documented in this encounter [facility] 08-19-2023 History of Presen t illness Narrative Images from the original note were not included. Subjective HPI Nontoxic female presents urgent care chief complaint left ear pain. Noticed some blood outside of her ear this morning when she woke up. No pain currently. No loss of hearing or inner ear pain. No otorrhea. Overall feels well. Denies any fever body aches chills productive cough chest pain shortness of breath pleuritic pain hemoptysis nausea vomiting abdominal pain change in bowel or bladder habits. Past medical history prescription medication use and allergies reviewed. .Patient presents with: Ear Problem: Blood and fluid coming from ear no pain Left ear PAST MEDICAL HISTORY Diagnosis Date Dysthymic disorder Depression (non-psychotic) PAST SURGICAL HISTORY Procedure Laterality Date IMPLANON INSERTION 04/23/2013 and Removed LAPAROSCOPIC APPENDECTOMY 06/01/16 LAPS SURG CHOLECYSTECTOMY W/CHOLANGIOGRAPHY Normal IOC ALLERGIES Patient has no known allergies. MEDICATIONS buPROPion XL (WELLBUTRIN XL) 150 mg 24 hr tablet mv,Ca,min/iron/FA/guarana/caff (ONE-A-DAY WOMEN'S ACTIVE ORAL) Take 1 tablet by mouth once daily. calcium/magnesium/zinc (HAIMNUH-BDVWBCLKCV-ZRME) 333-133-5 mg tab Take 1 tablet by mouth once daily. amLODIPine (NORVASC) 10 mg tablet Take 1 tablet by mouth once daily. FLUoxetine (PROZAC) 20 mg capsule Take 20 mg by mouth once daily. rizatriptan (MAXALT) 5 mg tablet take 1 tablet by oral route once as needed for migraine; can repeat dose in 2 hours if needed; limit 30 mg per 24 hours traZODone (DESYREL) 100 mg tablet Take 1 tablet by mouth daily at bedtime. GEMTESA 75 mg tablet Take 1 tablet by mouth once daily. Biotin 1 mg tab Take 1 tablet by mouth once daily. Cholecalciferol, Vitamin D3, 50 mcg (2,000 unit) cap Take 1 capsule by mouth once daily. copper (PARAGARD) 380 square mm intrauterine device 1 Intra Uterine Device by INTRAUTERINE route. cetirizine (ZYRTEC) 10 mg tablet Take 1 tablet by mouth once daily as needed. fluticasone (FLONASE) 50 mcg/actuation nasal spray Use 2 Sprays in each nostril once daily. Rinse mouth after use. urea (CARMOL) 40 % Apply to affected area once daily. (Patient not taking: Reported on 07/29/2023) LIDOCAINE VISCOUS 2 % solution Take 5-10 mL by mouth four times daily as needed. escitalopram oxalate (LEXAPRO) 20 mg tablet Take 20 mg by mouth once daily. amitriptyline (ELAVIL) 25 mg tablet Take 1 tablet by mouth once daily. (Patient not taking: Reported on 09/30/2022) FLUTICASONE PROPIONATE (FLONASE NASAL) Use 2 Sprays in each nostril once daily. FAMILY HISTORY Problem Relation Age of Onset Allergies Father Allergies Brother Cancer Maternal Grandmother Cancer Maternal Grandfather Coronary Artery Disease Maternal Grandmother Coronary Artery Disease Maternal Grandfather Diabetes Father Diabetes Maternal Grandfather Diabetes Paternal Grandfather Heart Paternal Grandfather Heart Maternal Grandfather Hypertension Father Hypertension Paternal Grandfather Stroke Paternal Grandfather Stroke Maternal Grandfather Hypertension Maternal Grandfather Social History Tobacco Use Smoking status: Never Smokeless tobacco: Never Vaping Use Vaping Use: Never used Substance Use Topics Alcohol use: No Drug use: No BP 113/74 Pulse 78 Temp 36.3 C (97.4 F) Resp 18 Wt (!) 150.6 kg (332 lb) LMP 07/31/2023 (Exact Date) SpO2 98% BMI 50.93 kg/m Review of Systems Constitutional: Negative for chills, fever and malaise/fatigue. HENT: Positive for ear pain. Negative for congestion, ear discharge, sinus pain and sore throat. Eyes: Negative for blurred vision, pain, discharge and redness. Respiratory: Negative for cough, hemoptysis, sputum production, shortness of breath, wheezing and stridor. Cardiovascular: Negative for chest pain. Gastrointestinal: Negative for abdominal pain, diarrhea, nausea and vomiting. Musculoskeletal: Negative for myalgias. Skin: Negative for itching and rash. Neurological: Negative for dizziness and headaches. Objective Physical Exam Constitutional: General: She is not in acute distress. Appearance: She is not diaphoretic. HENT: Head: Normocephalic. Jaw: No trismus, tenderness, swelling or pain on movement. Right Ear: Tympanic membrane, ear canal and external ear normal. No swelling or tenderness. No middle ear effusion. Left Ear: Tympanic membrane and ear canal normal. No drainage, swelling or tenderness. No middle ear effusion. Ears: Comments: Superficial abrasion noted highlighted area. Mouth/Throat: Mouth: Mucous membranes are moist. Pharynx: Oropharynx is clear. Uvula midline. No pharyngeal swelling, oropharyngeal exudate, posterior oropharyngeal erythema or uvula swelling. Eyes: Conjunctiva/sclera: Conjunctivae normal. Pupils: Pupils are equal, round, and reactive to light. Cardiovascular: Rate and Rhythm: Normal rate and regular rhythm. Heart sounds: Normal heart sounds. Pulmonary: Effort: Pulmonary effort is normal. No tachypnea, accessory muscle usage or respiratory distress. Breath sounds: Normal breath sounds. No stridor. No wheezing, rhonchi or rales. Abdominal: General: There is no distension. Palpations: Abdomen is soft. Tenderness: There is no abdominal tenderness. There is no guarding or rebound. Musculoskeletal: Cervical back: Normal range of motion and neck supple. No edema, erythema, rigidity or tenderness. No pain with movement. Normal range of motion. Lymphadenopathy: Cervical: No cervical adenopathy. Skin: General: Skin is warm and dry. Neurological: Mental Status: She is alert and oriented to person, place, and time. ASSESSMENT/PLAN: 1. Abrasion of left ear, initial encounter - ICD9: 910.0, ICD10: S00.412A Superficial abrasion noted left ear. Treat conservatively. Patient was educated on supportive therapies. Patient will follow up with primary care provider as needed. Patient was instructed to immediately proceed to emergency room for any new, worsening, or symptoms lasting longer than anticipated. The patient's clinical presentation is otherwise unremarkable at this time. Based on exam and clinical finding, the patient is stable for discharge. Plan of care was discussed with patient. Patient verbalizes understanding and agrees to plan of care. This note was generated using [employer] software. It may contain errors in wording, punctuation, or spelling. 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 Equipment Owned: [id number] foot orthotics DME Delivery: Pt was educated on wear schedule and care of custom foot orthotics. Pt was educated on the option of having orthotics refurbished as needed in the future as long as shell is performing it's intended function well. Pt was educated on approximate cost of refurbishing orthotics and an approximate time frame when this might be necessary. Pt was urged to follow the wear schedule and to call with any questions or concerns. Pt was instructed to start with wearing orthotics one hour the first day and then to add one hour of wear time per day until malariologist wear is achieved. Pt was educated on how to remove insoles from shoes and then place orthotics in shoes. The fit of orthotics was assessed with pt standing, with and without shoes. The comfort of orthotics was assessed with pt standing and walking with orthotics in shoes. Pt denied any rubbing or pinching and felt that fit of custom orthotics was correct. Contact information for this therapist was provided to patient. Custom biomechanical foot orthotics with serial number: #[id number] were issued to patient and proof of receipt form signed by pt and therapist. All specifications for custom foot orthotics can be found in orthotic evaluation visit note. Planned Interventions: Follow up as needed for brace fitting/issues. Billing:[facility]: Orthotics Management and Training ([id number]): 1:1 time: 20 minutes (1 unit: 8-22 mins) Equipment: [id number] x2 pair of custom foot orthotics Total time: 20 minutes Yaniv Sxeton PT documented in this encounter [facility] 07-29-2023 History of Presen t illness Narrative This note was created using [employer]. Subjective Pato Boothe is a 37 year old female for continued sinus pressure x7 days. Patient reports sinus pain and congestion with no improvement. Objective BP 128/84 Pulse 92 Temp 36.9 C (98.4 F) Resp 18 Wt (!) 147.9 kg (326 lb) LMP 12/11/2016 (Approximate) SpO2 97% BMI 50.01 kg/m Physical Exam PHYSICAL EXAMINATION: General appearance: Well appearing, alert, in no acute distress, well-hydrated, well nourished. Head: Facial tenderness Nose/Sinuses: Positive findings: mucosa erythematous and swollen, purulent rhinorrhea Oropharynx: Lips, mucosa, and tongue normal, teeth and gums normal, oropharynx normal Neck: Supple, no adenopathy; thyroid symmetric, normal size, no bruits Assessment and Plan documented in this encounter [facility] 07-21-2023 History of Presen t illness Narrative Appt was for son. Appt cx. documented in this encounter [facility] 07-08-2023 History of Presen t illness Narrative This note was created using [employer]. Subjective Pato Boothe is a 37 year old female. 37 year old female with no PMH presents for sore throat. Acute onset 2 days ago +sore throat Denies accompanying URI sx Denies cough Denies fever or chills Denies difficulty handling secretions. 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 No emergency worker was used. Sore Throat This is a new problem. The current episode started in the past 7 days. The problem has been unchanged. Neither side of throat is experiencing more pain than the other. There has been no fever. The pain is at a severity of 4/10. The pain is mild. Pertinent negatives include no abdominal pain, congestion, coughing, diarrhea, drooling, ear discharge, ear pain, headaches, hoarse voice, plugged ear sensation, neck pain, shortness of breath, stridor, swollen glands, trouble swallowing or vomiting. She has had exposure to strep. She has had no exposure to mono. She has tried nothing for the symptoms. The treatment provided no relief. PAST MEDICAL HISTORY Diagnosis Date Dysthymic disorder Depression (non-psychotic) PAST SURGICAL HISTORY Procedure Laterality Date IMPLANON INSERTION 04/23/2013 and Removed LAPAROSCOPIC APPENDECTOMY 06/01/16 LAPS SURG CHOLECYSTECTOMY W/CHOLANGIOGRAPHY Normal IOC ALLERGIES Patient has no known allergies. MEDICATIONS mv,Ca,min/iron/FA/guarana/caff (ONE-A-DAY WOMEN'S ACTIVE ORAL) Take 1 tablet by mouth once daily. calcium/magnesium/zinc (ZPBIGYQ-GRSGRXEPKH-AMJV) 333-133-5 mg tab Take 1 tablet by mouth once daily. amLODIPine (NORVASC) 10 mg tablet Take 1 tablet by mouth once daily. FLUoxetine (PROZAC) 20 mg capsule Take 20 mg by mouth once daily. rizatriptan (MAXALT) 5 mg tablet take 1 tablet by oral route once as needed for migraine; can repeat dose in 2 hours if needed; limit 30 mg per 24 hours traZODone (DESYREL) 100 mg tablet Take 1 tablet by mouth daily at bedtime. GEMTESA 75 mg tablet Take 1 tablet by mouth once daily. urea (CARMOL) 40 % Apply to affected area once daily. Biotin 1 mg tab Take 1 tablet by mouth once daily. Cholecalciferol, Vitamin D3, 50 mcg (2,000 unit) cap Take 1 capsule by mouth once daily. copper (PARAGARD) 380 square mm intrauterine device 1 Intra Uterine Device by INTRAUTERINE route. cetirizine (ZYRTEC) 10 mg tablet Take 1 tablet by mouth once daily as needed. fluticasone (FLONASE) 50 mcg/actuation nasal spray Use 2 Sprays in each nostril once daily. Rinse mouth after use. methylPREDNISolone (MEDROL, DAYANNA,) 4 mg Dose-Pack Follow dosing instructions, take with food. LIDOCAINE VISCOUS 2 % solution Take 5-10 mL by mouth four times daily as needed. escitalopram oxalate (LEXAPRO) 20 mg tablet Take 20 mg by mouth once daily. amitriptyline (ELAVIL) 25 mg tablet Take 1 tablet by mouth once daily. (Patient not taking: Reported on 09/30/2022) FLUTICASONE PROPIONATE (FLONASE NASAL) Use 2 Sprays in each nostril once daily. FAMILY HISTORY Problem Relation Age of Onset Allergies Father Allergies Brother Cancer Maternal Grandmother Cancer Maternal Grandfather Coronary Artery Disease Maternal Grandmother Coronary Artery Disease Maternal Grandfather Diabetes Father Diabetes Maternal Grandfather Diabetes Paternal Grandfather Heart Paternal Grandfather Heart Maternal Grandfather Hypertension Father Hypertension Paternal Grandfather Stroke Paternal Grandfather Stroke Maternal Grandfather Hypertension Maternal Grandfather Social History Tobacco Use Smoking status: Never Smokeless tobacco: Never Vaping Use Vaping Use: Never used Substance Use Topics Alcohol use: No Drug use: No Review of Systems Constitutional: Negative for activity change, appetite change, fatigue and fever. HENT: Positive for sore throat. Negative for congestion, drooling, ear discharge, ear pain, hoarse voice and trouble swallowing. Eyes: Negative for pain, discharge, redness and itching. Respiratory: Negative for cough, shortness of breath and stridor. Cardiovascular: Negative for chest pain, palpitations and leg swelling. Gastrointestinal: Negative for abdominal pain, diarrhea, nausea and vomiting. Musculoskeletal: Negative for arthralgias, back pain, gait problem and neck pain. Skin: Negative for color change, pallor, rash and wound. Allergic/Immunologic: Negative for environmental allergies, food allergies and immunocompromised state. Neurological: Negative for dizziness, facial asymmetry and headaches. Hematological: Negative for adenopathy. Does not bruise/bleed easily. Psychiatric/Behavioral: Negative for agitation and behavioral problems. Objective BP 128/88 Pulse 89 Temp 36.4 C (97.6 F) Resp 18 Wt (!) 150.1 kg (331 lb) LMP 12/11/2016 (Approximate) SpO2 97% BMI 50.78 kg/m Physical Exam Vitals and nursing note reviewed. Constitutional: General: She is not in acute distress. Appearance: Normal appearance. She is normal weight. She is not ill-appearing, toxic-appearing or diaphoretic. HENT: Head: Normocephalic and atraumatic. Right Ear: Ear canal and external ear normal. Left Ear: Ear canal and external ear normal. Nose: Nose normal. No congestion or rhinorrhea. Mouth/Throat: Mouth: Mucous membranes are moist. Pharynx: Posterior oropharyngeal erythema present. No oropharyngeal exudate. Comments: Uvula midline. Handling secretions Eyes: General: Right eye: No discharge. Left eye: No discharge. Extraocular Movements: Extraocular movements intact. Conjunctiva/sclera: Conjunctivae normal. Pupils: Pupils are equal, round, and reactive to light. Cardiovascular: Rate and Rhythm: Normal rate and regular rhythm. Pulses: Normal pulses. Heart sounds: Normal heart sounds. No murmur heard. No friction rub. Pulmonary: Effort: Pulmonary effort is normal. No respiratory distress. Breath sounds: Normal breath sounds. No stridor. No wheezing, rhonchi or rales. Chest: Chest wall: No tenderness. Abdominal: General: Abdomen is flat. There is no distension. Palpations: Abdomen is soft. There is no mass. Tenderness: There is no abdominal tenderness. There is no right CVA tenderness, left CVA tenderness, guarding or rebound. Hernia: No hernia is present. Musculoskeletal: General: No swelling, tenderness, deformity or signs of injury. Normal range of motion. Cervical back: Normal range of motion and neck supple. No rigidity. Right lower leg: No edema. Left lower leg: No edema. Lymphadenopathy: Cervical: No cervical adenopathy. Skin: General: Skin is warm and dry. Capillary Refill: Capillary refill takes less than 2 seconds. Coloration: Skin is not jaundiced or pale. Findings: No bruising, erythema, lesion or rash. Neurological: General: No focal deficit present. Mental Status: She is alert and oriented to person, place, and time. Cranial Nerves: No cranial nerve deficit. Sensory: No sensory deficit. Motor: No weakness. Coordination: Coordination normal. Gait: Gait normal. Psychiatric: Mood and Affect: Mood normal. Behavior: Behavior normal. Thought Content: Thought content normal. Judgment: Judgment normal. Assessment and Plan ASSESSMENT/PLAN: 1. Pharyngitis, unspecified etiology - ICD9: 462, ICD10: J02.9 X 2 days No red flags - Group A strep molecular testing negative - Discussed supportive care treatment with fluids, rest and analgesia. - The patient may also use OTC cough and cold meds as needed and nasal saline gtts and suction prn. - Contagious dz precautions discussed- including considered contagious until on antibiotics for 24 hours - The patient should follow up in 3-5 days if symptoms persist or worsen - Call back if drooling, increased temperature, symptoms of dehydration and/or still sick in one week - STREP A MOLECULAR (POC) Zee Johnson APRN.MG documented in this encounter [facility] 06-20-2023 Instructions Yasmin Kolb APRN.CNP - 06/20/2023 5:51 PM EDT - RICE therapy - see patient instructions for further recommendations. - F/U with PCP in 5-7 days or before if worse. - Discussed Red Flag signs and when to go to ER. - Reviewed plan of care and DC papers with patient. Verbalized understanding. documented in this encounter [facility] 06-20-2023 History of Presen t illness Narrative Images from the original note were not included. Subjective She came in with complaints of right pinky pain. Patient says 15 minutes ago she was trying to move her washer and smashed it between it. Patient says she heard something pop. Patient has no difficulty with range of motion. Patient says the pain is better. Patient has no numbness tingling or loss of feeling. The history is provided by the patient. No emergency worker was used. Review of Systems Constitutional: Negative. Skin: Negative. Objective Physical Exam Constitutional: Appearance: Normal appearance. Pulmonary: Effort: Pulmonary effort is normal. Musculoskeletal: Hands: Comments: Patient is tender in the area marked above when palpated. No deformities noted. Neurological: Mental Status: She is alert. PAST MEDICAL HISTORY Diagnosis Date Dysthymic disorder Depression (non-psychotic) PAST SURGICAL HISTORY Procedure Laterality Date IMPLANON INSERTION 04/23/2013 and Removed LAPAROSCOPIC APPENDECTOMY 06/01/16 LAPS SURG CHOLECYSTECTOMY W/CHOLANGIOGRAPHY Normal IOC ALLERGIES Patient has no known allergies. MEDICATIONS amitriptyline (ELAVIL) 25 mg tablet Take 1 tablet by mouth once daily. (Patient not taking: Reported on 09/30/2022) amLODIPine (NORVASC) 10 mg tablet Take 1 tablet by mouth once daily. Biotin 1 mg tab Take 1 tablet by mouth once daily. calcium/magnesium/zinc (UMUAIEW-HIVQQZHNZH-JAIM) 333-133-5 mg tab Take 1 tablet by mouth once daily. cetirizine (ZYRTEC) 10 mg tablet Take 1 tablet by mouth once daily as needed. Cholecalciferol, Vitamin D3, 50 mcg (2,000 unit) cap Take 1 capsule by mouth once daily. copper (PARAGARD) 380 square mm intrauterine device 1 Intra Uterine Device by INTRAUTERINE route. escitalopram oxalate (LEXAPRO) 20 mg tablet Take 20 mg by mouth once daily. FLUoxetine (PROZAC) 20 mg capsule Take 20 mg by mouth once daily. fluticasone (FLONASE) 50 mcg/actuation nasal spray Use 2 Sprays in each nostril once daily. Rinse mouth after use. FLUTICASONE PROPIONATE (FLONASE NASAL) Use 2 Sprays in each nostril once daily. GEMTESA 75 mg tablet Take 1 tablet by mouth once daily. LIDOCAINE VISCOUS 2 % solution Take 5-10 mL by mouth four times daily as needed. mv,Ca,min/iron/FA/guarana/caff (ONE-A-DAY WOMEN'S ACTIVE ORAL) Take 1 tablet by mouth once daily. rizatriptan (MAXALT) 5 mg tablet take 1 tablet by oral route once as needed for migraine; can repeat dose in 2 hours if needed; limit 30 mg per 24 hours traZODone (DESYREL) 100 mg tablet Take 1 tablet by mouth daily at bedtime. urea (CARMOL) 40 % Apply to affected area once daily. FAMILY HISTORY Problem Relation Age of Onset Allergies Father Allergies Brother Cancer Maternal Grandmother Cancer Maternal Grandfather Coronary Artery Disease Maternal Grandmother Coronary Artery Disease Maternal Grandfather Diabetes Father Diabetes Maternal Grandfather Diabetes Paternal Grandfather Heart Paternal Grandfather Heart Maternal Grandfather Hypertension Father Hypertension Paternal Grandfather Stroke Paternal Grandfather Stroke Maternal Grandfather Hypertension Maternal Grandfather Social History Tobacco Use Smoking status: Never Smokeless tobacco: Never Vaping Use Vaping Use: Never used Substance Use Topics Alcohol use: No Drug use: No ASSESSMENT/PLAN: 1. Pain - ICD9: 780.96, ICD10: R52 - XR DIGIT GENERAL 3V FRONTAL/LAT/OBL RIGHT * * * * Physician Interpretation * * * * EXAMINATION: RIGHT FIFTH FINGER X-RAY SERIES HISTORY: Pain. COMPARISON: None available. TECHNIQUE: PA, lateral and oblique views. RESULT: No fracture, dislocation or destructive changes. Joint spaces and articular surfaces are preserved. Soft tissues appear within normal limits. IMPRESSION IMPRESSION: Negative right fifth finger. Batchmaker: OPHELIA Transcribe Date/Time: Jun 20 2023 5:32P Dictated by : EDITH MOORE MD Patient was educated to rest and ice alternate Tylenol Motrin give it a few days to see how it feels. If still bothering her follow-up with primary care. Patient was okay with this care plan. Yasmin Kolb APRN.CATH LABORATORY TECHNICIAN documented in this encounter [facility] 06-14-2023 Miscellaneous Notes Called and spoke to patient. She is agreeable to using one of the alternatives. Will send the names in [employer] message for her to reference. Images from the original note were not included. Pippa Abbasi [facility] Podiatry Pool 16 minutes ago (1:00 PM) I would recommend vaseline intensive care or [employer] or even [facility] feet Patient calling and states her insurance will not cover the Urea cream and would have to pay out of pocket. Asking if there is something else? documented in this encounter [facility] 05-01-2023 History of Presen t illness Narrative Subjective HPI HPI Pato Boothe is a 37 year old female who presents today for CC of st. This started 1 day ago. Has tried nothing for relief. Symptoms are worsened by nothing. Risk factors sick exposures at work. Denies possibility of being . Nonsmoker. Denies heart burn. .Patient presents with: Sore Throat: x 1 day PAST MEDICAL HISTORY Diagnosis Date Dysthymic disorder Depression (non-psychotic) PAST SURGICAL HISTORY Procedure Laterality Date IMPLANON INSERTION 04/23/2013 and Removed LAPAROSCOPIC APPENDECTOMY 06/01/16 LAPS SURG CHOLECYSTECTOMY W/CHOLANGIOGRAPHY Normal IOC ALLERGIES Patient has no known allergies. MEDICATIONS Biotin 1 mg tab Take 1 tablet by mouth once daily. escitalopram oxalate (LEXAPRO) 20 mg tablet Take 20 mg by mouth once daily. Cholecalciferol, Vitamin D3, 50 mcg (2,000 unit) cap Take 1 capsule by mouth once daily. copper (PARAGARD) 380 square mm intrauterine device 1 Intra Uterine Device by INTRAUTERINE route. cetirizine (ZYRTEC) 10 mg tablet Take 1 tablet by mouth once daily as needed. fluticasone (FLONASE) 50 mcg/actuation nasal spray Use 2 Sprays in each nostril once daily. Rinse mouth after use. amitriptyline (ELAVIL) 25 mg tablet Take 1 tablet by mouth once daily. (Patient not taking: Reported on 09/30/2022) FLUTICASONE PROPIONATE (FLONASE NASAL) Use 2 Sprays in each nostril once daily. FAMILY HISTORY Problem Relation Age of Onset Allergies Father Allergies Brother Cancer Maternal Grandmother Cancer Maternal Grandfather Coronary Artery Disease Maternal Grandmother Coronary Artery Disease Maternal Grandfather Diabetes Father Diabetes Maternal Grandfather Diabetes Paternal Grandfather Heart Paternal Grandfather Heart Maternal Grandfather Hypertension Father Hypertension Paternal Grandfather Stroke Paternal Grandfather Stroke Maternal Grandfather Hypertension Maternal Grandfather Social History Tobacco Use Smoking status: Never Smokeless tobacco: Never Vaping Use Vaping Use: Never used Substance Use Topics Alcohol use: No Drug use: No Review of Systems Constitutional: Negative for fever. HENT: Positive for sore throat. Negative for congestion, ear pain and nosebleeds. Respiratory: Negative for cough, shortness of breath and wheezing. Musculoskeletal: Negative for neck pain. Objective Blood pressure 124/86, pulse 108, temperature 36.3 C (97.4 F), resp. rate 18, weight (!) 154.7 kg (341 lb), last menstrual period 12/11/2016, SpO2 96 %. Physical Exam Constitutional: General: She is not in acute distress. Appearance: She is not toxic-appearing or diaphoretic. HENT: Head: Normocephalic and atraumatic. Nose: Nose normal. Mouth/Throat: Pharynx: Uvula midline. Posterior oropharyngeal erythema present. No pharyngeal swelling, oropharyngeal exudate or uvula swelling. Eyes: General: Lids are normal. No scleral icterus. Right eye: No discharge. Left eye: No discharge. Conjunctiva/sclera: Conjunctivae normal. Pupils: Pupils are equal, round, and reactive to light. Neck: Trachea: Trachea normal. Cardiovascular: Rate and Rhythm: Regular rhythm. Tachycardia present. Heart sounds: Normal heart sounds. Pulmonary: Effort: Pulmonary effort is normal. Breath sounds: Normal breath sounds. Musculoskeletal: Cervical back: Normal range of motion and neck supple. Lymphadenopathy: Cervical: Cervical adenopathy present. Right cervical: Superficial cervical adenopathy present. Left cervical: Superficial cervical adenopathy present. Skin: Findings: No rash. Neurological: Mental Status: She is alert and oriented to person, place, and time. ASSESSMENT/PLAN: 1. Sore throat - ICD9: 462, ICD10: J02.9 - suspect viral - Group A strep molecular testing negative - Discussed supportive care treatment with fluids, rest and analgesia. - Contagious dz precautions discussed- including considered contagious until on antibiotics for 24 hours - The patient should follow up in 3-5 days if symptoms persist or worsen - STREP A MOLECULAR (POC) - LIDOCAINE HCL 2 % MUCOSAL SOLUTION Tom Thorne APRN.CATH LABORATORY TECHNICIAN documented in this encounter [facility] 12-02-2022 History of Presen t illness Narrative CC: Patient presents with: Sore Throat: diarrhea x 2 days, covid and strep exposure HPI: Pato Boothe is a 37 year old female who presents to the office with complaint of sore throat for a few days. Symptoms are improving Associated symptoms includes diarrhea. Denies headache, body aches, fever, ear pain, cough, nausea, and vomiting . Treatments tried include nothing so far. with no relief of symptoms. Sick contacts: unknown. History of asthma, frequent episodes of bronchitis, chronic bronchitis, bronchiectasis or COPD: No Smoker: No Seasonal/environmental allergies: No The ROS is otherwise negative. The patient's pmh, medications, allergies, and past visits are reviewed. PHYSICAL EXAM: BP 132/80 Pulse 102 Temp 36.4 C (97.6 F) Resp 16 Wt (!) 149.7 kg (330 lb) LMP 12/11/2016 (Approximate) SpO2 96% BMI 50.62 kg/m General appearance: alert, cooperative, pleasant, in no acute distress Head: Normocephalic Eyes: EOM's intact, conjunctiva pink and moist, no icterus, sclera white, non-injected Ears: Right ear: External ear/canal- Normal, TM - clear with good landmarks. Left ear: External ear/canal- Normal, TM - clear with good landmarks Oropharynx:mild erythema, without exudates present Heart: Negative. RRR without obvious murmur, gallop, or rubs. No ectopy. Lungs: clear to auscultation, without rales or wheeze, good air exchange PAST MEDICAL HISTORY Diagnosis Date Dysthymic disorder Depression (non-psychotic) PAST SURGICAL HISTORY Procedure Laterality Date IMPLANON INSERTION 04/23/2013 and Removed LAPAROSCOPIC APPENDECTOMY 06/01/16 LAPS SURG CHOLECYSTECTOMY W/CHOLANGIOGRAPHY Normal IOC ALLERGIES Patient has no known allergies. MEDICATIONS Biotin 1 mg tab Take 1 tablet by mouth once daily. escitalopram oxalate (LEXAPRO) 20 mg tablet Take 20 mg by mouth once daily. Cholecalciferol, Vitamin D3, 50 mcg (2,000 unit) cap Take 1 capsule by mouth once daily. copper (PARAGARD) 380 square mm intrauterine device 1 Intra Uterine Device by INTRAUTERINE route. cetirizine (ZYRTEC) 10 mg tablet Take 1 tablet by mouth once daily as needed. fluticasone (FLONASE) 50 mcg/actuation nasal spray Use 2 Sprays in each nostril once daily. Rinse mouth after use. amitriptyline (ELAVIL) 25 mg tablet Take 1 tablet by mouth once daily. (Patient not taking: Reported on 09/30/2022) FLUTICASONE PROPIONATE (FLONASE NASAL) Use 2 Sprays in each nostril once daily. FAMILY HISTORY Problem Relation Age of Onset Allergies Father Allergies Brother Cancer Maternal Grandmother Cancer Maternal Grandfather Coronary Artery Disease Maternal Grandmother Coronary Artery Disease Maternal Grandfather Diabetes Father Diabetes Maternal Grandfather Diabetes Paternal Grandfather Heart Paternal Grandfather Heart Maternal Grandfather Hypertension Father Hypertension Paternal Grandfather Stroke Paternal Grandfather Stroke Maternal Grandfather Hypertension Maternal Grandfather Social History Tobacco Use Smoking status: Never Smokeless tobacco: Never Vaping Use Vaping Use: Never used Substance Use Topics Alcohol use: No Drug use: No ASSESSMENT/PLAN: 1. Sore throat - ICD9: 462, ICD10: J02.9 (primary diagnosis) - STREP A MOLECULAR (POC)- neg 2. URI, acute - ICD9: 465.9, ICD10: J06.9 - COVID WITH FLUA+B, ROUTINE No treatment at this time. Potential red flag symptoms discussed with the patient. Reviewed appropriate action plan to take if red flag symptoms occur. Patient agreeable to treatment plan. Yasmin Kolb APRN.MG documented in this encounter [facility] 09-30-2022 History of Presen t illness Narrative Images from the original note were not included. This note was created using [employer]we[employer]. Subjective Pato Boothe is a 36 year old female. 36 year old female with PMH HTN presents for finger concerns. Acute onset States she cut her right pinky while doing dishes On knife +right 5th digit Denies numbness ringing. Denies reduced ROM Has been covering the area with dressing and using Bacitracin. States that she would like to be covered with an ATB. Denies drainage. Denies red streaking Denies fever or chills. Right hand dominant. Tdap 2014 The history is provided by the patient. No emergency worker was used. Laceration The incident occurred 3 to 5 days ago. Pain location: finger. The laceration is 1 cm in size. Injury mechanism: knife. The pain is at a severity of 3/10. The pain is mild. The pain has been Constant since onset. She reports no foreign bodies present. Her tetanus status is UTD. PAST MEDICAL HISTORY Diagnosis Date Dysthymic disorder Depression (non-psychotic) PAST SURGICAL HISTORY Procedure Laterality Date IMPLANON INSERTION 04/23/2013 and Removed LAPAROSCOPIC APPENDECTOMY 06/01/16 LAPS SURG CHOLECYSTECTOMY W/CHOLANGIOGRAPHY Normal IOC ALLERGIES Patient has no known allergies. MEDICATIONS Biotin 1 mg tab Take 1 tablet by mouth once daily. escitalopram oxalate (LEXAPRO) 20 mg tablet Take 20 mg by mouth once daily. Cholecalciferol, Vitamin D3, 50 mcg (2,000 unit) cap Take 1 capsule by mouth once daily. copper (PARAGARD) 380 square mm intrauterine device 1 Intra Uterine Device by INTRAUTERINE route. cetirizine (ZYRTEC) 10 mg tablet Take 1 tablet by mouth once daily as needed. fluticasone (FLONASE) 50 mcg/actuation nasal spray Use 2 Sprays in each nostril once daily. Rinse mouth after use. FLUTICASONE PROPIONATE (FLONASE NASAL) Use 2 Sprays in each nostril once daily. cephALEXin (KEFLEX) 500 mg capsule Take 1 capsule by mouth four times daily for 5 days. amitriptyline (ELAVIL) 25 mg tablet Take 1 tablet by mouth once daily. (Patient not taking: Reported on 09/30/2022) FAMILY HISTORY Problem Relation Age of Onset Allergies Father Allergies Brother Cancer Maternal Grandmother Cancer Maternal Grandfather Coronary Artery Disease Maternal Grandmother Coronary Artery Disease Maternal Grandfather Diabetes Father Diabetes Maternal Grandfather Diabetes Paternal Grandfather Heart Paternal Grandfather Heart Maternal Grandfather Hypertension Father Hypertension Paternal Grandfather Stroke Paternal Grandfather Stroke Maternal Grandfather Hypertension Maternal Grandfather Social History Tobacco Use Smoking status: Never Smokeless tobacco: Never Vaping Use Vaping Use: Never used Substance Use Topics Alcohol use: No Drug use: No Review of Systems Constitutional: Negative for activity change, appetite change, chills, diaphoresis and fatigue. Eyes: Negative for photophobia, discharge, redness and itching. Respiratory: Negative for apnea, cough, choking and chest tightness. Cardiovascular: Negative for chest pain, palpitations and leg swelling. Gastrointestinal: Negative for abdominal pain, diarrhea, nausea and vomiting. Musculoskeletal: Negative for arthralgias, back pain, gait problem and joint swelling. Skin: Positive for wound. Negative for color change and pallor. Allergic/Immunologic: Negative for environmental allergies, food allergies and immunocompromised state. Neurological: Negative for dizziness, facial asymmetry, light-headedness and headaches. Hematological: Negative for adenopathy. Does not bruise/bleed easily. Psychiatric/Behavioral: Negative for agitation and behavioral problems. Objective BP 128/80 Pulse 90 Temp 36.8 C (98.2 F) Resp 16 Wt (!) 150.6 kg (332 lb) LMP 12/11/2016 (Approximate) SpO2 97% BMI 50.93 kg/m Physical Exam Vitals and nursing note reviewed. Constitutional: General: She is not in acute distress. Appearance: Normal appearance. She is normal weight. She is not ill-appearing, toxic-appearing or diaphoretic. HENT: Head: Normocephalic and atraumatic. Right Ear: Ear canal and external ear normal. Left Ear: Ear canal and external ear normal. Nose: Nose normal. No congestion or rhinorrhea. Mouth/Throat: Mouth: Mucous membranes are moist. Pharynx: No oropharyngeal exudate or posterior oropharyngeal erythema. Eyes: General: Right eye: No discharge. Left eye: No discharge. Extraocular Movements: Extraocular movements intact. Conjunctiva/sclera: Conjunctivae normal. Pupils: Pupils are equal, round, and reactive to light. Cardiovascular: Rate and Rhythm: Normal rate and regular rhythm. Pulses: Normal pulses. Heart sounds: Normal heart sounds. No murmur heard. No friction rub. Pulmonary: Effort: Pulmonary effort is normal. No respiratory distress. Breath sounds: Normal breath sounds. No stridor. No wheezing, rhonchi or rales. Chest: Chest wall: No tenderness. Abdominal: General: Abdomen is flat. There is no distension. Palpations: Abdomen is soft. There is no mass. Tenderness: There is no abdominal tenderness. There is no right CVA tenderness, left CVA tenderness, guarding or rebound. Hernia: No hernia is present. Musculoskeletal: General: No swelling, tenderness, deformity or signs of injury. Normal range of motion. Hands: Cervical back: Normal range of motion and neck supple. No rigidity. Right lower leg: No edema. Left lower leg: No edema. Lymphadenopathy: Cervical: No cervical adenopathy. Skin: General: Skin is warm and dry. Coloration: Skin is not jaundiced or pale. Findings: No bruising, erythema, lesion or rash. Neurological: General: No focal deficit present. Mental Status: She is alert and oriented to person, place, and time. Cranial Nerves: No cranial nerve deficit. Sensory: No sensory deficit. Motor: No weakness. Coordination: Coordination normal. Gait: Gait normal. Psychiatric: Mood and Affect: Mood normal. Behavior: Behavior normal. Thought Content: Thought content normal. Judgment: Judgment normal. Assessment and Plan ASSESSMENT/PLAN: 1. Laceration of right little finger without foreign body without damage to nail, initial encounter - ICD9: 883.0, ICD10: S61.216A Occurred Concerns for infection, Provided reassurance that it looks good No signs of infection. Will provide a safety net ATB For Keflex, although encouraged patient to hold off and wait. Continue wound care Follow up for re check in 24 hours. Aluminum finger splint provided for comfort Zee Johnson APRN.CATH LABORATORY TECHNICIAN documented in this encounter [facility] 08-17-2022 Instructions Pippa Abbasi - 08/17/2022 1:16 PM EST Images from the original note were not included. What is Plantar Fasciitis? Plantar fasciitis is the most common cause of heel pain. The pain is caused by inflammation of the plantar fascia. If you strain your plantar fascia, it becomes weak, swollen and irritated (inflamed). The resulting pain may be isolated in the heel or may appear at different points on the bottom of the foot, from time to time; it may occur in one foot or both. Some think that plantar fasciitis pain is caused by irritation of nerves from tissue swelling or inflammation, but it is debatable. Plantar fasciitis is common in middle-aged people; it also occurs in younger people who are on their feet a lot, such as athletes or soldiers. The plantar fascia is a strong band of connective tissue that extends from the base of the toes, along the bottom of the foot, to the bottom of the heel (calcaneous bone); it acts like a bowstring to maintain the arch of the foot. What are heel spurs? The inflammatory reaction of the heel bone may produce spike-like projections of new bone, called heel spurs. The spurs sometimes show on X-rays. They neither cause the initial pain nor do they cause the initial problem. However, later, having to walk on spurs may cause sharp pain. What causes plantar fasciitis? Plantar fasciitis is caused by straining the ligament that supports your arch. Repeated strain can cause tiny tears in the ligament. These lead to pain and swelling. During walking, the plantar fascia experiences tension up to twice the body weight with each step. While this is normal, those who spend much time on their feet, such as nurses, hip hop dancer/waiters, and mail carriers, often experience plantar fasciitis. Athletes involved in tennis or other racquet sports, race walking, jogging or running also show a higher incidence of plantar fasciitis than do those participating in other activities. Thus, it's clear that plantar fasciitis is predominantly an overuse injury. In fact, any activity that results in prolonged tension and stress on the plantar fascia may cause plantar fasciitis. It is possible that changes in footwear may play a role in causing plantar fasciitis, no matter what activity is occurring. Those who are overweight are prone to plantar fasciitis. This is true even for sedentary people who get little physical activity. Abnormalities of the foot and ankle joints may predispose some individuals to development of plantar fasciitis (specifically, over pronation of the subtalar joint). Contributing Factors * Flat feet * Toe running, hill running * Sudden weight increase * High-arched, rigid feet * Soft terrain, e.g. running on sand * Obesity * Pronated feet (rolled inward) * Sudden increase in activity * Family tendency * Poor shoe support * Worn out or poorly fitted shoes * Increasing age * Walking, standing or running for long periods of time, especially on hard surfaces. How is the Injury Treated? Rest Your Feet: Limit, or if possible, stop activities that are causing your heel pain. Try to avoid running or walking on hard surfaces, such as concrete. Use pain as your guide. If your foot is too painful, rest it. Ice: Ice the sore area for 30 to 60 minutes, several times a day, to reduce inflammation and relieve pain. Apply a plastic bag of crushed ice (or a bag of frozen peas) over a towel. Ice the sore area for 15 minutes after activity/exercise. Application of heat is not generally recommended, as heat expands the bone and connective tissue, perhaps exerting greater pressure on nerves and thereby increasing pain. If heat is used, follow it with ice. Medication: If your condition developed recently, anti-inflammatory/analgesic medication, combined with heel pads (see below) may be all that is necessary to relieve pain and to reduce inflammation. If no pain relief has occurred after 2-3 weeks, however, your doctor may inject either cortisone or local anesthetic directly into the tender area. Exercises: Do simple exercises, such as calf stretches and towel stretches (see below) several times a day, especially when you first get up in the morning. These can help your ligament become more flexible and strengthen the muscles that support your arch. Shoes: Poorly fitting shoes can cause plantar fasciitis. The best type of shoe to wear is a good walking or running shoe with good shock absorption and excellent arch support. You should choose the one that fits the best. [place] with your athletic shoes to find a pair that is comfortable and causes fewer symptoms. Put your shoes on as soon as you get out of bed; going barefoot or wearing slippers may make your pain worse. Good brands include (but are not limited to): New Balance, Asics, Saucony, SAS and Merrel s. Taping: Your doctor may tape your foot to maintain the arch. This takes some of the tension off the plantar fascia. Weight Loss: If your weight is putting extra stress on your feet, your doctor may encourage you to try a weight-loss program. Orthotics: An orthotic insole is a molded piece of rubber, plastic, or other material that you insert into your shoe. It corrects the alignment of your foot and cushions your foot from excessive pounding. These may be prescription or non-prescription. Prescription orthotics are custom-fitted and may fit better and control pain better, but are very expensive. Night Splints: A night splint holds the foot with the toes pointed up and the ankle at a 90-degree angle. This position applies a constant, gentle stretch to the plantar fascia. Corticosteroid Shots: Steroids may be injected into the tender area to reduce inflammation. REHAB Exercises to stretch the plantar fascia, the calf muscles, and the Achilles tendon. Tightness of the muscles of the calves may contribute to plantar fasciitis, so stretching the calf muscles is important to rehabilitation, as is stretching of the plantar fascia itself. Plantar fascial stretches Assisted Dorsiflexion/Plantar Fascia Stretch: Sit on the floor or ground, barefoot, with both legs outstretched. Use a towel or elastic band and wrap it around the ball (and not the toes) of the affected foot. Use the towel or elastic band to provide resistance to upward movement of the forefoot. Pull foot upward (toward your body) with the help of the elastic band or towel, and then return to the starting position. Ten repetitions are recommended. Perform the sequence at least three times a day. Alternate Plantar Fascia Stretch: Sit upright in a chair, barefoot. Place the ankle of the affected foot on your opposite knee. Using the same hand as the affected foot, reach across and grab the toes. Flex the ankle toward and pull the toes toward the kohli. To test the stretch, place the thumb of your hand on the bottom of the foot. You should be able to feel the cord-like plantar fascia, running the length of the foot. Hold the stretch for a count of 10, then relax. Repeat 10 times. Do the sequence at least three times a day. Achilles/Calf Stretches Strengthening the muscles of the calves may contribute to successful rehabilitation of plantar fasciitis, as well as prevent reoccurrence. The exercises below will help strengthen the calf muscles. Calf and Achilles Tendon Stretch (Gastrocnemius Stretch): Face a wall, standing an arm's length away. Place one foot back. Place both hands on the wall. Bend the elbows and knee of your forward leg, keeping the heel of the backward foot on the floor and keeping your body straight (aligned), until your forehead nearly touches the wall, or until significant stretch is felt in the muscles of the calf of the backward leg. Hold this position for 10 to 15 seconds. Extend elbows (straighten your arms and stand upright again) and maintain this position for 10 seconds. Repeat this cycle 15 to 20 times. Switch legs and repeat the exercise. documented in this encounter [facility] 08-17-2022 History of Presen t illness Narrative Images from the original note were not included. Consultation requested by Dr. Owen for an opinion regarding left heel pain. My final recommendations will be communicated back to the requesting physician by way of shared Medical record or letter to requesting physician via US mail. Initial Podiatric Office Visit: Chief Complaint: This 36 year old female who presents with chief complaint:left heel pain HPI Patient presents to clinic for evaluation of left foot. She complains of pain to the left plantar heel. Pain has been present for several months, worse when she has been on her foot for long periods. Patient currently treatment the pain with rest and tylenol. She also has pain developing to the lateral aspect of right foot. PAIN EVALUATION 08/17/2022 1259 Pain Level: 5 Pain Location: Foot-Left Description: Sharp;Aching Duration Amount of Time: -- several months Duration Units: Months Frequency: Intermittent Intervention/Comfort measure: Reposition;Relaxation No results found for: HBA1C PCP: Solis Martino MD PAST MEDICAL HISTORY Diagnosis Date Dysthymic disorder Depression (non-psychotic) Current Outpatient Medications Medication Sig Biotin 1 mg tab Take 1 tablet by mouth once daily. escitalopram oxalate (LEXAPRO) 20 mg tablet Take 20 mg by mouth once daily. Cholecalciferol, Vitamin D3, 50 mcg (2,000 unit) cap Take 1 capsule by mouth once daily. copper (PARAGARD) 380 square mm intrauterine device 1 Intra Uterine Device by INTRAUTERINE route. cetirizine (ZYRTEC) 10 mg tablet Take 1 tablet by mouth once daily as needed. fluticasone (FLONASE) 50 mcg/actuation nasal spray Use 2 Sprays in each nostril once daily. Rinse mouth after use. amitriptyline (ELAVIL) 25 mg tablet Take 1 tablet by mouth once daily. FLUTICASONE PROPIONATE (FLONASE NASAL) Use 2 Sprays in each nostril once daily. No current facility-administered medications for this visit. ALLERGIES No Known Allergies PAST SURGICAL HISTORY Procedure Laterality Date IMPLANON INSERTION 04/23/2013 and Removed LAPAROSCOPIC APPENDECTOMY 06/01/16 LAPS SURG CHOLECYSTECTOMY W/CHOLANGIOGRAPHY Normal [facility] FAMILY HISTORY Problem Relation Age of Onset Allergies Father Allergies Brother Cancer Maternal Grandmother Cancer Maternal Grandfather Coronary Artery Disease Maternal Grandmother Coronary Artery Disease Maternal Grandfather Diabetes Father Diabetes Maternal Grandfather Diabetes Paternal Grandfather Heart Paternal Grandfather Heart Maternal Grandfather Hypertension Father Hypertension Paternal Grandfather Stroke Paternal Grandfather Stroke Maternal Grandfather Hypertension Maternal Grandfather Social History Tobacco Use Smoking status: Never Smokeless tobacco: Never Vaping Use Vaping Use: Never used Substance Use Topics Alcohol use: No Drug use: No REVIEW OF SYSTEMS GENERAL: Negative for Malaise, significant weight loss, fever RESPIRATORY: Negative for cough, wheezing and shortness of breath CARDIOVASCULAR: Negative for chest pain, leg swelling and palpitations GI: Negative for abdominal discomfort, blood in stools or black stools and change in bowel habits : Negative for dysuria, frequency and incontinence MUSCULOSKELETAL: +pain of left foot SKIN: Negative for lesions, rash, and itching. HEMATOLOGY/LYMPHOLOGY Negative for prolonged bleeding, bruising easily, and swollen nodes. ENDOCRINE: Negative for cold or heat intolerance, polyuria, polydipsia and goiter. NEURO: negative Physical Exam: Constitutional: Pt is a well developed 36 year old female who is alert, oriented and cooperative Eyes: Following during examination. No redness or drainage. Respiratory: RR normal and nonlabored. Even breathing. No evidence of distress or shortness of breath. Psychology: Patient is engaged during conversation. Normal affect and mood. Does not appear depressed or anxious during encounter. Vascular: Dorsalis pedis and posterior tibial pulses palpable as b/l Capillary Fill time < 5 seconds to digits 1-5 b/l Skin temperature warm to warm proximal to distal b/l Hair growth present to digits Neurological: intact light touch/epicritic sensation - tinel b/l intact protective sensation no significant neurological deficits Dermatological: Nails 1-5 b/l appear normal. Webspaces clean and dry 1-4 b/l. Skin appears well hydrated and supple. good color, texture, turgor. No open lesions present. Callus to b/l 5th metatarsal Musculoskeletal/Orthopaedic: Patient has no pain to palpation of b/l feet Foot type is neutral structurally AJ ROM is full with knee extended and flexed 1st MPJ is full when loaded and no pain or crepitus are noted with ROM. MTJ, STJ are full and free of pain and crepitus. +5/5 muscle strength dorsiflexion, plantarflexion, inversion, eversion b/l Radiographs: 3 views b/l foot ordered August 17, 2022: I have personally reviewed and interpreted these XR myself: very small heel spur to left heel ASSESSMENT: (M72.2) Plantar fasciitis (primary encounter diagnosis) (M79.672) Pain of left heel callus PLAN: 1. Initial Office Visit - A thorough review of the patient's PMH and Podiatric physical exam was completed. 2. Patient advised to perform stretching excercises, icing, and to make appropriate shoe gear changes to include wearing athletic-type shoes with supportive insoles. No barefoot walking. Patient also given written instructions on how to correctly perform the stretching of the achilles tendon/calf stretches, and the heel spur/plantar fasciitis regimen. 3. Patient advised to seek wide, deep toe box, accomodative, comfortable, lace-up, athletic/walking type footwear that includes motion control characteristics for support and cushion that need to be worn at all times when weight-bearing. Shoes should be tested for torsional stability as well as proper bending at the toebox rather than at the midfoot. Good quality shoes such as, but not limited to, New Balance or Asics are examples of more proper foot gear. 4. Patient recommended to continue with powerstep insoles for proper support of the arch in order to alleviate the tension and stress on the plantar fascia associated with normal daily walking. Patient advised that these modalities used in conjunction with stretching and icing are able to alleviate most symptoms from this condition. 5. Callus to b/l 5th metatarsal reduced with dremmel. Recommend powerstep inserts with donut hole padding. 6. If pain fails to improve, consider injection. YUN Hill DPM Podiatry [address] [facility] [address] Dept: [phone] Dept AMB ROOMING INTAKE FLOWSHEET DATA Risk Screening Do you have concerns about personal safety or safety in the home?: No Pain Pain Level: 5 Pain Location: Foot-Left Description: Sharp, Aching Duration Amount of Time: (several months) Duration Units: Months Frequency: Intermittent Intervention/Comfort measure: Reposition, Relaxation documented in this encounter [facility] 08-04-2022 History of Presen t illness Narrative POPULATION HEALTH NAVIGATION OUTREACH Action/FYI RP Outreach: M for Patient to call back and schedule [facility] Consult for Pain of left heel [M79.672]. [phone]. Any agent can assist. Pt identified by name and : YES, via [employer] Outreach Outcome/Action Unable to reach patient: Left message Did you use a PCP flex slot to schedule this appointment? No Reason for Outreach Care Gap or Scheduling/Wellness visits Payer: Payor: [facility] MEDICAID / Plan: TERM 08/09 [facility] [place] / Product Type: Medicaid / Care Gap Reviewed:: ORQ Reminder: Reminder note to check Health Maintenance for items below Health Maintenance items due: HEPATITIS B(1 of 3 - 3-dose series) Never done HEPATITIS C SCREENING Never done PAP TESTING due on 12/16/2020 HPV TESTING due on 12/16/2020 COVID-19 VACCINE(3 - Booster for Pfizer series) due on 08/19/2021 DEPRESSION ASSESSMENT Never done INFLUENZA(1) due on 05/11/2022 Message Sent to Practice: No Navigation Signature: Tova Dawkins August 04, 2022 1:59 PM documented in this encounter [facility] 07-14-2022 Instructions Cortney Owen APRN.CNP - 07/14/2022 2:50 PM EDT Small heel spur noted Heel cushion/orthotics Referral to podiatry for further management. documented in this encounter [facility] 07-14-2022 History of Presen t illness Narrative Radiology Service Progress Note PATIENT NAME: Pato Boothe DATE OF SERVICE: July 14, 2022 TIME: 2:34 PM PATIENT IDENTITY VERIFICATION COMPLETED USING TWO (2) IDENTIFIERS: Name and Date of confirmed by patient verbally. FALL SCREENING: Has the patient had 2 falls in the last year or 1 fall with injury or currently using an Ambulatory Assistive Device (Walker, Cane, Wheelchair, Crutches, etc.)? No PATIENT GENDER DATA: Female. status: : No status: NO. PATIENT RELEVANT IMPLANT DATA REVIEWED: Not Applicable RADIOLOGY DEPARTMENT: General X-ray: Exam(s) Completed: Lower Extremity X-Ray(s): Heel, Left PERIPHERAL IV DATA: Not applicable SIGNED BY: RT Natalie(R) July 14, 2022 2:34 PM documented in this encounter [facility] 07-14-2022 History of Presen t illness Narrative Images from the original note were not included. Subjective The history is provided by the patient and the spouse. No emergency worker was used. HPI Pato Boothe is a 36 year old female who presents today for CC of left heel pain for 3 days No injury or trauma No medications or treatment, has not seen provider prior to this. BP 128/82 Pulse 77 Temp 36.2 C (97.1 F) (Tympanic) Resp 18 Wt (!) 148.3 kg (327 lb) LMP 12/11/2016 (Approximate) SpO2 97% BMI 50.16 kg/m Social History Tobacco Use Smoking status: Never Smokeless tobacco: Never Vaping Use Vaping Use: Never used Substance Use Topics Alcohol use: No Drug use: No PAST MEDICAL HISTORY Diagnosis Date Dysthymic disorder Depression (non-psychotic) I have confirmed and edited as necessary, the [facility] Review of Systems Constitutional: Negative for chills and fever. Musculoskeletal: Positive for joint pain (left heel pain). Negative for myalgias. Skin: Negative for itching and rash. All other systems reviewed and are negative. Objective Physical Exam Vitals and nursing note reviewed. Cardiovascular: Pulses: Dorsalis pedis pulses are 2+ on the right side and 2+ on the left side. Posterior tibial pulses are 2+ on the right side and 2+ on the left side. Pulmonary: Effort: Pulmonary effort is normal. Musculoskeletal: Right foot: Normal. Left foot: Normal range of motion and normal capillary refill. Tenderness and bony tenderness present. No swelling, deformity, bunion, Charcot foot, foot drop, prominent metatarsal heads, laceration or crepitus. Normal pulse. Feet: Skin: General: Skin is warm and dry. Neurological: Mental Status: She is alert and oriented to person, place, and time. Sensory: Sensation is intact. Deep Tendon Reflexes: Reflexes are normal and symmetric. Psychiatric: Mood and Affect: Affect normal. ASSESSMENT/PLAN: 1. Pain of left heel - ICD9: 729.5, ICD10: M79.672 Heel cushion Tylenol/ibuprofen prn Follow up with podiatry as needed - XR CALCANEUS 2V AXIAL/LAT LEFT RESULT: There is a tiny Achilles tendon aspect calcaneal spur. No plantar calcaneal spur. No bony destructive change or fracture. IMPRESSION: Essentially unremarkable study Interpreted by : MYLES NJ MD Diagnosis and treatment plan were discussed and questions were answered to the patient's satisfaction. Pt acknowledged understanding of concepts and follow up plan. Specific signs and symptoms that would indicate the need for higher level of care were discussed in detail warranting prompt ER evaluation. Cortney Owen APRN.MG documented in this encounter [facility] 05-11-2022 History of Presen t illness Narrative Images from the original note were not included. Subjective HPI Nontoxic-appearing female presents urgent care chief plaint left foot pain. Duration of symptom 1 month. Associated symptoms left foot pain. Patient states pain has increased over the last few days. Denies any known injury. Has not use any OTC medication. Rates pain 5-6 out of 10 with bearing weight. Denies any numbness no tingling. No decreased sensation. Denies any history of fractures or surgeries to the foot or ankle in the past. Past medical history prescription medication use allergies reviewed. Denies chance of is not breast-feeding. .Patient presents with: left foot pain: Pain in crease of left foot x 1 month but much worse today-cannot recall an injury PAST MEDICAL HISTORY Diagnosis Date Dysthymic disorder Depression (non-psychotic) PAST SURGICAL HISTORY Procedure Laterality Date IMPLANON INSERTION 04/23/2013 and Removed LAPAROSCOPIC APPENDECTOMY 06/01/16 LAPS SURG CHOLECYSTECTOMY W/CHOLANGIOGRAPHY Normal [facility] Patient has no known allergies. MEDICATIONS amitriptyline (ELAVIL) 25 mg tablet Take 1 tablet by mouth once daily. copper (PARAGARD) 380 square mm intrauterine device 1 Intra Uterine Device by INTRAUTERINE route. cetirizine (ZYRTEC) 10 mg tablet Take 1 tablet by mouth once daily as needed. fluticasone (FLONASE) 50 mcg/actuation nasal spray Use 2 Sprays in each nostril once daily. Rinse mouth after use. FLUTICASONE PROPIONATE (FLONASE NASAL) Use 2 Sprays in each nostril once daily. FAMILY HISTORY Problem Relation Age of Onset Allergies Father Allergies Brother Cancer Maternal Grandmother Cancer Maternal Grandfather Coronary Artery Disease Maternal Grandmother Coronary Artery Disease Maternal Grandfather Diabetes Father Diabetes Maternal Grandfather Diabetes Paternal Grandfather Heart Paternal Grandfather Heart Maternal Grandfather Hypertension Father Hypertension Paternal Grandfather Stroke Paternal Grandfather Stroke Maternal Grandfather Hypertension Maternal Grandfather Social History Tobacco Use Smoking status: Never Smokeless tobacco: Never Vaping Use Vaping Use: Never used Substance Use Topics Alcohol use: No Drug use: No BP 136/84 Pulse 75 Temp 36.6 C (97.9 F) (Tympanic) Resp 16 Wt (!) 151.4 kg (333 lb 12.8 oz) LMP 12/11/2016 (Approximate) SpO2 99% BMI 51.20 kg/m Review of Systems Constitutional: Negative for chills, fever and malaise/fatigue. HENT: Negative for congestion, ear discharge, ear pain, sinus pain and sore throat. Eyes: Negative for blurred vision, pain, discharge and redness. Respiratory: Negative for cough, hemoptysis, sputum production, shortness of breath, wheezing and stridor. Cardiovascular: Negative for chest pain. Gastrointestinal: Negative for abdominal pain, diarrhea, nausea and vomiting. Musculoskeletal: Positive for joint pain. Negative for back pain, falls, myalgias and neck pain. Skin: Negative for itching and rash. Neurological: Negative for dizziness and headaches. Objective Physical Exam Constitutional: General: She is not in acute distress. Appearance: She is not diaphoretic. HENT: Head: Normocephalic. Eyes: Conjunctiva/sclera: Conjunctivae normal. Pupils: Pupils are equal, round, and reactive to light. Cardiovascular: Rate and Rhythm: Normal rate and regular rhythm. Heart sounds: Normal heart sounds. Pulmonary: Effort: Pulmonary effort is normal. No tachypnea, accessory muscle usage or respiratory distress. Breath sounds: Normal breath sounds. No stridor. Musculoskeletal: Cervical back: Normal range of motion and neck supple. No rigidity or tenderness. Left ankle: No swelling, deformity, ecchymosis or lacerations. Tenderness present. Normal range of motion. Left Achilles Tendon: No tenderness. Left foot: Normal. Legs: Comments: Point tenderness noted over tendon on highlighted area. No erythema no edema. No breaks in skin. No evidence of bacterial infection neurovascular intact. Lymphadenopathy: Cervical: No cervical adenopathy. Skin: General: Skin is warm and dry. Neurological: Mental Status: She is alert and oriented to person, place, and time. ASSESSMENT/PLAN: 1. Acute left ankle pain - ICD9: 719.47, ICD10: M25.572 - XR ANKLE GENERAL 3V AP/LAT/OBL LEFT IMPRESSION: 1. No evidence of acute fracture or malalignment. 2. Mild spurring at the dorsal margin of the talonavicular joint. No evidence of fractures noted on x-rays. We will treat conservatively at this time. Suspicious of tendinitis. Patient was educated on supportive therapies. Patient will follow up with primary care provider as needed. Patient was instructed to immediately proceed to emergency room for any new, worsening, or symptoms lasting longer than anticipated. The patient's clinical presentation is otherwise unremarkable at this time. Based on exam and clinical finding, the patient is stable for discharge. Plan of care was discussed with patient. Patient verbalizes understanding and agrees to plan of care. This note was generated using [employer] software. It may contain errors in wording, punctuation, or spelling. Michael Cormier APRN.MG documented in this encounter [facility] 04-15-2022 Instructions Cortney Owen APRN.CNP - 04/15/2022 1:40 PM EDT Use cream for one week and then continue for one week later after symptoms are gone. documented in this encounter [facility] 04-15-2022 History of Presen t illness Narrative Images from the original note were not included. Subjective HPI HPI Pato Boothe is a 36 year old female who presents today for CC of red rash under breast that started a week ago and won't go away. She has been using cornstarch without relief. She has a h/o yeast infection in groin as well as under panus, and breast. BP 126/82 Pulse 77 Temp 36.9 C (98.4 F) (Tympanic) Resp 18 Wt (!) 147.7 kg (325 lb 9.6 oz) LMP 12/11/2016 (Approximate) SpO2 97% BMI 49.95 kg/m Social History Tobacco Use Smoking status: Never Smokeless tobacco: Never Vaping Use Vaping Use: Never used Substance Use Topics Alcohol use: No Drug use: No PAST MEDICAL HISTORY Diagnosis Date Dysthymic disorder Depression (non-psychotic) I have confirmed and edited as necessary, the [facility] Review of Systems Constitutional: Negative for chills and fever. Musculoskeletal: Negative for joint pain and myalgias. Skin: Negative for itching and rash. All other systems reviewed and are negative. Objective Physical Exam Vitals and nursing note reviewed. Constitutional: Appearance: She is not toxic-appearing. Pulmonary: Effort: Pulmonary effort is normal. Skin: General: Skin is warm and dry. Findings: Erythema and rash present. Rash is macular. Comments: Erythematous pruritc well demarcated plaques, with raised scaly border on marked area Neurological: Mental Status: She is alert and oriented to person, place, and time. Psychiatric: Mood and Affect: Affect normal. ASSESSMENT/PLAN: 1. Rash - ICD9: 782.1, ICD10: R21 Appears to be tinea cruris Use clotrimazole as discussed Keep area dry Follow up with PCP or dermatology if no resolution Diagnosis and treatment plan were discussed and questions were answered to the patient's satisfaction. Pt acknowledged understanding of concepts and follow up plan. Specific signs and symptoms that would indicate the need for higher level of care were discussed in detail warranting prompt ER evaluation. Cortney Owen APRN.MG documented in this encounter [facility] 07-20-2015 History of Past i llness Narrative Problem Noted Date Resolved Date Elevated blood pressure affe cting in second trimester, antepartum 07/20/2015 12/17/2015 Overview: July 20, 2015 Elevated bps in triage- normal blood work, sent home with 24 urine and to fu in office in 2 days Rneee Mullen MD Supervision of high risk in second [facility] 06/17/2015 12/17/2015 Overview: 06/17/15 - needs 3rd trimester growth US per as had elevated hcg level on sequential screen which is associated with increased risk of IUGR & preeclampsia - KJ Family history of spina bifida 04/02/2015 0 12/17/2015 Overview: FOB with Spina bifida and Hydrocephalus as baby. Unsure of surgical correction surgery. Obesity in 04/02/2015 12/17/2015 Overview: NEW OB- GCT ordered. Encounter for supervision of normal first in first trimester 04/02/2015 06/17/2015 Transient hypertension of , antepartum 04/13/2011 03/25/2012 Unspecified high-risk 01/19/2011 03/25/2012 Calculus of gallbladder with out mention of cholecystitis or obstruction 08/20/2009 03/25/2012 documented as of this encounter (statuses as of 04/15/2022) [facility] History of Past illness Narrative* Problem Noted Date Resolved Date Elevated blood pressure affe cting in second trimester, antepartum 07/20/2015 12/17/2015 Overview: July 20, 2015 Elevated bps in triage- normal blood work, sent home with 24 urine and to fu in office in 2 days Renee Mullen MD Supervision of high risk in second [facility] 06/17/2015 12/17/2015 Overview: 06/17/15 - needs 3rd trimester growth US per as had elevated hcg level on sequential screen which is associated with increased risk of IUGR & preeclampsia - KJ Family history of spina bifida 04/02/2015 0 12/17/2015 Overview: FOB with Spina bifida and Hydrocephalus as baby. Unsure of surgical correction surgery. Obesity in 04/02/2015 12/17/2015 Overview: NEW OB- GCT ordered. Encounter for supervision of normal first in first trimester 04/02/2015 06/17/2015 Transient hypertension of , antepartum 04/13/2011 03/25/2012 Unspecified high-risk 01/19/2011 03/25/2012 Calculus of gallbladder with out mention of cholecystitis or obstruction 08/20/2009 03/25/2012 documented as of this encounter (statuses as of 05/11/2022) [facility] History of Past illness Narrative* Problem Noted Date Resolved Date Elevated blood pressure affe cting in second trimester, antepartum 07/20/2015 12/17/2015 Overview: July 20, 2015 Elevated bps in triage- normal blood work, sent home with 24 urine and to fu in office in 2 days Renee Mullen MD Supervision of high risk in [facility] 06/17/2015 12/17/2015 Overview: 06/17/15 - needs 3rd trimester growth US per as had elevated hcg level on sequential screen which is associated with increased risk of IUGR & preeclampsia - KJ Family history of spina bifida 04/02/2015 0 12/17/2015 Overview: FOB with Spina bifida and Hydrocephalus as baby. Unsure of surgical correction surgery. Obesity in 04/02/2015 12/17/2015 Overview: NEW OB- GCT ordered. Encounter for supervision of normal first in first trimester 04/02/2015 06/17/2015 Transient hypertension of , antepartum 04/13/2011 03/25/2012 Unspecified high-risk 01/19/2011 03/25/2012 Calculus of gallbladder with out mention of cholecystitis or obstruction 08/20/2009 03/25/2012 documented as of this encounter (statuses as of 07/14/2022) [facility] History of Past illness Narrative* Problem Noted Date Resolved Date Elevated blood pressure affe cting in second trimester, antepartum 07/20/2015 12/17/2015 Overview: July 20, 2015 Elevated bps in triage- normal blood work, sent home with 24 urine and to fu in office in 2 days Renee Mullen MD Supervision of high risk in [facility] 06/17/2015 12/17/2015 Overview: 06/17/15 - needs 3rd trimester growth US per as had elevated hcg level on sequential screen which is associated with increased risk of IUGR & preeclampsia - KJ Family history of spina bifida 04/02/2015 0 12/17/2015 Overview: FOB with Spina bifida and Hydrocephalus as baby. Unsure of surgical correction surgery. Obesity in 04/02/2015 12/17/2015 Overview: NEW OB- GCT ordered. Encounter for supervision of normal first in first trimester 04/02/2015 06/17/2015 Transient hypertension of , antepartum 04/13/2011 03/25/2012 Unspecified high-risk 01/19/2011 03/25/2012 Calculus of gallbladder with out mention of cholecystitis or obstruction 08/20/2009 03/25/2012 documented as of this encounter (statuses as of 08/04/2022) [facility] History of Past illness Narrative* Problem Noted Date Resolved Date Elevated blood pressure affe cting in second trimester, antepartum 07/20/2015 12/17/2015 Overview: July 20, 2015 Elevated bps in triage- normal blood work, sent home with 24 urine and to fu in office in 2 days Renee Mullen MD Supervision of high risk in second [facility] 06/17/2015 12/17/2015 Overview: 06/17/15 - needs 3rd trimester growth US per as had elevated hcg level on sequential screen which is associated with increased risk of IUGR & preeclampsia - KJ Family history of spina bifida 04/02/2015 0 12/17/2015 Overview: FOB with Spina bifida and Hydrocephalus as baby. Unsure of surgical correction surgery. Obesity in 04/02/2015 12/17/2015 Overview: NEW OB- GCT ordered. Encounter for supervision of normal first in first trimester 04/02/2015 06/17/2015 Transient hypertension of , antepartum 04/13/2011 03/25/2012 Unspecified high-risk 01/19/2011 03/25/2012 Calculus of gallbladder with out mention of cholecystitis or obstruction 08/20/2009 03/25/2012 documented as of this encounter (statuses as of 08/17/2022) [facility] History of Past illness Narrative* Problem Noted Date Resolved Date Elevated blood pressure affe cting in second trimester, antepartum 07/20/2015 12/17/2015 Overview: July 20, 2015 Elevated bps in triage- normal blood work, sent home with 24 urine and to fu in office in 2 days Renee Mullen MD Supervision of high risk in second [facility] 06/17/2015 12/17/2015 Overview: 06/17/15 - needs 3rd trimester growth US per as had elevated hcg level on sequential screen which is associated with increased risk of IUGR & preeclampsia - KJ Family history of spina bifida 04/02/2015 0 12/17/2015 Overview: FOB with Spina bifida and Hydrocephalus as baby. Unsure of surgical correction surgery. Obesity in 04/02/2015 12/17/2015 Overview: NEW OB- GCT ordered. Encounter for supervision of normal first in first trimester 04/02/2015 06/17/2015 Transient hypertension of , antepartum 04/13/2011 03/25/2012 Unspecified high-risk 01/19/2011 03/25/2012 Calculus of gallbladder with out mention of cholecystitis or obstruction 08/20/2009 03/25/2012 documented as of this encounter (statuses as of 09/30/2022) [facility] History of Past illness Narrative* Problem Noted Date Resolved Date Elevated blood pressure affe cting in second trimester, antepartum 07/20/2015 12/17/2015 Overview: July 20, 2015 Elevated bps in triage- normal blood work, sent home with 24 urine and to fu in office in 2 days Renee Mullen MD Supervision of high risk in second [facility] 06/17/2015 12/17/2015 Overview: 06/17/15 - needs 3rd trimester growth US per as had elevated hcg level on sequential screen which is associated with increased risk of IUGR & preeclampsia - KJ Family history of spina bifida 04/02/2015 0 12/17/2015 Overview: FOB with Spina bifida and Hydrocephalus as baby. Unsure of surgical correction surgery. Obesity in 04/02/2015 12/17/2015 Overview: NEW OB- GCT ordered. Encounter for supervision of normal first in first trimester 04/02/2015 06/17/2015 Transient hypertension of , antepartum 04/13/2011 03/25/2012 Unspecified high-risk 01/19/2011 03/25/2012 Calculus of gallbladder with out mention of cholecystitis or obstruction 08/20/2009 03/25/2012 documented as of this encounter (statuses as of 12/02/2022) [facility] History of Past illness Narrative* Problem Noted Date Diagnosed Date Resolved Date Elevated blood pressure affe cting in second trimester, antepartum 07/20/2015 12/17/19 16 Overview: July 20, 2015 Elevated bps in triage- normal blood work, sent home with 24 urine and to fu in office in 2 days Renee Mullen MD Supervision of high risk pre gnancy in second trimester 06/17/2015 12/17/2015 Overview: 06/17/15 - needs 3rd trimester growth US per as had elevated hcg level on sequential screen which is associated with increased risk of IUGR & preeclampsia - KJ Family history of spina bifida 04/02/2015 12/17/2015 Overview: FOB with Spina bifida and Hydrocephalus as baby. Unsure of surgical correction surgery. Obesity in 04/02/2015 016 Overview: NEW OB- GCT ordered. Encounter for supervision of normal first in first trimester 04/02/2015 06/17/2015 Transient hypertension of pr egnancy, antepartum 04/13/2011 03/25/2012 Unspecified high-risk 01/19/2011 03/25/2012 Calculus of gallbladder with out mention of cholecystitis or obstruction 08/20/2009 03/25/2012 documented as of this encounter (statuses as of 05/02/2023) [facility] History of Past illness Narrative* Problem Noted Date Diagnosed Date Resolved Date Elevated blood pressure affe cting in second trimester, antepartum 07/20/2015 12/17/19 16 Overview: July 20, 2015 Elevated bps in triage- normal blood work, sent home with 24 urine and to fu in office in 2 days Renee Mullen MD Supervision of high risk pre gnancy in second trimester 06/17/2015 12/17/2015 Overview: 06/17/15 - needs 3rd trimester growth US per as had elevated hcg level on sequential screen which is associated with increased risk of IUGR & preeclampsia - KJ Family history of spina bifida 04/02/2015 12/17/2015 Overview: FOB with Spina bifida and Hydrocephalus as baby. Unsure of surgical correction surgery. Obesity in 04/02/2015 016 Overview: NEW OB- GCT ordered. Encounter for supervision of normal first in first trimester 04/02/2015 06/17/2015 Transient hypertension of pr egnancy, antepartum 04/13/2011 03/25/2012 Unspecified high-risk 01/19/2011 03/25/2012 Calculus of gallbladder with out mention of cholecystitis or obstruction 08/20/2009 03/25/2012 documented as of this encounter (statuses as of 06/16/2023) [facility] History of Past illness Narrative* Problem Noted Date Diagnosed Date Resolved Date Elevated blood pressure affe cting in second trimester, antepartum 07/20/2015 12/17/19 16 Overview: July 20, 2015 Elevated bps in triage- normal blood work, sent home with 24 urine and to fu in office in 2 days Renee Mullen MD Supervision of high risk pre gnancy in second trimester 06/17/2015 12/17/2015 Overview: 06/17/15 - needs 3rd trimester growth US per as had elevated hcg level on sequential screen which is associated with increased risk of IUGR & preeclampsia - KJ Family history of spina bifida 04/02/2015 12/17/2015 Overview: FOB with Spina bifida and Hydrocephalus as baby. Unsure of surgical correction surgery. Obesity in 04/02/2015 016 Overview: NEW OB- GCT ordered. Encounter for supervision of normal first in first trimester 04/02/2015 06/17/2015 Transient hypertension of pr egnancy, antepartum 04/13/2011 03/25/2012 Unspecified high-risk 01/19/2011 03/25/2012 Calculus of gallbladder with out mention of cholecystitis or obstruction 08/20/2009 03/25/2012 documented as of this encounter (statuses as of 06/21/2023) [facility] History of Past illness Narrative* Problem Noted Date Diagnosed Date Resolved Date Elevated blood pressure affe cting in second trimester, antepartum 07/20/2015 12/17/19 16 Overview: July 20, 2015 Elevated bps in triage- normal blood work, sent home with 24 urine and to fu in office in 2 days Renee Mullen MD Supervision of high risk pre gnancy in second trimester 06/17/2015 12/17/2015 Overview: 06/17/15 - needs 3rd trimester growth US per as had elevated hcg level on sequential screen which is associated with increased risk of IUGR & preeclampsia - KJ Family history of spina bifida 04/02/2015 12/17/2015 Overview: FOB with Spina bifida and Hydrocephalus as baby. Unsure of surgical correction surgery. Obesity in 04/02/2015 016 Overview: NEW OB- GCT ordered. Encounter for supervision of normal first in first trimester 04/02/2015 06/17/2015 Transient hypertension of pr egnancy, antepartum 04/13/2011 03/25/2012 Unspecified high-risk 01/19/2011 03/25/2012 Calculus of gallbladder with out mention of cholecystitis or obstruction 08/20/2009 03/25/2012 documented as of this encounter (statuses as of 07/08/2023) [facility] History of Past illness Narrative* Problem Noted Date Diagnosed Date Resolved Date Elevated blood pressure affe cting in second trimester, antepartum 07/20/2015 12/17/19 16 Overview: July 20, 2015 Elevated bps in triage- normal blood work, sent home with 24 urine and to fu in office in 2 days Renee Mullen MD Supervision of high risk pre gnancy in second trimester 06/17/2015 12/17/2015 Overview: 06/17/15 - needs 3rd trimester growth US per as had elevated hcg level on sequential screen which is associated with increased risk of IUGR & preeclampsia - KJ Family history of spina bifida 04/02/2015 12/17/2015 Overview: FOB with Spina bifida and Hydrocephalus as baby. Unsure of surgical correction surgery. Obesity in 04/02/2015 016 Overview: NEW OB- GCT ordered. Encounter for supervision of normal first in first trimester 04/02/2015 06/17/2015 Transient hypertension of pr egnancy, antepartum 04/13/2011 03/25/2012 Unspecified high-risk 01/19/2011 03/25/2012 Calculus of gallbladder with out mention of cholecystitis or obstruction 08/20/2009 03/25/2012 documented as of this encounter (statuses as of 07/21/2023) [facility] History of Past illness Narrative* Problem Noted Date Diagnosed Date Resolved Date Elevated blood pressure affe cting in second trimester, antepartum 07/20/2015 12/17/19 16 Overview: July 20, 2015 Elevated bps in triage- normal blood work, sent home with 24 urine and to fu in office in 2 days Renee Mullen MD Supervision of high risk pre gnancy in second trimester 06/17/2015 12/17/2015 Overview: 06/17/15 - needs 3rd trimester growth US per as had elevated hcg level on sequential screen which is associated with increased risk of IUGR & preeclampsia - KJ Family history of spina bifida 04/02/2015 12/17/2015 Overview: FOB with Spina bifida and Hydrocephalus as baby. Unsure of surgical correction surgery. Obesity in 04/02/2015 016 Overview: NEW OB- GCT ordered. Encounter for supervision of normal first in first trimester 04/02/2015 06/17/2015 Transient hypertension of pr egnancy, antepartum 04/13/2011 03/25/2012 Unspecified high-risk 01/19/2011 03/25/2012 Calculus of gallbladder with out mention of cholecystitis or obstruction 08/20/2009 03/25/2012 documented as of this encounter (statuses as of 07/29/2023) [facility] History of Past illness Narrative* Problem Noted Date Diagnosed Date Resolved Date Elevated blood pressure affe cting in second trimester, antepartum 07/20/2015 12/17/19 16 Overview: July 20, 2015 Elevated bps in triage- normal blood work, sent home with 24 urine and to fu in office in 2 days Renee Mullen MD Supervision of high risk pre gnancy in second trimester 06/17/2015 12/17/2015 Overview: 06/17/15 - needs 3rd trimester growth US per as had elevated hcg level on sequential screen which is associated with increased risk of IUGR & preeclampsia - KJ Family history of spina bifida 04/02/2015 12/17/2015 Overview: FOB with Spina bifida and Hydrocephalus as baby. Unsure of surgical correction surgery. Obesity in 04/02/2015 016 Overview: NEW OB- GCT ordered. Encounter for supervision of normal first in first trimester 04/02/2015 06/17/2015 Transient hypertension of pr egnancy, antepartum 04/13/2011 03/25/2012 Unspecified high-risk 01/19/2011 03/25/2012 Calculus of gallbladder with out mention of cholecystitis or obstruction 08/20/2009 03/25/2012 documented as of this encounter (statuses as of 08/14/2023) [facility] History of Past illness Narrative* Problem Noted Date Diagnosed Date Resolved Date Elevated blood pressure affe cting in second trimester, antepartum 07/20/2015 12/17/19 16 Overview: July 20, 2015 Elevated bps in triage- normal blood work, sent home with 24 urine and to fu in office in 2 days Renee Mullen MD Supervision of high risk pre gnancy in second trimester 06/17/2015 12/17/2015 Overview: 06/17/15 - needs 3rd trimester growth US per as had elevated hcg level on sequential screen which is associated with increased risk of IUGR & preeclampsia - KJ Family history of spina bifida 04/02/2015 12/17/2015 Overview: FOB with Spina bifida and Hydrocephalus as baby. Unsure of surgical correction surgery. Obesity in 04/02/2015 016 Overview: NEW OB- GCT ordered. Encounter for supervision of normal first in first trimester 04/02/2015 06/17/2015 Transient hypertension of pr egnancy, antepartum 04/13/2011 03/25/2012 Unspecified high-risk 01/19/2011 03/25/2012 Calculus of gallbladder with out mention of cholecystitis or obstruction 08/20/2009 03/25/2012 documented as of this encounter (statuses as of 08/19/2023) [facility] History of Past illness Narrative* Problem Noted Date Diagnosed Date Resolved Date Elevated blood pressure affe cting in second trimester, antepartum 07/20/2015 12/17/19 16 Overview: July 20, 2015 Elevated bps in triage- normal blood work, sent home with 24 urine and to fu in office in 2 days Renee Mullen MD Supervision of high risk pre gnancy in second trimester 06/17/2015 12/17/2015 Overview: 06/17/15 - needs 3rd trimester growth US per as had elevated hcg level on sequential screen which is associated with increased risk of IUGR & preeclampsia - KJ Family history of spina bifida 04/02/2015 12/17/2015 Overview: FOB with Spina bifida and Hydrocephalus as baby. Unsure of surgical correction surgery. Obesity in 04/02/2015 016 Overview: NEW OB- GCT ordered. Encounter for supervision of normal first in first trimester 04/02/2015 06/17/2015 Transient hypertension of pr egnancy, antepartum 04/13/2011 03/25/2012 Unspecified high-risk 01/19/2011 03/25/2012 Calculus of gallbladder with out mention of cholecystitis or obstruction 08/20/2009 03/25/2012 documented as of this encounter (statuses as of 12/17/2023) [facility] History of Past illness Narrative* Problem Noted Date Diagnosed Date Resolved Date Elevated blood pressure affe cting in second trimester, antepartum 07/20/2015 12/17/19 16 Overview: July 20, 2015 Elevated bps in triage- normal blood work, sent home with 24 urine and to fu in office in 2 days Renee Mullen MD Supervision of high risk pre gnancy in second trimester 06/17/2015 12/17/2015 Overview: 06/17/15 - needs 3rd trimester growth US per as had elevated hcg level on sequential screen which is associated with increased risk of IUGR & preeclampsia - KJ Family history of spina bifida 04/02/2015 12/17/2015 Overview: FOB with Spina bifida and Hydrocephalus as baby. Unsure of surgical correction surgery. Obesity in 04/02/2015 016 Overview: NEW OB- GCT ordered. Encounter for supervision of normal first in first trimester 04/02/2015 06/17/2015 Transient hypertension of pr egnancy, antepartum 04/13/2011 03/25/2012 Unspecified high-risk 01/19/2011 03/25/2012 Calculus of gallbladder with out mention of cholecystitis or obstruction 08/20/2009 03/25/2012 documented as of this encounter (statuses as of 12/18/2023) [facility] note No data available for this section [facility] evaluation note* Diagnosis Rash- Primary Rash and other nonspecific skin eruption documented in this encounter [facility] note* Diagnosis Acute left ankle pain- Primary documented in this encounter [facility] note* Diagnosis Onset Date Resolution Status Dry skin dermatitis noneacti ve Urinary frequency noneactive Urinary urgency noneactive [facility] Work Phone: Evaluation note* Diagnosis Pain of left heel- Primary Pain in limb documented in this encounter [facility] note* Diagnosis Plantar fasciitis- Primary Plantar fascial fibromatosis Pain of left heel Pain in limb documented in this encounter [facility] note* Diagnosis Onset Date Resolution Status Urinary frequency noneactive Urinary urgency noneactive Anxiety and depression chron Hypertension chronic Preventative health care non eactive Xerosis of skin noneactive [facility] Work Phone: Evaluation note* Diagnosis Laceration of right little finger without foreign body without damage to nail, initial encounter- Primary [facility]* Diagnosis Onset Date Resolution Status Anxiety and depression chron Preventative health care non eactive Xerosis of skin noneactive Xeroderma noneactive Menorrhagia with irregular cycle acute [facility] Work Phone: Evaluation note* Diagnosis Onset Date Resolution Status Anxiety and depression chron Preventative health care non eactive Xerosis of skin noneactive Xeroderma noneactive Menorrhagia with irregular cycle acute Menorrhagia with irregular cycle acute [facility] Work Phone: Evaluation note* Diagnosis Sore throat- Primary Acute pharyngitis URI, acute Acute upper respiratory infections of unspecified site documented in this encounter [facility] note* Diagnosis Sore throat- Primary Acute pharyngitis documented in this encounter [facility] note* Diagnosis Pain- Primary Generalized pain documented in this encounter [facility] note* Diagnosis Pharyngitis, unspecified etiology- Primary [facility] Diagnosis APPOINTMENT CANCELLED- Primary [facility] Diagnosis Bacterial sinusitis- Primary Unspecified sinusitis (chronic) [facility] Diagnosis 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 Callus Corns and callosities [facility] Diagnosis Abrasion of left ear, initial encounter- Primary [facility] Diagnosis Peroneal tendinitis of right lower extremity- Primary Other enthesopathy of ankle and tarsus Callus of foot Corns and callosities Pes planus of both feet [facility] Diagnosis Peroneal tendinitis of right lower extremity Other enthesopathy of ankle and tarsus [facility] Diagnosis Peroneal tendinitis of right lower extremity Other enthesopathy of ankle and tarsus Pes planus of both feet [facility] Diagnosis Peroneal tendinitis of right lower extremity- Primary Other enthesopathy of ankle and tarsus Pes planus of both feet [facility] Diagnosis Peroneal tendinitis of right lower extremity- Primary Other enthesopathy of ankle and tarsus Pes planus of both feet [facility] Diagnosis Peroneal tendinitis of right lower extremity- Primary Other enthesopathy of ankle and tarsus Pes planus of both feet [facility] Diagnosis Peroneal tendinitis of right lower extremity- Primary Other enthesopathy of ankle and tarsus Pes planus of both feet [facility] Diagnosis Peroneal tendinitis of right lower extremity- Primary Other enthesopathy of ankle and tarsus Pes planus of both feet [facility] Diagnosis Sore throat- Primary Acute pharyngitis Viral URI with cough Acute upper respiratory infections of unspecified site [facility] Diagnosis Pain Generalized pain [facility] Diagnosis Pain of left heel Pain in limb [facility] Diagnosis Acute right ankle pain Acute left ankle pain [facility]* Diagnosis Right inguinal hernia- Primary Inguinal hernia without mention of obstruction or gangrene, unilateral or unspecified, (not specified as recurrent) Hiatal hernia Diaphragmatic hernia without mention of obstruction or gangrene documented [facility]* Diagnosis Right inguinal hernia Inguinal hernia without mention of obstruction or gangrene, unilateral or unspecified, (not specified as recurrent) Hiatal hernia Diaphragmatic hernia without mention of obstruction or gangrene documented [facility]* Diagnosis Lung nodules- Primary Other nonspecific abnormal finding of lung field documented in this encounter [facility] note* Diagnosis Lung nodules Other nonspecific abnormal finding of lung field documented [facility] this [facility]* Diagnosis Hereditary pancreatitis (HCC)- Primary Acute pancreatitis documented in this encounter [facility] Discharge instructions No data available for this section [facility] Reason for referral (narrative)* Diagnostic Procedure Only (Urgent) - Closed Specialty Diagnoses / Procedures Referred By Contac t Referred To Contact XR IMAGING Diagnoses Acute left ankle pain Procedures XR ANKLE GENERAL 3V AP/LAT/OBL LEFT RADEX ANKLE COMPLETE MINIMUM 3 VIEWS Michael Cormier APRN.CATH LABORATORY TECHNICIAN [address] [place] [address] Xr Imaging Referral ID Status Reason Start Date Expiration Date V isits Requested Visits Authorized [id number] Closed Auto-Generate d Referral 05/11/2022 06/10/2023 1 1 [facility] for referral (narrative)* Diagnostic Procedure Only (Urgent) - Closed Specialty Diagnoses / Procedures Referred By Contac t Referred To Contact XR IMAGING Diagnoses Pain Procedures XR DIGIT GENERAL 3V FRONTAL/LAT/OBL RIGHT RADEX FINGR MINIMUM 2 VIEWS Yasmin Kolb APRN.CATH LABORATORY TECHNICIAN [address] [place] [address] [place] [address] Referral ID Status Reason Start Date Expiration Date V isits Requested Visits Authorized [id number] Closed Auto-Generate d Referral 06/20/2023 07/19/2024 1 1 [facility] for referral (narrative)* Diagnostic Procedure Only (Urgent) - Closed Specialty Diagnoses / Procedures Referred By Contac t Referred To Contact XR IMAGING Diagnoses Pain Procedures XR DIGIT GENERAL 3V FRONTAL/LAT/OBL RIGHT RADEX FINGR MINIMUM 2 VIEWS Yasmin Kolb APRN.CATH LABORATORY TECHNICIAN [address] [place] [address] [place] [address] Referral ID Status Reason Start Date Expiration Date V isits Requested Visits Authorized [id number] Closed Auto-Generate d Referral 06/20/2023 07/19/2024 1 1 [facility] for referral (narrative)* Diagnostic Procedure Only (Routine) - Closed Specialty Diagnoses / Procedures Referred By Contac t Referred To Contact XR IMAGING Diagnoses Pain of left heel Procedures XR CALCANEUS 2V AXIAL/LAT LEFT RADEX CALCANEUS MINIMUM 2 VIEWS Cortney Owen [employer] SUPERVISOR.CATH LABORATORY TECHNICIAN [address] [place] [address] [place] [address] Referral ID Status Reason Start Date Expiration Date V isits Requested Visits Authorized [id number] Closed Auto-Generate d Referral 07/14/2022 08/13/2023 1 1 [facility] for referral (narrative)* Diagnostic Procedure Only (Urgent) - Closed Specialty Diagnoses / Procedures Referred By Contac t Referred To Contact XR IMAGING Diagnoses Acute left ankle pain Procedures XR ANKLE GENERAL 3V AP/LAT/OBL LEFT RADEX ANKLE COMPLETE MINIMUM 3 VIEWS Michael Cormier APRN.CATH LABORATORY TECHNICIAN [address] [place] [address] [place] [address] Referral ID Status Reason Start Date Expiration Date V isits Requested Visits Authorized [id number] Closed Auto-Generate d Referral 05/11/2022 06/10/2023 1 1 [facility] for visit Narrative* Diagnostic Procedure Only (Routine) - Closed Specialty Diagnoses / Procedures Referred By Contac t Referred To Contact XR IMAGING Diagnoses Peroneal tendinitis of right lower extremity Procedures XR FOOT GENERAL 3V AP/LAT/OBL RIGHT RADEX FOOT COMPLETE MINIMUM 3 VIEWS Pippa Abbasi [address] [place] [address] [place] [address] Referral ID Status Reason Start Date Expiration Date V isits Requested Visits Authorized [id number] Closed Auto-Generate d Referral 12/17/2023 01/15/2025 1 1 [facility] for visit Narrative* Diagnostic Procedure Only (Urgent) - Closed Specialty Diagnoses / Procedures Referred By Contac t Referred To Contact XR IMAGING Diagnoses Pain Procedures XR DIGIT GENERAL 3V FRONTAL/LAT/OBL RIGHT RADEX FINGR MINIMUM 2 VIEWS Yasmin Kolb [employer] SUPERVISOR.CATH LABORATORY TECHNICIAN [address] [place] [address] [place] [address] Referral ID Status Reason Start Date Expiration Date V isits Requested Visits Authorized [id number] Closed Auto-Generate d Referral 06/20/2023 07/19/2024 1 1 [facility] for visit Narrative* Diagnostic Procedure Only (Routine) - Closed Specialty Diagnoses / Procedures Referred By Contac t Referred To Contact XR IMAGING Diagnoses Pain of left heel Procedures XR CALCANEUS 2V AXIAL/LAT LEFT RADEX CALCANEUS MINIMUM 2 VIEWS Cortney Owen, [employer] SUPERVISOR.CATH LABORATORY TECHNICIAN [address] [place] [address] [place] [address] Referral ID Status Reason Start Date Expiration Date V isits Requested Visits Authorized [id number] Closed Auto-Generate d Referral 07/14/2022 08/13/2023 1 1 [facility] for visit Narrative* Diagnostic Procedure Only (Urgent) - Closed Specialty Diagnoses / Procedures Referred By Contac t Referred To Contact XR IMAGING Diagnoses Acute right ankle pain Procedures XR ANKLE GENERAL 3V AP/LAT/OBL LEFT RADEX ANKLE COMPLETE MINIMUM 3 VIEWS Michael Cormier APRN.CATH LABORATORY TECHNICIAN [address] [place] [address] [place] [id number] Referral ID Status Reason Start Date Expiration Date V isits Requested Visits Authorized [id number] Closed Auto-Generate d Referral 05/11/2022 06/10/2023 1 1 [facility] for visit Narrative* MRI/CT (Routine) - Pending Review Specialty Diagnoses / Procedures Referred By Radha t Referred To Contact CT IMAGING Diagnoses Right inguinal hernia Hiatal hernia Procedures CT ABD/PEL WO IVCON CT ABD & PELVIS W/O CONTRAST Angelo Palacios MD [address] [place] [address] Phone: tel: fax: [place] [address] Referral ID Status Reason Start Date Expiration Date Visits Requested Visits Authorized [id number] Pending Review Auto-Genera cameron Referral Patient Cleared - Admin/Chair man/Directo r advise to proceed or did not respond 11/27/2024 12/27/2025 1 1 [facility] for visit Narrative* MRI/CT (Routine) - Closed Specialty Diagnoses / Procedures Referred By Radha brynn Referred To Contact CT IMAGING Diagnoses Lung nodules Procedures CT CHEST WO IVCON DIAGNOSTIC COMPUTED TOMOGRAPHY THORAX W/O CNTRST Angelo Palacios MD [address] [place] [address] Phone: tel: fax: [place] [address] Referral ID Status Reason Start Date Expiration Date V isits Requested Visits Authorized [id number] Closed Auto-Generate d Referral 12/11/2024 02/09/2025 1 1 [facility] Summary Purpose Family History No Family History Records Found Relationship Condition Age at Onset Recorded Date/T shoaib father Diabetes mellitus Unknown Malignant neoplasm Unknown Hypertension Unknown grandmother Malignant neoplasm Unknown grandfather Diabetes mellitus Unknown Cardiac disease Unknown sister Diabetes mellitus Unknown Relationship Condition Age at Onset Recorded Date/T shoaib father Diabetes mellitus Unknown Malignant neoplasm Unknown Hypertension Unknown grandmother Malignant neoplasm Unknown grandfather Diabetes mellitus Unknown Cardiac disease Unknown sister Diabetes mellitus Unknown Malignant neoplasm of pancreas Unknown Advance Directives No Advanced Directives Records Found Advance Directive Response Recorded Date/ Time Advance Directives No May 7:24pm Living Will No May 14, 2 020 2:15pm Power of Crime Specialist No May 14, 2020 2:15pm Advance Directive Response Recorded Date/ Time Advance Directives No May 6:24pm Living Will No May 14, 2 020 1:15pm Power of Crime Specialist No May 14, 2020 1:15pm Chief Complaint and Reason for Visit Chief Complaint RASH ON BACK OF NECK AND LT LEG UTI SYMPTOMS Reason for Visit Dry skin dermatitis Urinary frequency Urinary urgency Chief Complaint UTI SYMPTOMS Yearly Reason for Visit Urinary frequency Urinary urgency Anxiety and depression Hypertension Preventative health care Xerosis of skin Chief Complaint Yearly BP CHECk Cracked Dry Hands AUB E ORDER Reason for Visit Anxiety and depressi on Preventative health care Xerosis of skin Xeroderma Menorrhagia with irregular cycle Chief Complaint Yearly BP CHECk Cracked Dry Hands AUB E ORDER EMB BLEEDING Reason for Visit Anxiety and depressi on Preventative health care Xerosis of skin Xeroderma Menorrhagia with irregular cycle Menorrhagia with irregular cycle Reason for Referral Specialty Diagnoses / Procedures Referred By Radha swain Referred To Contact [facility] Diagnoses Peroneal tendinitis of right lower extremity Pes planus of both feet Procedures CONSULT TO PHYSICAL THERAPY PHYSICAL THERAPY EVALUATION HIGH COMPLEX 45 [address] [place] [address] [facility] [address] [address] Referral ID Status Reason Start Date Expiration Date Visits Requested Visits Authorized [id number] Authorized Auto-Generat ed Referral 09/10/2023 09/09/2024 1 1 Specialty Diagnoses / Procedures Referred By Radha swain Referred To Contact XR IMAGING Diagnoses Peroneal tendinitis of right lower extremity Procedures XR FOOT GENERAL 3V AP/LAT/OBL RIGHT RADEX FOOT COMPLETE MINIMUM 3 VIEWS Pippa [address] [place] [address] [place] [address] Referral ID Status Reason Start Date Expiration Date V isits Requested Visits Authorized [id number] Closed Auto-Generate d Referral 12/17/2023 01/15/2025 1 1 Specialty Diagnoses / Procedures Referred By Contac t Referred To Contact Podiatry Diagnoses Pain of left heel Procedures CONSULT TO PODIATRY OFFICE/OUTPATIENT NEW HIGH MDM 60-74 MINUTES Cortney Owen, BANDAR.CATH LABORATORY TECHNICIAN [address] [place] [address] Referral ID Status Reason Start Date Expiration Date Visits Requested Visits Authorized [id number] Authorized PCP Requested Referral 07/14/2022 07/14/2023 1 1 Specialty Diagnoses / Procedures Referred By Contac t Referred To Contact XR IMAGING Diagnoses Pain of left heel Procedures XR CALCANEUS 2V AXIAL/LAT LEFT RADEX CALCANEUS MINIMUM 2 VIEWS Cortney Owen, BANDAR.CATH LABORATORY TECHNICIAN [address] [place] [id number] Xr Imaging Referral ID Status Reason Start Date Expiration Date V isits Requested Visits Authorized [id number] Closed Auto-Generate d Referral 07/14/2022 08/13/2023 1 1 Health Concerns Infection Onset Date Last Indicated Resolved Time COVID-19 Rule-Out 12/02/2022 12/02/2022 Additional Source Comments INFORMATION SOURCE (unrecogn ized section and content) DATE CREATED AUTHOR 09/10/2020 [facility] DATE CREATED AUTHOR AUTHOR'S ORGANIZ ATION 09/06/2021 [facility] ([place]) DATE CREATED AUTHOR AUTHOR'S ORGANIZ ATION 07/07/2025 [facility] DATE CREATED AUTHOR AUTHOR'S ORGANIZ ATION 07/11/2025 [facility] Source Comments (unrecognize d section and content) In the event this informatio n is protected by the Federal Confidentiality of Alcohol and Drug Abuse Patient Records regulations: The Federal rules restrict any use of the information to criminally investigate or prosecute any alcohol or drug abuse patient.[facility] the event this information is protected by the Federal Confidentiality of Alcohol and Drug Abuse Patient Records regulations: The Federal rules restrict any use of the information to criminally investigate or prosecute any alcohol or drug abuse patient.[facility] the event this information is protected by the Federal Confidentiality of Alcohol and Drug Abuse Patient Records regulations: The Federal rules restrict any use of the information to criminally investigate or prosecute any alcohol or drug abuse patient.[facility] the event this information is protected by the Federal Confidentiality of Alcohol and Drug Abuse Patient Records regulations: The Federal rules restrict any use of the information to criminally investigate or prosecute any alcohol or drug abuse patient.[facility] the event this information is protected by the Federal Confidentiality of Alcohol and Drug Abuse Patient Records regulations: The Federal rules restrict any use of the information to criminally investigate or prosecute any alcohol or drug abuse patient.[facility] the event this information is protected by the Federal Confidentiality of Alcohol and Drug Abuse Patient Records regulations: The Federal rules restrict any use of the information to criminally investigate or prosecute any alcohol or drug abuse patient.[facility] the event this information is protected by the Federal Confidentiality of Alcohol and Drug Abuse Patient Records regulations: The Federal rules restrict any use of the information to criminally investigate or prosecute any alcohol or drug abuse patient.[facility] the event this information is protected by the Federal Confidentiality of Alcohol and Drug Abuse Patient Records regulations: The Federal rules restrict any use of the information to criminally investigate or prosecute any alcohol or drug abuse patient.[facility] the event this information is protected by the Federal Confidentiality of Alcohol and Drug Abuse Patient Records regulations: The Federal rules restrict any use of the information to criminally investigate or prosecute any alcohol or drug abuse patient.[facility] the event this information is protected by the Federal Confidentiality of Alcohol and Drug Abuse Patient Records regulations: The Federal rules restrict any use of the information to criminally investigate or prosecute any alcohol or drug abuse patient.[facility] the event this information is protected by the Federal Confidentiality of Alcohol and Drug Abuse Patient Records regulations: The Federal rules restrict any use of the information to criminally investigate or prosecute any alcohol or drug abuse patient.[facility] the event this information is protected by the Federal Confidentiality of Alcohol and Drug Abuse Patient Records regulations: The Federal rules restrict any use of the information to criminally investigate or prosecute any alcohol or drug abuse patient.[facility] the event this information is protected by the Federal Confidentiality of Alcohol and Drug Abuse Patient Records regulations: The Federal rules restrict any use of the information to criminally investigate or prosecute any alcohol or drug abuse patient.[facility] the event this information is protected by the Federal Confidentiality of Alcohol and Drug Abuse Patient Records regulations: The Federal rules restrict any use of the information to criminally investigate or prosecute any alcohol or drug abuse patient.[facility] the event this information is protected by the Federal Confidentiality of Alcohol and Drug Abuse Patient Records regulations: The Federal rules restrict any use of the information to criminally investigate or prosecute any alcohol or drug abuse patient.[facility] the event this information is protected by the Federal Confidentiality of Alcohol and Drug Abuse Patient Records regulations: The Federal rules restrict any use of the information to criminally investigate or prosecute any alcohol or drug abuse patient.[facility] the event this information is protected by the Federal Confidentiality of Alcohol and Drug Abuse Patient Records regulations: The Federal rules restrict any use of the information to criminally investigate or prosecute any alcohol or drug abuse patient.[facility] the event this information is protected by the Federal Confidentiality of Alcohol and Drug Abuse Patient Records regulations: The Federal rules restrict any use of the information to criminally investigate or prosecute any alcohol or drug abuse patient.[facility] the event this information is protected by the Federal Confidentiality of Alcohol and Drug Abuse Patient Records regulations: The Federal rules restrict any use of the information to criminally investigate or prosecute any alcohol or drug abuse patient.[facility] the event this information is protected by the Federal Confidentiality of Alcohol and Drug Abuse Patient Records regulations: The Federal rules restrict any use of the information to criminally investigate or prosecute any alcohol or drug abuse patient.[facility] the event this information is protected by the Federal Confidentiality of Alcohol and Drug Abuse Patient Records regulations: The Federal rules restrict any use of the information to criminally investigate or prosecute any alcohol or drug abuse patient.[facility] the event this information is protected by the Federal Confidentiality of Alcohol and Drug Abuse Patient Records regulations: The Federal rules restrict any use of the information to criminally investigate or prosecute any alcohol or drug abuse patient.[facility] the event this information is protected by the Federal Confidentiality of Alcohol and Drug Abuse Patient Records regulations: The Federal rules restrict any use of the information to criminally investigate or prosecute any alcohol or drug abuse patient.[facility] the event this information is protected by the Federal Confidentiality of Alcohol and Drug Abuse Patient Records regulations: The Federal rules restrict any use of the information to criminally investigate or prosecute any alcohol or drug abuse patient.[facility] the event this information is protected by the Federal Confidentiality of Alcohol and Drug Abuse Patient Records regulations: The Federal rules restrict any use of the information to criminally investigate or prosecute any alcohol or drug abuse patient.[facility] the event this information is protected by the Federal Confidentiality of Alcohol and Drug Abuse Patient Records regulations: The Federal rules restrict any use of the information to criminally investigate or prosecute any alcohol or drug abuse patient.[facility] the event this information is protected by the Federal Confidentiality of Alcohol and Drug Abuse Patient Records regulations: The Federal rules restrict any use of the information to criminally investigate or prosecute any alcohol or drug abuse patient.[facility] the event this information is protected by the Federal Confidentiality of Alcohol and Drug Abuse Patient Records regulations: The Federal rules restrict any use of the information to criminally investigate or prosecute any alcohol or drug abuse patient.[facility] the event this information is protected by the Federal Confidentiality of Alcohol and Drug Abuse Patient Records regulations: The Federal rules restrict any use of the information to criminally investigate or prosecute any alcohol or drug abuse patient.[facility] the event this information is protected by the Federal Confidentiality of Alcohol and Drug Abuse Patient Records regulations: The Federal rules restrict any use of the information to criminally investigate or prosecute any alcohol or drug abuse patient.[facility] the event this information is protected by the Federal Confidentiality of Alcohol and Drug Abuse Patient Records regulations: The Federal rules restrict any use of the information to criminally investigate or prosecute any alcohol or drug abuse patient.[facility] the event this information is protected by the Federal Confidentiality of Alcohol and Drug Abuse Patient Records regulations: The Federal rules restrict any use of the information to criminally investigate or prosecute any alcohol or drug abuse patient.[facility] Hospital[facility] the event this information is protected by the Federal Confidentiality of Alcohol and Drug Abuse Patient Records regulations: The Federal rules restrict any use of the information to criminally investigate or prosecute any alcohol or drug abuse patient.[facility]In the event this information is protected by the Federal Confidentiality of Alcohol and Drug Abuse Patient Records regulations: The Federal rules restrict any use of the information to criminally investigate or prosecute any alcohol or drug abuse patient.[facility] HospitalIn the event this information is protected by the Federal Confidentiality of Alcohol and Drug Abuse Patient Records regulations: The Federal rules restrict any use of the information to criminally investigate or prosecute any alcohol or drug abuse patient.[facility] Reason for Visit (unrecogniz ed section and content) Reason Comments PT Discharge Physical Therapy Specialty Diagnoses / Procedures Referred By Contac t Referred To Contact [facility] Diagnoses Peroneal tendinitis of right lower extremity Pes planus of both feet Procedures PT REHAB FOLLOW UP ORDER THERAPEUTIC EXERCISES RE, EA 15 MIN. Pippa Abbasi [address] [place] [address] [facility] [place] [address] [place] [address] Referral ID Status Reason Start Date Expiration Date V isits Requested Visits Authorized [id number] Closed PCP Requested Referral Auto-Generated Referral 01/03/2024 04/03/2024 6 6 Reason Comments possible yeast infection underbreasts X 3 days Reason Comments left foot pain Pain in crease of le ft foot x 1 month but much worse today-cannot recall an injury Reason Comments left heel pain Heel started hurting 2 days ago-cannot recall an injury Reason Comments New Patient Pain Specialty Diagnoses / Procedures Referred By Radha swain Referred To Contact Podiatry Diagnoses Pain of left heel Procedures CONSULT TO PODIATRY OFFICE/OUTPATIENT NEW HIGH MDM 60-74 MINUTES Cortney Owen, MATTRESS AND BOXSPRINGS SUPERVISOR.CATH LABORATORY TECHNICIAN [address] [place] [address] Referral ID Status Reason Start Date Expiration Date V isits Requested Visits Authorized [id number] Closed PCP Requested Referral 07/14/2022 07/14/2023 1 1 Reason Comments Laceration right pinky finger, cut with knife x 2 days Reason Comments Sore Throat diarrhea x 2 days, c ovid and strep exposure Reason Comments Sore Throat x 1 day Reason Comments Insurance denied medication Reason Comments right pinky pain [place] a pop 15 min a go Reason Comments Sore Throat X 2 days, exposed to strep Reason Comments Appointment Cancelled Reason Comments Sinus Problem Pressure, pain, leoncio estion, cough x 7 days Reason Comments PT Discharge Specialty Diagnoses / Procedures Referred By Radha swain Referred To Contact Physical Therapy / PHYSICAL THERAPY Diagnoses Posterior tibial tendinitis, unspecified leg Corns and callosities Posterior tibial tendon dysfunction [M76.829] Callus of foot [L84] Procedures PHYSICAL THERAPY EVALUATION MOD COMPLEX 30 MINS ORTHOTICS MGMT & TRAING INITIAL ENCTR EA 15 MINS Pippa Abbasi [address] [place] [address] Yaniv Sexton, PT [address] [place] [address] Referral ID Status Reason Start Date Expiration Date V isits Requested Visits Authorized [id number] Closed Patient Cleared - Admin/Chairm an/Director advise to proceed or did not respond 07/12/2023 10/10/2023 1 0 Reason Comments Ear Problem Blood and fluid comi ng from ear no pain Left ear Reason Comments Established Patient Follow Up Pain Callous Reason Comments PT Eval Specialty Diagnoses / Procedures Referred By Radha t Referred To Contact [facility] Diagnoses Peroneal tendinitis of right lower extremity Pes planus of both feet Procedures CONSULT TO PHYSICAL THERAPY PHYSICAL THERAPY EVALUATION HIGH COMPLEX 45 MINS Pippa Abbasi [address] [place] [address] [address] Referral ID Status Reason Start Date Expiration Date V isits Requested Visits Authorized [id number] Closed Auto-Generate d Referral 09/10/2023 09/09/2024 1 1 Reason Comments Physical Therapy Referral ID Status Reason Start Date Expiration Date Visits Requested Visits Authorized [id number] Authorized PCP Requested Referral Auto-Generate d Referral 01/03/2024 04/03/2024 6 6 Reason Comments PT Progress Note Physical Therapy Specialty Diagnoses / Procedures Referred By Radha swain Referred To Contact [facility] Diagnoses Peroneal tendinitis of right lower extremity Pes planus of both feet Procedures PT REHAB FOLLOW UP ORDER THERAPEUTIC EXERCISES RE, EA 15 MIN. Pippa Abbasi [address] [place] [address] [address] Reason Comments Nasal Congestion Sinus pressure and p ain, productive cough, ears pressure, sore throat x 4 days Reason Comments Inguinal Hernia Reason Comments Radiology CT Specialty Diagnoses / Procedures Referred By Radha swain Referred To Contact CT IMAGING Diagnoses Right inguinal hernia Hiatal hernia Procedures CT ABD/PEL WO IVCON CT ABD & PELVIS W/O CONTRAST Angelo Palacios MD [address] [place] [address] Phone: tel: fax: [place] [address] Referral ID Status Reason Start Date Expiration Date Visits Requested Visits Authorized [id number] Pending Review Auto-Genera cameron Referral Patient Cleared - Admin/Chair man/Directo r advise to proceed or did not respond 11/27/2024 12/27/2025 1 1 Reason Comments Follow Up Care Teams (unrecognized sec tion and content) Pin Drafting Machine Tender Relationship Specialty Start Date End Date Solis Martino MD PCP - General Internal Medicine 10/23/17 Pin Drafting Machine Tender Relationship Specialty Start Date End Date Solis Martino MD PCP - General Internal Medicine 10/23/17 Pin Drafting Machine Tender Relationship Specialty Start Date End Date Solis Martino MD PCP - General Internal Medicine 10/23/17 Pin Drafting Machine Tender Relationship Specialty Start Date End Date Solis Martino MD PCP - General Internal Medicine 10/23/17 Pin Drafting Machine Tender Relationship Specialty Start Date End Date Solis Martino MD PCP - General Internal Medicine 10/23/17 Pin Drafting Machine Tender Relationship Specialty Start Date End Date Solis Martino MD PCP - General Internal Medicine 10/23/17 Team Status: Active Member Role Status Dates Dr. Solis Martino MD Family Provider Active Dr. Solis Martino MD Primary Care Provider Active Team Status: Inactive Member Role Status Dates Dr. Solis Martino MD Primary Care Provider, Refer ring Provider Active Bruce Sunshine INSPECTOR CLIP ON SUNGLASSES, INSPECTOR CLIP ON SUNGLASSES-C Attending Provider Active Team Status: Inactive Member Role Status Dates Dr. Solis Martino MD Primary Care Tatianna acuna, Attending Provider, Referring Provider Active Team Status: Inactive Member Role Status Dates Dr. Solis Martino MD Primary Care Provider, Refer ring Provider Active JESUS Altamirano Attending Provider Active Team Status: Inactive Member Role Status Dates Dr. Solis Martino MD Primary Care Provider, Refer ring Provider Active Sandrita Carnes INSPECTOR CLIP ON SUNGLASSES, INSPECTOR CLIP ON SUNGLASSES-C Attending Provider Active Team Status: Inactive Member Role Status Dates Dr. Solis Martino MD Primary Care Provider Active Bruce Sunshine INSPECTOR CLIP ON SUNGLASSES, INSPECTOR CLIP ON SUNGLASSES-C Attending Provider, Referring Prov ider Active Team Status: Inactive Member Role Status Dates Dr. Solis Martino MD Primary Care Provider Active Sandrita Carnes INSPECTOR CLIP ON SUNGLASSES, INSPECTOR CLIP ON SUNGLASSES-C Attending Provider Active Team Status: Inactive Member Role Status Dates Dr. Solis Martino MD Primary Care Provider Active Sandrita Carnes INSPECTOR CLIP ON SUNGLASSES, INSPECTOR CLIP ON SUNGLASSES-C Attending Provider, Referring Provider Active Team Status: Active Member Role Status Dates Dr. Solis Martino MD Primary Care Provider Active Sandrita Carnes INSPECTOR CLIP ON SUNGLASSES, INSPECTOR CLIP ON SUNGLASSES-C Attending Provider Active Pin Drafting Machine Tender Relationship Specialty Start Date End Date oSlis Martino MD PCP - General Internal Medicine 10/23/17 Pin Drafting Machine Tender Relationship Specialty Start Date End Date Solis Martino MD PCP - General Internal Medicine 10/23/17 Pin Drafting Machine Tender Relationship Specialty Start Date End Date Solis Martino MD PCP - General Internal Medicine 10/23/17 Pin Drafting Machine Tender Relationship Specialty Start Date End Date Solis Martino MD PCP - General Internal Medicine 10/23/17 Pin Drafting Machine Tender Relationship Specialty Start Date End Date Solis Martino MD PCP - General Internal Medicine 10/23/17 Pin Drafting Machine Tender Relationship Specialty Start Date End Date Solis Martino MD PCP - General Internal Medicine 10/23/17 Pin Drafting Machine Tender Relationship Specialty Start Date End Date Solis Martino MD PCP - General Internal Medicine 10/23/17 Pin Drafting Machine Tender Relationship Specialty Start Date End Date Solis Martino MD PCP - General Internal Medicine 10/23/17 Pin Drafting Machine Tender Relationship Specialty Start Date End Date Solis Martino MD PCP - General Internal Medicine 10/23/17 Pin Drafting Machine Tender Relationship Specialty Start Date End Date Solis Martino MD PCP - General Internal Medicine 10/23/17 Pin Drafting Machine Tender Relationship Specialty Start Date End Date Solis Martino MD PCP - General Internal Medicine 10/23/17 [employer] Relationship Specialty Start Date End Date Solis Martino MD PCP - General Internal Medicine 10/23/17 [employer] Relationship Specialty Start Date End Date Solis Martino MD PCP - General Internal Medicine 10/23/17 [employer] Tender Relationship Specialty Start Date End Date Solis Martino MD PCP - General Internal Medicine 10/23/17 [employer] Tender Relationship Specialty Start Date End Date Solis Martino MD PCP - General Internal Medicine 10/23/17 [employer] T[employer] Relationship Specialty Start Date End Date Solis Martino MD PCP - General Internal Medicine 10/23/17 [employer] Tender Relationship Specialty Start Date End Date Solis Martino MD PCP - General Internal Medicine 10/23/17 [employer] Tender Relationship Specialty Start Date End Date Solis Martino MD PCP - General Internal Medicine 10/23/17 [employer] Tender Relationship Specialty Start Date End Date Solis Martino MD PCP - General Internal Medicine 10/23/17 [employer] Machine Tender Relationship Specialty Start Date End Date Solis Martino MD PCP - General Internal Medicine 10/23/17 [employer] Tender Relationship Specialty Start Date End Date Solis Martino MD PCP - General Internal Medicine 10/23/17 [employer] T[employer] Relationship Specialty Start Date End Date Solis Martino MD PCP - General Internal Medicine 10/23/17 [employer] Tender Relationship Specialty Start Date End Date Solis Martino MD PCP - General Internal Medicine 10/23/17 Rachid Short DO [address] [id number] Referring Gastroenterology 03/30/25 [employer] Tender Relationship Specialty Start Date End Date Solis Martino MD PCP - General Internal Medicine 10/23/17 Rachid Short DO [id number] [id number] Referring Gastroenterology 03/30/25 Goals (unrecognized section and content) Goals may be documented in a n alternate section FOR RECORDS PERTAINING TO PATIENTS WHO ARE OR HAVE BEEN ENROLLED IN A CHEMICAL DEPENDENCY/SUBSTANCEABUSE PROGRAM, SOME INFORMATION MAY BE OMITTED. This clinical summary was aggregated from multiple sources. Caution should be exercised in using it in the provision of clinical care. This summary normalizes information from multiple sources, and as a consequence, information in this document may materially change the coding, format and clinical context of patient data. In addition, data may be omitted in some cases. CLINICAL DECISIONS SHOULD BE BASED ON THE PRIMARY CLINICAL RECORDS. [employer] [email or web address] provides no warranty or guarantee of the accuracy or completeness of information in this document.
[2025-08-26 22:30] VITALS: BP 152/96; PULSE 100; RESP 17; TEMP 37.1; O2SAT 100
== END 2025-08-26 22:32 | disposition home or self-care (01) ==
PROVIDERS: Emergency Provider Emergency Medicine; PCP Internal Medicine; Visit Provider Emergency Medicine
DX: M25.562 Pain in left knee (principal); I10 Essential (primary) hypertension; Z90.49 Acquired absence of other specified parts of digestive tract; K21.9 Gastro-esophageal reflux disease without esophagitis; F32.A Depression, unspecified
CPT/HCPCS: 73564; 99282